=== PATIENT | female | born 1945 | race Caucasian/White ===

== ENCOUNTER → 2017-05-30 04:58 | Emergency (ER) | payer MEDICARE ==
[~2017-05-30 04:58] MED LIST: Morphine INJ* 4 MG/ML 1 ML SYRINGE IV ONE; NS 0.9% 1000 ML* 1,000 ML IV ONE; Ondansetron INJ* 2 MG/ML VIAL IV ONE
[2017-05-30 05:57] LABS: Hematocrit 40 % (35-47); Hemoglobin 13.2 g/dl (12.0-16.0); Mean Corpuscular HGB Conc 33 g/dl (31-36); Mean Corpuscular Hemoglobin 32 pg (27-31); Mean Corpuscular Volume 95 fL (80-97); Mean Platelet Volume 8 um3 (7.4-10.4); Red Blood Count 4.15 10^6/ul (4.0-5.4); Red Cell Distribution Width 14 % (10.5-15); White Blood Count 8.6 10^3/ul (3.5-10.8)
[2017-05-30 06:17] LABS: Albumin 3.7 g/dL (3.2-5.2); BUN/Creatinine Ratio 16.7 (8-20); Calcium 9.3 mg/dL (8.6-10.3); EGFR African American 92.8 (>60); EGFR Non-African American 72.2 (>60); Globulin 3.7 g/dL (2-4); Potassium 3.8 mmol/L (3.5-5.0); Total Bilirubin 0.4 mg/dL (0.2-1.0); Total Protein 7.4 g/dL (6.4-8.9)
[2017-05-30 06:19] LABS: Troponin I 0.01 ng/mL (<0.04)
--- NOTE | 2017-05-30 06:52 | ED ---
García Saunders Rebecca, scribed for Chaitanya Rodriguez MD on 05/30/17 at 0516 . Upper Extremity Pain - HPI Summary HPI Summary: Pt is a 72 y/o F who presents to ED c/o RUE pain and mild swelling s/p cardiac catheterization 5 days ago. Pain began 5 days immediately s/p catheterization and has been constant and worsening since onset. Pain is worst on the forearm and is currently severe, ranked 8/10 and characterized as an aching pain. Sx aggravated by movement and alleviated by nothing, unchanged by Tylenol. Denies CP, numbness, tingling and cough. PMHx blood clot in the LUE. Is on Xarelto to treat A Fib. Does not take ASA or Plavix. Cardiac catheterization done through the radial artery in [place]. Has an appointment with Dr. Hollis today. - History of Current Complaint Chief Complaint: EDExtremityUpper Stated Complaint: RIGHT ARM PAIN//DIFF BREATHING Time Seen by Provider: 05/30/17 05:14 Hx Obtained From: Patient Onset/Duration: Started Days Ago - 5 days ago, Still Present Timing: Constant Severity Currently: Severe - 8/10 Pain Location: Forearm - RUE Character: Aching Aggravating Factor(s): Nothing Alleviating Factor(s): Nothing Associated Signs & Symptoms: Positive: Swelling - Allergies/Home Medications Allergies/Adverse Reactions: Allergies Allergy/AdvReac Type Severity Reaction Status Date / Time Codeine Allergy Intermediate GI Upset Verified 05/09/17 10:52 Lisinopril Allergy Intermediate Coughing Verified 05/09/17 10:52 Spironolactone Allergy Intermediate Dizziness Verified 05/09/17 10:52 Roflumilast [From Dalires] Allergy Unknown Unknown Verified 05/09/17 10:52 Reaction Details Aspirin AdvReac Intermediate Abdominal Verified 05/09/17 10:52 Pain and upset stomach if dose is >81mg PMH/Surg Hx/FS Hx/Imm Hx Endocrine/Hematology History: Reports: Hx Diabetes - TYPE 2, Hx Thyroid Disease Cardiovascular History: Reports: Hx Angina, 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, Hx Congestive Heart Failure - SYSTOLIC HEART FAILURE, Hx Coronary Artery Disease, Hx Hypercholesterolemia, Hx Hypertension - WELL CONTROLLED, Hx Myocardial Infarction, Hx Pacemaker/ICD, Hx Valvular Heart Disease - PAROXYSMAL A-FIB, Other Cardiovascular Problems/Disorders - HX ISCHEMIC CARDIOMYOPATHY, PERICARDIAL EFFUSION 01/17 Respiratory History: Reports: Hx Asthma, Hx Chronic Obstructive Pulmonary Disease (COPD), Hx Pulmonary Embolism, Hx Sleep Apnea Denies: Hx Cystic Fibrosis GI History: Reports: Hx Gastroesophageal Reflux Disease - CONTROL WITH MEDS, Other GI Disorders - OCCASIONAL ESOPHAGEAL SPASMS History: Reports: Hx Kidney Stones - LEFT, Other Problems/Disorders - HX OF SEPSIS, UTI 11/27/15, LEFT URETERAL CALCULUS Musculoskeletal History: Reports: Other Musculoskeletal History - HX SCIATICA LEFT LEG Sensory History: Reports: Hx Cataracts - ASHLEE, Hx Contacts or Glasses - GLASSES Denies: Hx Hearing Aid Opthamlomology History: Reports: Hx Cataracts - ASHLEE, Hx Contacts or Glasses - GLASSES Neurological History: Reports: Other Neuro Impairments/Disorders - RESTLESS LEG SYNDROME - Surgical History Surgery Procedure, Year, and Place: 28 YRS OF AGE- BILAT BUNIONECTOMIES- [facility] [place]. 1967 - [facility]. 1967 APPENDECTOMY- [facility]. 01/11/2015 PACEMAKER/AICD- [facility] [place]. CYSTO WITH STENT INSERTION X3- [facility] [place] Hx Anesthesia Reactions: No Infectious Disease History: Yes Infectious Disease History: Denies: Traveled Outside the [place] in Last 30 Days - Family History Known Family History: Positive: Other - Cataract (brother) - Social History Alcohol Use: None Substance Use Type: Reports: None Smoking Status (MU): Former Smoker Type: Cigarettes Amount Used/How Often: PACK A DAY Length of Time of Smoking/Using Tobacco: 20 Have You Smoked in the Last Year: No Review of Systems Negative: Chest Pain Negative: Cough Positive: Arthralgia - RUE pain and swelling s/p catheterization Neurological: Other - Denies tingling Negative: Numbness All Other Systems Reviewed And Are Negative: Yes Physical Exam - Summary Physical Exam Summary: The patient is well-nourished in mild respiratory distress. The skin is warm and dry and skin color reflects adequate perfusion. HEENT: The head is normocephalic and atraumatic. The pupils are equal and reactive. The conjunctivae are clear and without drainage. Nares are patent and without drainage. Mouth reveals moist mucous membranes and the throat is without erythema and exudate. The external ears are intact. The ear canals are patent and without drainage. The tympanic membranes are intact. Neck is supple with full range of motion and non-tender. There are no carotid bruits. There is no neck vein distension. Respiratory: Chest is non-tender. Lungs are clear to auscultation. Diminished breath sounds on the L side. Cardiovascular: Hear is regular rate and rhythm. There is no murmur or rub auscultated. There is no peripheral edema. Abdomen: The abdomen is soft and non-tender. There are normal bowel sounds heard in all four quadrants and there is no organomegaly palpated. Musculoskeletal: There is no back pain noted. Extremities are non-tender with full range of motion. There is good capillary refill. There is no peripheral edema or calf tenderness elicited. On the RUE she has a palpable radial pulse that feels faint and a faint ulnar pulse with FROM. No bruit heard over the puncture site. RUE is more swollen than her LUE. Good brachial pulses. It is not erythematous or hot. Some ecchymosis. No swelling of the lower extremities. Neurological: Patient is alert and oriented to person, place and time. The patient has symmetrical motor strength in all four extremities. Cranial nerves are grossly intact. Deep tendon reflexes are symmetrical and equal in all four extremities. Psychiatric: The patient has an appropriate affect and does not exhibit any anxiety or depression. Triage Information Reviewed: Yes Vital Signs On Initial Exam: Initial Vitals Temp Pulse Resp BP Pulse Ox 97.8 F 99 18 119/82 95 05/30/17 05:04 05/30/17 05:04 05/30/17 05:04 05/30/17 05:04 05/30/17 05:04 Vital Signs Reviewed: Yes Diagnostics - Vital Signs Vital Signs Temp Pulse Resp BP Pulse Ox 05/30/17 05:08 97.8 F 99 18 119/82 95 05/30/17 05:04 97.8 F 99 18 119/82 95 - Laboratory Lab Results: Lab Results 05/30/17 05/30/17 05/30/17 Range/Units 05:40 05:40 05:40 WBC 8.6 (3.5-10.8) 10^3/ul RBC 4.15 (4.0-5.4) 10^6/ul Hgb 13.2 (12.0-16.0) g/dl Hct 40 (35-47) % MCV 95 (80-97) fL MCH 32 H (27-31) pg MCHC 33 (31-36) g/dl RDW 14 (10.5-15) % Plt Count 235 (150-450) 10^3/ul MPV 8 (7.4-10.4) um3 Neut % (Auto) 43.6 (38-83) % Lymph % (Auto) 38.6 (25-47) % Payette % (Auto) 11.9 H (1-9) % Eos % (Auto) 5.3 (0-6) % Baso % (Auto) 0.6 (0-2) % Absolute Neuts (auto) 3.8 (1.5-7.7) 10^3/ul Absolute Lymphs (auto) 3.3 (1.0-4.8) 10^3/ul Absolute Monos (auto) 1.0 H (0-0.8) 10^3/ul Absolute Eos (auto) 0.5 (0-0.6) 10^3/ul Absolute Basos (auto) 0.1 (0-0.2) 10^3/ul Absolute Nucleated RBC 0 10^3/ul Nucleated RBC % 0 INR (Anticoag Therapy) 1.80 H (0.89-1.11) APTT 39.7 H (26.0-36.3) seconds Sodium 136 (133-145) mmol/L Potassium 3.8 (3.5-5.0) mmol/L Chloride 105 (101-111) mmol/L Carbon Dioxide 23 (22-32) mmol/L Anion Gap 8 (2-11) mmol/L BUN 13 (6-24) mg/dL Creatinine 0.78 (0.51-0.95) mg/dL Est GFR ( Amer) 92.8 (>60) Est GFR (Non-Af Amer) 72.2 (>60) BUN/Creatinine Ratio 16.7 (8-20) Glucose 159 H (70-100) mg/dL Lactic Acid (0.5-2.0) mmol/L Calcium 9.3 (8.6-10.3) mg/dL Total Bilirubin 0.40 (0.2-1.0) mg/dL AST 14 (13-39) U/L ALT 14 (7-52) U/L Alkaline Phosphatase 104 (34-104) U/L Troponin I 0.01 (<0.04) ng/mL Total Protein 7.4 (6.4-8.9) g/dL Albumin 3.7 (3.2-5.2) g/dL Globulin 3.7 (2-4) g/dL Albumin/Globulin Ratio 1.0 (1-3) 05/30/17 Range/Units 05:40 WBC (3.5-10.8) 10^3/ul RBC (4.0-5.4) 10^6/ul Hgb (12.0-16.0) g/dl Hct (35-47) % MCV (80-97) fL MCH (27-31) pg MCHC (31-36) g/dl RDW (10.5-15) % Plt Count (150-450) 10^3/ul MPV (7.4-10.4) um3 Neut % (Auto) (38-83) % Lymph % (Auto) (25-47) % Payette % (Auto) (1-9) % Eos % (Auto) (0-6) % Baso % (Auto) (0-2) % Absolute Neuts (auto) (1.5-7.7) 10^3/ul Absolute Lymphs (auto) (1.0-4.8) 10^3/ul Absolute Monos (auto) (0-0.8) 10^3/ul Absolute Eos (auto) (0-0.6) 10^3/ul Absolute Basos (auto) (0-0.2) 10^3/ul Absolute Nucleated RBC 10^3/ul Nucleated RBC % INR (Anticoag Therapy) (0.89-1.11) APTT (26.0-36.3) seconds Sodium (133-145) mmol/L Potassium (3.5-5.0) mmol/L Chloride (101-111) mmol/L Carbon Dioxide (22-32) mmol/L Anion Gap (2-11) mmol/L BUN (6-24) mg/dL Creatinine (0.51-0.95) mg/dL Est GFR ( Amer) (>60) Est GFR (Non-Af Amer) (>60) BUN/Creatinine Ratio (8-20) Glucose (70-100) mg/dL Lactic Acid 2.4 H* (0.5-2.0) mmol/L Calcium (8.6-10.3) mg/dL Total Bilirubin (0.2-1.0) mg/dL AST (13-39) U/L ALT (7-52) U/L Alkaline Phosphatase (34-104) U/L Troponin I (<0.04) ng/mL Total Protein (6.4-8.9) g/dL Albumin (3.2-5.2) g/dL Globulin (2-4) g/dL Albumin/Globulin Ratio (1-3) Result Diagrams: 05/30/17 05:40 05/30/17 05:40 Lab Statement: Any lab studies that have been ordered have been reviewed, and results considered in the medical decision making process. - EKG 0605 Cardiac Rate: NL - [address] Segment: Non-Specific - Non-specific ST changes Ectopy: PVCs EKG Interpretation: No STEMI Course/Dx - Course Assessment/Plan: Pt is a 72 y/o F who presents to ED c/o severe RUE pain and mild swelling s/p cardiac catheterization 5 days ago. Pain began 5 days immediately s/p catheterization and has been constant and worsening since onset. Pain is worst on the forearm and is currently characterized as an aching pain. Sx aggravated by movement and unchanged by Tylenol. Denies CP, numbness, tingling and cough. PMHx blood clot in the LUE. Is on Xarelto to treat A Fib. Does not take ASA or Plavix. Cardiac catheterization done through the right radial artery in [place], [place]. Has an appointment with Dr. Hollis today. Lactic acid of 2.4, Troponin of 0.01. EKG reveals no STEMI. Pt will be signed out to Dr. Bradley, pending dispo, awaiting VL Upper Extremity. - Diagnoses Differential Diagnosis/HQI/PQRI: Positive: Other - arterial occlusion, thombosis , Provider Diagnoses: Right arm pain Discharge - Discharge Plan Condition: Good Disposition: OTHER Discharge Disposition Comment: Pt will be signed out, pending dispo, awaiting VL Upper Extremity Referrals: Ok Sales MD [Primary Care Provider] - The documentation as recorded by the García alcazar Rebecca accurately reflects the service I personally performed and the decisions made by , Chaitanya Rodriguez MD.
--- NOTE | 2017-05-30 08:51 | RAD ---
Indication: Right upper extremity recent catheterization with pain. Real-time sonography of the upper extremity arterial system was performed. The right subclavian artery, axillary artery, brachial artery are patent, the ulnar artery appear patent. In the area of pain there is no flow with echogenic material in the radial artery. The palmar arch is intact. Retrograde flow is noted in the radial artery distal to the occlusion. IMPRESSION: THERE IS THROMBUS AND OCCLUSION OF THE RADIAL ARTERY AT THE SITE OF PAIN IN THE DISTAL FOREARM.
--- NOTE | 2017-05-30 10:22 | ED ---
I, Darren Brennan, scribed for Humberto Bradley MD on 05/30/17 at 0907 . Progress - Progress Note Progress Note: 72yo female c/o RUE pain. Signout from Dr. Rodriguez, pending Doppler study report. - Results/Orders Results/Orders: VL UPPER EXT ART DUPLEX RIGHT IMPRESSION: THERE IS THROMBUS AND OCCLUSION OF THE RADIAL ARTERY AT THE SITE OF PAIN IN THE DISTAL FOREARM. Course/Dx - Course Course Of Treatment: Discussed to [facility] ED Attending Physician at 1003. `Ms. Johnson was accepted by Dr. Chavarria to evaluate her thrombosed radial artery but she adamantly refused to be transfered by EMS so I discharged her to go straight to the ED at [facility]. Her agreed to take her there. N/V/M is completely intact in her hand at this time. - Diagnoses Provider Diagnoses: Radial artery thrombosis, right The documentation as recorded by the Mika alcazar Benjamin accurately reflects the service I personally performed and the decisions made by me, Humberto Bradley MD.
[2017-05-30 10:30] VITALS: BP 134/81
== END ==
LOC: ED 04:58
DX: I74.2 Embolism and thrombosis of arteries of the upper extremities (principal); M79.601 Pain in right arm
CPT/HCPCS: 36415; 80053; 83605; 84484; 85025; 85610; 85730; 93005; 96374; 96375; 99283; J2270; J2405

== ENCOUNTER 2017-11-09 12:11 | Emergency (ER) | payer MEDICARE ==
--- OUTSIDE RECORDS SUMMARY | 2017-11-09 12:38 | XMS REPORT ---
:1945 External Reference #:[id number] Author Organization [facility] Address [address] [address] Phone [phone] Care Team Providers Name Role Phone Jeovany Glaser MD Primary Care Physician Unavailable Payers Type Date Identification Numbers Payment Provider Subscriber Commercial Effective: Policy Number: BS Facets Ezequiel Johnson 2013 [id number] Expires: 2017 PayID: [id number] [address] [address] DANIEL Rogers [address] Medigap Part B Effective: 2008 Policy Number: [id number] Medicare Nicolasa Johnson PayID: [id number] [address] [place] [address] Medigap Part B Effective: 2010 Policy Number: BS Facets Nicolasa Johnson [id number] Expires: 2010 PayID: [id number] [address] [address] DANIEL Rogers [address] Medigap Part B Policy Number: [id number] [facility] Nicolasa Johnson PayID: [id number] [address] [place] [address] Problems Date Description Provider Status Onset: 04/24/2012 Mitral valve disorder Tyrone Hollis M.D. Active Onset: 04/24/2012 Benign essential hypertension Tyrone Hollis M.D. Active Onset: 04/24/2012 Primary cardiomyopathy Tyrone Hollis M.D. Active Onset: 04/24/2012 Hypoxemia Tyrone Hollis M.D. Active Onset: 01/06/2014 Coronary arteriosclerosis Tyrone Hollis M.D. Active Onset: 01/06/2014 Chest pain Tyrone Hollis M.D. Active Onset: 01/22/2014 Pulmonary emphysema Mohan Villalobos M.D. Onset: 01/22/2014 Dyspnea Mohan Villalobos M.D. Onset: 02/03/2014 Patient post percutaneous Tomasa Burt Active transluminal coronary angioplasty M.D. Onset: 02/03/2014 Electrocardiogram abnormal Mohan Villalobos M.D. Onset: 08/13/2015 Cardiomyopathy, unspecified [place] ECHO Schedule Active Onset: 02/21/2017 Chronic obstructive lung disease Brittany Roper MD Active Onset: 02/21/2017 Obstructive sleep apnea syndrome Brittany Roper MD Active Social History Type Date Description Comments Marital Status Lives With Occupation Retired ETOH Use Denies alcohol use Smoking Patient is a former smoker Quit 2003 Recreational Drug Use Never Used Drugs Daily Caffeine Consumes on average 8oz of soda occasionally when she soda per day has a esophageal spasm Daily Caffeine Consumes on average 1 cup of regular coffee per day Exercise Type/Frequency Does not exercise General Hx Text Allergies, Adverse Reactions, Alerts Date Description Reaction Status Severity Comments 06/06/2007 Codeine Sulfate active gi upset 07/02/2007 Lisinopril active Cough 02/20/2011 Spironolactone active dizziness/GI upset 04/24/2012 Daliresp dizzy weak active Medications Medication Date Status Form Strength Qnty SIG Indications Ordering Provider Kristino Ellipta 11/09 Active Aerosol 100-25mcg 60uni 1 puff Brittany /Inh ts inhaled Jacquelin, daily Incfelix Ellipta 11/09 Active Aerosol 62.5mcg/I 90uni inhale one Brittany nh ts puff by Jacquelin, mouth every MD day Nebulizer 09/25 Active Kit 1unit 1 unit J44.9 Brittany Kit/Tubing/Mout /2016 s nebulization Jacquelin, hpiece every 4- 6 MD hours as needed Magnesium 07/31 Active Solution 2GM/50ML 3gm 3 gm iv Tyrone Sulfate /2016 Arya Hollis M.D. Inspra 07/18 Active Tablets 25mg 2 by mouth every day Arya Hollis M.D. Butalbital/Acet 07/17 Active Capsules 50-300-40 prn Unknown aminophen/Caffe mg ine Lipitor 01/15 Active Tablets 10mg 45tab 1/2 by mouth s every night F. at bedtime Dash Hollis Xarelto 02/23 Active Tablets 20mg 90tab take one I48.0 s tablet by F. mouth once arturo Hollis M.D. Metformin HCL 01/06 Active Tablets 500mg 1 tablet po Mid twice daily MD Jeovany Magnesium 08/04 Active Capsules 400mg 180ca 1 by mouth ps bid Arya Hollis M.D. Nitrostat 08/02 Active Tablets Sub 0.4mg 25tab one sl q5min R07.9 s up to 3 F. doses as jess Hollis M.D. Torsemide 03/19 Active Tablets 10mg 45tab 1 by mouth s every other F. day Dash Hollis Digoxin 02/15 Active Tablets 125mcg 90tab 1 by mouth s daily Arya Hollis M.D. Valsartan 09/23 Active Tablets 40mg 45tab take s one-half F. tablet by lynette Hollis once M.DNathaly daily Carvedilol 09/08 Active Tablets 12.5mg 180ta 1 by mouth bs twice a day Arya Hollis M.D. Oxygen 08/02 Active Titrate to conserving F. device to freeman Hollis stats MNathalyDNathaly above 90% Oxygen 05/20 Active 2L Portable tank Dx: low F. o2 sats betzaida Hollis M.D. ambulating (pt usues 3L when walking) Protonix 02/06 Active Packet 40mg 1/2 po qd Arya Hollis M.D. Ventolin HFA Active Aerosol 108(90Bas 1mont 2 puffs po Unknown e) mcg/ac h qid prn Levothyroxine Active Tablets 50mcg 1 po qd Unknown Cpap Active Device 1unit nightly s Coq-10 Active 200mg 1 tablet daily at F. bedtime Dash Hollis Prednisone Active Tablets 5mg 1 by mouth every other day Sotalol HCL Active Tablets 80mg 1 tab by mouth twice a day Librax 07/17 Hx Capsules 5-2.5mg prn /2016 - 09/03 Inspra 06/12 Hx Tablets 50mg 30tab s . Bunny, 07/17 M.D. Eliquis 09/02 Hx Tablets 5mg 60tab take 1 tab I48.0 s by mouth F. Bunny, 02/23 hours M.D. Klor-Con 10 05/04 Hx Tablets ER 10Meq 30tab 1 by mouth I48.0 s every day . - Bunny, 02/13 M.D. Inspra 04/01 Hx Tablets 25mg 180ta 2 by mouth bs every day . - Bunny, 06/12 M.D. Inspra 02/12 Hx Tablets 25mg 100ta 1 by mouth bs every day . - Bunny, 04/01 M.D. Insp12/16 Hx Tablets 25mg 200ta 2 by mouth bs every day . - Bunny, 02/12 M.D. Inspra 11/10 Hx Tablets 25mg 30tab 1 by mouth s every day . - Bunny, 12/16 M.D. Klor-Con M10 10/09 Hx Tablets ER 10Meq 30tab 1 tab by s mouth every . - 2-3 days. Bunny, 05/03 M.D. Aspirin 09/08 Hx Chewtabs 81mg 1 by mouth every day Arya Hollis, 02/08 M.D. Losartan 09/08 Hx Tablets 25mg 90tab 1 by mouth Tyrone Potassium /2013 s every day Arya Hollis, 09/22 M.D. Clopidogrel 08/24 Hx Tablets 75mg 90tab 1 by mouth Tyrone Bisulfate /2013 s every day Arya Hollis, 02/08 M.D. Diltiazem CD 01/12 Hx Caps ER 120mg 100ca 1 po qd 24HR ps Arya Hollis, 09/08 M.D. Nitro-Dur 01/06 Hx Patches 0.1mg/HR 30uni 1 to chest 414. 24HR ts wall on qam F. - off qpm Bunny, 09/07 M.D. Aspirin 03/05 Hx Tablets 100ta 1 po qd titi Hollis, 01/05 M.D. Potassium 05/20 Hx Tablets ER 20Meq 30tab 1 po qd Tyrone Chloride s Arya Hollis, 01/05 M.D. Furosemide 04/24 Hx Tablets 20mg 30tab 1 po qd s Arya Hollis, 09/07 M.D. Carvedilol 03/04 Hx Tablets 12.5mg 180ta 1 tablet bid Arya Hollis, 09/07 M.D. Carvedilol 04/04 Hx Tablets 25mg 1/2 po bid Arya Hollis, 03/04.D. Diovan 03/08 Hx Tablets 40mg 90tab 1 po qd s Arya Hollis, 01/12 M.D. Spironolactone 02/13 Hx Tablets 25mg 100ta 1 po qd Arya Hollis, 02/20 M.D. Norvasc 01/20 Hx Tablets 5mg 2tabs 1 po day of stress Arya Hollis, 03/30 M.D. Nitro-Dur 11/29 Hx Patches 0.2mg/HR 30uni 1 patch qd 24HR ts Arya Hollis, 02/06 on in the M.D. Am off in the PM Lasix 11/29 Hx Tablets 20mg 30tab 1 PO qd prn s Edema F. - Mauser, 01/20 M.D. Coreg 11/29 Hx Tablets 25mg 180ta 1 po bid bs Arya Hollis, 04/04 M.D. Combivent 10/30 Hx Aerosol 2 Puffs PO 3-4x/day F. Juan Hollis, 01/20 M.D. Coreg CR 10/30 Hx Caps ER 80mg 90cap 1 po qd 24HR s F. - Bunny, 11/29 M.D. Diovan 10/30 Hx Tablets 80mg 90tab 1 po qd s Arya Hollis, 03/08.D. Coreg CR 09/23 Hx Caps ER 40mg 1 po qd 24HR F. - Mauser, 10/30 M.D. Singulair 08/20 Hx Chewtabs Unknown 30uni 1 po qd ts F. Juan Hollis, 08/20.D Zyrtec 08/20 Hx Tablets 10mg 90tab 1 PO qd s F. - Mauser, 09/23.D. Singulair 08/20 Hx Tablets 10mg 30tab 1 PO Qd s F. - Mauser, 09/23 M.D. Cozaar 08/20 Hx Tablets 50mg 180ta 1 po bid bs F. Juan oHllis, 10/30.D. Coreg CR 07/02 Hx Caps ER 20mg 90cap 1 po qd 24HR s F. - Mauser, 09/23 M.D. Coreg CR 06/14 Hx Caps ER 10mg 30cap 1 po qd. 24HR s F. - Mauser, 07/02 M.D. Aspirin 06/14 Hx Chewtabs 81mg 30uni 1 PO qod ts Arya Hollis, 09/08 M.D. Lasix 06/05 Hx Tablets 20mg 30tab 1 po mon and s sunday Arya Hollis, 11/29 M.D. Lisinopril 06/05 Hx Tablets 2.5mg 90tab 1 po qd s Arya Hollis, 07/02 M.D. Lipitor 06/05 Hx Tablets 20mg 30tab / tab s every night Arya Hollis, 01/15 M.D. /2016 Prilosec 06/[address] 20mg 30cap 1 PO qam s Arya Hollis, 02/06 M.D. Omacor 06/05 Hx Capsules 1gm 90cap 3 PO qd s Arya Hollis, 03/30 M.D. Combivent 06/05 Hx Aerosol Arya Hollis, 10/30 M.D. Xopenex 06/05 Hx Nebulizer 1.25mg/3M prn Efren Hollis, 01/20 M.D. /2008 Astelin 06/05 Hx Solution 137mcg/Sp 1 po prn goyo Hollis, 08/20 M.D. /2006 Estrace 06/05 Hx Tablets mg 1 qd prn Arya Hollis, 02/13 M.D. /2010 Ammonium 06/05 Hx Cream 12% as directed Arya Hollis, 10/30 M.D. Proventil HFA Hx Aerosol 108mcg/Ac 1Mon 2 puff(s) Unknown /0000 t inhalation 1 - qid prn 03/30 Spiriva 00 Hx Capsules 18mcg 30cap 1 inhalation Unknown Handihaler /0000 s qam - 11/09 Singulair 00 Hx Tablets 10mg 90tab 1 po qd Unknown /0000 s - 01/07 /2015 Symbicort 0000 Hx Aerosol 80-4.5mcg 1mont 2 puffs Unknown /0000 /Act h inhaled bid - 03/30 Fish Oil/Kayenta Hx Oil 1200mg/36 1 in pm Unknown 3 0000 0mg - 01/05 Proair HFA Hx Aerosol 108(90Bas 2 puffs ih Unknown /0000 e) mcg/ac q6h prn - 06/21 Pulmicort Hx Suspension 0.25mg/2M 1 neb bid Unknown /0000 L - 02/13 Brovana Hx Nebulizer 15mcg/2ML 60uni 1 ud inhaler Unknown /0000 ts bid - 06/21 Budesonide Hx Suspension 0.25mg/2M 1mont bid via Unknown /0000 L abdalla nebulizer - 06/21 Symbicort Hx Aerosol 160-4.5mc 1unit 2 puffs po Unknown /0000 g/Act s bid - 11/09 Prednisone 00/00 Hx Tablets 5mg 70tab 1 po bid prn Unknown /0000 s - 01/05 Nitrostat 00 Hx Tablets Sub 0.4mg 25tab one sl q5min Unknown /0000 s up to 3 - doses prn 01/05 Amlodipine 00/ Hx Tablets 2.5mg 30tab 1 po qd for Unknown Besylate /0000 s esophageal - spasm 06/10 Levothyroxine 00/ Hx Tablets 25mcg 90tab 1 po qd Unknown Sodium /0000 s - 01/05 Aspirin 00/ Hx Tablets 81mg 1 po qd Unknown /0000 - 09/08 Lorazepam 00/00 Hx Tablets 1mg 90tab 1 po qd Unknown /0000 s - 09/07 Warfarin Sodium 00/00 Hx Tablets 2mg take as Unknown /0000 directed - 05/03 Xarelto 00 Hx Tablets 20mg 1 by mouth Unknown /0000 every day - 09/02 Vital Signs Date Vital Result Comment 11/09/2017 Height 62 inches 5'2" Weight 151.00 lb Heart Rate 68 /min BP Systolic Sitting 138 mmHg BP Diastolic Sitting 88 mmHg Respiratory Rate 14 /min O2 % BldC Oximetry 92 % BMI (Body Mass Index) 27.6 kg/m2 09/25/2017 Height 62 inches 5'2" Weight 151.50 lb Heart Rate 88 /min BP Systolic Sitting 106 mmHg BP Diastolic Sitting 60 mmHg Respiratory Rate 14 /min O2 % BldC Oximetry 95 % BMI (Body Mass Index) 27.7 kg/m2 09/17/2017 Height 62 inches 5'2" Weight 153.25 lb with shoes Heart Rate 72 /min BP Systolic Sitting 122 mmHg LA reg cuff BP Diastolic Sitting 74 mmHg LA reg cuff BMI (Body Mass Index) 28.0 kg/m2 Ejection Fraction 20%-25% echo 05/09/17 09/04/2017 Height 62 inches 5'2" Weight 151.00 lb with shoes Heart Rate 80 /min BP Systolic Sitting 128 mmHg LA reg cuff BP Diastolic Sitting 74 mmHg LA reg cuff BMI (Body Mass Index) 27.6 kg/m2 Ejection Fraction 20% - 25% echo 05/09/17 07/18/2017 Height 62 inches 5'2" Weight 147.25 lb Heart Rate 76 /min reg BP Systolic Sitting 122 mmHg BP Diastolic Sitting 84 mmHg O2 % BldC Oximetry 95 % room air BMI (Body Mass Index) 26.9 kg/m2 Ejection Fraction 20%-25% 05/09/17 05/31/2017 Height 62 inches 5'2" Weight 147.00 lb with shoes Heart Rate 89 /min BP Systolic Sitting 102 mmHg LA reg cuff BP Diastolic Sitting 72 mmHg LA reg cuff BMI (Body Mass Index) 26.9 kg/m2 Ejection Fraction 20% - 25% echo 05/29/17 05/09/2017 Heart Rate 95 /min BP Systolic 161 mmHg off meds/prior to cancelled stress test. BP Diastolic 99 mmHg off meds/prior to cancelled stress test. 04/24/2017 Height 62 inches 5'2" Heart Rate 96 /min BP Systolic Sitting 132 mmHg BP Diastolic Sitting 90 mmHg Respiratory Rate 18 /min Pain Level 0 O2 % BldC Oximetry 95 % 2017 Height 62 inches 5'2" Weight 149.50 lb with shoes Heart Rate 90 /min BP Systolic Sitting 120 mmHg Ra lrg cuff BP Diastolic Sitting 70 mmHg Ra lrg cuff BMI (Body Mass Index) 27.3 kg/m2 Ejection Fraction 35-40% echo 03/19/17 02/21/2017 Height 62 inches 5'2" Weight 142.00 lb Heart Rate 98 /min BP Systolic Sitting 104 mmHg BP Diastolic Sitting 57 mmHg Respiratory Rate 20 /min Pain Level 0 BMI (Body Mass Index) 26.0 kg/m2 01/15/2017 Height 62 inches 5'2" Weight 151.25 lb with shoes Heart Rate 88 /min BP Systolic Sitting 120 mmHg Ra lrg cuff BP Diastolic Sitting 76 mmHg Ra lrg cuff BP Systolic Standing 98 mmHg la repeat sitting BP Diastolic Standing 53 mmHg la repeat sitting BMI (Body Mass Index) 27.7 kg/m2 Ejection Fraction 40% - 45% echo 02/10/16 06/22/2016 Height 62 inches 5'2" Weight 144.00 lb w/shoes Heart Rate 74 /min BP Systolic Sitting 132 mmHg LA lg cuff BP Diastolic Sitting 90 mmHg LA lg cuff BP Systolic Standing 134 mmHg la repeat sitting BP Diastolic Standing 82 mmHg la repeat sitting BMI (Body Mass Index) 26.3 kg/m2 Ejection Fraction 40-45% Echo 02/10/16 02/24/2016 Height 62 inches 5'2" Weight 147.00 lb with shoes Heart Rate 92 /min BP Systolic 116 mmHg Ra reg cuff BP Diastolic 68 mmHg Ra reg cuff BMI (Body Mass Index) 26.9 kg/m2 Ejection Fraction 40% - 45% ECHO 02/10/16 01/26/2016 Height 62 inches 5'2" Weight 147.00 lb at home Heart Rate 86 /min BP Systolic Sitting 90 mmHg LA lg cuff BP Diastolic Sitting 60 mmHg LA lg cuff BP Systolic Recheck 112 mmHg la repeat sit BP Diastolic Recheck 61 mmHg la repeat sit Respiratory Rate 17 /min BMI (Body Mass Index) 26.9 kg/m2 Ejection Fraction 35-40% date 08/13/15 ECHO 09/02/2015 Height 62 inches 5'2" Weight 153.00 lb Heart Rate 82 /min BP Systolic Sitting 100 mmHg right arm, reg cuff BP Diastolic Sitting 66 mmHg right arm, reg cuff BMI (Body Mass Index) 28.0 kg/m2 Ejection Fraction 35-40% 08/13/15 08/02/2015 Height 62 inches 5'2" Weight 152.00 lb Heart Rate 74 /min BP Systolic 138 mmHg LA reg BP Diastolic 80 mmHg LA reg BP Systolic Sitting 137 mmHg repeat la BP Diastolic Sitting 73 mmHg repeat la O2 % BldC Oximetry 96 % Ra BMI (Body Mass Index) 27.8 kg/m2 Ejection Fraction 35-40% 03/15/15 ECHO 05/04/2015 Height 62 inches 5'2" Weight 150.00 lb w/shoes Heart Rate 70 /min BP Systolic Sitting 112 mmHg Ra reg cuff BP Diastolic Sitting 68 mmHg Ra reg cuff Respiratory Rate 12 /min BMI (Body Mass Index) 27.4 kg/m2 Ejection Fraction 35-40 echo 03/15/15 04/01/2015 Height 62 inches 5'2" Weight 149.00 lb Heart Rate 80 /min BP Systolic 136 mmHg Ra reg BP Diastolic 92 mmHg Ra reg BP Systolic Sitting 136 mmHg la repeat sitting BP Diastolic Sitting 74 mmHg la repeat sitting BMI (Body Mass Index) 27.2 kg/m2 Ejection Fraction 35-40% ECHO 03/15/15 02/09/2015 Height 62 inches 5'2" Weight 145.00 lb Heart Rate 72 /min BP Systolic Sitting 92 mmHg right arm, reg cuff BP Diastolic Sitting 60 mmHg right arm, reg cuff Respiratory Rate 20 /min BMI (Body Mass Index) 26.5 kg/m2 01/01/2015 Height 62 inches 5'2" Weight 152.00 lb Heart Rate 86 /min BP Systolic Sitting 102 mmHg LA, reg cuff BP Diastolic Sitting 74 mmHg LA, reg cuff BP Systolic Standing 100 mmHg LA BP Diastolic Standing 60 mmHg LA Respiratory Rate 16 /min BMI (Body Mass Index) 27.8 kg/m2 12/18/2014 Height 62 inches 5'2" Weight 158.00 lb Heart Rate 80 /min BP Systolic Sitting 128 mmHg Ra reg cuff BP Diastolic Sitting 82 mmHg Ra reg cuff BP Systolic Standing 122 mmHg Ra BP Diastolic Standing 80 mmHg Ra Respiratory Rate 14 /min BMI (Body Mass Index) 28.9 kg/m2 12/16/2014 Height 62 inches 5'2" Weight 157.00 lb Heart Rate 76 /min BP Systolic 124 mmHg LA reg BP Diastolic 80 mmHg LA reg BMI (Body Mass Index) 28.7 kg/m2 11/12/2014 Height 62 inches 5'2" Weight 161.00 lb Heart Rate 60 /min reg BP Systolic 171 mmHg LA reg BP Diastolic 90 mmHg LA reg BMI (Body Mass Index) 29.4 kg/m2 09/08/2014 Height 62 inches 5'2" Weight 161.25 lb Heart Rate 84 /min BP Systolic 126 mmHg repeat la sit BP Diastolic 81 mmHg repeat la sit BP Systolic Sitting 150 mmHg LA reg cuff BP Diastolic Sitting 90 mmHg LA reg cuff Respiratory Rate 16 /min BMI (Body Mass Index) 29.5 kg/m2 02/03/2014 Heart Rate 72 /min BP Systolic Sitting 120 mmHg BP Diastolic Sitting 82 mmHg 01/22/2014 Height 62 inches 5'2" Weight 175.00 lb Heart Rate 83 /min BP Systolic Sitting 136 mmHg LA, reg cuff BP Diastolic Sitting 84 mmHg LA, reg cuff BP Systolic Standing 138 mmHg LA BP Diastolic Standing 84 mmHg LA Respiratory Rate 18 /min BMI (Body Mass Index) 32.0 kg/m2 01/06/2014 Height 62 inches 5'2" Weight 175.75 lb Heart Rate 88 /min BP Systolic Sitting 130 mmHg left arm, large cuff BP Diastolic Sitting 92 mmHg left arm, large cuff BP Systolic Standing 126 mmHg left arm, large cuff BP Diastolic Standing 88 mmHg left arm, large cuff Respiratory Rate 20 /min BMI (Body Mass Index) 32.1 kg/m2 03/05/2013 Height 62 inches 5'2" Weight 175.75 lb Heart Rate 72 /min BP Systolic Sitting 160 mmHg BP Diastolic Sitting 100 mmHg BMI (Body Mass Index) 32.1 kg/m2 04/24/2012 Height 62 inches 5'2" Weight 173.00 lb Heart Rate 83 /min BP Systolic Sitting 144 mmHg BP Diastolic Sitting 90 mmHg BMI (Body Mass Index) 31.6 kg/m2 06/21/2011 Height 62 inches 5'2" Weight 169.00 lb Heart Rate 76 /min BP Systolic Sitting 124 mmHg L BP Diastolic Sitting 90 mmHg L O2 % BldC Oximetry 96 % BMI (Body Mass Index) 30.9 kg/m2 02/13/2011 Height 62 inches 5'2" Weight 171.00 lb Heart Rate 78 /min BP Systolic 120 mmHg BP Diastolic 80 mmHg Respiratory Rate 18 /min O2 % BldC Oximetry 96 % BMI (Body Mass Index) 31.3 kg/m2 03/30/2010 Height 62 inches 5'2" Weight 168.00 lb Heart Rate 79 /min BP Systolic Sitting 126 mmHg BP Diastolic Sitting 84 mmHg BMI (Body Mass Index) 30.7 kg/m2 01/20/2009 Height 62 inches 5'2" Weight 170.00 lb Heart Rate 83 /min BP Systolic Sitting 124 mmHg BP Diastolic Sitting 90 mmHg BP Systolic Standing 120 mmHg BP Diastolic Standing 84 mmHg O2 % BldC Oximetry 91 % BMI (Body Mass Index) 31.1 kg/m2 07/08/2008 Height 62 inches 5'2" Weight 164.00 lb Heart Rate 67 /min BP Systolic Sitting 160 mmHg L BP Diastolic Sitting 84 mmHg L O2 % BldC Oximetry 97 % BMI (Body Mass Index) 30.0 kg/m2 02/07/2008 Height 62 inches 5'2" Weight 161.00 lb Heart Rate 72 /min BP Systolic Sitting 124 mmHg L BP Diastolic Sitting 82 mmHg L O2 % BldC Oximetry 95 % BMI (Body Mass Index) 29.4 kg/m2 11/29/2007 Height 62 inches 5'2" Weight 160.00 lb Heart Rate 72 /min BP Systolic Sitting 122 mmHg L BP Diastolic Sitting 78 mmHg L BMI (Body Mass Index) 29.3 kg/m2 10/30/2007 Height 62 inches 5'2" Weight 160.00 lb Heart Rate 84 /min reg BP Systolic Sitting 126 mmHg BP Diastolic Sitting 80 mmHg BP Systolic Standing 120 mmHg BP Diastolic Standing 80 mmHg BMI (Body Mass Index) 29.3 kg/m2 09/23/2007 Height 62 inches 5'2" Weight 156.00 lb Heart Rate 80 /min BP Systolic Sitting 140 mmHg BP Diastolic Sitting 84 mmHg Respiratory Rate 18 /min BMI (Body Mass Index) 28.5 kg/m2 08/20/2007 Height 62 inches 5'2" Weight 156.00 lb Heart Rate 68 /min BP Systolic Sitting 130 mmHg BP Diastolic Sitting 90 mmHg Respiratory Rate 14 /min BMI (Body Mass Index) 28.5 kg/m2 07/25/2007 Height 62 inches 5'2" Weight 152.00 lb Heart Rate 64 /min BP Systolic Sitting 130 mmHg R BP Diastolic Sitting 84 mmHg R BP Systolic Standing 134 mmHg R BP Diastolic Standing 70 mmHg R BMI (Body Mass Index) 27.8 kg/m2 07/02/2007 Height 62 inches 5'2" Weight 152.00 lb Heart Rate 80 /min BP Systolic Sitting 120 mmHg BP Diastolic Sitting 80 mmHg Respiratory Rate 20 /min O2 % BldC Oximetry 92 % BMI (Body Mass Index) 27.8 kg/m2 06/14/2007 Weight 153.00 lb Heart Rate 68 /min BP Systolic Sitting 120 mmHg BP Diastolic Sitting 80 mmHg Respiratory Rate 20 /min Results Test Date Test Result H/L Range Note CBC Auto Diff 09/07/2017 White Blood Count 9.2 10^3/uL 3.5-10.8 Red Blood Count 4.06 10^6/uL 4.0-5.4 Hemoglobin 13.0 g/dL 12.0-16.0 Hematocrit 38 % 35-47 Mean Corpuscular Volume 94 fL 80-97 Mean Corpuscular Hemoglobin 32 pg High 27-31 Mean Corpuscular HGB Conc 34 g/dL 31-36 Red Cell Distribution Width 14 % 10.5-15 Platelet Count 278 10^3/uL 150-450 Mean Platelet Volume 9 um3 7.4-10.4 Abs Neutrophils 4.4 10^3/uL 1.5-7.7 Abs Lymphocytes 3.7 10^3/uL 1.0-4.8 Abs Monocytes 0.9 10^3/uL High 0-0.8 Abs Eosinophils 0.1 10^3/uL 0-0.6 Abs Basophils 0 10^3/uL 0-0.2 Abs Nucleated RBC 0.01 10^3/uL Granulocyte % 48.0 % 38-83 Lymphocyte % 40.1 % 25-47 Monocyte % 10.0 % High 1-9 Eosinophil % 1.5 % 0-6 Basophil % 0.4 % 0-2 Nucleated Red Blood Cells % 0.1 Laboratory test finding 09/07/2017 B-Type Natriuretic Peptide 34 pg/mL 1 BNP Basic Metabolic Panel 09/07/2017 Sodium 137 mmol/L 133-145 Potassium 4.3 mmol/L 3.5-5.0 Chloride 104 mmol/L 101-111 Co2 Carbon Dioxide 25 mmol/L 22-32 Anion Gap 8 mmol/L 2-11 Glucose 135 mg/dL High 70-100 Blood Urea Nitrogen 15 mg/dL 6-24 Creatinine 0.86 mg/dL 0.51-0.95 BUN/Creatinine Ratio 17.4 8-20 Calcium 9.7 mg/dL 8.6-10.3 Egfr Non- 64.5 >60 Egfr 83.0 >60 2 Laboratory test finding 09/07/2017 Magnesium 1.7 mg/dL Low 1.9-2.7 Basic Metabolic Panel 08/25/2017 Sodium 137 mmol/L 133-145 Potassium 4.4 mmol/L 3.5-5.0 Chloride 102 mmol/L 101-111 Co2 Carbon Dioxide 28 mmol/L 22-32 Anion Gap 7 mmol/L 2-11 Glucose 161 mg/dL High 70-100 Blood Urea Nitrogen 23 mg/dL 6-24 Creatinine 0.84 mg/dL 0.51-0.95 BUN/Creatinine Ratio 27.4 High 8-20 Calcium 10.1 mg/dL 8.6-10.3 Egfr Non- 66.3 >60 Egfr 85.2 >60 3 Laboratory test finding 08/25/2017 Magnesium 1.8 mg/dL Low 1.9-2.7 4 Basic Metabolic Panel 08/21/2017 Sodium 137 mmol/L 133-145 Potassium 4.4 mmol/L 3.5-5.0 Chloride 103 mmol/L 101-111 Co2 Carbon Dioxide 26 mmol/L 22-32 Anion Gap 8 mmol/L 2-11 Glucose 144 mg/dL High 70-100 Blood Urea Nitrogen 17 mg/dL 6-24 Creatinine 0.79 mg/dL 0.51-0.95 BUN/Creatinine Ratio 21.5 High 8-20 Calcium 9.6 mg/dL 8.6-10.3 Egfr Non- 71.1 >60 Egfr 91.5 >60 5 Laboratory test finding 08/21/2017 Magnesium 1.6 mg/dL Low 1.9-2.7 6 Basic Metabolic Panel 08/10/2017 Sodium 133 mmol/L 133-145 Potassium 5.0 mmol/L 3.5-5.0 Chloride 101 mmol/L 101-111 Co2 Carbon Dioxide 23 mmol/L 22-32 Anion Gap 9 mmol/L 2-11 Glucose 164 mg/dL High 70-100 Blood Urea Nitrogen 19 mg/dL 6-24 Creatinine 0.89 mg/dL 0.51-0.95 BUN/Creatinine Ratio 21.3 High 8-20 Calcium 9.6 mg/dL 8.6-10.3 Egfr Non- 62.0 >60 Egfr 79.7 >60 7 Laboratory test finding 08/10/2017 Magnesium 1.7 mg/dL Low 1.9-2.7 Basic Metabolic Panel 08/02/2017 Sodium 138 mmol/L 133-145 Potassium 4.1 mmol/L 3.5-5.0 Chloride 105 mmol/L 101-111 Co2 Carbon Dioxide 24 mmol/L 22-32 Anion Gap 9 mmol/L 2-11 Glucose 135 mg/dL High 70-100 Blood Urea Nitrogen 11 mg/dL 6-24 Creatinine 0.76 mg/dL 0.51-0.95 BUN/Creatinine Ratio 14.5 8-20 Calcium 9.1 mg/dL 8.6-10.3 Egfr Non- 74.4 >60 Egfr 95.7 >60 8 Laboratory test finding 08/02/2017 Magnesium 1.6 mg/dL Low 1.9-2.7 9 Basic Metabolic Panel 07/31/2017 Sodium 138 mmol/L 133-145 Potassium 4.0 mmol/L 3.5-5.0 Chloride 104 mmol/L 101-111 Co2 Carbon Dioxide 24 mmol/L 22-32 Anion Gap 10 mmol/L 2-11 Glucose 156 mg/dL High 70-100 Blood Urea Nitrogen 16 mg/dL 6-24 Creatinine 0.96 mg/dL High 0.51-0.95 BUN/Creatinine Ratio 16.7 8-20 Calcium 9.3 mg/dL 8.6-10.3 Egfr Non- 56.8 >60 Egfr 73.1 >60 10 Laboratory test finding 07/31/2017 Magnesium 1.3 mg/dL Low 1.9-2.7 Laboratory test finding 07/16/2017 Digoxin 0.7 ng/ml Low 0.8-2.0 11 Basic Metabolic Panel 07/16/2017 Sodium 136 mmol/L 133-145 Potassium 4.3 mmol/L 3.5-5.0 Chloride 101 mmol/L 101-111 Co2 Carbon Dioxide 26 mmol/L 22-32 Anion Gap 9 mmol/L 2-11 Glucose 135 mg/dL High 70-100 Blood Urea Nitrogen 16 mg/dL 6-24 Creatinine 0.78 mg/dL 0.51-0.95 BUN/Creatinine Ratio 20.5 High 8-20 Calcium 9.9 mg/dL 8.6-10.3 Egfr Non- 72.2 >60 Egfr 92.8 >60 12 Basic Metabolic Panel 06/15/2017 Sodium 132 mmol/L Low 133-145 Potassium 5.0 mmol/L 3.5-5.0 Chloride 101 mmol/L 101-111 Co2 Carbon Dioxide 23 mmol/L 22-32 Anion Gap 8 mmol/L 2-11 Glucose 231 mg/dL High 70-100 Blood Urea Nitrogen 21 mg/dL 6-24 Creatinine 0.85 mg/dL 0.51-0.95 BUN/Creatinine Ratio 24.7 High 8-20 Calcium 9.7 mg/dL 8.6-10.3 Egfr Non- 65.4 >60 Egfr 84.1 >60 13 Laboratory test finding 06/15/2017 B-Type Natriuretic Peptide 31 pg/mL 14 BNP Basic Metabolic Panel 02/21/2017 Sodium 138 mmol/L 133-145 Potassium 4.2 mmol/L 3.5-5.0 Chloride 104 mmol/L 101-111 Co2 Carbon Dioxide 24 mmol/L 22-32 Anion Gap 10 mmol/L 2-11 Glucose 145 mg/dL High 70-100 Blood Urea Nitrogen 16 mg/dL 6-24 Creatinine 0.79 mg/dL 0.51-0.95 BUN/Creatinine Ratio 20.3 High 8-20 Calcium 9.6 mg/dL 8.6-10.3 Egfr Non- 71.3 >60 Egfr 91.7 >60 15 Laboratory test finding 02/21/2017 Digoxin 1.3 ng/ml 0.8-2.0 16 [facility]id Panel - [facility] 01/23/2017 Creatine Kinase(CK) 38 U/L 10-223 Comp Metabolic Panel 01/23/2017 Sodium 137 mmol/L 133-145 Potassium 4.1 mmol/L 3.5-5.0 Chloride 104 mmol/L 101-111 Co2 Carbon Dioxide 22 mmol/L 22-32 Anion Gap 11 mmol/L 2-11 Glucose 170 mg/dL High 70-100 Blood Urea Nitrogen 17 mg/dL 6-24 Creatinine 0.94 mg/dL 0.51-0.95 BUN/Creatinine Ratio 18.1 8-20 Calcium 9.6 mg/dL 8.6-10.3 Total Protein 7.1 g/dL 6.4-8.9 Albumin 4.0 g/dL 3.2-5.2 Globulin 3.1 g/dL 2-4 Albumin/Globulin Ratio 1.3 1-3 Total Bilirubin 0.50 mg/dL 0.2-1.0 Alkaline Phosphatase 101 U/L 34-104 Alt 15 U/L 7-52 Ast 17 U/L 13-39 Egfr Non- 58.4 >60 Egfr 75.1 >60 17 Lipid Profile (Trig/Chol/HDL) 01/23/2017 Triglycerides 310 mg/dL 18 Cholesterol 125 mg/dL 19 HDL Cholesterol 34.0 mg/dL 20 LDL Cholesterol 29 mg/dL 21 CBC Auto Diff 01/23/2017 White Blood Count 8.7 10^3/uL 3.5-10.8 Red Blood Count 4.11 10^6/uL 4.0-5.4 Hemoglobin 13.2 g/dL 12.0-16.0 Hematocrit 39 % 35-47 Mean Corpuscular Volume 95 fL 80-97 Mean Corpuscular Hemoglobin 32 pg High 27-31 Mean Corpuscular HGB Conc 34 g/dL 31-36 Red Cell Distribution Width 13 % 10.5-15 Platelet Count 229 10^3/uL 150-450 Mean Platelet Volume 9 um3 7.4-10.4 Abs Neutrophils 3.9 10^3/uL 1.5-7.7 Abs Lymphocytes 3.6 10^3/uL 1.0-4.8 Abs Monocytes 0.9 10^3/uL High 0-0.8 Abs Eosinophils 0.3 10^3/uL 0-0.6 Abs Basophils 0.1 10^3/uL 0-0.2 Abs Nucleated RBC 0 10^3/uL Granulocyte % 44.5 % 38-83 Lymphocyte % 41.5 % 25-47 Monocyte % 10.2 % High 1-9 Eosinophil % 3.1 % 0-6 Basophil % 0.7 % 0-2 Nucleated Red Blood Cells % 0 Laboratory test finding 01/23/2017 Digoxin 0.5 ng/ml Low 0.8-2.0 B-Type Natriuretic Peptide BNP 31 pg/mL 22 Laboratory test finding 09/29/2016 Digoxin 0.5 ng/ml Low 0.8-2.0 23 Basic Metabolic Panel 09/29/2016 Sodium 135 mmol/L 133-145 Potassium 4.1 mmol/L 3.5-5.0 Chloride 104 mmol/L 101-111 Co2 Carbon Dioxide 23 mmol/L 22-32 Anion Gap 8 mmol/L 2-11 Glucose 113 mg/dL High 70-100 Blood Urea Nitrogen 26 mg/dL High 6-24 Creatinine 0.96 mg/dL High 0.51-0.95 BUN/Creatinine Ratio 27.1 High 8-20 Calcium 9.8 mg/dL 8.6-10.3 Egfr Non- 57.0 >60 Egfr 73.3 >60 24 Laboratory test finding 08/14/2016 Digoxin 2.1 ng/ml High 0.8-2.0 25 Basic Metabolic Panel 08/14/2016 Sodium 137 mmol/L 133-145 Potassium 3.9 mmol/L 3.5-5.0 Chloride 104 mmol/L 101-111 Co2 Carbon Dioxide 24 mmol/L 22-32 Anion Gap 9 mmol/L 2-11 Glucose 125 mg/dL High 70-100 Blood Urea Nitrogen 19 mg/dL 6-24 Creatinine 0.93 mg/dL 0.51-0.95 BUN/Creatinine Ratio 20.4 High 8-20 Calcium 9.5 mg/dL 8.6-10.3 Egfr Non- 59.1 >60 Egfr 76.0 >60 26 Basic Metabolic Panel 07/13/2016 Sodium 137 mmol/L 133-145 Potassium 4.2 mmol/L 3.5-5.0 Chloride 105 mmol/L 101-111 Co2 Carbon Dioxide 23 mmol/L 22-32 Anion Gap 9 mmol/L 2-11 Glucose 112 mg/dL High 70-100 Blood Urea Nitrogen 15 mg/dL 6-24 Creatinine 0.93 mg/dL 0.51-0.95 BUN/Creatinine Ratio 16.1 8-20 Calcium 9.1 mg/dL 8.6-10.3 Egfr Non- 59.1 >60 Egfr 76.0 >60 27 Laboratory test finding 07/13/2016 Digoxin 2.2 ng/ml High 0.8-2.0 28 Laboratory test finding 07/04/2016 Magnesium 1.6 mg/dL Low 1.9-2.7 Digoxin 2.8 ng/ml High 0.8-2.0 29 CBC Auto Diff 07/04/2016 White Blood Count 9.4 10^3/uL 3.5-10.8 Red Blood Count 4.28 10^6/uL 4.0-5.4 Hemoglobin 13.1 g/dL 12.0-16.0 Hematocrit 40 % 35-47 Mean Corpuscular Volume 93 fL 80-97 Mean Corpuscular Hemoglobin 31 pg 27-31 Mean Corpuscular HGB Conc 33 g/dL 31-36 Red Cell Distribution Width 14 % 10.5-15 Platelet Count 218 10^3/uL 150-450 Mean Platelet Volume 9 um3 7.4-10.4 Abs Neutrophils 4.6 10^3/uL 1.5-7.7 Abs Lymphocytes 3.6 10^3/uL 1.0-4.8 Abs Monocytes 0.9 10^3/uL High 0-0.8 Abs Eosinophils 0.2 10^3/uL 0-0.6 Abs Basophils 0.1 10^3/uL 0-0.2 Abs Nucleated RBC 0 10^3/uL Granulocyte % 48.6 % 38-83 Lymphocyte % 38.7 % 25-47 Monocyte % 9.9 % High 1-9 Eosinophil % 2.2 % 0-6 Basophil % 0.6 % 0-2 Nucleated Red Blood Cells % 0 Lipid Profile (Trig/Chol/HDL) 07/04/2016 Triglycerides 263 mg/dL 30 Cholesterol 129 mg/dL 31 HDL Cholesterol 42.1 mg/dL 32 LDL Cholesterol 34 mg/dL 33 Comp Metabolic Panel 07/04/2016 Sodium 138 mmol/L 133-145 Potassium 4.3 mmol/L 3.5-5.0 Chloride 105 mmol/L 101-111 Co2 Carbon Dioxide 24 mmol/L 22-32 Anion Gap 9 mmol/L 2-11 Glucose 133 mg/dL High 70-100 Blood Urea Nitrogen 13 mg/dL 6-24 Creatinine 0.77 mg/dL 0.51-0.95 BUN/Creatinine Ratio 16.9 8-20 Calcium 9.3 mg/dL 8.6-10.3 Total Protein 7.2 g/dL 6.4-8.9 Albumin 3.9 g/dL 3.2-5.2 Globulin 3.3 g/dL 2-4 Albumin/Globulin Ratio 1.2 1-3 Total Bilirubin 0.40 mg/dL 0.2-1.0 Alkaline Phosphatase 114 U/L High 34-104 Alt 19 U/L 7-52 Ast 16 U/L 13-39 Egfr Non- 73.5 >60 Egfr 94.5 >60 34 Lipid Panel - [facility] 07/04/2016 Creatine Kinase(CK) 31 U/L 10-223 Laboratory test finding 01/27/2016 Magnesium 1.3 mg/dL Low 1.9-2.7 35 Digoxin 1.7 ng/ml 0.8-2.0 36 CBC Auto Diff 01/27/2016 White Blood Count 10.2 10^3/uL 3.5-10.8 Red Blood Count 4.09 10^6/uL 4.0-5.4 Hemoglobin 13.4 g/dL 12.0-16.0 Hematocrit 40 % 35-47 Mean Corpuscular Volume 97 fL 80-97 Mean Corpuscular Hemoglobin 33 pg High 27-31 Mean Corpuscular HGB Conc 34 g/dL 31-36 Red Cell Distribution Width 14 % 10.5-15 Platelet Count 221 10^3/uL 150-450 Mean Platelet Volume 9 um3 7.4-10.4 Abs Neutrophils 4.5 10^3/uL 1.5-7.7 Abs Lymphocytes 4.4 10^3/uL 1.0-4.8 Abs Monocytes 1.0 10^3/uL High 0-0.8 Abs Eosinophils 0.2 10^3/uL 0-0.6 Abs Basophils 0.1 10^3/uL 0-0.2 Abs Nucleated RBC 0.01 10^3/uL Granulocyte % 43.9 % 38-83 Lymphocyte % 43.7 % 25-47 Monocyte % 10.1 % High 1-9 Eosinophil % 1.7 % 0-6 Basophil % 0.6 % 0-2 Nucleated Red Blood Cells % 0.1 Laboratory test finding 01/27/2016 B Type Natriuretic Peptide 14 pg/mL 37 Lipid Profile (Trig/Chol/HDL) 01/27/2016 Triglycerides 262 mg/dL 38 Cholesterol 138 mg/dL 39 HDL Cholesterol 35.9 mg/dL 40 LDL Cholesterol 50 mg/dL 41 Comp Metabolic Panel 01/27/2016 Sodium 137 mmol/L 133-145 Potassium 4.4 mmol/L 3.5-5.0 Chloride 102 mmol/L 101-111 Co2 Carbon Dioxide 25 mmol/L 22-32 Anion Gap 10 mmol/L 2-11 Glucose 145 mg/dL High 70-100 Blood Urea Nitrogen 23 mg/dL 6-24 Creatinine 0.96 mg/dL High 0.51-0.95 BUN/Creatinine Ratio 24.0 High 8-20 Calcium 9.9 mg/dL 8.6-10.3 Total Protein 6.9 g/dL 6.4-8.9 Albumin 4.0 g/dL 3.2-5.2 Globulin 2.9 g/dL 2-4 Albumin/Globulin Ratio 1.4 1-3 Total Bilirubin 0.50 mg/dL 0.2-1.0 Alkaline Phosphatase 94 U/L 34-104 Alt 24 U/L 7-52 Ast 17 U/L 13-39 Egfr Non- 57.1 >60 Egfr 73.5 >60 42 Lipid Panel - [facility] 01/27/2016 Creatine Kinase(CK) 21 U/L 10-223 43 CBC Auto Diff 08/03/2015 White Blood Count 8.7 10^3/uL 4.8-10.8 Red Blood Count 3.86 10^6/uL Low 4.0-5.4 Hemoglobin 12.9 g/dL 12.0-16.0 Hematocrit 38 % 35-47 Mean Corpuscular Volume 98 fL High 80-97 Mean Corpuscular Hemoglobin 33 pg High 27-31 Mean Corpuscular HGB Conc 34 g/dL 31-36 Red Cell Distribution Width 15 % 10.5-15 Platelet Count 225 10^3/uL 150-450 Mean Platelet Volume 9 um3 7.4-10.4 Abs Neutrophils 4.2 10^3/uL 1.5-7.7 Abs Lymphocytes 3.5 10^3/uL 1.0-4.8 Abs Monocytes 0.9 10^3/uL High 0-0.8 Abs Eosinophils 0.1 10^3/uL 0-0.6 Abs Basophils 0 10^3/uL 0-0.2 Abs Nucleated RBC 0.01 10^3/uL Granulocyte % 48.0 % 38-83 Lymphocyte % 39.9 % 25-47 Monocyte % 10.5 % High 1-9 Eosinophil % 1.2 % 0-6 Basophil % 0.4 % 0-2 Nucleated Red Blood Cells % 0.1 Laboratory test finding 08/03/2015 TSH (Thyroid Stim Horm) 1.41 ?IU/mL 0.34-5.60 Lipid Panel - [facility] 08/03/2015 Creatine Kinase(CK) 41 U/L 10-223 Comp Metabolic Panel 08/03/2015 Sodium 136 mmol/L 133-145 Potassium 4.2 mmol/L 3.5-5.0 Chloride 104 mmol/L 101-111 Co2 Carbon Dioxide 22 mmol/L 22-32 Anion Gap 10 mmol/L 2-11 Glucose 137 mg/dL High 70-100 Blood Urea Nitrogen 15 mg/dL 6-24 Creatinine 0.79 mg/dL 0.51-0.95 BUN/Creatinine Ratio 19.0 8-20 Calcium 9.1 mg/dL 8.6-10.3 Total Protein 6.9 g/dL 6.4-8.9 Albumin 3.7 g/dL 3.2-5.2 Globulin 3.2 g/dL 2-4 Albumin/Globulin Ratio 1.2 1-3 Total Bilirubin 0.40 mg/dL 0.2-1.0 Alkaline Phosphatase 96 U/L 34-104 Alt 25 U/L 7-52 Ast 27 U/L 13-39 Egfr Non- 71.5 >60 Egfr 92.0 >60 44 Lipid Profile (Trig/Chol/HDL) 08/03/2015 Triglycerides 215 mg/dL 45 Cholesterol 132 mg/dL 46 HDL Cholesterol 42.3 mg/dL 47 LDL Cholesterol 47 mg/dL 48 Laboratory test finding 08/03/2015 Magnesium 1.8 mg/dL Low 1.9-2.7 Laboratory test finding 03/02/2015 Inr 1.72 High 0.78-1.07 Basic Metabolic Panel 02/15/2015 Sodium 138 mmol/L 133-145 49 Potassium 4.2 mmol/L 3.5-5.0 49 Chloride 105 mmol/L 101-111 49 Co2 Carbon Dioxide 25 mmol/L 22-32 49 Anion Gap 8 mmol/L 2-11 49 Glucose 113 mg/dL High 70-100 49 Blood Urea Nitrogen 9 mg/dL 6-24 49 Creatinine 0.63 mg/dL 0.51-0.95 49 BUN/Creatinine Ratio 14.3 8-20 49 Calcium 9.2 mg/dL 8.6-10.3 49 Egfr Non- 93.2 >60 49 Egfr 119.8 >60 49, 50 Laboratory test finding 02/15/2015 Digoxin 1.3 ng/ml 0.8-2.0 49, 51 CBC Auto Diff 02/15/2015 White Blood Count 7.7 10^3/uL 4.8-10.8 49 Red Blood Count 3.97 10^6/uL Low 4.0-5.4 49 Hemoglobin 13.2 g/dL 12.0-16.0 49 Hematocrit 39 % 35-47 49 Mean Corpuscular Volume 97 fL 80-97 49 Mean Corpuscular Hemoglobin 33 pg High 27-31 49 Mean Corpuscular HGB Conc 34 g/dL 31-36 49 Red Cell Distribution Width 15 % 10.5-15 49 Platelet Count 238 10^3/uL 150-450 49 Mean Platelet Volume 9 um3 7.4-10.4 49 Abs Neutrophils 3.5 10^3/uL 1.5-7.7 49 Abs Lymphocytes 3.1 10^3/uL 1.0-4.8 49 Abs Monocytes 0.8 10^3/uL 0-0.8 49 Abs Eosinophils 0.2 10^3/uL 0-0.6 49 Abs Basophils 0.1 10^3/uL 0-0.2 49 Abs Nucleated RBC 0.01 10^3/uL 49 Granulocyte % 44.9 % 38-83 49 Lymphocyte % 40.6 % 25-47 49 Monocyte % 10.7 % High 1-9 49 Eosinophil % 3.1 % 0-6 49 Basophil % 0.7 % 0-2 49 Nucleated Red Blood Cells % 0.1 49 CBC Auto Diff 01/14/2015 White Blood Count 9.2 10^3/uL 4.8-10.8 Red Blood Count 3.16 10^6/uL Low 4.0-5.4 Hemoglobin 10.5 g/dL Low 12.0-16.0 Hematocrit 31 % Low 35-47 Mean Corpuscular Volume 98 fL High 80-97 Mean Corpuscular Hemoglobin 33 pg High 27-31 Mean Corpuscular HGB Conc 34 g/dL 31-36 Red Cell Distribution Width 13 % 10.5-15 Platelet Count 134 10^3/uL Low 150-450 Mean Platelet Volume 9 um3 7.4-10.4 Abs Neutrophils 6.3 10^3/uL 1.5-7.7 Abs Lymphocytes 1.7 10^3/uL 1.0-4.8 Abs Monocytes 1.1 10^3/uL High 0-0.8 Abs Eosinophils 0 10^3/uL 0-0.6 Abs Basophils 0 10^3/uL 0-0.2 Abs Nucleated RBC 0 10^3/uL Granulocyte % 69.1 % 38-83 Lymphocyte % 18.8 % Low 25-47 Monocyte % 11.6 % High 1-9 Eosinophil % 0.1 % 0-6 Basophil % 0.4 % 0-2 Nucleated Red Blood Cells % 0 Comp Metabolic Panel 01/14/2015 Sodium 135 mmol/L 133-145 Potassium 4.3 mmol/L 3.5-5.0 Chloride 113 mmol/L High 101-111 Co2 Carbon Dioxide 18 mmol/L Low 22-32 Anion Gap 4 mmol/L 2-11 Glucose 132 mg/dL High 70-100 Blood Urea Nitrogen 19 mg/dL 6-24 Creatinine 0.79 mg/dL 0.51-0.95 BUN/Creatinine Ratio 24.1 High 8-20 Calcium 6.9 mg/dL Low 8.6-10.3 Total Protein 5.1 g/dL Low 6.4-8.9 Albumin 2.6 g/dL Low 3.2-5.2 Globulin 2.5 g/dL 2-4 Albumin/Globulin Ratio 1.0 1-3 Total Bilirubin 0.60 mg/dL 0.2-1.0 Alkaline Phosphatase 65 U/L 34-104 Alt 129 U/L High 7-52 Ast 129 U/L High 13-39 Egfr Non- 71.7 >60 Egfr 92.3 >60 52 Urinalysis Profile 01/14/2015 Urine Color Yellow Urine Appearance Cloudy Urine Specific [place] 1.024 1.010-1.030 Urine pH 5.0 5-9 Urine Urobilinogen Negative Negative Urine Ketones Negative Negative Urine Protein 1+(30 mg/dL) Negative Urine Leukocytes Trace Negative Urine Blood 2+ Negative Urine Nitrite Negative Negative Urine Bilirubin Negative Negative Urine Glucose Negative Negative Urine White Blood Cell 2+(11-20/hpf) Absent Urine Red Blood Cell 3+(>10/hpf) Absent Urine Bacteria Absent Absent Urine Squamous Epithelial Cell Present Absent Urine Hyaline Casts Present Absent Inr/Protime 01/13/2015 Inr 0.96 0.78-1.07 Laboratory test finding 01/13/2015 Magnesium 1.4 mg/dL Low 1.9-2.7 Lipase 3 U/L Low 11.0-82.0 Troponin I 0.01 ng/mL <0.03 53 Comp Metabolic Panel 01/13/2015 Sodium 133 mmol/L 133-145 Potassium 4.0 mmol/L 3.5-5.0 Chloride 111 mmol/L 101-111 Co2 Carbon Dioxide 15 mmol/L Low 22-32 Anion Gap 7 mmol/L 2-11 Glucose 157 mg/dL High 70-100 Blood Urea Nitrogen 21 mg/dL 6-24 Creatinine 1.11 mg/dL High 0.51-0.95 BUN/Creatinine Ratio 18.9 8-20 Calcium 6.6 mg/dL Low 8.6-10.3 Total Protein 4.6 g/dL Low 6.4-8.9 Albumin 2.4 g/dL Low 3.2-5.2 Globulin 2.2 g/dL 2-4 Albumin/Globulin Ratio 1.1 1-3 Total Bilirubin 0.60 mg/dL 0.2-1.0 Alkaline Phosphatase 57 U/L 34-104 Alt 41 U/L 7-52 Ast 41 U/L High 13-39 Egfr Non- 48.5 >60 Egfr 62.3 >60 54 CBC Auto Diff 01/13/2015 White Blood Count 12.1 10^3/uL High 4.8-10.8 Red Blood Count 3.00 10^6/uL Low 4.0-5.4 Hemoglobin 9.7 g/dL Low 12.0-16.0 Hematocrit 29 % Low 35-47 Mean Corpuscular Volume 98 fL High 80-97 Mean Corpuscular Hemoglobin 33 pg High 27-31 Mean Corpuscular HGB Conc 33 g/dL 31-36 Red Cell Distribution Width 13 % 10.5-15 Platelet Count 135 10^3/uL Low 150-450 Mean Platelet Volume 9 um3 7.4-10.4 Abs Neutrophils 7.4 10^3/uL 1.5-7.7 Abs Lymphocytes 3.1 10^3/uL 1.0-4.8 Abs Monocytes 1.5 10^3/uL High 0-0.8 Abs Eosinophils 0.1 10^3/uL 0-0.6 Abs Basophils 0 10^3/uL 0-0.2 Abs Nucleated RBC 0.01 10^3/uL Granulocyte % 61.5 % 38-83 Lymphocyte % 25.4 % 25-47 Monocyte % 12.0 % High 1-9 Eosinophil % 0.9 % 0-6 Basophil % 0.2 % 0-2 Nucleated Red Blood Cells % 0.1 Laboratory test finding 01/13/2015 Lactic Acid 2.1 mmol/L 0.5-2.2 Pre Cath Panel 12/24/2014 Activated Partial 29.6 seconds 24.0-36.1 Thrombo Time Basic Metabolic Panel 12/24/2014 Sodium 136 mmol/L 133-145 Potassium 4.4 mmol/L 3.5-5.0 Chloride 104 mmol/L 101-111 Co2 Carbon Dioxide 24 mmol/L 22-32 Anion Gap 8 mmol/L 2-11 Glucose 102 mg/dL High 70-100 Blood Urea Nitrogen 24 mg/dL 6-24 Creatinine 1.04 mg/dL High 0.51-0.95 BUN/Creatinine Ratio 23.1 High 8-20 Calcium 9.4 mg/dL 8.6-10.3 Egfr Non- 52.2 >60 Egfr 67.2 >60 55 CBC Auto Diff 12/24/2014 White Blood Count 13.8 10^3/uL High 4.8-10.8 Red Blood Count 4.08 10^6/uL 4.0-5.4 Hemoglobin 13.5 g/dL 12.0-16.0 Hematocrit 40 % 35-47 Mean Corpuscular Volume 97 fL 80-97 Mean Corpuscular Hemoglobin 33 pg High 27-31 Mean Corpuscular HGB Conc 34 g/dL 31-36 Red Cell Distribution Width 13 % 10.5-15 Platelet Count 245 10^3/uL 150-450 Mean Platelet Volume 8 um3 7.4-10.4 Abs Neutrophils 9.7 10^3/uL High 1.5-7.7 Abs Lymphocytes 2.7 10^3/uL 1.0-4.8 Abs Monocytes 1.4 10^3/uL High 0-0.8 Abs Eosinophils 0 10^3/uL 0-0.6 Abs Basophils 0 10^3/uL 0-0.2 Abs Nucleated RBC 0 10^3/uL Granulocyte % 70.2 % 38-83 Lymphocyte % 19.2 % Low 25-47 Monocyte % 10.5 % High 1-9 Eosinophil % 0 % 0-6 Basophil % 0.1 % 0-2 Nucleated Red Blood Cells % 0 Inr/Protime 12/24/2014 Inr 0.88 0.78-1.07 56 CBC Auto Diff 11/25/2014 White Blood Count 7.6 10^3/uL 4.8-10.8 57 Red Blood Count 4.37 10^6/uL 4.0-5.4 57 Hemoglobin 14.3 g/dL 12.0-16.0 57 Hematocrit 43 % 35-47 57 Mean Corpuscular Volume 97 fL 80-97 57 Mean Corpuscular Hemoglobin 33 pg High 27-31 57 Mean Corpuscular HGB Conc 34 g/dL 31-36 57 Red Cell Distribution Width 13 % 10.5-15 57 Platelet Count 232 10^3/uL 150-450 57 Mean Platelet Volume 8 um3 7.4-10.4 57 Abs Neutrophils 3.1 10^3/uL 1.5-7.7 57 Abs Lymphocytes 3.4 10^3/uL 1.0-4.8 57 Abs Monocytes 0.8 10^3/uL 0-0.8 57 Abs Eosinophils 0.2 10^3/uL 0-0.6 57 Abs Basophils 0 10^3/uL 0-0.2 57 Abs Nucleated RBC 0 10^3/uL 57 Granulocyte % 40.8 % 38-83 57 Lymphocyte % 45.0 % 25-47 57 Monocyte % 10.9 % High 1-9 57 Eosinophil % 2.7 % 0-6 57 Basophil % 0.6 % 0-2 57 Nucleated Red Blood Cells % 0.1 57 Laboratory test 11/25/2014 TSH (Thyroid 1.71 IU/mL 0.34-5.60 57, 58 finding Stimulating Horm) Lipid Panel - [facility] 11/25/2014 Creatine Kinase 39 U/L 10-223 57, 59 Comp Metabolic Panel 11/25/2014 Sodium 136 mmol/L 133-145 57 Potassium 4.1 mmol/L 3.5-5.0 57 Chloride 103 mmol/L 101-111 57 Co2 Carbon Dioxide 27 mmol/L 22-32 57 Anion Gap 6 mmol/L 2-11 57 Glucose 101 mg/dL High 70-100 57 Blood Urea Nitrogen 20 mg/dL 6-24 57 Creatinine 1.01 mg/dL High 0.51-0.95 57 BUN/Creatinine Ratio 19.8 8-20 57 Calcium 9.8 mg/dL 8.6-10.3 57 Total Protein 8.2 g/dL 6.4-8.9 57 Albumin 4.3 g/dL 3.2-5.2 57 Globulin 3.9 g/dL 2-4 57 Albumin/Globulin Ratio 1.1 1-3 57 Total Bilirubin 0.50 mg/dL 0.2-1.0 57 Alkaline Phosphatase 136 U/L High 34-104 57 Alt 14 U/L 7-52 57 Ast 16 U/L 13-39 57 Egfr Non- 54.0 >60 57 Egfr 69.5 >60 57, 60 Lipid Profile (Trig/Chol/HDL) 11/25/2014 Triglycerides 101 mg/dL 57, 61 Cholesterol 128 mg/dL 57, 62 HDL Cholesterol 48.2 mg/dL 57, 63 LDL Cholesterol 60 mg/dL 57, 64 Comp Metabolic Panel 10/09/2014 Sodium 138 mmol/L 133-145 Potassium 4.0 mmol/L 3.5-5.0 Chloride 106 mmol/L 101-111 Co2 Carbon Dioxide 24 mmol/L 22-32 Anion Gap 8 mmol/L 2-11 Glucose 92 mg/dL 70-100 Blood Urea Nitrogen 13 mg/dL 6-24 Creatinine 0.80 mg/dL 0.51-0.95 BUN/Creatinine Ratio 16.3 8-20 Calcium 9.4 mg/dL 8.6-10.3 Total Protein 7.0 g/dL 6.4-8.9 Albumin 3.9 g/dL 3.2-5.2 Globulin 3.1 g/dL 2-4 Albumin/Globulin Ratio 1.3 1-3 Total Bilirubin 0.40 mg/dL 0.2-1.0 Alkaline Phosphatase 119 U/L High 34-104 Alt 19 U/L 7-52 Ast 18 U/L 13-39 Egfr Non- 70.7 >60 Egfr 90.9 >60 65 Laboratory test finding 10/09/2014 TSH (Thyroid Stimulating 1.57 IU/mL 0.34-5.60 Horm) Troponin I 0.00 ng/mL <0.03 66 CBC Auto Diff 10/09/2014 White Blood Count 7.8 10^3/uL 4.8-10.8 Red Blood Count 4.03 10^6/uL 4.0-5.4 Hemoglobin 13.2 g/dL 12.0-16.0 Hematocrit 39 % 35-47 Mean Corpuscular Volume 96 fL 80-97 Mean Corpuscular Hemoglobin 33 pg High 27-31 Mean Corpuscular HGB Conc 34 g/dL 31-36 Red Cell Distribution Width 13 % 10.5-15 Platelet Count 240 10^3/uL 150-450 Mean Platelet Volume 8 um3 7.4-10.4 Abs Neutrophils 3.1 10^3/uL 1.5-7.7 Abs Lymphocytes 3.6 10^3/uL 1.0-4.8 Abs Monocytes 0.9 10^3/uL High 0-0.8 Abs Eosinophils 0.2 10^3/uL 0-0.6 Abs Basophils 0 10^3/uL 0-0.2 Abs Nucleated RBC 0 10^3/uL Granulocyte % 40.0 % 38-83 Lymphocyte % 45.9 % 25-47 Monocyte % 10.9 % High 1-9 Eosinophil % 2.7 % 0-6 Basophil % 0.5 % 0-2 Nucleated Red Blood Cells % 0 CBC Auto Diff 09/17/2014 White Blood Count 7.7 10^3/uL 4.8-10.8 67 Red Blood Count 4.18 10^6/uL 4.0-5.4 67 Hemoglobin 13.8 g/dL 12.0-16.0 67 Hematocrit 41 % 35-47 67 Mean Corpuscular Volume 98 fL High 80-97 67 Mean Corpuscular Hemoglobin 33 pg High 27-31 67 Mean Corpuscular HGB Conc 34 g/dL 31-36 67 Red Cell Distribution Width 13 % 10.5-15 67 Platelet Count 212 10^3/uL 150-450 67 Mean Platelet Volume 8 um3 7.4-10.4 67 Abs Neutrophils 3.5 10^3/uL 1.5-7.7 67 Abs Lymphocytes 3.2 10^3/uL 1.0-4.8 67 Abs Monocytes 0.9 10^3/uL High 0-0.8 67 Abs Eosinophils 0.2 10^3/uL 0-0.6 67 Abs Basophils 0 10^3/uL 0-0.2 67 Abs Nucleated RBC 0 10^3/uL 67 Granulocyte % 45.3 % 38-83 67 Lymphocyte % 41.0 % 25-47 67 Monocyte % 11.1 % High 1-9 67 Eosinophil % 2.1 % 0-6 67 Basophil % 0.5 % 0-2 67 Nucleated Red Blood Cells % 0 67 Lipid Panel - [facility] 09/17/2014 Creatine Kinase 35 U/L 10-223 67, 68 Comp Metabolic Panel 09/17/2014 Sodium 140 mmol/L 133-145 67 Potassium 4.1 mmol/L 3.5-5.0 67, 69 Chloride 107 mmol/L 101-111 67 Co2 Carbon Dioxide 26 mmol/L 22-32 67 Anion Gap 7 mmol/L 2-11 67 Glucose 85 mg/dL 70-100 67 Blood Urea Nitrogen 16 mg/dL 6-24 67 Creatinine 0.74 mg/dL 0.51-0.95 67 BUN/Creatinine Ratio 21.6 High 8-20 67 Calcium 9.4 mg/dL 8.6-10.3 67 Total Protein 7.2 g/dL 6.4-8.9 67 Albumin 4.0 g/dL 3.2-5.2 67 Globulin 3.2 g/dL 2-4 67 Albumin/Globulin Ratio 1.3 1-3 67 Total Bilirubin 0.50 mg/dL 0.2-1.0 67 Alkaline Phosphatase 132 U/L High 34-104 67 Alt 17 U/L 7-52 67 Ast 14 U/L 13-39 67 Egfr Non- 77.4 >60 67 Egfr 99.5 >60 67, 70 Lipid Profile (Trig/Chol/HDL) 09/17/2014 Triglycerides 95 mg/dL 67, 71 Cholesterol 110 mg/dL 67, 72 HDL Cholesterol 46.2 mg/dL 67, 73 LDL Cholesterol 45 mg/dL 67, 74 Comp Metabolic Panel 04/20/2014 Sodium 138 mmol/L 133-145 Potassium 3.9 mmol/L 3.7-5.6 Chloride 106 mmol/L 101-111 Co2 Carbon Dioxide 24 mmol/L 22-32 Anion Gap 8 mmol/L 2-11 Glucose 100 mg/dL 70-100 Blood Urea Nitrogen 14 mg/dL 6-24 Creatinine 0.82 mg/dL 0.51-0.95 BUN/Creatinine Ratio 17.1 8-20 Calcium 9.7 mg/dL 8.6-10.3 Total Protein 7.8 g/dL 6.4-8.9 Albumin 4.1 g/dL 3.2-5.2 Globulin 3.7 g/dL 2-4 Albumin/Globulin Ratio 1.1 1-3 Total Bilirubin 0.50 mg/dL 0.2-1.0 Alkaline Phosphatase 111 U/L High 34-104 Alt 16 U/L 7-52 Ast 14 U/L 13-39 Egfr Non- 68.7 >60 Egfr 88.4 >60 75 CBC Auto Diff 04/20/2014 White Blood Count 8.4 10^3/uL 4.8-10.8 Red Blood Count 4.16 10^6/uL 4.0-5.4 Hemoglobin 13.7 g/dL 12.0-16.0 Hematocrit 40 % 35-47 Mean Corpuscular Volume 96 fL 80-97 Mean Corpuscular Hemoglobin 33 pg High 27-31 Mean Corpuscular HGB Conc 34 g/dL 31-36 Red Cell Distribution Width 13 % 10.5-15 Platelet Count 285 10^3/uL 150-450 Mean Platelet Volume 8 um3 7.4-10.4 Abs Neutrophils 4.6 10^3/uL 1.5-7.7 Abs Lymphocytes 2.8 10^3/uL 1.0-4.8 Abs Monocytes 0.9 10^3/uL High 0-0.8 Abs Eosinophils 0.1 10^3/uL 0-0.6 Abs Basophils 0 10^3/uL 0-0.2 Abs Nucleated RBC 0.01 10^3/uL Granulocyte % 54.0 % 38-83 Lymphocyte % 33.2 % 25-47 Monocyte % 11.1 % High 1-9 Eosinophil % 1.2 % 0-6 Basophil % 0.5 % 0-2 Nucleated Red Blood Cells % 0.1 Laboratory test finding 04/20/2014 B Type Natriuretic 44 pg/mL 76 Peptide Cath Panel 01/23/2014 Activated Partial 29.9 seconds 24.0-36.1 Thrombo Time CBC Auto Diff 01/23/2014 White Blood Count 6.9 10^3/uL 4.8-10.8 Red Blood Count 4.23 10^6/uL 4.0-5.4 Hemoglobin 14.3 g/dL 12.0-16.0 Hematocrit 41 % 35-47 Mean Corpuscular Volume 98 fL High 80-97 Mean Corpuscular Hemoglobin 34 pg High 27-31 Mean Corpuscular HGB Conc 35 g/dL 31-36 Red Cell Distribution Width 14 % 10.5-15 Platelet Count 231 10^3/uL 150-450 Mean Platelet Volume 9 um3 7.4-10.4 Abs Neutrophils 3.2 10^3/uL 1.5-7.7 Abs Lymphocytes 2.9 10^3/uL 1.0-4.8 Abs Monocytes 0.7 10^3/uL 0-0.8 Abs Eosinophils 0.2 10^3/uL 0-0.6 Abs Basophils 0 10^3/uL 0-0.2 Abs Nucleated RBC 0.01 10^3/uL Granulocyte % 45.9 % 38-83 Lymphocyte % 41.6 % 25-47 Monocyte % 9.6 % High 1-9 Eosinophil % 2.3 % 0-6 Basophil % 0.6 % 0-2 Nucleated Red Blood Cells % 0.1 Basic Metabolic Panel 01/23/2014 Sodium 141 mmol/L 133-145 Potassium 4.1 mmol/L 3.7-5.6 Chloride 108 mmol/L 101-111 Co2 Carbon Dioxide 25 mmol/L 22-32 Anion Gap 8 mmol/L 2-11 Glucose 96 mg/dL 70-100 Blood Urea Nitrogen 13 mg/dL 6-24 Creatinine 0.84 mg/dL 0.51-0.95 BUN/Creatinine Ratio 15.5 8-20 Calcium 9.3 mg/dL 8.6-10.3 Egfr Non- 67.0 >60 Egfr 86.2 >60 77 Inr/Protime 01/23/2014 Inr 0.88 0.85-1.06 Lipid Panel - [facility] 01/08/2014 Creatine Kinase 37 U/L 10-223 78 Comp Metabolic Panel 01/08/2014 Sodium 143 mmol/L 133-145 Potassium 3.9 mmol/L 3.7-5.6 Chloride 108 mmol/L 101-111 Co2 Carbon Dioxide 28 mmol/L 22-32 Anion Gap 7 mmol/L 2-11 Glucose 105 mg/dL High 70-100 Blood Urea Nitrogen 20 mg/dL 6-24 Creatinine 0.85 mg/dL 0.51-0.95 BUN/Creatinine Ratio 23.5 High 8-20 Calcium 9.7 mg/dL 8.6-10.3 Total Protein 7.0 g/dL 6.4-8.9 Albumin 4.1 g/dL 3.2-5.2 Globulin 2.9 g/dL 2-4 Albumin/Globulin Ratio 1.4 1-3 Total Bilirubin 0.60 mg/dL 0.2-1.0 Alkaline Phosphatase 114 U/L High 34-104 Alt 24 U/L 7-52 Ast 15 U/L 13-39 Egfr Non- 66.1 >60 Egfr 85.0 >60 79 Lipid Profile (Trig/Chol/HDL) 01/08/2014 Triglycerides 84 mg/dL 80 Cholesterol 131 mg/dL 81 HDL Cholesterol 56.6 mg/dL 82 LDL Cholesterol 58 mg/dL 83 Laboratory test finding 01/08/2014 C Reactive Protein < 1.00 mg/L &lt ; 5.00 84 CBC Auto Diff 01/08/2014 White Blood Count 8.3 10^3/uL 4.8-10.8 Red Blood Count 4.28 10^6/uL 4.0-5.4 Hemoglobin 14.3 g/dL 12.0-16.0 Hematocrit 42 % 35-47 Mean Corpuscular Volume 98 fL High 80-97 Mean Corpuscular Hemoglobin 34 pg High 27-31 Mean Corpuscular HGB Conc 34 g/dL 31-36 Red Cell Distribution Width 14 % 10.5-15 Platelet Count 220 10^3/uL 150-450 Mean Platelet Volume 9 um3 7.4-10.4 Abs Neutrophils 4.8 10^3/uL 1.5-7.7 Abs Lymphocytes 2.4 10^3/uL 1.0-4.8 Abs Monocytes 0.9 10^3/uL High 0-0.8 Abs Eosinophils 0.1 10^3/uL 0-0.6 Abs Basophils 0.1 10^3/uL 0-0.2 Abs Nucleated RBC 0.01 10^3/uL Granulocyte % 58.1 % 38-83 Lymphocyte % 29.3 % 25-47 Monocyte % 10.3 % High 1-9 Eosinophil % 1.7 % 0-6 Basophil % 0.6 % 0-2 Nucleated Red Blood Cells % 0.1 Laboratory test finding 01/08/2014 B Type Natriuretic Peptide 10 pg/mL 85 Laboratory test finding 03/03/2013 Creatine Kinase 48 U/L 0-200 Lipid Profile 03/03/2013 Triglycerides 76 mg/dL 40-200 (Trig/Chol/HDL) Cholesterol 124 mg/dL Less than 200 HDL Cholesterol 52 mg/dL 40-60 86 Cholesterol/HDL Ratio 2.4 Average 1-4.44 LDL Cholesterol 56.8 mg/dL Less Than 100 87 Comp Metabolic Panel 03/03/2013 Sodium 140 mmol/L 133-145 Potassium 4.0 mmol/L 3.5-5.0 Chloride 107 mmol/L 101-111 Co2 Carbon Dioxide 26.0 mmol/L 22-32 Anion Gap 7.0 mmol/L 2-11 Glucose 97 mg/dL 70-100 Blood Urea Nitrogen 11 mg/dL 6-24 Creatinine 0.90 mg/dL 0.50-1.40 BUN/Creatinine Ratio 12.2 8-20 Calcium 9.2 mg/dL 8.1-9.9 Total Protein 6.3 g/dL 6.2-8.1 Albumin 3.6 g/dL 3.2-5.2 Globulin 2.7 g/dL 2-4 Albumin/Globulin Ratio 1.3 1-3 Total Bilirubin 0.8 mg/dL 0.4-1.5 Alkaline Phosphatase 100 U/L 30-110 Alt 24 U/L 14-54 Ast 19 U/L 12-42 Egfr Non- 62.1 >60 Egfr 79.8 >60 88 Basic Metabolic Panel 05/27/2012 Sodium 138 mmol/L 135-145 Potassium 4.3 mmol/L 3.5-5.0 Chloride 108 mmol/L 101-111 Co2 (Carbon Dioxide) 23.0 mmol/L 22-32 Anion Gap 7.0 mmol/L 2-11 89 Glucose 104 mg/dL High 70-100 BUN 15 mg/dL 6-24 Creatinine 0.8 mg/dL 0.50-1.40 One Over Creatinine 1.25 BUN/Creatinine Ratio 18.8 8-20 Calcium 9.5 mg/dL 8.1-9.9 eGFR Non- 71.1 > 60 eGFR 91.5 > 60 90 Comp Metabolic Panel 05/01/2012 Sodium 136 mmol/L 135-145 Potassium 3.6 mmol/L 3.5-5.0 Chloride 99 mmol/L Low 101-111 Co2 (Carbon Dioxide) 28.0 mmol/L 22-32 Anion Gap 9.0 mmol/L 2-11 91 Glucose 85 mg/dL 70-100 BUN 16 mg/dL 6-24 Creatinine 1.1 mg/dL 0.50-1.40 One Over Creatinine 0.90 BUN/Creatinine Ratio 14.5 8-20 Calcium 9.2 mg/dL 8.1-9.9 Total Protein 6.7 GM/DL 6.2-8.1 Albumin 3.9 GM/DL 3.2-5.2 Globulin 2.8 GM/DL 2-4 Albumin/Globulin Ratio 1.4 1-3 Bilirubin Total 1.1 mg/dL 0.4-1.5 92 Alkaline Phosphatase 95 U/L 30-110 Alt (SGPT) 34 U/L 14-54 Ast (Sgot) 21 U/L 12-42 eGFR Non- 49.2 > 60 eGFR 63.3 > 60 93 Lipid Profile (Trig/Chol/HDL) 05/01/2012 Triglyceride 132 mg/dL 40-200 Cholesterol 131 mg/dL Less Than 200 94 High Density Lipoprotein 69 mg/dL High 40-60 95 Cholesterol/HDL Ratio 1.90 AVERAGE 1-4.44 Low Density Lipoprotein 36 mg/dL Less Than 100 96 Laboratory test finding 05/01/2012 CPK (Creatine Kinase) 33 U/L 0-170 BNP Evaluatr < 7.5 pg/mL 0-100 TSH 3.88 MIU/ML 0.34-5.60 CBC Auto Diff 05/01/2012 White Blood Count 8.8 CUMM 4.8-10.8 Red Cell Count 4.56 CUMM 4.2-5.4 Hemoglobin 15.4 g/dL 12.0-16.0 Hematocrit 45 % 35-47 Mean Corpuscular Volume 99 um3 High 79-97 Mean Corpuscular Hemoglob 34 pg High 27-31 Mean Corpuscular HGB Cone 34 g/dL 32-36 Redcell Distribution WDTH 14 % 10.5-15 Platelet Count 206 CUMM 150-450 Mean Platelet Volume 8.5 um3 7.4-10.4 Gran % 43.6 % 38-83 Lymph % 44.0 % 25-47 Mononuclear % 8.0 % 1-9 Eosinophil % 3.6 % 0-6 Basophil % 0.8 % 0-2 Abs Lymphs 3.9 1.0-4.8 Abs Mononuclear 0.7 0-0.8 Absolute Neutrophil Count 3.8 1.5-7.7 Abs Eosinophils 0.3 0-0.6 Abs Basophils 0.1 0-0.2 Lipid Profile (Trig/Chol/HDL) 12/05/2011 Triglyceride 78 mg/dL 40-200 Cholesterol 143 mg/dL Less Than 200 97 High Density Lipoprotein 54 mg/dL 40-60 98 Cholesterol/HDL Ratio 2.65 AVERAGE 1-4.44 Low Density Lipoprotein 73 mg/dL Less Than 100 99 Comp Metabolic Panel 12/05/2011 Sodium 142 mmol/L 135-145 Potassium 4.4 mmol/L 3.5-5.0 Chloride 106 mmol/L 101-111 Co2 (Carbon Dioxide) 27.0 mmol/L 22-32 Anion Gap 9.0 mmol/L 2-11 100 Glucose 105 mg/dL High 70-100 BUN 13 mg/dL 6-24 Creatinine 1.0 mg/dL 0.50-1.40 One Over Creatinine 1.00 BUN/Creatinine Ratio 13.0 8-20 Calcium 9.7 mg/dL 8.1-9.9 Total Protein 7.1 GM/DL 6.2-8.1 Albumin 3.9 GM/DL 3.2-5.2 Globulin 3.2 GM/DL 2-4 Albumin/Globulin Ratio 1.2 1-3 Bilirubin Total 0.8 mg/dL 0.4-1.5 101 Alkaline Phosphatase 110 U/L 30-110 Alt (SGPT) 26 U/L 14-54 Ast (Sgot) 18 U/L 12-42 eGFR Non- 55.1 > 60 eGFR 70.9 > 60 102 Laboratory test finding 12/05/2011 CPK (Creatine Kinase) 51 U/L 0-170 Comp Metabolic Panel 03/06/2011 Sodium 140 mmol/L 135-145 Potassium 4.1 mmol/L 3.5-5.0 Chloride 112 mmol/L High 101-111 Co2 (Carbon Dioxide) 21.0 mmol/L Low 22-32 Anion Gap 7.0 mmol/L 2-11 103 Glucose 104 mg/dL High 70-100 BUN 18 mg/dL 6-24 Creatinine 1.00 mg/dL 0.50-1.40 One Over Creatinine 1.00 BUN/Creatinine Ratio 18.0 8-20 Calcium 9.6 mg/dL 8.1-9.9 Total Protein 6.9 GM/DL 6.2-8.1 Albumin 3.9 GM/DL 3.2-5.2 Globulin 3.0 GM/DL 2-4 Albumin/Globulin Ratio 1.3 1-3 Bilirubin Total 0.8 mg/dL 0.4-1.5 104 Alkaline Phosphatase 107 U/L 30-110 Alt (SGPT) 22 U/L 14-54 Ast (Sgot) 21 U/L 12-42 eGFR Non- 55.3 > 60 eGFR 71.1 > 60 105 Lipid Profile (Trig/Chol/HDL) 03/06/2011 Triglyceride 114 mg/dL 40-200 Cholesterol 106 mg/dL Less Than 200 106 High Density Lipoprotein 36 mg/dL Low 40-60 107 Cholesterol/HDL Ratio 2.94 AVERAGE 1-4.44 Low Density Lipoprotein 47 mg/dL Less Than 100 108 CBC Auto Diff 03/06/2011 White Blood Count 7.9 CUMM 4.8-10.8 Red Cell Count 4.02 CUMM Low 4.2-5.4 Hemoglobin 13.5 g/dL 12.0-16.0 Hematocrit 39 % 35-47 Mean Corpuscular Volume 98 um3 High 79-97 Mean Corpuscular Hemoglob 34 pg High 27-31 Mean Corpuscular HGB Cone 34 g/dL 32-36 Redcell Distribution WDTH 13 % 10.5-15 Platelet Count 145 CUMM Low 150-450 Mean Platelet Volume 9.1 um3 7.4-10.4 Gran % 36.0 % Low 38-83 Lymph % 49.2 % High 25-47 Mononuclear % 10.0 % High 1-9 Eosinophil % 3.5 % 0-6 Basophil % 1.3 % 0-2 Abs Lymphs 3.9 1.0-4.8 Abs Mononuclear 0.8 0-0.8 Absolute Neutrophil Count 2.8 1.5-7.7 Abs Eosinophils 0.3 0-0.6 Abs Basophils 0.1 0-0.2 Comments UWBC Laboratory test finding 03/06/2011 TSH 5.60 MIU/ML 0.34-5.60 Lipid Panel - [facility] 11/02/2010 CPK (Creatine Kinase) 65 U/L 0-170 Comp Metabolic Panel 11/02/2010 Sodium 138 mmol/L 135-145 Potassium 4.0 mmol/L 3.5-5.0 Chloride 109 mmol/L 101-111 Co2 (Carbon Dioxide) 24.0 mmol/L 22-32 Anion Gap 5.0 mmol/L 2-11 109 Glucose 119 mg/dL High 70-100 BUN 17 mg/dL 6-24 Creatinine 1.00 mg/dL 0.50-1.40 One Over Creatinine 1.00 BUN/Creatinine Ratio 17.0 8-20 Calcium 9.4 mg/dL 8.1-9.9 Total Protein 7.0 GM/DL 6.2-8.1 Albumin 3.9 GM/DL 3.2-5.2 Globulin 3.1 GM/DL 2-4 Albumin/Globulin Ratio 1.3 1-3 Bilirubin Total 0.9 mg/dL 0.4-1.5 110 Alkaline Phosphatase 94 U/L 30-110 Alt (SGPT) 32 U/L 14-54 Ast (Sgot) 29 U/L 12-42 eGFR Non- 58.8 > 60 eGFR 71.1 > 60 111 Lipid Profile (Trig/Chol/HDL) 11/02/2010 Triglyceride 139 mg/dL 40-200 Cholesterol 125 mg/dL Less Than 200 112 High Density Lipoprotein 39 mg/dL Low 40-60 113 Cholesterol/HDL Ratio 3.21 AVERAGE 1-4.44 Low Density Lipoprotein 58 mg/dL Less Than 100 114 Comp Metabolic Panel 04/05/2010 Sodium 137 mmol/L 135-145 115 Potassium 4.2 mmol/L 3.5-5.0 115 Chloride 107 mmol/L 101-111 115 Co2 (Carbon Dioxide) 22.0 mmol/L 22-32 115 Anion Gap 8.0 mmol/L 2-11 115, 116 Glucose 98 mg/dL 70-100 115, 117 BUN 15 mg/dL 6-24 115 Creatinine 0.90 mg/dL 0.50-1.40 115 One Over Creatinine 1.10 115 BUN/Creatinine Ratio 16.7 8-20 115 Calcium 8.9 mg/dL 8.1-9.9 115, 118 Total Protein 7.0 GM/DL 6.2-8.1 115 Albumin 3.8 GM/DL 3.2-5.2 115 Globulin 3.2 GM/DL 2-4 115 Albumin/Globulin Ratio 1.2 1-3 115 Bilirubin Total 0.7 mg/dL 0.4-1.5 115, 119 Alkaline Phosphatase 82 U/L 30-110 115 Alt (SGPT) 22 U/L 14-54 115 Ast (Sgot) 24 U/L 12-42 115 eGFR Non- 66.4 > 60 115 eGFR 80.3 > 60 115, 120 Lipid Profile (Trig/Chol/HDL) 04/05/2010 Triglyceride 115 mg/dL 40-200 115 Cholesterol 125 mg/dL Less Than 200 115, 121 High Density Lipoprotein 43 mg/dL 40-60 115, 122 Cholesterol/HDL Ratio 2.91 AVERAGE 1-4.44 115 Low Density Lipoprotein 59 mg/dL Less Than 100 115, 123 Laboratory test finding 04/05/2010 TSH 2.10 MIU/ML 0.34-5.60 115 CBC With Manual Diff 04/05/2010 White Blood Count 6.2 CUMM 4.8-10.8 115 Red Cell Count 4.01 CUMM Low 4.2-5.4 115 Hemoglobin 13.5 g/dL 12.0-16.0 115 Hematocrit 39 % 35-47 115 Mean Corpuscular Volume 96 um3 79-97 115 Mean Corpuscular Hemoglob 34 pg High 27-31 115 Mean Corpuscular HGB Cone 35 g/dL 32-36 115 Redcell Distribution WDTH 13 % 10.5-15 115 Platelet Count 203 CUMM 150-450 115 Mean Platelet Volume 7.9 um3 7.4-10.4 115 Polysegmented Neutrophil 50 % 38-83 115 Lymphocyte 43 % 25-47 115 Monocyte 6 % 0-13 115 Eosinophil 1 % 0-6 115 Absolute Neutrophil Count 3.1 115 RBC Morphology NORMAL 115 Laboratory test finding 04/05/2010 BNP Evaluatr 29.0 pg/mL 0-100 115 CBC With Manual Diff 03/06/2009 White Blood Count 5.9 CUMM 4.8-10.8 124 Red Cell Count 4.18 CUMM Low 4.2-5.4 124 Hemoglobin 13.8 g/dL 12.0-16.0 124 Hematocrit 40 % 35-47 124 Mean Corpuscular Volume 95 um3 79-97 124 Mean Corpuscular Hemoglob 33 pg High 27-31 124 Mean Corpuscular HGB Cone 35 g/dL 32-36 124 Redcell Distribution WDTH 13 % 10.5-15 124 Platelet Count 213 CUMM 150-450 124 Mean Platelet Volume 7.7 um3 7.4-10.4 124 Polysegmented Neutrophil 46 % 38-83 124 Lymphocyte 46 % 25-47 124 Monocyte 4 % 0-13 124 Eosenophil 3 % 0-6 124 Basophil 1 % 0-2 124 Absolute Neutrophil Count 2.7 124 RBC Morphology NORMAL 124 Basic Metabolic Panel 03/06/2009 Sodium 140 mmol/L 135-145 124 Potassium 4.3 mmol/L 3.5-5.0 124 Chloride 109 mmol/L 101-111 124 Co2 (Carbon Dioxide) 23.0 mmol/L 22-32 124 Anion Gap 8.0 mmol/L 2-11 124, 125 Glucose 118 mg/dL High 70-100 124, 126 BUN 11 mg/dL 6-24 124 Creatinine 0.90 mg/dL 0.50-1.40 124 One Over Creatinine 1.10 124 BUN/Creatinine Ratio 12.2 8-20 124 Calcium 9.5 mg/dL 8.1-9.9 124, 127 Protime 03/06/2009 Protime 11.5 10.9-13.3 124 Inr 0.90 124, 128 Cath Panel 03/06/2009 PTT (Aptt) 24.4 20.1-28.2 124, 129 Comp Metabolic Panel 12/15/2008 Sodium 142 mmol/L 135-145 Potassium 4.3 mmol/L 3.5-5.0 Chloride 111 mmol/L 101-111 Co2 (Carbon Dioxide) 26.0 mmol/L 22-32 Anion Gap 5.0 mmol/L 2-11 130 Glucose 119 mg/dL High 70-100 131 BUN 17 mg/dL 6-24 Creatinine 1.10 mg/dL 0.50-1.40 One Over Creatinine 0.90 BUN/Creatinine Ratio 15.5 8-20 Calcium 9.7 mg/dL 8.1-9.9 132 Total Protein 7.4 GM/DL 6.2-8.1 Albumin 3.7 GM/DL 3.2-5.2 Globulin 3.7 GM/DL 2-4 Albumin/Globulin Ratio 1.0 1-3 Bilirubin Total 0.6 mg/dL 0.4-1.5 Alkaline Phosphatase 101 U/L 30-110 Alt (SGPT) 39 U/L 14-54 Ast (Sgot) 29 U/L 12-42 Lipid Profile (Trig/Chol/HDL) 12/15/2008 Triglyceride 124 mg/dL 40-200 Cholesterol 124 mg/dL Less Than 200 133 High Density Lipoprotein 38 mg/dL Low 40-60 134 Cholesterol/HDL Ratio 3.26 AVERAGE 1-4.44 Low Density Lipoprotein 61 mg/dL Less Than 100 135 Laboratory test finding 12/15/2008 CPK (Creatine Kinase) 75 U/L 0-170 Comp Metabolic Panel 07/16/2008 Sodium 138 mmol/L 135-145 136 Potassium 4.4 mmol/L 3.5-5.0 136 Chloride 107 mmol/L 101-111 136 Co2 (Carbon Dioxide) 23.0 mmol/L 22-32 136 Anion Gap 8.0 mmol/L 2-11 136, 137 Glucose 115 mg/dL High 70-100 136, 138 BUN 16 mg/dL 6-24 136 Creatinine 1.0 mg/dL 0.5-1.4 136 One Over Creatinine 1.00 136 BUN/Creatinine Ratio 16.0 8-20 136 Calcium 9.5 mg/dL 8.1-9.9 136, 139 Total Protein 7.7 GM/DL 6.2-8.1 136 Albumin 4.1 GM/DL 3.2-5.2 136 Globulin 3.6 GM/DL 2-4 136 Albumin/Globulin Ratio 1.1 1-3 136 Bilirubin Total 1.0 mg/dL 0.4-1.5 136 Alkaline Phosphatase 109 U/L 30-110 136 Alt (SGPT) 32 U/L 14-54 136 Ast (Sgot) 29 U/L 12-42 136 Lipid Profile (Trig/Chol/HDL) 07/16/2008 Triglyceride 94 mg/dL 40-200 136 Cholesterol 130 mg/dL Less Than 200 136, 140 High Density Lipoprotein 42 mg/dL 40-60 136, 141 Cholesterol/HDL Ratio 3.10 AVERAGE 1-4.44 136 Low Density Lipoprotein 69 mg/dL Less Than 100 136, 142 Laboratory test finding 07/16/2008 CPK (Creatine Kinase) 84 U/L 0-170 136 BNP Evaluatr 13.41 pg/mL 7.5-100 136 Laboratory test finding 12/28/2007 BNP Evaluatr 14.66 pg/mL 7.5-100 136 Lipid Profile 12/28/2007 Cholesterol/HDL Ratio 3.12 AVERAGE 1-4.44 136 (Trig/Chol/HDL) Cholesterol 134 mg/dL Less Than 200 136, 143 Triglyceride 106 mg/dL 40-200 136 High Density Lipoprotein 43 mg/dL 40-60 136 Low Density Lipoprotein 70 mg/dL Less Than 100 136, 144 Comp Metabolic Panel 12/28/2007 One Over Creatinine 0.90 136 Anion Gap 4.0 mmol/L 2-11 136, 145 Albumin/Globulin Ratio 1.0 1-3 136 Albumin 3.9 GM/DL 3.2-5.2 136 Alkaline Phosphatase 97 U/L 30-110 136 Alt (SGPT) 27 U/L 14-54 136 Ast (Sgot) 26 U/L 12-42 136 BUN 23 mg/dL 6-24 136 Calcium 9.4 mg/dL 8.7-10.2 136 Chloride 107 mmol/L 101-111 136 Co2 (Carbon Dioxide) 24.0 mmol/L 22-32 136 Globulin 3.9 GM/DL 2-4 136 Glucose 106 mg/dL High 70-105 136 Potassium 4.1 mmol/L 3.5-5.0 136 Sodium 135 mmol/L 135-145 136 Bilirubin Total 0.6 mg/dL 0.4-1.5 136 Total Protein 7.8 GM/DL 6.2-8.1 136 BUN/Creatinine Ratio 20.9 High 8-20 136 Creatinine 1.1 mg/dL 0.5-1.4 136 [facility] 12/28/2007 CPK (Creatine Kinase) 80 U/L 0-170 136 CBC With Manual Diff 07/26/2007 RBC Morphology NORMAL White Blood Count 6.6 CUMM 4.8-10.8 Absolute Neutrophil Count 2.1 Atypical Lymph 1 % 0-6 Hematocrit 40 % 35-47 Hemoglobin 13.6 g/dL 12.0-16.0 Eosenophil 1 % 0-6 Lymphocyte 56 % High 5-47 Mean Corpuscular HGB Cone 34 g/dL 32-36 Mean Corpuscular Hemoglob 32 pg High 27-31 Mean Corpuscular Volume 95 um3 79-97 Monocyte 10 % 0-13 Mean Platelet Volume 7.5 um3 7.4-10.4 Platelet Count 303 CUMM 150-450 Polysegmented Neutrophil 32 % Low 38-83 Red Cell Count 4.26 CUMM 4.2-5.4 Redcell Distribution WDTH 13 % 10.5-15 Laboratory test finding 07/26/2007 Magnesium 2.2 mg/dL 1.7-2.6 BNP Evaluatr 23.4 pg/mL 7.5-100 Basic Metabolic Panel 07/26/2007 One Over Creatinine 0.90 Anion Gap 7.0 mmol/L 2-11 146 BUN 19 mg/dL 6-24 Calcium 9.4 mg/dL 8.7-10.2 Chloride 104 mmol/L 101-111 Co2 (Carbon Dioxide) 25.0 mmol/L 22-32 Glucose 111 mg/dL High 70-105 Potassium 4.1 mmol/L 3.5-5.0 Sodium 136 mmol/L 135-145 BUN/Creatinine Ratio 17.3 8-20 Creatinine 1.1 mg/dL 0.5-1.4 1 >100 to <200 pg/mL: likely compensated congestive heart failure (CHF) 200 to 400 pg/mL: likely moderate CHF >400 pg/mL: likely moderate to severe CHF 2 Because ethnic data is not always readily available, this report includes an eGFR for both -Americans and non- Americans. The National Kidney Disease Education Program (NKDEP) does not endorse the use of the MDRD equation for patients that are not between the ages of 18 and 70, are , have extremes of body size, muscle mass, or nutritional status, or are non- or non-. According to the National [employer], irrespective of diagnosis, the stage of the disease is based on the level of kidney function: Stage Description GFR(mL/min/1.73 m(2)) 1 Kidney damage with normal or decreased GFR 90 2 Kidney damage with mild decrease in GFR 60-89 3 Moderate decrease in GFR 30-59 4 Severe decrease in GFR 15-29 5 Kidney failure <15 (or dialysis) 3 Because ethnic data is not always readily available, this report includes an eGFR for both -Americans and non- Americans. The National Kidney Disease Education Program (NKDEP) does not endorse the use of the MDRD equation for patients that are not between the ages of 18 and 70, are , have extremes of body size, muscle mass, or nutritional status, or are non- or non-. According to the National [employer], irrespective of diagnosis, the stage of the disease is based on the level of kidney function: Stage Description GFR(mL/min/1.73 m(2)) 1 Kidney damage with normal or decreased GFR 90 2 Kidney damage with mild decrease in GFR 60-89 3 Moderate decrease in GFR 30-59 4 Severe decrease in GFR 15-29 5 Kidney failure <15 (or dialysis) 4 obtain 1 day after mag infusion. Copy Result to: JEOVANY GLASER ([id number]) 5 Because ethnic data is not always readily available, this report includes an eGFR for both -Americans and non- Americans. The National Kidney Disease Education Program (NKDEP) does not endorse the use of the MDRD equation for patients that are not between the ages of 18 and 70, are , have extremes of body size, muscle mass, or nutritional status, or are non- or non-. According to the National Kid[employer] Foundation, irrespective of diagnosis, the stage of the disease is based on the level of kidney function: Stage Description GFR(mL/min/1.73 m(2)) 1 Kidney damage with normal or decreased GFR 90 2 Kidney damage with mild decrease in GFR 60-89 3 Moderate decrease in GFR 30-59 4 Severe decrease in GFR 15-29 5 Kidney failure <15 (or dialysis) 6 Copy Result to: JEOVANY GLASER ([id number]) 7 Because ethnic data is not always readily available, this report includes an eGFR for both -Americans and non- Americans. The National Kidney Disease Education Program (NKDEP) does not endorse the use of the MDRD equation for patients that are not between the ages of 18 and 70, are , have extremes of body size, muscle mass, or nutritional status, or are non- or non-. According to the National Kid[employer], irrespective of diagnosis, the stage of the disease is based on the level of kidney function: Stage Description GFR(mL/min/1.73 m(2)) 1 Kidney damage with normal or decreased GFR 90 2 Kidney damage with mild decrease in GFR 60-89 3 Moderate decrease in GFR 30-59 4 Severe decrease in GFR 15-29 5 Kidney failure <15 (or dialysis) 8 Because ethnic data is not always readily available, this report includes an eGFR for both -Americans and non- Americans. The National Kidney Disease Education Program (NKDEP) does not endorse the use of the MDRD equation for patients that are not between the ages of 18 and 70, are , have extremes of body size, muscle mass, or nutritional status, or are non- or non-. According to the National Kid[employer], irrespective of diagnosis, the stage of the disease is based on the level of kidney function: Stage Description GFR(mL/min/1.73 m(2)) 1 Kidney damage with normal or decreased GFR 90 2 Kidney damage with mild decrease in GFR 60-89 3 Moderate decrease in GFR 30-59 4 Severe decrease in GFR 15-29 5 Kidney failure <15 (or dialysis) 9 1-2 days after mag infusion 10 Because ethnic data is not always readily available, this report includes an eGFR for both -Americans and non- Americans. The National Kidney Disease Education Program (NKDEP) does not endorse the use of the MDRD equation for patients that are not between the ages of 18 and 70, are , have extremes of body size, muscle mass, or nutritional status, or are non- or non-. According to the National Kid[employer], irrespective of diagnosis, the stage of the disease is based on the level of kidney function: Stage Description GFR(mL/min/1.73 m(2)) 1 Kidney damage with normal or decreased GFR 90 2 Kidney damage with mild decrease in GFR 60-89 3 Moderate decrease in GFR 30-59 4 Severe decrease in GFR 15-29 5 Kidney failure <15 (or dialysis) 11 in 2 weeks cc pmd Copy Result to: JEOVANY GLASER ([id number]) 12 Because ethnic data is not always readily available, this report includes an eGFR for both -Americans and non- Americans. The National Kidney Disease Education Program (NKDEP) does not endorse the use of the MDRD equation for patients that are not between the ages of 18 and 70, are , have extremes of body size, muscle mass, or nutritional status, or are non- or non-. According to the National Kid[employer] Foundation, irrespective of diagnosis, the stage of the disease is based on the level of kidney function: Stage Description GFR(mL/min/1.73 m(2)) 1 Kidney damage with normal or decreased GFR 90 2 Kidney damage with mild decrease in GFR 60-89 3 Moderate decrease in GFR 30-59 4 Severe decrease in GFR 15-29 5 Kidney failure <15 (or dialysis) 13 Because ethnic data is not always readily available, this report includes an eGFR for both -Americans and non- Americans. The National Kidney Disease Education Program (NKDEP) does not endorse the use of the MDRD equation for patients that are not between the ages of 18 and 70, are , have extremes of body size, muscle mass, or nutritional status, or are non- or non-. According to the National [employer], irrespective of diagnosis, the stage of the disease is based on the level of kidney function: Stage Description GFR(mL/min/1.73 m(2)) 1 Kidney damage with normal or decreased GFR 90 2 Kidney damage with mild decrease in GFR 60-89 3 Moderate decrease in GFR 30-59 4 Severe decrease in GFR 15-29 5 Kidney failure <15 (or dialysis) 14 >100 to <200 pg/mL: likely compensated congestive heart failure (CHF) 200 to 400 pg/mL: likely moderate CHF >400 pg/mL: likely moderate to severe CHF 15 Because ethnic data is not always readily available, this report includes an eGFR for both -Americans and non- Americans. The National Kidney Disease Education Program (NKDEP) does not endorse the use of the MDRD equation for patients that are not between the ages of 18 and 70, are , have extremes of body size, muscle mass, or nutritional status, or are non- or non-. According to the National [employer], irrespective of diagnosis, the stage of the disease is based on the level of kidney function: Stage Description GFR(mL/min/1.73 m(2)) 1 Kidney damage with normal or decreased GFR 90 2 Kidney damage with mild decrease in GFR 60-89 3 Moderate decrease in GFR 30-59 4 Severe decrease in GFR 15-29 5 Kidney failure <15 (or dialysis) 16 in 1 month cc pmd 17 Because ethnic data is not always readily available, this report includes an eGFR for both -Americans and non- Americans. The National Kidney Disease Education Program (NKDEP) does not endorse the use of the MDRD equation for patients that are not between the ages of 18 and 70, are , have extremes of body size, muscle mass, or nutritional status, or are non- or non-. According to the National Kid[employer], irrespective of diagnosis, the stage of the disease is based on the level of kidney function: Stage Description GFR(mL/min/1.73 m(2)) 1 Kidney damage with normal or decreased GFR 90 2 Kidney damage with mild decrease in GFR 60-89 3 Moderate decrease in GFR 30-59 4 Severe decrease in GFR 15-29 5 Kidney failure <15 (or dialysis) 18 Desirable <150 Borderline high 150-199 High 200-499 Very High >500 19 Desirable <200 Borderline high 200-239 High >239 20 Low <40 Desirable: 40-60 High: >60 21 Desirable: <100 mg/dL Near Optimal: 100-129 mg/dL Borderline High: 130-159 mg/dL High: 160-189 mg/dL Very High: >189 mg/dL 22 >100 to <200 pg/mL: likely compensated congestive heart failure (CHF) 200 to 400 pg/mL: likely moderate CHF >400 pg/mL: likely moderate to severe CHF 23 FASTING 12 HOUR in 4-6 weeks cc pmd PATIENT HAD COFFEE WITH LITTLE CREAM 24 Because ethnic data is not always readily available, this report includes an eGFR for both -Americans and non- Americans. The National Kidney Disease Education Program (NKDEP) does not endorse the use of the MDRD equation for patients that are not between the ages of 18 and 70, are , have extremes of body size, muscle mass, or nutritional status, or are non- or non-. According to the National Kid[employer], irrespective of diagnosis, the stage of the disease is based on the level of kidney function: Stage Description GFR(mL/min/1.73 m(2)) 1 Kidney damage with normal or decreased GFR 90 2 Kidney damage with mild decrease in GFR 60-89 3 Moderate decrease in GFR 30-59 4 Severe decrease in GFR 15-29 5 Kidney failure <15 (or dialysis) 25 in 3-4 weeks cc pmd 26 Because ethnic data is not always readily available, this report includes an eGFR for both -Americans and non- Americans. The National Kidney Disease Education Program (NKDEP) does not endorse the use of the MDRD equation for patients that are not between the ages of 18 and 70, are , have extremes of body size, muscle mass, or nutritional status, or are non- or non-. According to the National Kid[employer] Foundation, irrespective of diagnosis, the stage of the disease is based on the level of kidney function: Stage Description GFR(mL/min/1.73 m(2)) 1 Kidney damage with normal or decreased GFR 90 2 Kidney damage with mild decrease in GFR 60-89 3 Moderate decrease in GFR 30-59 4 Severe decrease in GFR 15-29 5 Kidney failure <15 (or dialysis) 27 Because ethnic data is not always readily available, this report includes an eGFR for both -Americans and non- Americans. The National Kidney Disease Education Program (NKDEP) does not endorse the use of the MDRD equation for patients that are not between the ages of 18 and 70, are , have extremes of body size, muscle mass, or nutritional status, or are non- or non-. According to the National Kid[employer], irrespective of diagnosis, the stage of the disease is based on the level of kidney function: Stage Description GFR(mL/min/1.73 m(2)) 1 Kidney damage with normal or decreased GFR 90 2 Kidney damage with mild decrease in GFR 60-89 3 Moderate decrease in GFR 30-59 4 Severe decrease in GFR 15-29 5 Kidney failure <15 (or dialysis) 28 in 1 week cc pmd 29 Verbal to JORDIN by [id number] at 1128 on 07/04/16. Results read back accurately. --- 07/04/16 1129 --- Digoxin previously reported as: 2.8 *P ng/ml 30 Desirable <150 Borderline high 150-199 High 200-499 Very High >500 31 Desirable <200 Borderline high 200-239 High >239 32 Low <40 Desirable: 40-60 High: >60 33 Desirable: <100 mg/dL Near Optimal: 100-129 mg/dL Borderline High: 130-159 mg/dL High: 160-189 mg/dL Very High: >189 mg/dL 34 Because ethnic data is not always readily available, this report includes an eGFR for both -Americans and non- Americans. The National Kidney Disease Education Program (NKDEP) does not endorse the use of the MDRD equation for patients that are not between the ages of 18 and 70, are , have extremes of body size, muscle mass, or nutritional status, or are non- or non-. According to the National Kid[employer], irrespective of diagnosis, the stage of the disease is based on the level of kidney function: Stage Description GFR(mL/min/1.73 m(2)) 1 Kidney damage with normal or decreased GFR 90 2 Kidney damage with mild decrease in GFR 60-89 3 Moderate decrease in GFR 30-59 4 Severe decrease in GFR 15-29 5 Kidney failure <15 (or dialysis) 35 PT IS FASTING 36 PT IS FASTING 37 >100 to <200 pg/mL: likely compensated congestive heart failure (CHF) 200 to 400 pg/mL: likely moderate CHF >400 pg/mL: likely moderate to severe CHF 38 Desirable <150 Borderline high 150-199 High 200-499 Very High >500 39 Desirable <200 Borderline high 200-239 High >239 40 Low <40 Desirable: 40-60 High: >60 41 Desirable: <100 mg/dL Near Optimal: 100-129 mg/dL Borderline High: 130-159 mg/dL High: 160-189 mg/dL Very High: >189 mg/dL 42 Because ethnic data is not always readily available, this report includes an eGFR for both -Americans and non- Americans. The National Kidney Disease Education Program (NKDEP) does not endorse the use of the MDRD equation for patients that are not between the ages of 18 and 70, are , have extremes of body size, muscle mass, or nutritional status, or are non- or non-. According to the National Kid[employer] Foundation, irrespective of diagnosis, the stage of the disease is based on the level of kidney function: Stage Description GFR(mL/min/1.73 m(2)) 1 Kidney damage with normal or decreased GFR 90 2 Kidney damage with mild decrease in GFR 60-89 3 Moderate decrease in GFR 30-59 4 Severe decrease in GFR 15-29 5 Kidney failure <15 (or dialysis) 43 PT IS FASTING 44 Because ethnic data is not always readily available, this report includes an eGFR for both -Americans and non- Americans. The National Kidney Disease Education Program (NKDEP) does not endorse the use of the MDRD equation for patients that are not between the ages of 18 and 70, are , have extremes of body size, muscle mass, or nutritional status, or are non- or non-. According to the National Kid[employer] Foundation, irrespective of diagnosis, the stage of the disease is based on the level of kidney function: Stage Description GFR(mL/min/1.73 m(2)) 1 Kidney damage with normal or decreased GFR 90 2 Kidney damage with mild decrease in GFR 60-89 3 Moderate decrease in GFR 30-59 4 Severe decrease in GFR 15-29 5 Kidney failure <15 (or dialysis) 45 Desirable <150 Borderline high 150-199 High 200-499 Very High >500 46 Desirable <200 Borderline high 200-239 High >239 47 Low <40 Desirable: 40-60 High: >60 48 Desirable: <100 mg/dL Near Optimal: 100-129 mg/dL Borderline High: 130-159 mg/dL High: 160-189 mg/dL Very High: >189 mg/dL 49 in 2-4 weeks cc pmd thanks 50 Because ethnic data is not always readily available, this report includes an eGFR for both -Americans and non- Americans. The National Kidney Disease Education Program (NKDEP) does not endorse the use of the MDRD equation for patients that are not between the ages of 18 and 70, are , have extremes of body size, muscle mass, or nutritional status, or are non- or non-. According to the National Kid[employer] Foundation, irrespective of diagnosis, the stage of the disease is based on the level of kidney function: Stage Description GFR(mL/min/1.73 m(2)) 1 Kidney damage with normal or decreased GFR 90 2 Kidney damage with mild decrease in GFR 60-89 3 Moderate decrease in GFR 30-59 4 Severe decrease in GFR 15-29 5 Kidney failure <15 (or dialysis) 51 in 2-4 weeks cc pmd thanks 52 Because ethnic data is not always readily available, this report includes an eGFR for both -Americans and non- Americans. The National Kidney Disease Education Program (NKDEP) does not endorse the use of the MDRD equation for patients that are not between the ages of 18 and 70, are , have extremes of body size, muscle mass, or nutritional status, or are non- or non-. According to the National Kid[employer] Foundation, irrespective of diagnosis, the stage of the disease is based on the level of kidney function: Stage Description GFR(mL/min/1.73 m(2)) 1 Kidney damage with normal or decreased GFR 90 2 Kidney damage with mild decrease in GFR 60-89 3 Moderate decrease in GFR 30-59 4 Severe decrease in GFR 15-29 5 Kidney failure <15 (or dialysis) 53 Reference Range and Interpretation: TnI (ng/mL) Interpretation Less Than 0.03 ng/mL Not supportive of diagnosis of ME 0.03 - 0.50 ng/mL Indeterminate: suggest serial studies if clinically indicated. Greater than 0.5 ng/mL Consistent with diagnosis of ME 54 Because ethnic data is not always readily available, this report includes an eGFR for both -Americans and non- Americans. The National Kidney Disease Education Program (NKDEP) does not endorse the use of the MDRD equation for patients that are not between the ages of 18 and 70, are , have extremes of body size, muscle mass, or nutritional status, or are non- or non-. According to the National Kidney Foundation, irrespective of diagnosis, the stage of the disease is based on the level of kidney function: Stage Description GFR(mL/min/1.73 m(2)) 1 Kidney damage with normal or decreased GFR 90 2 Kidney damage with mild decrease in GFR 60-89 3 Moderate decrease in GFR 30-59 4 Severe decrease in GFR 15-29 5 Kidney failure <15 (or dialysis) 55 Because ethnic data is not always readily available, this report includes an eGFR for both -Americans and non- Americans. The National Kidney Disease Education Program (NKDEP) does not endorse the use of the MDRD equation for patients that are not between the ages of 18 and 70, are , have extremes of body size, muscle mass, or nutritional status, or are non- or non-. According to the National Kidney Foundation, irrespective of diagnosis, the stage of the disease is based on the level of kidney function: Stage Description GFR(mL/min/1.73 m(2)) 1 Kidney damage with normal or decreased GFR 90 2 Kidney damage with mild decrease in GFR 60-89 3 Moderate decrease in GFR 30-59 4 Severe decrease in GFR 15-29 5 Kidney failure <15 (or dialysis) 56 Please note: Effective December 02, 2014, the reference value for this test has changed due to the validation and activation of a new reagent lot number. 57 FASTING 58 FASTING 59 FASTING 60 Because ethnic data is not always readily available, this report includes an eGFR for both -Americans and non- Americans. The National Kidney Disease Education Program (NKDEP) does not endorse the use of the MDRD equation for patients that are not between the ages of 18 and 70, are , have extremes of body size, muscle mass, or nutritional status, or are non- or non-. According to the National Kid[employer] Foundation, irrespective of diagnosis, the stage of the disease is based on the level of kidney function: Stage Description GFR(mL/min/1.73 m(2)) 1 Kidney damage with normal or decreased GFR 90 2 Kidney damage with mild decrease in GFR 60-89 3 Moderate decrease in GFR 30-59 4 Severe decrease in GFR 15-29 5 Kidney failure <15 (or dialysis) 61 Desirable <150 Borderline high 150-199 High 200-499 Very High >500 62 Desirable <200 Borderline high 200-239 High >239 63 Low <40 Desirable: 40-60 High: >60 64 Desirable <100 Near Optimal 100-129 Borderline high 130-159 High 160-189 Very High >189 65 Because ethnic data is not always readily available, this report includes an eGFR for both -Americans and non- Americans. The National Kidney Disease Education Program (NKDEP) does not endorse the use of the MDRD equation for patients that are not between the ages of 18 and 70, are , have extremes of body size, muscle mass, or nutritional status, or are non- or non-. According to the National Kid[employer] Foundation, irrespective of diagnosis, the stage of the disease is based on the level of kidney function: Stage Description GFR(mL/min/1.73 m(2)) 1 Kidney damage with normal or decreased GFR 90 2 Kidney damage with mild decrease in GFR 60-89 3 Moderate decrease in GFR 30-59 4 Severe decrease in GFR 15-29 5 Kidney failure <15 (or dialysis) 66 Reference Range and Interpretation: TnI (ng/mL) Interpretation Less Than 0.03 ng/mL Not supportive of diagnosis of ME 0.03 - 0.50 ng/mL Indeterminate: suggest serial studies if clinically indicated. Greater than 0.5 ng/mL Consistent with diagnosis of ME 67 NON FASTING 68 NON FASTING 69 Potassium reference range changed effective 09/06/14 70 Because ethnic data is not always readily available, this report includes an eGFR for both -Americans and non- Americans. The National Kidney Disease Education Program (NKDEP) does not endorse the use of the MDRD equation for patients that are not between the ages of 18 and 70, are , have extremes of body size, muscle mass, or nutritional status, or are non- or non-. According to the National Kidney Foundation, irrespective of diagnosis, the stage of the disease is based on the level of kidney function: Stage Description GFR(mL/min/1.73 m(2)) 1 Kidney damage with normal or decreased GFR 90 2 Kidney damage with mild decrease in GFR 60-89 3 Moderate decrease in GFR 30-59 4 Severe decrease in GFR 15-29 5 Kidney failure <15 (or dialysis) 71 Desirable <150 Borderline high 150-199 High 200-499 Very High >500 72 Desirable <200 Borderline high 200-239 High >239 73 Low <40 Desirable: 40-60 High: >60 74 Desirable <100 Near Optimal 100-129 Borderline high 130-159 High 160-189 Very High >189 75 Because ethnic data is not always readily available, this report includes an eGFR for both -Americans and non- Americans. The National Kidney Disease Education Program (NKDEP) does not endorse the use of the MDRD equation for patients that are not between the ages of 18 and 70, are , have extremes of body size, muscle mass, or nutritional status, or are non- or non-. According to the National Kidney Foundation, irrespective of diagnosis, the stage of the disease is based on the level of kidney function: Stage Description GFR(mL/min/1.73 m(2)) 1 Kidney damage with normal or decreased GFR 90 2 Kidney damage with mild decrease in GFR 60-89 3 Moderate decrease in GFR 30-59 4 Severe decrease in GFR 15-29 5 Kidney failure <15 (or dialysis) 76 >100 to <200 pg/mL: likely compensated congestive heart failure (CHF) 200 to 400 pg/mL: likely moderate CHF >400 pg/mL: likely moderate to severe CHF [place] [facility] 77 Because ethnic data is not always readily available, this report includes an eGFR for both -Americans and non- Americans. The National Kidney Disease Education Program (NKDEP) does not endorse the use of the MDRD equation for patients that are not between the ages of 18 and 70, are , have extremes of body size, muscle mass, or nutritional status, or are non- or non-. According to the National Kidney Foundation, irrespective of diagnosis, the stage of the disease is based on the level of kidney function: Stage Description GFR(mL/min/1.73 m(2)) 1 Kidney damage with normal or decreased GFR 90 2 Kidney damage with mild decrease in GFR 60-89 3 Moderate decrease in GFR 30-59 4 Severe decrease in GFR 15-29 5 Kidney failure <15 (or dialysis) 78 PT IS FASTING 79 Because ethnic data is not always readily available, this report includes an eGFR for both -Americans and non- Americans. The National Kidney Disease Education Program (NKDEP) does not endorse the use of the MDRD equation for patients that are not between the ages of 18 and 70, are , have extremes of body size, muscle mass, or nutritional status, or are non- or non-. According to the National Kidney Foundation, irrespective of diagnosis, the stage of the disease is based on the level of kidney function: Stage Description GFR(mL/min/1.73 m(2)) 1 Kidney damage with normal or decreased GFR 90 2 Kidney damage with mild decrease in GFR 60-89 3 Moderate decrease in GFR 30-59 4 Severe decrease in GFR 15-29 5 Kidney failure <15 (or dialysis) 80 Desirable <150 Borderline high 150-199 High 200-499 Very High >500 81 Desirable <200 Borderline high 200-239 High >239 82 Low <40 Desirable: 40-60 High: >60 83 Desirable <100 Near Optimal 100-129 Borderline high 130-159 High 160-189 Very High >189 84 Acute inflammation: >10.00 In accordance with FDA guideline, CRP is now reported in mg/L, previous reporting was in mg/dL. 85 >100 to <200 pg/mL: likely compensated congestive heart failure (CHF) 200 to 400 pg/mL: likely moderate CHF >400 pg/mL: likely moderate to severe CHF [place] [facility] 86 HDL Interpretation: Undesirable: High Risk: Less than 40 MG/DL Desirable: Low Risk: Greater than 60 MG/DL 87 LDL Interpretation: Low Risk Optimal Level: LDL Less than 100 MG/DL Near or Above Optimal: LDL 100-129 MG/DL Borderline High Risk: LDL 130-159 MG/DL High Risk: LDL 160-189 MG/DL Very High Risk: LDL Greater than 189 MG/DL 88 Because ethnic data is not always readily available, this report includes an eGFR for both -Americans and non- Americans. The National Kidney Disease Education Program (NKDEP) does not endorse the use of the MDRD equation for patients that are not between the ages of 18 and 70, are , have extremes of body size, muscle mass, or nutritional status, or are non- or non-. According to the National Kidney Foundation, irrespective of diagnosis, the stage of the disease is based on the level of kidney function: Stage Description GFR(mL/min/1.73 m(2)) 1 Kidney damage with normal or decreased GFR 90 2 Kidney damage with mild decrease in GFR 60-89 3 Moderate decrease in GFR 30-59 4 Severe decrease in GFR 15-29 5 Kidney failure <15 (or dialysis) 89 Anion gap measurement may be of limited value in the presence of any alkalosis, especially in a combined acid base disorder. . 90 Because ethnic data is not always readily available, this report includes an eGFR for both -Americans and non- Americans. The National Kidney Disease Education Program (NKDEP) does not endorse the use of the MDRD equation for patients that are not between the ages of 18 and 70, are , have extremes of body size, muscle mass, or nutritional status, or are non- or non-. According to the National Kidney Foundation, irrespective of diagnosis, the stage of the disease is based on the level of kidney function: Stage Description GFR(mL/min/1.73 m(2)) 1 Kidney damage with normal or decreased GFR 90 2 Kidney damage with mild decrease in GFR 60-89 3 Moderate decrease in GFR 30-59 4 Severe decrease in GFR 15-29 5 Kidney failure <15 (or dialysis) 91 Anion gap measurement may be of limited value in the presence of any alkalosis, especially in a combined acid base disorder. . 92 A metabolite of Naproxen, O-desmethylnaproxen, has been shown to interfere with the [place] method for measuring total bilirubin. Samples from patients who have taken Naproxen have shown spurious elevation in total bilirubin levels. 93 Because ethnic data is not always readily available, this report includes an eGFR for both -Americans and non- Americans. The National Kidney Disease Education Program (NKDEP) does not endorse the use of the MDRD equation for patients that are not between the ages of 18 and 70, are , have extremes of body size, muscle mass, or nutritional status, or are non- or non-. According to the National Kidney Foundation, irrespective of diagnosis, the stage of the disease is based on the level of kidney function: Stage Description GFR(mL/min/1.73 m(2)) 1 Kidney damage with normal or decreased GFR 90 2 Kidney damage with mild decrease in GFR 60-89 3 Moderate decrease in GFR 30-59 4 Severe decrease in GFR 15-29 5 Kidney failure <15 (or dialysis) 94 CHOLESTEROL INTERPRETATION: Desirable: Less than 200 MG/DL Borderline-High Risk: 200-239 MG/DL High-Risk: 240 MG/DL and over 95 HDL INTERPRETATION: Undesirable: High Risk: Less than 40 MG/DL Desirable: Low Risk: Greater than 60 MG/DL 96 LDL INTERPRETATION: Low Risk Optimal Level: LDL Less than 100 MG/DL Near or Above Optimal: LDL 100-129 MG/DL Borderline High Risk: LDL 130-159 MG/DL High Risk: LDL 160-189 MG/DL Very High Risk: LDL Greater than 189 MG/DL 97 CHOLESTEROL INTERPRETATION: Desirable: Less than 200 MG/DL Borderline-High Risk: 200-239 MG/DL High-Risk: 240 MG/DL and over 98 HDL INTERPRETATION: Undesirable: High Risk: Less than 40 MG/DL Desirable: Low Risk: Greater than 60 MG/DL 99 LDL INTERPRETATION: Low Risk Optimal Level: LDL Less than 100 MG/DL Near or Above Optimal: LDL 100-129 MG/DL Borderline High Risk: LDL 130-159 MG/DL High Risk: LDL 160-189 MG/DL Very High Risk: LDL Greater than 189 MG/DL 100 Anion gap measurement may be of limited value in the presence of any alkalosis, especially in a combined acid base disorder. . 101 A metabolite of Naproxen, O-desmethylnaproxen, has been shown to interfere with the [place] method for measuring total bilirubin. Samples from patients who have taken Naproxen have shown spurious elevation in total bilirubin levels. 102 Because ethnic data is not always readily available, this report includes an eGFR for both -Americans and non- Americans. The National Kidney Disease Education Program (NKDEP) does not endorse the use of the MDRD equation for patients that are not between the ages of 18 and 70, are , have extremes of body size, muscle mass, or nutritional status, or are non- or non-. According to the National Kidney Foundation, irrespective of diagnosis, the stage of the disease is based on the level of kidney function: Stage Description GFR(mL/min/1.73 m(2)) 1 Kidney damage with normal or decreased GFR 90 2 Kidney damage with mild decrease in GFR 60-89 3 Moderate decrease in GFR 30-59 4 Severe decrease in GFR 15-29 5 Kidney failure <15 (or dialysis) 103 Anion gap measurement may be of limited value in the presence of any alkalosis, especially in a combined acid base disorder. . 104 A metabolite of Naproxen, O-desmethylnaproxen, has been shown to interfere with the [place] method for measuring total bilirubin. Samples from patients who have taken Naproxen have shown spurious elevation in total bilirubin levels. 105 Because ethnic data is not always readily available, this report includes an eGFR for both -Americans and non- Americans. The National Kidney Disease Education Program (NKDEP) does not endorse the use of the MDRD equation for patients that are not between the ages of 18 and 70, are , have extremes of body size, muscle mass, or nutritional status, or are non- or non-. According to the National Kidney Foundation, irrespective of diagnosis, the stage of the disease is based on the level of kidney function: Stage Description GFR(mL/min/1.73 m(2)) 1 Kidney damage with normal or decreased GFR 90 2 Kidney damage with mild decrease in GFR 60-89 3 Moderate decrease in GFR 30-59 4 Severe decrease in GFR 15-29 5 Kidney failure <15 (or dialysis) 106 CHOLESTEROL INTERPRETATION: Desirable: Less than 200 MG/DL Borderline-High Risk: 200-239 MG/DL High-Risk: 240 MG/DL and over 107 HDL INTERPRETATION: Undesirable: High Risk: Less than 40 MG/DL Desirable: Low Risk: Greater than 60 MG/DL 108 LDL INTERPRETATION: Low Risk Optimal Level: LDL Less than 100 MG/DL Near or Above Optimal: LDL 100-129 MG/DL Borderline High Risk: LDL 130-159 MG/DL High Risk: LDL 160-189 MG/DL Very High Risk: LDL Greater than 189 MG/DL 109 Anion gap measurement may be of limited value in the presence of any alkalosis, especially in a combined acid base disorder. . 110 A metabolite of Naproxen, O-desmethylnaproxen, has been shown to interfere with the [place] method for measuring total bilirubin. Samples from patients who have taken Naproxen have shown spurious elevation in total bilirubin levels. 111 Because ethnic data is not always readily available, this report includes an eGFR for both -Americans and non- Americans. The National Kidney Disease Education Program (NKDEP) does not endorse the use of the MDRD equation for patients that are not between the ages of 18 and 70, are , have extremes of body size, muscle mass, or nutritional status, or are non- or non-. According to the National Kidney Foundation, irrespective of diagnosis, the stage of the disease is based on the level of kidney function: Stage Description GFR(mL/min/1.73 m(2)) 1 Kidney damage with normal or decreased GFR 90 2 Kidney damage with mild decrease in GFR 60-89 3 Moderate decrease in GFR 30-59 4 Severe decrease in GFR 15-29 5 Kidney failure <15 (or dialysis) 112 CHOLESTEROL INTERPRETATION: Desirable: Less than 200 MG/DL Borderline-High Risk: 200-239 MG/DL High-Risk: 240 MG/DL and over 113 HDL INTERPRETATION: Undesirable: High Risk: Less than 40 MG/DL Desirable: Low Risk: Greater than 60 MG/DL 114 LDL INTERPRETATION: Low Risk Optimal Level: LDL Less than 100 MG/DL Near or Above Optimal: LDL 100-129 MG/DL Borderline High Risk: LDL 130-159 MG/DL High Risk: LDL 160-189 MG/DL Very High Risk: LDL Greater than 189 MG/DL 115 FASTING 116 Anion gap measurement may be of limited value in the presence of any alkalosis, especially in a combined acid base disorder. . 117 Note change in reference range as of 06/25/08. The change was based on recommendations from the [place] [employer]. 118 Please note change in reference range effective 08 . 119 A metabolite of Naproxen, O-desmethylnaproxen, has been shown to interfere with the [place] method for measuring total bilirubin. Samples from patients who have taken Naproxen have shown spurious elevation in total bilirubin levels. 120 Because ethnic data is not always readily available, this report includes an eGFR for both -Americans and non- Americans. The National Kidney Disease Education Program (NKDEP) does not endorse the use of the MDRD equation for patients that are not between the ages of 18 and 70, are , have extremes of body size, muscle mass, or nutritional status, or are non- or non-. According to the National Kidney Foundation, irrespective of diagnosis, the stage of the disease is based on the level of kidney function: Stage Description GFR(mL/min/1.73 m(2)) 1 Kidney damage with normal or decreased GFR 90 2 Kidney damage with mild decrease in GFR 60-89 3 Moderate decrease in GFR 30-59 4 Severe decrease in GFR 15-29 5 Kidney failure <15 (or dialysis) 121 CHOLESTEROL INTERPRETATION: Desirable: Less than 200 MG/DL Borderline-High Risk: 200-239 MG/DL High-Risk: 240 MG/DL and over 122 HDL INTERPRETATION: Undesirable: High Risk: Less than 40 MG/DL Desirable: Low Risk: Greater than 60 MG/DL 123 LDL INTERPRETATION: Low Risk Optimal Level: LDL Less than 100 MG/DL Near or Above Optimal: LDL 100-129 MG/DL Borderline High Risk: LDL 130-159 MG/DL High Risk: LDL 160-189 MG/DL Very High Risk: LDL Greater than 189 MG/DL [address] WILLIS AT FAX NUMBER [phone] 125 Anion gap measurement may be of limited value in the presence of any alkalosis, especially in a combined acid base disorder. . 126 Note change in reference range as of 06/25/08. The change was based on recommendations from the [place] [employer]. 127 Please note change in reference range effective 08 . 128 PRISCILA VALUE=2.01 ( OF 10/11/07 Recommended INR for Patients on Oral Anticoagulants Prophylaxis 2.0 - 3.0 Treatment of thrombosis 2.0 - 3.0 Prevention of embolism 2.0 - 3.0 Prevention of embolism from prosthetic heart valves 2.5 - 3.5 129 PLEASE NOTE NEW REFERENCE RANGE EFFECTIVE 08. 130 Anion gap measurement may be of limited value in the presence of any alkalosis, especially in a combined acid base disorder. . 131 Note change in reference range as of 06/25/08. The change was based on recommendations from the [place] [employer]. 132 Please note change in reference range effective 08 . 133 CHOLESTEROL INTERPRETATION: Desirable: Less than 200 MG/DL Borderline-High Risk: 200-239 MG/DL High-Risk: 240 MG/DL and over 134 HDL INTERPRETATION: Undesirable: High Risk: Less than 40 MG/DL Desirable: Low Risk: Greater than 60 MG/DL 135 LDL INTERPRETATION: Low Risk Optimal Level: LDL Less than 100 MG/DL Near or Above Optimal: LDL 100-129 MG/DL Borderline High Risk: LDL 130-159 MG/DL High Risk: LDL 160-189 MG/DL Very High Risk: LDL Greater than 189 MG/DL 136 FASTING 137 Anion gap measurement may be of limited value in the presence of any alkalosis, especially in a combined acid base disorder. . 138 Note change in reference range as of 06/25/08. The change was based on recommendations from the [place] [employer]. 139 Please note change in reference range effective 08 . 140 CHOLESTEROL INTERPRETATION: Desirable: Less than 200 MG/DL Borderline-High Risk: 200-239 MG/DL High-Risk: 240 MG/DL and over 141 HDL INTERPRETATION: Undesirable: High Risk: Less than 40 MG/DL Desirable: Low Risk: Greater than 60 MG/DL 142 LDL INTERPRETATION: Low Risk Optimal Level: LDL Less than 100 MG/DL Near or Above Optimal: LDL 100-129 MG/DL Borderline High Risk: LDL 130-159 MG/DL High Risk: LDL 160-189 MG/DL Very High Risk: LDL Greater than 189 MG/DL 143 Classification: Desirable . 144 CALCULATED LDL APPROXIMATES THE VALUE OF A DIRECT LDL MEASUREMENT. Classification: Optimal Level . 145 Anion gap measurement may be of limited value in the presence of any alkalosis, especially in a combined acid base disorder. . 146 Anion gap measurement may be of limited value in the presence of any alkalosis, especially in a combined acid base disorder. . Procedures Date CPT Code Description Status 10/26/2017 29388 ECHO Transthoracic, Real-Time 2D With Doppler And Color Completed Flow 10/09/2017 87950 Interrogation Device Eval Remote Up To 30 Days Completed Analysis,Rev,RP 10/09/2017 64033 Icd Eval Sing,Dual,Multi Lead Remote Recpt Transm Tech Completed Rev Tech S 10/09/2017 67596 Icd Check Remote Up To 90 Days Single,Dual,Multiple Completed Lead 10/05/2017 27461 Icd Eval Sing,Dual,Multi Lead Remote Recpt Transm Tech Completed Rev Tech S 10/05/2017 44382 Icd Check Remote Up To 90 Days Single,Dual,Multiple Completed Lead 09/17/2017 58280 EKG Tracing & Interpretation Completed 09/04/2017 92700 EKG Tracing & Interpretation Completed 07/31/2017 49943 EKG Tracing & Interpretation Completed 07/18/2017 10237 EKG Tracing & Interpretation Completed 07/18/2017 73269 EKG Tracing & Interpretation Completed 06/26/2017 99719 Interrogation Implant Cardiovasc Monitor System Incl Completed Analysis Int 06/26/2017 22847 Icd Eval With Inerative Adjustmt Dual Lead System Completed 05/31/2017 29740 EKG Tracing & Interpretation Completed 05/19/2017 33514 Holter Monitor Review (24 hr)dr review & interp Completed only 05/16/2017 19695 ECG Monitor/Recording W/Visual Superimposition Scanning Completed 05/09/2017 85408 ECHO Transthorasic Realtime 2D W Doppler & Color Completed Flow Hosp 05/09/2017 54706 EKG, Interpretation Only Completed 04/05/2017 26304 Diffusing Capacity Completed 04/05/2017 97090 Plethysmography Determination Lung Volumes & Per Completed Airway Resist 04/05/2017 90208 Pulmonary Stress Test Simple Completed 04/05/2017 46223 Pulmonary Function><Bronchodil Completed 03/19/2017 65164 ECHO Transthoracic, Real-Time 2D With Doppler And Color Completed Flow 02/13/2017 88913 Interrogation Implant Cardiovasc Monitor System Incl Completed Analysis Int 02/13/2017 18790 Icd Eval With Inerative Adjustmt Dual Lead System Completed 01/15/2017 37415 EKG Tracing & Interpretation Completed 10/05/2016 66921 Interrogation Implant Cardiovasc Monitor System Incl Completed Analysis Int 10/05/2016 01102 Icd Eval With Inerative Adjustmt Dual Lead System Completed 06/22/2016 24514 EKG Tracing & Interpretation Completed 06/19/2016 79164 Interrogation Implant Cardiovasc Monitor System Incl Completed Analysis Int 06/19/2016 04660 Icd Eval With Inerative Adjustmt Dual Lead System Completed 02/10/2016 84864 ECHO Transthoracic, Real-Time 2D With Doppler And Color Completed Flow 01/26/2016 76727 Interrogation Implant Cardiovasc Monitor System Incl Completed Analysis Int 01/26/2016 18736 Interrogation Device Eval In Person W/DR Completed Analysis,Single,Dual,Mul 01/26/2016 80792 EKG Tracing & Interpretation Completed 10/26/2015 41193 Interrogation Implant Cardiovasc Monitor System Incl Completed Analysis Int 10/26/2015 30280 Icd Eval With Inerative Adjustmt Dual Lead System Completed 08/13/2015 84630 ECHO Transthoracic, Real-Time 2D With Doppler And Color Completed Flow 08/02/2015 17940 Icd Eval With Inerative Adjustmt Dual Lead System Completed 08/02/2015 12095 EKG Tracing & Interpretation Completed 04/01/2015 51301 EKG Tracing & Interpretation Completed 03/31/2015 41427 Icd Check Single,Dual Or Multiple In Person W/DR Incl Completed Heart Rhyth 03/15/2015 80502 ECHO Transthoracic, Real-Time 2D With Doppler And Color Completed Flow 02/12/2015 62894 Icd Check Single,Dual Or Multiple In Person W/ Incl Completed Heart Rhyth 02/09/2015 04765 EKG Tracing & Interpretation Completed 01/14/2015 61699 Echocardiogram, Limited Study Completed 01/14/2015 84282 Pericardiocentesis Completed 01/13/2015 57244 EKG, Interpretation Only Completed 01/12/2015 48556 Icd Check Single,Dual Or Multiple In Person W/ Incl Completed Heart Rhyth 01/11/2015 25502 Ep Eval Icd At Implant Completed 01/11/2015 66255 Insert/Replace Icd W/Generator Completed 12/16/2014 31202 EKG Tracing & Interpretation Completed 10/21/2014 61467 ECHO Transthorasic Realtime 2D W Doppler & Color Completed Flow Hosp 09/08/2014 85529 EKG Tracing & Interpretation Completed 02/03/2014 35440 EKG Tracing & Interpretation Completed 01/28/2014 09322 Percutaneous Transcatheter Placement Of Intracoronary Completed Stent 01/28/2014 41915 Left Heart Cath. Incl S/I Coronaries, Angio S/I V Gram Completed If Done 01/28/2014 02806 Left Heart Cath. Incl S/I Coronaries, Angio S/I V Gram Completed If Done 01/28/2014 50011 Intravascular Blood Flow Velocity Completed 01/22/2014 10543 EKG Tracing & Interpretation Completed 01/20/2014 06188 ECHO Transthoracic, Real-Time 2D With Doppler And Color Completed Flow 01/19/2014 88077 ECHO Transthoracic, Real-Time 2D With Doppler And Color Completed Flow 01/06/2014 78173 EKG Tracing & Interpretation Completed 04/03/2013 52610 ECHO Transthoracic, Real-Time 2D With Doppler And Color Completed Flow 03/05/2013 41375 EKG Tracing & Interpretation Completed 05/09/2012 38866 Stress ECHO Interpretation/Report Hospital Completed 05/09/2012 43154 Treadmill Interp/Report Only Completed 05/09/2012 84466 Stress Test Supervsn W/Out I/R Completed 04/24/2012 35565 ECHO Transthoracic, Real-Time 2D With Doppler And Color Completed Flow 04/24/2012 96525 EKG Tracing & Interpretation Completed 06/21/2011 55954 EKG Tracing & Interpretation Completed 04/20/2011 93147 ECHO Transthoracic, Real-Time 2D With Doppler And Color Completed Flow 02/13/2011 45191 EKG Tracing & Interpretation Completed 12/01/2010 55607 EKG Tracing & Interpretation Completed 04/14/2010 55723 ECHO Transthoracic, Real-Time 2D With Doppler And Color Completed Flow 03/30/2010 66551 EKG Tracing & Interpretation Completed 10/14/2009 46268 ECHO Transthoracic, Real-Time 2D With Doppler And Color Completed Flow 02/23/2009 10640 Treadmill Interp/Report Only Completed 02/23/2009 85289 Stress Test Supervsn W/Out I/R Completed 01/20/2009 66647 EKG Tracing & Interpretation Completed 08/20/2008 39558 Echocardiogram Completed 08/20/2008 82005 Echocardiogram Completed 08/20/2008 98828 Pulse Doppler & Continuous Wave Completed 08/20/2008 58754 Pulse Doppler & Continuous Wave Completed 08/20/2008 41400 Pulse Doppler & Continuous Wave Completed 08/20/2008 25150 Color Doppler Completed 08/20/2008 77121 Color Doppler Completed 07/08/2008 20258 EKG Tracing & Interpretation Completed 03/17/2008 77269 Treadmill Interp/Report Only Completed 03/17/2008 35815 Stress Test Supervsn W/Out I/R Completed 03/17/2008 23128 Stress Test Supervsn W/Out I/R Completed 03/10/2008 20052 Treadmill Interp/Report Only Completed 03/10/2008 28234 Stress Test Supervsn W/Out I/R Completed 03/10/2008 50711 Stress Test Supervsn W/Out I/R Completed 10/30/2007 98711 EKG Tracing & Interpretation Completed 10/30/2007 09622 Echocardiogram Completed 10/30/2007 17092 Echocardiogram Completed 10/30/2007 74379 Echocardiogram Completed 10/30/2007 34925 Pulse Doppler & Continuous Wave Completed 10/30/2007 86204 Pulse Doppler & Continuous Wave Completed 10/30/2007 77310 Color Doppler Completed 10/30/2007 31849 Color Doppler Completed 10/30/2007 00270 Color Doppler Completed 06/20/2007 05438 Holter Monitor Interpretation Completed 06/05/2007 08486 Color Doppler Completed 06/05/2007 31874 Color Doppler Completed 06/05/2007 75395 Pulse Doppler & Continuous Wave Completed 06/05/2007 12340 Pulse Doppler & Continuous Wave Completed 06/05/2007 49639 Pulse Doppler & Continuous Wave Completed 06/05/2007 13469 Echocardiogram Completed 06/05/2007 17938 Echocardiogram Completed 06/05/2007 22405 EKG Tracing & Interpretation Completed Encounters Type Date Location Provider CPT E/M Dx Office Visit 09/25/2017 [facility] [place] [address] J44.9 8:45a [facility] G47.33 R09.02 Office Visit 09/17/2017 2:30p [facility] SARTHAK Carr 20357RCR I49.3 Z95.810 I25.5 J44.9 R06.00 Office Visit 09/04/2017 9:20a [facility] Tyrone Hollis M.D. 21482 I48.0 I49.3 R94.31 Z95.810 I25.5 I42.9 Office Visit 07/18/2017 9:00a [facility] SARTHAK Carr 25817OEA I25.5 I48.0 Z95.810 I49.3 R53.83 Office Visit 05/31/2017 11:00a [facility] Tyrone Hollis M.D. 52813 I49.3 I42.9 R06.00 I25.10 I34.0 I10 I48.0 Office Visit 04/24/2017 10:45a [facility] Brittany Roper MD G9695 J44.9 [facility] G47.33 R09.02 Office Visit 2017 1:30p [facility] SARTHAK Carr 98984 I42.9 R06.00 I25.10 M79.1 Office Visit 02/21/2017 8:00a [facility] [place] [address] R06.00 [facility] [employer] [facility] J44.9 G47.33 I50.22 I25.10 I25.5 I48.0 Office Visit 01/15/2017 9:20a [facility] Tyrone Hollis M.D. 29547 I48.0 I25.5 I50.22 I25.10 R06.00 R42 Office Visit 06/22/2016 9:20a [facility] Tyrone Hollis, 75725 R06.02 M.DNathaly I25.5 I48.0 I47.2 Office Visit 02/24/2016 10:00a [facility] SARTHAK Carr 23627 I25.5 R06.02 I47.2 Z95.810 R11.0 I48.0 Office Visit 01/26/2016 10:00a [facility] Tyrone Hollis M.D. 01059 N20.0 I50.22 I25.5 I47.2 R06.02 Office Visit 11/30/2015 2:47p [facility], Олег Gomez, 77048 N39.0 Hospitalists Dash A41.9 N20.0 I50.22 Office Visit 11/29/2015 2:47p [facility], Олег Gomez, 32167 N39.0 Hospitalists MElaine A41.9 N20.0 I50.22 Office Visit 11/28/2015 2:46p [facility], Ramirez Neal M.D. 17387 N20.0 Hospitalists A41.9 N39.0 I50.22 Office Visit 11/27/2015 2:45p [facility], Ramirez Neal M.D. 58930 N20.0 Hospitalists A41.9 N39.0 I50.22 Office Visit 11/26/2015 2:45p [facility], Ramirez Neal M.D. 61644 N39.0 Hospitalists A41.9 N20.0 I50.22 Office Visit 09/02/2015 9:30a [facility] SARTHAK Carr 81328 I25.5 Z95.810 R06.02 E78.5 K22.4 I48.0 R07.9 Office Visit 08/02/2015 10:40a [facility] Tyrone Hollis M.D. 72125 I48.0 Z95.810 I25.10 I47.2 I42.9 R53.1 R07.9 Office Visit 05/04/2015 9:30a [facility] SARTHAK Carr 94240 427.31 425.4 V45.02 414.01 424.1 782.3 Office Visit 04/01/2015 9:00a [facility] Tyrone Hollis M.D. 75545 425.9 427.31 425.4 427.1 Office Visit 02/09/2015 1:00p [facility] Keyur Bravo, 07519 427.31 [facility] Business [facility] [place] [facility] [place].DNathaly V45.02 414.8 Office Visit 01/14/2015 9:41a [facility] Vincechastity Burt, 06811 423.9 M.D. 414.8 787.01 789.09 Office Visit 01/01/2015 11:00a [facility] Keyur Bravo, 94422 414.8 [facility] M.DNathaly 414.01 786.05 Office Visit 12/18/2014 3:45p [facility] Keyur Bravo, 47477 414.8 [facility] M.D. 425.9 414.01 Office Visit 12/16/2014 10:20a [facility] Tyrone Hollis M.D. 07247 414.8 424.1 425.9 Office Visit 11/12/2014 2:30p [facility] SARTHAK Carr 12430 425.9 414.8 424.1 786.05 785.1 Office Visit 09/08/2014 11:00a [facility] Tyrone Hollis, 32218 414.01 M.D. V45.82 794.31 401.1 425.9 Office Visit 02/03/2014 4:00p [facility] Tomasa Burt, 30144 414.01 M.D. V45.82 794.31 401.1 Office Visit 01/29/2014 1:11p [facility] Tomasa Burt, 72745 424.1 M.D. 414.8 401.1 272.4 Office Visit 01/28/2014 1:36p [facility], 65255 414.01 M.D. 414.8 794.31 401.1 Office Visit 01/22/2014 1:40p [facility] 41101 425.4 M.D. 414.01 424.0 786.50 492.8 786.05 Office Visit 01/06/2014 10:00a [facility] Tyrone Hollis M.D. 68218 424.0 425.4 414.01 786.50 576.9 Office Visit 03/05/2013 9:20a [facility] Tyrone Hollis 29829 414.01 M.D. 424.0 425.4 Office Visit 04/24/2012 10:00a [facility] Tyrone Hollis M.D. 16823 424.0 401.1 425.4 799.02 Office Visit 02/13/2011 11:00a [facility] Tyrone Hollis 12647 414.01 M.D. 425.4 401.1 424.0 Office Visit 03/30/2010 9:00a [facility] Tyrone Hollis 72448 414.01 M.D. 425.4 401.1 424.0 Office Visit 01/20/2009 10:00a [facility] Tyrone Hollis 63738 414.01 M.D. 272.0 786.09 Office Visit 07/08/2008 9:20a [facility] Tyrone Hollis 14341 414.01 M.D. 272.0 401.0 Office Visit 02/07/2008 8:40a [facility] Tyrone Hollis M.D. 58524 425.4 272.0 414.01 Office Visit 11/29/2007 8:40a [facility] Tyrone Hollis M.D. 48794 425.4 272.0 414.01 Office Visit 10/30/2007 10:40a [facility] Tyrone Hollis M.D. 29518 425.4 272.0 414.01 401.1 Office Visit 09/23/2007 11:00a [facility] Tyrone Hollis M.D. 18848 272.0 425.4 414.01 401.1 Office Visit 08/20/2007 11:00a [facility] Tyrone Hollis M.D. 72726 425.4 272.0 401.1 414.01 Office Visit 07/25/2007 10:00a [facility] Tyrone Hollis M.D. 73298 425.4 272.0 785.1 401.1 786.09 Office Visit 07/02/2007 1:20p [facility] Tyrone Hollis M.D. 49558 425.4 272.0 785.1 Office Visit 06/14/2007 10:40a [facility] Tyrone Hollis M.D. 27483 425.4 272.0 401.1 785.1 Office Visit 06/05/2007 11:30a [facility] Tyrone Hollis M.D. 45276 425.4 272.0 401.0 428.22 Plan of Care Future Appointment(s):05/09/2018 11:30 am - Brittany Roper MD at [facility]01/04/2018 2:20 pm - Tyrone Hollis M.D. at [facility]11/09/2017 - Brittany Roper MDJ44.9 Chronic obstructive pulmonary disease, unspecifiedFollow up:6 sesgvgH46.33 Obstructive sleep apnea ( adult) (pediatric)R09.02 Hypoxemia
[2017-11-09] MEDS ORDERED: Cyclobenzaprine TAB* 10 MG PO ONE (13:27)
--- NOTE | 2017-11-09 13:39 | RAD ---
INDICATION: Low back pain, difficulty ambulating. COMPARISON: Comparison is made with a prior CT of the abdomen and pelvis from November 26, 2015. TECHNIQUE: Contiguous axial sections were obtained beginning above the T12 vertebra and continuing through the L5-S1 disc space. Images were reconstructed in the sagittal and coronal planes. FINDINGS: The vertebra are in normal alignment. No fracture is seen. At the L2-L3 level there is mild posterior endplate spurring associated with a mild broad-based disc bulge and mild hypertrophic changes within the facet joints. No significant spinal canal narrowing is present. Neural foramen appear patent on both sides. At the L3-L4 level there is a mild broad-based disc bulge and mild hypertrophic changes within the facet joints. There is mild spinal canal narrowing and mild bilateral neural foraminal narrowing. At the L4-L5 level there is a mild broad-based disc bulge and moderate hypertrophic changes within the facet joints. There is moderate spinal canal narrowing and mild bilateral neural foraminal narrowing. At the L5-S1 level there is a mild broad-based disc bulge which causes lateral recess narrowing on both sides. There are moderate hypertrophic changes within the facet joints. Neural foramen appear patent on both sides. The visualized portion of the liver is enlarged and decreased in attenuation consistent with fatty infiltration. There is also a 2 mm nonobstructing left renal calculus. IMPRESSION: 1. NO EVIDENCE FOR FRACTURE. 2. 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 3. HEPATOMEGALY AND HEPATIC STEATOSIS. 4. 2 MM NONOBSTRUCTING LEFT RENAL CALCULUS.
[2017-11-09 14:05] VITALS: BP 143/74
--- NOTE | 2017-11-27 11:57 | ED ---
Back Pain - HPI Summary HPI Summary: Patient arrives to the ED after sent in from PMD with CC of right sided lower back pain radiating to her hip. She feels as though she strained it a few weeks ago upon getting out of bed. She denies any other symptoms including urinary symptoms and B/B dysfunction. Denies numbness or tingling down the leg. Pulses good bilaterally pedal and posterior tibial. Denies blood in urine. Denies previous back pain or injury. - History of Current Complaint Chief Complaint: EDBackInjuryPain Stated Complaint: BACK PAIN Time Seen by Provider: 11/09/17 12:21 Hx Obtained From: Patient Onset/Duration: Sudden Onset Onset/Duration: Started Weeks Ago Timing: Constant Severity Initially: Moderate Severity Currently: Moderate Pain Intensity: 7 Pain Scale Used: 0-10 Numeric Character: Aching Aggravating Symptom(s): Movement, Lifting, Bending Alleviating Symptom(s): Rest, Position, Heat Associated Signs And Symptoms: Positive: Negative Related History: Previous Back Injury - Risk Factors AAA Risk Factors: Negative TAD Risk Factors: Negative Cauda Equina Risk Factors: Negative Epidural Abscess Risk Factors: Negative - Allergies/Home Medications Allergies/Adverse Reactions: Allergies Allergy/AdvReac Type Severity Reaction Status Date / Time MS Codeine [Codeine] Allergy Intermediate GI Upset Verified 08/24/17 11:59 MS Lisinopril [Lisinopril] Allergy Intermediate Coughing Verified 08/24/17 11:59 MS Spironolactone Allergy Intermediate Dizziness Verified 08/24/17 11:59 [Spironolactone] MS Roflumilast Allergy Unknown Unknown Verified 08/24/17 11:59 [From Daliresp] Reaction Details MS Aspirin [Aspirin] AdvReac Intermediate Abdominal Verified 08/24/17 11:59 Pain and upset stomach if dose is >81mg PMH/Surg Hx/FS Hx/Imm Hx Previously Healthy: Yes Endocrine/Hematology History: Reports: Hx Diabetes - TYPE 2, Hx Thyroid Disease Cardiovascular History: Reports: Hx Angina, 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, Hx Congestive Heart Failure - SYSTOLIC HEART FAILURE, Hx Coronary Artery Disease, Hx Hypercholesterolemia, Hx Hypertension - WELL CONTROLLED, Hx Myocardial Infarction, Hx Pacemaker/ICD, Hx Valvular Heart Disease - PAROXYSMAL A-FIB, Other Cardiovascular Problems/Disorders - HX ISCHEMIC CARDIOMYOPATHY, PERICARDIAL EFFUSION 01/17 Respiratory History: Reports: Hx Asthma, Hx Chronic Obstructive Pulmonary Disease (COPD), Hx Pulmonary Embolism, Hx Sleep Apnea Denies: Hx Cystic Fibrosis GI History: Reports: Hx Gastroesophageal Reflux Disease - CONTROL WITH MEDS, Other GI Disorders - OCCASIONAL ESOPHAGEAL SPASMS History: Reports: Hx Kidney Stones - LEFT, Other Problems/Disorders - HX OF SEPSIS, UTI 11/27/15, LEFT URETERAL CALCULUS Musculoskeletal History: Reports: Other Musculoskeletal History - HX SCIATICA LEFT LEG Sensory History: Reports: Hx Cataracts - ASHLEE, Hx Contacts or Glasses - GLASSES Denies: Hx Hearing Aid Opthamlomology History: Reports: Hx Cataracts - ASHLEE, Hx Contacts or Glasses - GLASSES Neurological History: Reports: Other Neuro Impairments/Disorders - RESTLESS LEG SYNDROME - Surgical History Surgery Procedure, Year, and Place: 28 YRS OF AGE- BILAT BUNIONECTOMIES- [facility] [place]. [place] - [facility]. 1967 APPENDECTOMY- [facility]. 01/11/2015 PACEMAKER/AICD- [facility] [place]. CYSTO WITH STENT INSERTION X3- [facility] [place] Hx Anesthesia Reactions: No - Immunization History Date of Tetanus Vaccine: unknown Date of Influenza Vaccine: 09/2017 Hx Pertussis Vaccination: No Immunizations Up to Date: Unable to Obtain/Confirm Infectious Disease History: No Infectious Disease History: Denies: Traveled Outside the [place] in Last 30 Days - Family History Known Family History: Positive: Other - Cataract (brother) - Social History Occupation: Unemployed Lives: With Family Alcohol Use: None Hx Substance Use: No Substance Use Type: Reports: None Smoking Status (MU): Former Smoker Type: Cigarettes Amount Used/How Often: PACK A DAY Length of Time of Smoking/Using Tobacco: 20 Have You Smoked in the Last Year: No Review of Systems Constitutional: Negative Negative: Fever, Chills, Fatigue Eyes: Negative Cardiovascular: Negative Respiratory: Negative Genitourinary: Negative Positive: no symptoms reported, see HPI Positive: Arthralgia - right-sided low back pain Skin: Negative Neurological: Negative All Other Systems Reviewed And Are Negative: Yes Physical Exam Triage Information Reviewed: Yes Vital Signs On Initial Exam: Initial Vitals Temp Pulse Resp BP Pulse Ox 98.2 F 77 22 73/40 91 11/09/17 12:12 11/09/17 12:12 11/09/17 12:12 11/09/17 12:12 11/09/17 12:12 Vital Signs Reviewed: Yes Appearance: Positive: Well-Appearing, Well-Nourished Skin: Positive: Warm, Skin Color Reflects Adequate Perfusion Head/Face: Positive: Normal Head/Face Inspection Eyes: Positive: EOMI, NARINDER, Conjunctiva Clear Neck: Positive: Supple, No Lymphadenopathy Respiratory/Lung Sounds: Positive: Clear to Auscultation, Breath Sounds Present Cardiovascular: Positive: RRR, Pulses are Symmetrical in both Upper and Lower Extremities Musculoskeletal: Positive: Pain @ - Right-sided low back pain. Negative: Edema Left, Edema Right Neurological: Positive: Speech Normal Psychiatric: Positive: Normal, Affect/Mood Appropriate AVPU Assessment: Alert Diagnostics - Vital Signs Vital Signs Temp Pulse Resp BP Pulse Ox 11/09/17 14:04 98.1 F 91 18 143/74 94 11/09/17 13:35 93 18 140/78 94 11/09/17 12:12 98.2 F 77 22 73/40 91 - Laboratory Lab Statement: Any lab studies that have been ordered have been reviewed, and results considered in the medical decision making process. Back Pain Course/Dx - Course Course Of Treatment: CT obtained which shows mild bulging discs in the lumbar spine. She has pain on deep palpation of the spine and no CVA tenderness is noted. She is able to rotate at the spine and slightly flex but with pain. Extension without pain. She is given flexeril for relief and encouraged to follow up with DR. Romano and her PMD if symptoms fail to improve or worsen. She is OK with this plan and strict return precautions are given. - Diagnoses Provider Diagnoses: Low back pain Discharge - Discharge Plan Condition: Stable Disposition: HOME Prescriptions: Cyclobenzaprine TAB* [Flexeril TAB*] 10 mg PO BID PRN #14 tab PRN Reason: Pain Patient Education Materials: Lumbar Disc Herniation (ED) Referrals: Ok Sales MD [Primary Care Provider] - Micheal Romano MD [Medical Doctor] - Additional Instructions: Dx. Disc bulge/back pain Continue to take tylenol 650mg three times daily for inflammation and pain Flexeril: Take up to twice daily for muscle spasms Flexeril: This medication is a muscle relaxant and can help relieve muscle spasms, muscle strain, or pain sensations. Flexeril can cause side effects that may impair your thinking or reactions. Be careful if you drive or do anything that requires you to be awake and alert. Avoid drinking alcohol, which can increase some of the side effects of Flexeril. Return to ED if symptoms worsen or fail to improve, notice worsening swelling, warmth or redness around the joint, develop fever, or pain is uncontrolled with OTC medications. Moist heat to the area for comfort. Warm showers or baths may improve symptoms. It is important to remain mobile as tolerated to prevent stiffening of the joints and delay healing. Follow up with your PCP. If symptoms remain for > 6 weeks, please seek special medical attention from an orthopedic physician. I have given you a referral to Dr. Romano - please call his office and follow up if symptoms continue
== END 2017-11-09 14:04 | disposition home or self-care (01) ==
LOC: ED 12:11
DX: M54.5 Low back pain (principal); Z86.39 Personal history of other endocrine, nutritional and metabolic disease; Z86.79 Personal history of other diseases of the circulatory system; Z87.891 Personal history of nicotine dependence; Z87.19 Personal history of other diseases of the digestive system; M47.9 Spondylosis, unspecified; N28.89 Other specified disorders of kidney and ureter
CPT/HCPCS: 72131; 99282; A9270-GY

== ENCOUNTER 2018-06-16 13:55 | Observation (INO) | payer MEDICARE ==
--- OUTSIDE RECORDS SUMMARY | 2018-06-16 14:12 | XMS REPORT ---
:1945 External Reference #:[id number] Author Organization [facility] Address [address] [place] [address] Phone [phone] Care Team Providers Name Role Phone Jeovany Glaser MD Primary Care Physician Unavailable Payers Type Date Identification Numbers Payment Provider Subscriber Commercial Effective: Policy Number: BS Facets Ezequiel Johnson 2013 [id number] Expires: 2017 PayID: [id number] [address] [address] DANIEL Rogers [id number] Medigap Part B Effective: 2008 Policy Number: [id number] Medicare Nicolasa Johnson PayID: [id number] [address] [place] [address] Medigap Part B Effective: 2010 Policy Number: BS Facets Nicolasa Johnson [id number] Expires: 2010 PayID: [id number] [address] [address] DANIEL Rogers [id number] Medigap Part B Policy Number: [id number] [facility] Nicolasa Johnson PayID: [id number] [address] [place] [address] Problems Date Description Provider Status Onset: 04/24/2012 [...] Villalobos M.D. Onset: 01/22/2014 Dyspnea Mohan Villalobos M.Keyur Onset: 02/03/2014 Patient post percutaneous Tomasa Burt [...] soda per day has a esophageal spasm Exercise Type/Frequency Does not exercise General Hx Text Allergies, Adverse Reactions, Alerts Date Description Reaction Status Severity Comments 06/06/2007 Codeine Sulfate active gi upset 07/02/2007 Lisinopril active Cough 02/20/2011 Spironolactone active dizziness/GI upset 04/24/2012 Daliresp dizzy weak active Medications Medication Date Status Form Strength Qnty SIG Indications Ordering Provider Magnesium 01/29 Active Solution 2GM/50ML 3gms 2 grams iv Tyrone Sulfate /2017 Arya Hollis M.D. Breo Ellipta 11/09 Active Aerosol 100-25mcg 60uni 1 puff Brittany /2017 /Inh ts inhaled Jacquelin, daily MD Epstein Ellipta 11/09 Active Aerosol 62.5mcg/I 90uni inhale one Brittany nh ts puff by Jacquelin, mouth every MD day Nebulizer 09/25 Active Kit 1unit 1 unit J44.9 Brittany Kit/Tubing/Mout /2016 s nebulization Jacquelin, hpiece every 4- 6 MD hours as needed Butalbital/Acet 07/17 Active Capsules 50-300-40 prn Unknown aminophen/Caffe mg ine Lipitor 01/15 Active Tablets 10mg 45tab 1/2 by mouth s every night F. at bedtime Dash Hollis Xarelto 02/23 Active Tablets 20mg 90tab take one I48.0 s tablet by F. mouth once Bunny daily Dash Metformin HCL 01/06 Active Tablets 500mg 2 tablets in [place] am 1 tab at MD Jeovany pm Nitrostat 08/02 Active Tablets Sub 0.4mg 25tab one sl q5min R07.9 s up to 3 F. doses as Bunny, needed MNathalyDNathaly Torsemide 03/19 Active Tablets 10mg 45tab 1 by mouth s once a day F. as needed. Dash Hollis Digoxin 02/15 Active Tablets 125mcg 90tab 1 by mouth s daily F. Dash Hollis Carvedilol 09/08 Active Tablets 12.5mg 180ta 1 by mouth bs twice a day F. (6.2mg) Dash Hollis Oxygen 08/02 Active Titrate to conserving F. device to Bunny keep stats M.DNathaly above 90% Oxygen 05/20 Active 2L Portable tank Dx: low F. o2 sats Bunny while Dash ambulating (pt usues 3L when walking) Protonix 02/06 Active Packet 40mg 1/2 po qd F. Dash Hollis Ventolin HFA Active Aerosol 108(90Bas 1mont 2 puffs po Unknown e) mcg/ac h qid prn Levothyroxine Active Tablets 50mcg 1 po qd Unknown Sodium /0000 Cpap Active Device 1unit nightly Unknown s Coq-10 Active 200mg 1 tablet daily at F. bedtime Dash Hollis Sotalol HCL Active Tablets 80mg 180ta 1 tab by bs mouth twice F. a day Dash Hollis Amiloride HCL Active Tablets 5mg 1 po qd Irbesartan 05/22 Hx Tablets 75mg 45tab 1/2 by s mouth every F. - day Bunny, 06/11.D. Magnesium 01/29 Hx Liquid po daily . Bunny, 01/30 M.D. Inspra 01/23 Hx Tablets 50mg 30tab 1 by mouth s every day Nathaly Bunny, 05/29.D. Magnesium 07/31 Hx Solution 2GM/50ML 3gm 3 gm iv guido, 01/22 M.D. Inspra 07/18 Hx Tablets 25mg 60tab 2 by mouth s every day Nathaly Hollis, 01/23.D Librax 07/17 Hx Capsules 5-2.5mg prn - 09/03 Inspra 06/12 Hx Tablets 50mg 30tab s Nathaly niall, 07/17.D Eliquis 09/02 Hx Tablets 5mg 60tab take 1 tab I48.0 s by mouth . - Bunny, 02/23 hours M.D. Magnesium 08/04 Hx Capsules 400mg 180ca liquid form ps po daily guido, 01/28 M.D. Klor-Con 10 05/04 Hx Tablets ER 10Meq 30tab 1 by mouth I48.0 s every day . niall, 02/13 M.D. Inspra 04/01 Hx Tablets 25mg 180ta 2 by mouth bs every day . Bunny, 06/12.D. Inspra 02/12 Hx Tablets 25mg 100ta 1 by mouth bs every day . Bunny, 04/01 M.D. Inspra 12/16 Hx Tablets 25mg 200ta 2 by mouth bs every day . Juan Hollis, 02/12.D. Inspra 11/10 Hx Tablets 25mg 30tab 1 by mouth s every day . Juan Hollis, 12/16.D. Klor-Con M10 10/09 Hx Tablets ER 10Meq 30tab 1 tab by s mouth every F. - 2-3 days. Bunny, 05/03 M.D. Valsartan 09/23 Hx Tablets 40mg 45tab take s one-half F. - tablet by Bunny, 05/21 mouth once M.D. daily Aspirin 09/08 Hx Chewtabs 81mg 1 by mouth every day . Juan Hollis, 02/08.D. Losartan 09/08 Hx Tablets 25mg 90tab 1 by mouth Tyrone Potassium s every day . Juan Hollis, 09/22.D. Clopidogrel 08/24 Hx Tablets 75mg 90tab 1 by mouth Tyrone Bisulfate s every day Nathaly Hollis, 02/08.D. Diltiazem CD 01/12 Hx Caps ER 120mg 100ca 1 po qd 24HR ps . Juan Hollis, 09/08.D. Nitro-Dur 01/06 Hx Patches 0.1mg/HR 30uni 1 to chest 414. 24HR ts wall on qam F. - off qpm Bunny, 09/07.D. Aspirin 03/05 Hx Tablets 100ta 1 po qd bs . Juan Hollis, 01/05.D. Potassium 05/20 Hx Tablets ER 20Meq 30tab 1 po qd Tyrone Chloride s Nathaly Hollis, 01/05.D. Furosemide 04/24 Hx Tablets 20mg 30tab 1 po qd s Arya Hollis, 09/07.D. Carvedilol 03/04 Hx Tablets 12.5mg 180ta 1 tablet bid titi Hollis, 09/07 M.D. Carvedilol 04/04 Hx Tablets 25mg 1/2 po bid Arya Hollis, 03/04 M.D. Diovan 03/08 Hx Tablets 40mg 90tab 1 po qd s Arya Hollis, 01/12 M.D. Spironolactone 02/13 Hx Tablets 25mg 100ta 1 po qd titi Hollis, 02/20 M.D. Norvasc 01/20 Hx Tablets 5mg 2tabs 1 po day of stress Arya Hollis, 03/30 M.D. Nitro-Dur 11/29 Hx Patches 0.2mg/HR 30uni 1 patch qd 24HR grant Hollis, 02/06 on in the M.D. Am off in the PM Lasix 11/29 Hx Tablets 20mg 30tab 1 PO qd prn s Wen Hollis, 01/20 M.D. Coreg 11/29 Hx Tablets 25mg 180ta 1 po bid Arya Hollis, 04/04 M.D. Combivent 10/30 Hx Aerosol 2 Puffs PO 3-4x/day Arya Hollis, 01/20 M.D. Coreg CR 10/30 Hx Caps ER 80mg 90cap 1 po qd 24HR s Arya Hollis, 11/29 M.D. Diovan 10/30 Hx Tablets 80mg 90tab 1 po qd s Arya Hollis, 03/08.D. Coreg CR 09/23 Hx Caps ER 40mg 1 po qd 24HR Arya Hollis, 10/30 M.D. Singulair 08/20 Hx Chewtabs Unknown 30uni 1 po qd grant Hollis, 08/20 M.D. Zyrtec 08/20 Hx Tablets 10mg 90tab 1 PO qd s F. - Mauser, 09/23 M.D. Singulair 08/20 Hx Tablets 10mg 30tab 1 PO Qd s . - Mauser, 09/23. Cozaar 08/20 Hx Tablets 50mg 180ta 1 po bid bs . - Bunny, 10/30.D Coreg CR 07/02 Hx Caps ER 20mg 90cap 1 po qd 24HR s . - Bunny, 09/23. Coreg CR 06/14 Hx Caps ER 10mg 30cap 1 po qd. 24HR s . Juan Hollis, 07/02. Aspirin 06/14 Hx Chewtabs 81mg 30uni 1 PO qod ts . Juan Hollis, 09/08 M.D. /2013 Lasix 06/05 Hx Tablets 20mg 30tab 1 po mon and s sunday . Juan Hollis, 11/29 M.D. Lisinopril 06/05 Hx Tablets 2.5mg 90tab 1 po qd s . Juan Hollis, 07/02.D. Lipitor 06/05 Hx Tablets 20mg 30tab / tab s every night . Juan Hollis, 01/15 M.D. /2016 Prilosec 06/[address] 20mg 30cap 1 PO qam s . - Bunny, 02/06 M.D. Omacor 06/05 Hx Capsules 1gm 90cap 3 PO qd s . - Bunny, 03/30 M.D. Combivent 06/05 Hx Aerosol . Gregr, 10/30.D. Xopenex 06/05 Hx Nebulizer 1.25mg/3M prn L . Juan Hollis, 01/20 M.D. /2008 Astelin 06/05 Hx Solution 137mcg/Sp 1 po prn goyo Hollis, 08/20 M.D. /2006 Estrace 06/05 Hx Tablets mg 1 qd prn Arya Hollis, 02/13 M.D. /2010 Ammonium 06/05 Hx Cream 12% as directed Tyrone Arya Hollis, 10/30 M.D. /2006 Proventil HFA Hx Aerosol 108mcg/Ac 1Mon 2 puff(s) Unknown /0000 t inhalation 1 - qid prn 03/30 Spiriva Hx Capsules 18mcg 30cap 1 inhalation Unknown Handihaler /0000 s qam - 11/09 Singulair Hx Tablets 10mg 90tab 1 po qd Unknown /0000 s - 11/11 Symbicort Hx Aerosol 80-4.5mcg 1mont 2 puffs Unknown /0000 /Act h inhaled bid - 03/30 Fish Oil/Lottie Hx Oil 1200mg/36 1 in pm Unknown [...] /0000 g/Act s bid - 11/09 Prednisone 00 Hx Tablets 5mg 70tab 1 po bid prn Unknown /0000 s - 01/05 Nitrostat Hx Tablets Sub 0.4mg 25tab one sl q5min Unknown /0000 s up to 3 - doses prn 01/05 Amlodipine Hx Tablets 2.5mg 30tab 1 po qd for Unknown Besylate /0000 s esophageal - spasm 06/10 Levothyroxine 00/00 Hx Tablets 25mcg 90tab 1 po qd Unknown Sodium /0000 s - 01/05 Aspirin 00/ Hx Tablets 81mg 1 po qd Unknown /0000 - 09/08 Lorazepam 00/00 Hx Tablets 1mg 90tab 1 po qd Unknown /0000 s - 09/07 Warfarin Sodium Hx Tablets 2mg take as Unknown /0000 directed - 05/03 Xarelto 00 Hx Tablets 20mg 1 by mouth Unknown /0000 every day - 09/02 Prednisone 00 Hx Tablets 5mg 1 by mouth Unknown /0000 every other - day 06/11 Tropical Alder Hx 15ml by Unknown Premium / mouth twice Calcium/Magnesi - every day um Liquid 04/25 (equates to 115MG of magnesium twice daily) Vital Signs Date Vital Result Comment 06/12/2018 Height 62 inches 5'2" Weight 139.00 lb Heart Rate 84 /min BP Systolic Sitting 102 mmHg BP Diastolic Sitting 64 mmHg Respiratory Rate 14 /min O2 % BldC Oximetry 93 % BMI (Body Mass Index) 25.4 kg/m2 04/26/2018 Height 62 inches 5'2" Weight 144.75 lb Heart Rate 76 /min BP Systolic Sitting 102 mmHg lue lg cuff BP Diastolic Sitting 60 mmHg lue lg cuff BMI (Body Mass Index) 26.5 kg/m2 Ejection Fraction 40-45% echo 03/04/2018 01/23/2018 Height 62 inches 5'2" Weight 147.25 lb Heart Rate 72 /min BP Systolic Sitting 102 mmHg LA, reg BP Diastolic Sitting 62 mmHg LA, reg O2 % BldC Oximetry 94 % room air BMI (Body Mass Index) 26.9 kg/m2 Ejection Fraction 40%-45% 10/2017 echo 11/09/2017 Height 62 inches 5'2" Weight 151.00 [...] Test Date Test Result H/L Range Note Basic Metabolic Panel 02/09/2018 Sodium 137 mmol/L Low 139-145 Potassium 4.8 mmol/L 3.5-5.0 Chloride 104 mmol/L 101-111 Co2 Carbon Dioxide 20 mmol/L Low 22-32 Anion Gap 13 mmol/L High 2-11 Glucose 163 mg/dL High 70-100 Blood Urea Nitrogen 18 mg/dL 6-24 Creatinine 0.87 mg/dL 0.51-0.95 BUN/Creatinine Ratio 20.7 High 8-20 Calcium 10.1 mg/dL 8.6-10.3 Egfr Non- 63.6 >60 Egfr 81.9 >60 1 Laboratory test finding 02/09/2018 Magnesium 1.5 mg/dL Low 1.9-2.7 2 Comp Metabolic Panel 01/28/2018 Sodium 138 mmol/L 133-145 Potassium 4.4 mmol/L 3.5-5.0 Chloride 104 mmol/L 101-111 Co2 Carbon Dioxide 25 mmol/L 22-32 Anion Gap 9 mmol/L 2-11 Glucose 154 mg/dL High 70-100 Blood Urea Nitrogen 23 mg/dL 6-24 Creatinine 0.80 mg/dL 0.51-0.95 BUN/Creatinine Ratio 28.8 High 8-20 Calcium 9.6 mg/dL 8.6-10.3 Total Protein 6.9 g/dL 6.4-8.9 Albumin 4.0 g/dL 3.2-5.2 Globulin 2.9 g/dL 2-4 Albumin/Globulin Ratio 1.4 1-3 Total Bilirubin 0.40 mg/dL 0.2-1.0 Alkaline Phosphatase 92 U/L 34-104 Alt 26 U/L 7-52 Ast 26 U/L 13-39 Egfr Non- 70.1 >60 Egfr 90.2 >60 3 Laboratory test finding 01/28/2018 Creatine Kinase(CK) 26 U/L 10-223 4 Digoxin 0.7 ng/ml Low 0.8-2.0 5 CBC Auto Diff 01/28/2018 White Blood Count 8.6 10^3/uL 3.5-10.8 Red Blood Count 4.09 10^6/uL 4.0-5.4 Hemoglobin 13.1 g/dL 12.0-16.0 Hematocrit 39 % 35-47 Mean Corpuscular Volume 95 fL 80-97 Mean Corpuscular Hemoglobin 32 pg High 27-31 Mean Corpuscular HGB Conc 34 g/dL 31-36 Red Cell Distribution Width 13 % 10.5-15 Platelet Count 240 10^3/uL 150-450 Mean Platelet Volume 8.8 um3 7.4-10.4 Abs Neutrophils 3.4 10^3/uL 1.5-7.7 Abs Lymphocytes 4.0 10^3/uL 1.0-4.8 Abs Monocytes 1.0 10^3/uL High 0-0.8 Abs Eosinophils 0.1 10^3/uL 0-0.6 Abs Basophils 0 10^3/uL 0-0.2 Abs Nucleated RBC 0 10^3/uL Granulocyte % 39.9 % 38-83 Lymphocyte % 46.5 % 25-47 Monocyte % 12.0 % High 0-7 Eosinophil % 1.1 % 0-6 Basophil % 0.5 % 0-2 Nucleated Red Blood Cells % 0.1 Lipid Panel - [facility] 01/28/2018 Creatine Kinase(CK) 26 U/L 10-223 6 Comp Metabolic Panel 01/28/2018 Sodium 138 mmol/L 133-145 Potassium 4.4 mmol/L 3.5-5.0 Chloride 104 mmol/L 101-111 Co2 Carbon Dioxide 25 mmol/L 22-32 Anion Gap 9 mmol/L 2-11 Glucose 154 mg/dL High 70-100 Blood Urea Nitrogen 23 mg/dL 6-24 Creatinine 0.80 mg/dL 0.51-0.95 BUN/Creatinine Ratio 28.8 High 8-20 Calcium 9.6 mg/dL 8.6-10.3 Total Protein 6.9 g/dL 6.4-8.9 Albumin 4.0 g/dL 3.2-5.2 Globulin 2.9 g/dL 2-4 Albumin/Globulin Ratio 1.4 1-3 Total Bilirubin 0.40 mg/dL 0.2-1.0 Alkaline Phosphatase 92 U/L 34-104 Alt 26 U/L 7-52 Ast 26 U/L 13-39 Egfr Non- 70.1 >60 Egfr 90.2 >60 7 Laboratory test finding 01/28/2018 Magnesium 1.3 mg/dL Low 1.9-2.7 8 Digoxin 0.7 ng/ml Low 0.8-2.0 9 CBC Auto Diff 01/28/2018 White Blood Count 8.6 10^3/uL 3.5-10.8 Red Blood Count 4.09 10^6/uL 4.0-5.4 Hemoglobin 13.1 g/dL 12.0-16.0 Hematocrit 39 % 35-47 Mean Corpuscular Volume 95 fL 80-97 Mean Corpuscular Hemoglobin 32 pg High 27-31 Mean Corpuscular HGB Conc 34 g/dL 31-36 Red Cell Distribution Width 13 % 10.5-15 Platelet Count 240 10^3/uL 150-450 Mean Platelet Volume 8.8 um3 7.4-10.4 Abs Neutrophils 3.4 10^3/uL 1.5-7.7 Abs Lymphocytes 4.0 10^3/uL 1.0-4.8 Abs Monocytes 1.0 10^3/uL High 0-0.8 Abs Eosinophils 0.1 10^3/uL 0-0.6 Abs Basophils 0 10^3/uL 0-0.2 Abs Nucleated RBC 0 10^3/uL Granulocyte % 39.9 % 38-83 Lymphocyte % 46.5 % 25-47 Monocyte % 12.0 % High 0-7 Eosinophil % 1.1 % 0-6 Basophil % 0.5 % 0-2 Nucleated Red Blood Cells % 0.1 Laboratory test finding 01/28/2018 Magnesium 1.3 mg/dL Low 1.9-2.7 10 CBC Auto Diff 09/07/2017 White Blood Count [...] finding 09/07/2017 B-Type Natriuretic Peptide 34 pg/mL 11 BNP Basic Metabolic Panel 09/07/2017 Sodium 137 mmol/L 133-145 Potassium 4.3 mmol/L 3.5-5.0 Chloride 104 mmol/L 101-111 Co2 Carbon Dioxide 25 mmol/L 22-32 Anion Gap 8 mmol/L 2-11 Glucose 135 mg/dL High 70-100 Blood Urea Nitrogen 15 mg/dL 6-24 Creatinine 0.86 mg/dL 0.51-0.95 BUN/Creatinine Ratio 17.4 8-20 Calcium 9.7 mg/dL 8.6-10.3 Egfr Non- 64.5 >60 Egfr 83.0 >60 12 Laboratory test finding 09/07/2017 Magnesium 1.7 mg/dL [...] Egfr Non- 66.3 >60 Egfr 85.2 >60 13 Laboratory test finding 08/25/2017 Magnesium 1.8 mg/dL Low 1.9-2.7 14 Basic Metabolic Panel 08/21/2017 Sodium 137 mmol/L 133-145 Potassium 4.4 mmol/L 3.5-5.0 Chloride 103 mmol/L 101-111 Co2 Carbon Dioxide 26 mmol/L 22-32 Anion Gap 8 mmol/L 2-11 Glucose 144 mg/dL High 70-100 Blood Urea Nitrogen 17 mg/dL 6-24 Creatinine 0.79 mg/dL 0.51-0.95 BUN/Creatinine Ratio 21.5 High 8-20 Calcium 9.6 mg/dL 8.6-10.3 Egfr Non- 71.1 >60 Egfr 91.5 >60 15 Laboratory test finding 08/21/2017 Magnesium 1.6 mg/dL Low 1.9-2.7 16 Basic Metabolic Panel 08/10/2017 Sodium 133 mmol/L 133-145 Potassium 5.0 mmol/L 3.5-5.0 Chloride 101 mmol/L 101-111 Co2 Carbon Dioxide 23 mmol/L 22-32 Anion Gap 9 mmol/L 2-11 Glucose 164 mg/dL High 70-100 Blood Urea Nitrogen 19 mg/dL 6-24 Creatinine 0.89 mg/dL 0.51-0.95 BUN/Creatinine Ratio 21.3 High 8-20 Calcium 9.6 mg/dL 8.6-10.3 Egfr Non- 62.0 >60 Egfr 79.7 >60 17 Laboratory test finding 08/10/2017 Magnesium 1.7 mg/dL [...] Egfr Non- 74.4 >60 Egfr 95.7 >60 18 Laboratory test finding 08/02/2017 Magnesium 1.6 mg/dL Low 1.9-2.7 19 Basic Metabolic Panel 07/31/2017 Sodium 138 mmol/L 133-145 Potassium 4.0 mmol/L 3.5-5.0 Chloride 104 mmol/L 101-111 Co2 Carbon Dioxide 24 mmol/L 22-32 Anion Gap 10 mmol/L 2-11 Glucose 156 mg/dL High 70-100 Blood Urea Nitrogen 16 mg/dL 6-24 Creatinine 0.96 mg/dL High 0.51-0.95 BUN/Creatinine Ratio 16.7 8-20 Calcium 9.3 mg/dL 8.6-10.3 Egfr Non- 56.8 >60 Egfr 73.1 >60 20 Laboratory test finding 07/31/2017 Magnesium 1.3 mg/dL Low 1.9-2.7 Basic Metabolic Panel 07/16/2017 Sodium 136 mmol/L 133-145 Potassium 4.3 mmol/L 3.5-5.0 Chloride 101 mmol/L 101-111 Co2 Carbon Dioxide 26 mmol/L 22-32 Anion Gap 9 mmol/L 2-11 Glucose 135 mg/dL High 70-100 Blood Urea Nitrogen 16 mg/dL 6-24 Creatinine 0.78 mg/dL 0.51-0.95 BUN/Creatinine Ratio 20.5 High 8-20 Calcium 9.9 mg/dL 8.6-10.3 Egfr Non- 72.2 >60 Egfr 92.8 >60 21 Laboratory test finding 07/16/2017 Digoxin 0.7 ng/ml Low 0.8-2.0 22 Laboratory test finding 06/15/2017 B-Type Natriuretic 31 pg/mL 23 Peptide BNP Basic Metabolic Panel 06/15/2017 Sodium 132 mmol/L Low 133-145 Potassium 5.0 mmol/L 3.5-5.0 Chloride 101 mmol/L 101-111 Co2 Carbon Dioxide 23 mmol/L 22-32 Anion Gap 8 mmol/L 2-11 Glucose 231 mg/dL High 70-100 Blood Urea Nitrogen 21 mg/dL 6-24 Creatinine 0.85 mg/dL 0.51-0.95 BUN/Creatinine Ratio 24.7 High 8-20 Calcium 9.7 mg/dL 8.6-10.3 Egfr Non- 65.4 >60 Egfr 84.1 >60 24 Basic Metabolic Panel 02/21/2017 Sodium 138 mmol/L 133-145 Potassium 4.2 mmol/L 3.5-5.0 Chloride 104 mmol/L 101-111 Co2 Carbon Dioxide 24 mmol/L 22-32 Anion Gap 10 mmol/L 2-11 Glucose 145 mg/dL High 70-100 Blood Urea Nitrogen 16 mg/dL 6-24 Creatinine 0.79 mg/dL 0.51-0.95 BUN/Creatinine Ratio 20.3 High 8-20 Calcium 9.6 mg/dL 8.6-10.3 Egfr Non- 71.3 >60 Egfr 91.7 >60 25 Laboratory test finding 02/21/2017 Digoxin 1.3 ng/ml 0.8-2.0 26 Laboratory test finding 01/23/2017 Digoxin 0.5 ng/ml Low 0.8-2.0 B-Type Natriuretic Peptide BNP 31 pg/mL 27 CBC Auto Diff 01/23/2017 White Blood Count [...] Blood Cells % 0 Lipid Profile (Trig/Chol/HDL) 01/23/2017 Triglycerides 310 mg/dL 28 Cholesterol 125 mg/dL 29 HDL Cholesterol 34.0 mg/dL 30 LDL Cholesterol 29 mg/dL 31 Comp Metabolic Panel 01/23/2017 Sodium 137 mmol/L [...] Egfr Non- 58.4 >60 Egfr 75.1 >60 32 Lipid Panel - [facility] 01/23/2017 Creatine Kinase(CK) 38 U/L 10-223 Laboratory test finding 09/29/2016 Digoxin 0.5 ng/ml Low 0.8-2.0 33 Basic Metabolic Panel 09/29/2016 Sodium 135 mmol/L 133-145 Potassium 4.1 mmol/L 3.5-5.0 Chloride 104 mmol/L 101-111 Co2 Carbon Dioxide 23 mmol/L 22-32 Anion Gap 8 mmol/L 2-11 Glucose 113 mg/dL High 70-100 Blood Urea Nitrogen 26 mg/dL High 6-24 Creatinine 0.96 mg/dL High 0.51-0.95 BUN/Creatinine Ratio 27.1 High 8-20 Calcium 9.8 mg/dL 8.6-10.3 Egfr Non- 57.0 >60 Egfr 73.3 >60 34 Laboratory test finding 08/14/2016 Digoxin 2.1 ng/ml High 0.8-2.0 35 Basic Metabolic Panel 08/14/2016 Sodium 137 mmol/L 133-145 Potassium 3.9 mmol/L 3.5-5.0 Chloride 104 mmol/L 101-111 Co2 Carbon Dioxide 24 mmol/L 22-32 Anion Gap 9 mmol/L 2-11 Glucose 125 mg/dL High 70-100 Blood Urea Nitrogen 19 mg/dL 6-24 Creatinine 0.93 mg/dL 0.51-0.95 BUN/Creatinine Ratio 20.4 High 8-20 Calcium 9.5 mg/dL 8.6-10.3 Egfr Non- 59.1 >60 Egfr 76.0 >60 36 Basic Metabolic Panel 07/13/2016 Sodium 137 mmol/L 133-145 Potassium 4.2 mmol/L 3.5-5.0 Chloride 105 mmol/L 101-111 Co2 Carbon Dioxide 23 mmol/L 22-32 Anion Gap 9 mmol/L 2-11 Glucose 112 mg/dL High 70-100 Blood Urea Nitrogen 15 mg/dL 6-24 Creatinine 0.93 mg/dL 0.51-0.95 BUN/Creatinine Ratio 16.1 8-20 Calcium 9.1 mg/dL 8.6-10.3 Egfr Non- 59.1 >60 Egfr 76.0 >60 37 Laboratory test finding 07/13/2016 Digoxin 2.2 ng/ml High 0.8-2.0 38 Lipid Panel - [facility] 07/04/2016 Creatine Kinase(CK) 31 U/L 10-223 Comp Metabolic Panel 07/04/2016 Sodium 138 mmol/L [...] Egfr Non- 73.5 >60 Egfr 94.5 >60 39 Lipid Profile (Trig/Chol/HDL) 07/04/2016 Triglycerides 263 mg/dL 40 Cholesterol 129 mg/dL 41 HDL Cholesterol 42.1 mg/dL 42 LDL Cholesterol 34 mg/dL 43 CBC Auto Diff 07/04/2016 White Blood Count [...] Blood Cells % 0 Laboratory test finding 07/04/2016 Magnesium 1.6 mg/dL Low 1.9-2.7 Digoxin 2.8 ng/ml High 0.8-2.0 44 CBC Auto Diff 01/27/2016 White Blood Count [...] Laboratory test finding 01/27/2016 B Type Natriuretic 14 pg/mL 45 Peptide Laboratory test finding 01/27/2016 Magnesium 1.3 mg/dL Low 1.9-2.7 46 Digoxin 1.7 ng/ml 0.8-2.0 47 Lipid Profile (Trig/Chol/HDL) 01/27/2016 Triglycerides 262 mg/dL 48 Cholesterol 138 mg/dL 49 HDL Cholesterol 35.9 mg/dL 50 LDL Cholesterol 50 mg/dL 51 Comp Metabolic Panel 01/27/2016 Sodium 137 mmol/L [...] Egfr Non- 57.1 >60 Egfr 73.5 >60 52 Lipid Panel - [facility] 01/27/2016 Creatine Kinase(CK) 21 U/L 10-223 53 Comp Metabolic Panel 08/03/2015 Sodium 136 mmol/L [...] Egfr Non- 71.5 >60 Egfr 92.0 >60 54 Lipid Panel - [facility] 08/03/2015 Creatine Kinase(CK) 41 U/L 10-223 Laboratory test finding 08/03/2015 TSH (Thyroid Stim Horm) 1.41 ?IU/mL 0.34-5.60 CBC Auto Diff 08/03/2015 White Blood Count [...] 0-2 Nucleated Red Blood Cells % 0.1 Lipid Profile (Trig/Chol/HDL) 08/03/2015 Triglycerides 215 mg/dL 55 Cholesterol 132 mg/dL 56 HDL Cholesterol 42.3 mg/dL 57 LDL Cholesterol 47 mg/dL 58 Laboratory test finding 08/03/2015 Magnesium 1.8 mg/dL Low 1.9-2.7 Laboratory test finding 03/02/2015 Inr 1.72 High 0.78-1.07 CBC Auto Diff 02/15/2015 White Blood Count 7.7 10^3/uL 4.8-10.8 59 Red Blood Count 3.97 10^6/uL Low 4.0-5.4 59 Hemoglobin 13.2 g/dL 12.0-16.0 59 Hematocrit 39 % 35-47 59 Mean Corpuscular Volume 97 fL 80-97 59 Mean Corpuscular Hemoglobin 33 pg High 27-31 59 Mean Corpuscular HGB Conc 34 g/dL 31-36 59 Red Cell Distribution Width 15 % 10.5-15 59 Platelet Count 238 10^3/uL 150-450 59 Mean Platelet Volume 9 um3 7.4-10.4 59 Abs Neutrophils 3.5 10^3/uL 1.5-7.7 59 Abs Lymphocytes 3.1 10^3/uL 1.0-4.8 59 Abs Monocytes 0.8 10^3/uL 0-0.8 59 Abs Eosinophils 0.2 10^3/uL 0-0.6 59 Abs Basophils 0.1 10^3/uL 0-0.2 59 Abs Nucleated RBC 0.01 10^3/uL 59 Granulocyte % 44.9 % 38-83 59 Lymphocyte % 40.6 % 25-47 59 Monocyte % 10.7 % High 1-9 59 Eosinophil % 3.1 % 0-6 59 Basophil % 0.7 % 0-2 59 Nucleated Red Blood Cells % 0.1 59 Laboratory test finding 02/15/2015 Digoxin 1.3 ng/ml 0.8-2.0 59, 60 Basic Metabolic Panel 02/15/2015 Sodium 138 mmol/L 133-145 59 Potassium 4.2 mmol/L 3.5-5.0 59 Chloride 105 mmol/L 101-111 59 Co2 Carbon Dioxide 25 mmol/L 22-32 59 Anion Gap 8 mmol/L 2-11 59 Glucose 113 mg/dL High 70-100 59 Blood Urea Nitrogen 9 mg/dL 6-24 59 Creatinine 0.63 mg/dL 0.51-0.95 59 BUN/Creatinine Ratio 14.3 8-20 59 Calcium 9.2 mg/dL 8.6-10.3 59 Egfr Non- 93.2 >60 59 Egfr 119.8 >60 59, 61 CBC Auto Diff 01/14/2015 White Blood Count [...] Egfr Non- 71.7 >60 Egfr 92.3 >60 62 Urinalysis Profile 01/14/2015 Urine Color Yellow Urine Appearance Cloudy Urine Specific [place] 1.024 1.010-1.030 Urine pH 5.0 5-9 Urine [...] Present Absent Urine Hyaline Casts Present Absent CBC Auto Diff 01/13/2015 White Blood Count [...] 0-2 Nucleated Red Blood Cells % 0.1 Comp Metabolic Panel 01/13/2015 Sodium 133 mmol/L [...] Egfr Non- 48.5 >60 Egfr 62.3 >60 63 Laboratory test finding 01/13/2015 Magnesium 1.4 mg/dL Low 1.9-2.7 Lipase 3 U/L Low 11.0-82.0 Troponin I 0.01 ng/mL <0.03 64 Inr/Protime 01/13/2015 Inr 0.96 0.78-1.07 Laboratory test finding 01/13/2015 Lactic Acid 2.1 [...] Egfr Non- 52.2 >60 Egfr 67.2 >60 65 CBC Auto Diff 12/24/2014 White Blood Count [...] % 0 Inr/Protime 12/24/2014 Inr 0.88 0.78-1.07 66 CBC Auto Diff 11/25/2014 White Blood Count 7.6 10^3/uL 4.8-10.8 67 Red Blood Count 4.37 10^6/uL 4.0-5.4 67 Hemoglobin 14.3 g/dL 12.0-16.0 67 Hematocrit 43 % 35-47 67 Mean Corpuscular Volume 97 fL 80-97 67 Mean Corpuscular Hemoglobin 33 pg High 27-31 67 Mean Corpuscular HGB Conc 34 g/dL 31-36 67 Red Cell Distribution Width 13 % 10.5-15 67 Platelet Count 232 10^3/uL 150-450 67 Mean Platelet Volume 8 um3 7.4-10.4 67 Abs Neutrophils 3.1 10^3/uL 1.5-7.7 67 Abs Lymphocytes 3.4 10^3/uL 1.0-4.8 67 Abs Monocytes 0.8 10^3/uL 0-0.8 67 Abs Eosinophils 0.2 10^3/uL 0-0.6 67 Abs Basophils 0 10^3/uL 0-0.2 67 Abs Nucleated RBC 0 10^3/uL 67 Granulocyte % 40.8 % 38-83 67 Lymphocyte % 45.0 % 25-47 67 Monocyte % 10.9 % High 1-9 67 Eosinophil % 2.7 % 0-6 67 Basophil % 0.6 % 0-2 67 Nucleated Red Blood Cells % 0.1 67 Laboratory test 11/25/2014 TSH (Thyroid 1.71 IU/mL 0.34-5.60 67, 68 finding Stimulating Horm) Lipid Panel - [facility] 11/25/2014 Creatine Kinase 39 U/L 10-223 67, 69 Comp Metabolic Panel 11/25/2014 Sodium 136 mmol/L 133-145 67 Potassium 4.1 mmol/L 3.5-5.0 67 Chloride 103 mmol/L 101-111 67 Co2 Carbon Dioxide 27 mmol/L 22-32 67 Anion Gap 6 mmol/L 2-11 67 Glucose 101 mg/dL High 70-100 67 Blood Urea Nitrogen 20 mg/dL 6-24 67 Creatinine 1.01 mg/dL High 0.51-0.95 67 BUN/Creatinine Ratio 19.8 8-20 67 Calcium 9.8 mg/dL 8.6-10.3 67 Total Protein 8.2 g/dL 6.4-8.9 67 Albumin 4.3 g/dL 3.2-5.2 67 Globulin 3.9 g/dL 2-4 67 Albumin/Globulin Ratio 1.1 1-3 67 Total Bilirubin 0.50 mg/dL 0.2-1.0 67 Alkaline Phosphatase 136 U/L High 34-104 67 Alt 14 U/L 7-52 67 Ast 16 U/L 13-39 67 Egfr Non- 54.0 >60 67 Egfr 69.5 >60 67, 70 Lipid Profile (Trig/Chol/HDL) 11/25/2014 Triglycerides 101 mg/dL 67, 71 Cholesterol 128 mg/dL 67, 72 HDL Cholesterol 48.2 mg/dL 67, 73 LDL Cholesterol 60 mg/dL 67, 74 Comp Metabolic Panel 10/09/2014 Sodium 138 mmol/L [...] Egfr Non- 70.7 >60 Egfr 90.9 >60 75 Laboratory test finding 10/09/2014 TSH (Thyroid Stimulating 1.57 IU/mL 0.34-5.60 Horm) Troponin I 0.00 ng/mL <0.03 76 CBC Auto Diff 10/09/2014 White Blood Count [...] Nucleated Red Blood Cells % 0 Lipid Panel - [facility] 09/17/2014 Creatine Kinase 35 U/L 10-223 77, 78 CBC Auto Diff 09/17/2014 White Blood Count 7.7 10^3/uL 4.8-10.8 77 Red Blood Count 4.18 10^6/uL 4.0-5.4 77 Hemoglobin 13.8 g/dL 12.0-16.0 77 Hematocrit 41 % 35-47 77 Mean Corpuscular Volume 98 fL High 80-97 77 Mean Corpuscular Hemoglobin 33 pg High 27-31 77 Mean Corpuscular HGB Conc 34 g/dL 31-36 77 Red Cell Distribution Width 13 % 10.5-15 77 Platelet Count 212 10^3/uL 150-450 77 Mean Platelet Volume 8 um3 7.4-10.4 77 Abs Neutrophils 3.5 10^3/uL 1.5-7.7 77 Abs Lymphocytes 3.2 10^3/uL 1.0-4.8 77 Abs Monocytes 0.9 10^3/uL High 0-0.8 77 Abs Eosinophils 0.2 10^3/uL 0-0.6 77 Abs Basophils 0 10^3/uL 0-0.2 77 Abs Nucleated RBC 0 10^3/uL 77 Granulocyte % 45.3 % 38-83 77 Lymphocyte % 41.0 % 25-47 77 Monocyte % 11.1 % High 1-9 77 Eosinophil % 2.1 % 0-6 77 Basophil % 0.5 % 0-2 77 Nucleated Red Blood Cells % 0 77 Comp Metabolic Panel 09/17/2014 Sodium 140 mmol/L 133-145 77 Potassium 4.1 mmol/L 3.5-5.0 77, 79 Chloride 107 mmol/L 101-111 77 Co2 Carbon Dioxide 26 mmol/L 22-32 77 Anion Gap 7 mmol/L 2-11 77 Glucose 85 mg/dL 70-100 77 Blood Urea Nitrogen 16 mg/dL 6-24 77 Creatinine 0.74 mg/dL 0.51-0.95 77 BUN/Creatinine Ratio 21.6 High 8-20 77 Calcium 9.4 mg/dL 8.6-10.3 77 Total Protein 7.2 g/dL 6.4-8.9 77 Albumin 4.0 g/dL 3.2-5.2 77 Globulin 3.2 g/dL 2-4 77 Albumin/Globulin Ratio 1.3 1-3 77 Total Bilirubin 0.50 mg/dL 0.2-1.0 77 Alkaline Phosphatase 132 U/L High 34-104 77 Alt 17 U/L 7-52 77 Ast 14 U/L 13-39 77 Egfr Non- 77.4 >60 77 Egfr 99.5 >60 77, 80 Lipid Profile (Trig/Chol/HDL) 09/17/2014 Triglycerides 95 mg/dL 77, 81 Cholesterol 110 mg/dL 77, 82 HDL Cholesterol 46.2 mg/dL 77, 83 LDL Cholesterol 45 mg/dL 77, 84 Comp Metabolic Panel 04/20/2014 Sodium 138 mmol/L [...] Egfr Non- 68.7 >60 Egfr 88.4 >60 85 CBC Auto Diff 04/20/2014 White Blood Count [...] finding 04/20/2014 B Type Natriuretic 44 pg/mL 86 Peptide Inr/Protime 01/23/2014 Inr 0.88 0.85-1.06 Basic Metabolic Panel 01/23/2014 Sodium 141 mmol/L 133-145 Potassium 4.1 mmol/L 3.7-5.6 Chloride 108 mmol/L 101-111 Co2 Carbon Dioxide 25 mmol/L 22-32 Anion Gap 8 mmol/L 2-11 Glucose 96 mg/dL 70-100 Blood Urea Nitrogen 13 mg/dL 6-24 Creatinine 0.84 mg/dL 0.51-0.95 BUN/Creatinine Ratio 15.5 8-20 Calcium 9.3 mg/dL 8.6-10.3 Egfr Non- 67.0 >60 Egfr 86.2 >60 87 CBC Auto Diff 01/23/2014 White Blood Count [...] 0-2 Nucleated Red Blood Cells % 0.1 Cath Panel 01/23/2014 Activated Partial 29.9 seconds 24.0-36.1 Thrombo Time Laboratory test finding 01/08/2014 B Type Natriuretic 10 pg/mL 88 Peptide Lipid Panel - [facility] 01/08/2014 Creatine Kinase 37 U/L 10-223 89 Comp Metabolic Panel 01/08/2014 Sodium 143 mmol/L [...] Egfr Non- 66.1 >60 Egfr 85.0 >60 90 Lipid Profile (Trig/Chol/HDL) 01/08/2014 Triglycerides 84 mg/dL 91 Cholesterol 131 mg/dL 92 HDL Cholesterol 56.6 mg/dL 93 LDL Cholesterol 58 mg/dL 94 Laboratory test finding 01/08/2014 C Reactive Protein < 1.00 mg/L < 5.00 95 CBC Auto Diff 01/08/2014 White Blood Count [...] 0-2 Nucleated Red Blood Cells % 0.1 Comp Metabolic Panel 03/03/2013 Sodium 140 mmol/L [...] Egfr Non- 62.1 >60 Egfr 79.8 >60 96 Lipid Profile (Trig/Chol/HDL) 03/03/2013 Triglycerides 76 mg/dL 40-200 Cholesterol 124 mg/dL Less than 200 HDL Cholesterol 52 mg/dL 40-60 97 Cholesterol/HDL Ratio 2.4 Average 1-4.44 LDL Cholesterol 56.8 mg/dL Less Than 100 98 Laboratory test finding 03/03/2013 Creatine Kinase 48 U/L 0-200 Basic Metabolic Panel 05/27/2012 Sodium 138 mmol/L 135-145 Potassium 4.3 mmol/L 3.5-5.0 Chloride 108 mmol/L 101-111 Co2 (Carbon Dioxide) 23.0 mmol/L 22-32 Anion Gap 7.0 mmol/L 2-11 99 Glucose 104 mg/dL High 70-100 BUN 15 mg/dL 6-24 Creatinine 0.8 mg/dL 0.50-1.40 One Over Creatinine 1.25 BUN/Creatinine Ratio 18.8 8-20 Calcium 9.5 mg/dL 8.1-9.9 eGFR Non- 71.1 > 60 eGFR 91.5 > 60 100 Comp Metabolic Panel 05/01/2012 Sodium 136 mmol/L 135-145 Potassium 3.6 mmol/L 3.5-5.0 Chloride 99 mmol/L Low 101-111 Co2 (Carbon Dioxide) 28.0 mmol/L 22-32 Anion Gap 9.0 mmol/L 2-11 101 Glucose 85 mg/dL 70-100 BUN 16 mg/dL 6-24 Creatinine 1.1 mg/dL 0.50-1.40 One Over Creatinine 0.90 BUN/Creatinine Ratio 14.5 8-20 Calcium 9.2 mg/dL 8.1-9.9 Total Protein 6.7 GM/DL 6.2-8.1 Albumin 3.9 GM/DL 3.2-5.2 Globulin 2.8 GM/DL 2-4 Albumin/Globulin Ratio 1.4 1-3 Bilirubin Total 1.1 mg/dL 0.4-1.5 102 Alkaline Phosphatase 95 U/L 30-110 Alt (SGPT) 34 U/L 14-54 Ast (Sgot) 21 U/L 12-42 eGFR Non- 49.2 > 60 eGFR 63.3 > 60 103 Lipid Profile (Trig/Chol/HDL) 05/01/2012 Triglyceride 132 mg/dL 40-200 Cholesterol 131 mg/dL Less Than 200 104 High Density Lipoprotein 69 mg/dL High 40-60 105 Cholesterol/HDL Ratio 1.90 AVERAGE 1-4.44 Low Density Lipoprotein 36 mg/dL Less Than 100 106 Laboratory test finding 05/01/2012 CPK (Creatine Kinase) [...] Eosinophils 0.3 0-0.6 Abs Basophils 0.1 0-0.2 Comp Metabolic Panel 12/05/2011 Sodium 142 mmol/L 135-145 Potassium 4.4 mmol/L 3.5-5.0 Chloride 106 mmol/L 101-111 Co2 (Carbon Dioxide) 27.0 mmol/L 22-32 Anion Gap 9.0 mmol/L 2-11 107 Glucose 105 mg/dL High 70-100 BUN 13 mg/dL 6-24 Creatinine 1.0 mg/dL 0.50-1.40 One Over Creatinine 1.00 BUN/Creatinine Ratio 13.0 8-20 Calcium 9.7 mg/dL 8.1-9.9 Total Protein 7.1 GM/DL 6.2-8.1 Albumin 3.9 GM/DL 3.2-5.2 Globulin 3.2 GM/DL 2-4 Albumin/Globulin Ratio 1.2 1-3 Bilirubin Total 0.8 mg/dL 0.4-1.5 108 Alkaline Phosphatase 110 U/L 30-110 Alt (SGPT) 26 U/L 14-54 Ast (Sgot) 18 U/L 12-42 eGFR Non- 55.1 > 60 eGFR 70.9 > 60 109 Laboratory test finding 12/05/2011 CPK (Creatine Kinase) 51 U/L 0-170 Lipid Profile (Trig/Chol/HDL) 12/05/2011 Triglyceride 78 mg/dL 40-200 Cholesterol 143 mg/dL Less Than 200 110 High Density Lipoprotein 54 mg/dL 40-60 111 Cholesterol/HDL Ratio 2.65 AVERAGE 1-4.44 Low Density Lipoprotein 73 mg/dL Less Than 100 112 CBC Auto Diff 03/06/2011 White Blood Count [...] 0.3 0-0.6 Abs Basophils 0.1 0-0.2 Comments [facility] [place] Laboratory test finding 03/06/2011 TSH 5.60 MIU/ML 0.34-5.60 Lipid Profile (Trig/Chol/HDL) 03/06/2011 Triglyceride 114 mg/dL 40-200 Cholesterol 106 mg/dL Less Than 200 113 High Density Lipoprotein 36 mg/dL Low 40-60 114 Cholesterol/HDL Ratio 2.94 AVERAGE 1-4.44 Low Density Lipoprotein 47 mg/dL Less Than 100 115 Comp Metabolic Panel 03/06/2011 Sodium 140 mmol/L 135-145 Potassium 4.1 mmol/L 3.5-5.0 Chloride 112 mmol/L High 101-111 Co2 (Carbon Dioxide) 21.0 mmol/L Low 22-32 Anion Gap 7.0 mmol/L 2-11 116 Glucose 104 mg/dL High 70-100 BUN 18 mg/dL 6-24 Creatinine 1.00 mg/dL 0.50-1.40 One Over Creatinine 1.00 BUN/Creatinine Ratio 18.0 8-20 Calcium 9.6 mg/dL 8.1-9.9 Total Protein 6.9 GM/DL 6.2-8.1 Albumin 3.9 GM/DL 3.2-5.2 Globulin 3.0 GM/DL 2-4 Albumin/Globulin Ratio 1.3 1-3 Bilirubin Total 0.8 mg/dL 0.4-1.5 117 Alkaline Phosphatase 107 U/L 30-110 Alt (SGPT) 22 U/L 14-54 Ast (Sgot) 21 U/L 12-42 eGFR Non- 55.3 > 60 eGFR 71.1 > 60 118 Lipid Profile (Trig/Chol/HDL) 11/02/2010 Triglyceride 139 mg/dL 40-200 Cholesterol 125 mg/dL Less Than 200 119 High Density Lipoprotein 39 mg/dL Low 40-60 120 Cholesterol/HDL Ratio 3.21 AVERAGE 1-4.44 Low Density Lipoprotein 58 mg/dL Less Than 100 121 Comp Metabolic Panel 11/02/2010 Sodium 138 mmol/L 135-145 Potassium 4.0 mmol/L 3.5-5.0 Chloride 109 mmol/L 101-111 Co2 (Carbon Dioxide) 24.0 mmol/L 22-32 Anion Gap 5.0 mmol/L 2-11 122 Glucose 119 mg/dL High 70-100 BUN 17 mg/dL 6-24 Creatinine 1.00 mg/dL 0.50-1.40 One Over Creatinine 1.00 BUN/Creatinine Ratio 17.0 8-20 Calcium 9.4 mg/dL 8.1-9.9 Total Protein 7.0 GM/DL 6.2-8.1 Albumin 3.9 GM/DL 3.2-5.2 Globulin 3.1 GM/DL 2-4 Albumin/Globulin Ratio 1.3 1-3 Bilirubin Total 0.9 mg/dL 0.4-1.5 123 Alkaline Phosphatase 94 U/L 30-110 Alt (SGPT) 32 U/L 14-54 Ast (Sgot) 29 U/L 12-42 eGFR Non- 58.8 > 60 eGFR 71.1 > 60 124 Lipid Panel - [facility] 11/02/2010 CPK (Creatine Kinase) 65 U/L 0-170 Lipid Profile (Trig/Chol/HDL) 04/05/2010 Triglyceride 115 mg/dL 40-200 125 Cholesterol 125 mg/dL Less Than 200 125, 126 High Density Lipoprotein 43 mg/dL 40-60 125, 127 Cholesterol/HDL Ratio 2.91 AVERAGE 1-4.44 125 Low Density Lipoprotein 59 mg/dL Less Than 100 125, 128 Comp Metabolic Panel 04/05/2010 Sodium 137 mmol/L 135-145 125 Potassium 4.2 mmol/L 3.5-5.0 125 Chloride 107 mmol/L 101-111 125 Co2 (Carbon Dioxide) 22.0 mmol/L 22-32 125 Anion Gap 8.0 mmol/L 2-11 125, 129 Glucose 98 mg/dL 70-100 125, 130 BUN 15 mg/dL 6-24 125 Creatinine 0.90 mg/dL 0.50-1.40 125 One Over Creatinine 1.10 125 BUN/Creatinine Ratio 16.7 8-20 125 Calcium 8.9 mg/dL 8.1-9.9 125, 131 Total Protein 7.0 GM/DL 6.2-8.1 125 Albumin 3.8 GM/DL 3.2-5.2 125 Globulin 3.2 GM/DL 2-4 125 Albumin/Globulin Ratio 1.2 1-3 125 Bilirubin Total 0.7 mg/dL 0.4-1.5 125, 132 Alkaline Phosphatase 82 U/L 30-110 125 Alt (SGPT) 22 U/L 14-54 125 Ast (Sgot) 24 U/L 12-42 125 eGFR Non- 66.4 > 60 125 eGFR 80.3 > 60 125, 133 Laboratory test finding 04/05/2010 BNP Evaluatr 29.0 pg/mL 0-100 125 CBC With Manual Diff 04/05/2010 White Blood Count 6.2 CUMM 4.8-10.8 125 Red Cell Count 4.01 CUMM Low 4.2-5.4 125 Hemoglobin 13.5 g/dL 12.0-16.0 125 Hematocrit 39 % 35-47 125 Mean Corpuscular Volume 96 um3 79-97 125 Mean Corpuscular Hemoglob 34 pg High 27-31 125 Mean Corpuscular HGB Cone 35 g/dL 32-36 125 Redcell Distribution WDTH 13 % 10.5-15 125 Platelet Count 203 CUMM 150-450 125 Mean Platelet Volume 7.9 um3 7.4-10.4 125 Polysegmented Neutrophil 50 % 38-83 125 Lymphocyte 43 % 25-47 125 Monocyte 6 % 0-13 125 Eosinophil 1 % 0-6 125 Absolute Neutrophil Count 3.1 125 RBC Morphology NORMAL 125 Laboratory test finding 04/05/2010 TSH 2.10 MIU/ML 0.34-5.60 125 Protime 03/06/2009 Protime 11.5 10.9-13.3 134 Inr 0.90 134, 135 Basic Metabolic Panel 03/06/2009 Sodium 140 mmol/L 135-145 134 Potassium 4.3 mmol/L 3.5-5.0 134 Chloride 109 mmol/L 101-111 134 Co2 (Carbon Dioxide) 23.0 mmol/L 22-32 134 Anion Gap 8.0 mmol/L 2-11 134, 136 Glucose 118 mg/dL High 70-100 134, 137 BUN 11 mg/dL 6-24 134 Creatinine 0.90 mg/dL 0.50-1.40 134 One Over Creatinine 1.10 134 BUN/Creatinine Ratio 12.2 8-20 134 Calcium 9.5 mg/dL 8.1-9.9 134, 138 CBC With Manual Diff 03/06/2009 White Blood Count 5.9 CUMM 4.8-10.8 134 Red Cell Count 4.18 CUMM Low 4.2-5.4 134 Hemoglobin 13.8 g/dL 12.0-16.0 134 Hematocrit 40 % 35-47 134 Mean Corpuscular Volume 95 um3 79-97 134 Mean Corpuscular Hemoglob 33 pg High 27-31 134 Mean Corpuscular HGB Cone 35 g/dL 32-36 134 Redcell Distribution WDTH 13 % 10.5-15 134 Platelet Count 213 CUMM 150-450 134 Mean Platelet Volume 7.7 um3 7.4-10.4 134 Polysegmented Neutrophil 46 % 38-83 134 Lymphocyte 46 % 25-47 134 Monocyte 4 % 0-13 134 Eosenophil 3 % 0-6 134 Basophil 1 % 0-2 134 Absolute Neutrophil Count 2.7 134 RBC Morphology NORMAL 134 Cath Panel 03/06/2009 PTT (Aptt) 24.4 20.1-28.2 134, 139 Comp Metabolic Panel 12/15/2008 Sodium 142 mmol/L 135-145 Potassium 4.3 mmol/L 3.5-5.0 Chloride 111 mmol/L 101-111 Co2 (Carbon Dioxide) 26.0 mmol/L 22-32 Anion Gap 5.0 mmol/L 2-11 140 Glucose 119 mg/dL High 70-100 141 BUN 17 mg/dL 6-24 Creatinine 1.10 mg/dL 0.50-1.40 One Over Creatinine 0.90 BUN/Creatinine Ratio 15.5 8-20 Calcium 9.7 mg/dL 8.1-9.9 142 Total Protein 7.4 GM/DL 6.2-8.1 Albumin 3.7 GM/DL 3.2-5.2 Globulin 3.7 GM/DL 2-4 Albumin/Globulin Ratio 1.0 1-3 Bilirubin Total 0.6 mg/dL 0.4-1.5 Alkaline Phosphatase 101 U/L 30-110 Alt (SGPT) 39 U/L 14-54 Ast (Sgot) 29 U/L 12-42 Lipid Profile (Trig/Chol/HDL) 12/15/2008 Triglyceride 124 mg/dL 40-200 Cholesterol 124 mg/dL Less Than 200 143 High Density Lipoprotein 38 mg/dL Low 40-60 144 Cholesterol/HDL Ratio 3.26 AVERAGE 1-4.44 Low Density Lipoprotein 61 mg/dL Less Than 100 145 Laboratory test finding 12/15/2008 CPK (Creatine Kinase) 75 U/L 0-170 Comp Metabolic Panel 07/16/2008 Sodium 138 mmol/L 135-145 146 Potassium 4.4 mmol/L 3.5-5.0 146 Chloride 107 mmol/L 101-111 146 Co2 (Carbon Dioxide) 23.0 mmol/L 22-32 146 Anion Gap 8.0 mmol/L 2-11 146, 147 Glucose 115 mg/dL High 70-100 146, 148 BUN 16 mg/dL 6-24 146 Creatinine 1.0 mg/dL 0.5-1.4 146 One Over Creatinine 1.00 146 BUN/Creatinine Ratio 16.0 8-20 146 Calcium 9.5 mg/dL 8.1-9.9 146, 149 Total Protein 7.7 GM/DL 6.2-8.1 146 Albumin 4.1 GM/DL 3.2-5.2 146 Globulin 3.6 GM/DL 2-4 146 Albumin/Globulin Ratio 1.1 1-3 146 Bilirubin Total 1.0 mg/dL 0.4-1.5 146 Alkaline Phosphatase 109 U/L 30-110 146 Alt (SGPT) 32 U/L 14-54 146 Ast (Sgot) 29 U/L 12-42 146 Laboratory test finding 07/16/2008 CPK (Creatine Kinase) 84 U/L 0-170 146 BNP Evaluatr 13.41 pg/mL 7.5-100 146 Lipid Profile (Trig/Chol/HDL) 07/16/2008 Triglyceride 94 mg/dL 40-200 146 Cholesterol 130 mg/dL Less Than 200 146, 150 High Density Lipoprotein 42 mg/dL 40-60 146, 151 Cholesterol/HDL Ratio 3.10 AVERAGE 1-4.44 146 Low Density Lipoprotein 69 mg/dL Less Than 100 146, 152 Comp Metabolic Panel 12/28/2007 One Over Creatinine 0.90 146 Anion Gap 4.0 mmol/L 2-11 146, 153 Albumin/Globulin Ratio 1.0 1-3 146 Albumin 3.9 GM/DL 3.2-5.2 146 Alkaline Phosphatase 97 U/L 30-110 146 Alt (SGPT) 27 U/L 14-54 146 Ast (Sgot) 26 U/L 12-42 146 BUN 23 mg/dL 6-24 146 Calcium 9.4 mg/dL 8.7-10.2 146 Chloride 107 mmol/L 101-111 146 Co2 (Carbon Dioxide) 24.0 mmol/L 22-32 146 Globulin 3.9 GM/DL 2-4 146 Glucose 106 mg/dL High 70-105 146 Potassium 4.1 mmol/L 3.5-5.0 146 Sodium 135 mmol/L 135-145 146 Bilirubin Total 0.6 mg/dL 0.4-1.5 146 Total Protein 7.8 GM/DL 6.2-8.1 146 BUN/Creatinine Ratio 20.9 High 8-20 146 Creatinine 1.1 mg/dL 0.5-1.4 146 Lipid Profile 12/28/2007 Cholesterol/HDL Ratio 3.12 AVERAGE 1-4.44 146 (Trig/Chol/HDL) Cholesterol 134 mg/dL Less Than 200 146, 154 Triglyceride 106 mg/dL 40-200 146 High Density Lipoprotein 43 mg/dL 40-60 146 Low Density Lipoprotein 70 mg/dL Less Than 100 146, 155 Laboratory test finding 12/28/2007 BNP Evaluatr 14.66 pg/mL 7.5-100 146 Lipid Panel - [facility] 12/28/2007 CPK (Creatine Kinase) 80 U/L 0-170 146 Basic Metabolic Panel 07/26/2007 One Over Creatinine 0.90 Anion Gap 7.0 mmol/L 2-11 156 BUN 19 mg/dL 6-24 Calcium 9.4 mg/dL 8.7-10.2 Chloride 104 mmol/L 101-111 Co2 (Carbon Dioxide) 25.0 mmol/L 22-32 Glucose 111 mg/dL High 70-105 Potassium 4.1 mmol/L 3.5-5.0 Sodium 136 mmol/L 135-145 BUN/Creatinine Ratio 17.3 8-20 Creatinine 1.1 mg/dL 0.5-1.4 Laboratory test finding 07/26/2007 Magnesium 2.2 mg/dL 1.7-2.6 BNP Evaluatr 23.4 pg/mL 7.5-100 CBC With Manual Diff 07/26/2007 RBC Morphology [...] 4.2-5.4 Redcell Distribution WDTH 13 % 10.5-15 1 Because ethnic data is not always readily [...] 15-29 5 Kidney failure <15 (or dialysis) 2 Copy Result to: ARMANDO OSUNA ([id number]) 3 Because ethnic data is not always [...] 5 Kidney failure <15 (or dialysis) 4 FASTING 5 FASTING 6 FASTING 7 Because ethnic data is not always [...] 5 Kidney failure <15 (or dialysis) 8 FASTING 9 FASTING 10 FASTING 11 >100 to <200 pg/mL: likely compensated congestive heart failure (CHF) 200 to 400 pg/mL: likely moderate CHF >400 pg/mL: likely moderate to severe CHF 12 Because ethnic data is not always [...] 5 Kidney failure <15 (or dialysis) 14 obtain 1 day after mag infusion. Copy Result to: JEOVANY GLASER ([id number]) 15 Because ethnic data is not always [...] 5 Kidney failure <15 (or dialysis) 16 Copy Result to: JEOVANY GLASER ([id number]) 17 Because ethnic data is not always [...] 5 Kidney failure <15 (or dialysis) 18 Because ethnic data is not always readily [...] 15-29 5 Kidney failure <15 (or dialysis) 19 1-2 days after mag infusion 20 Because ethnic data is not always readily [...] 15-29 5 Kidney failure <15 (or dialysis) 21 Because ethnic data is not always readily [...] 15-29 5 Kidney failure <15 (or dialysis) 22 in 2 weeks cc pmd Copy Result to: JEOVANY GLASER ([id number]) 23 >100 to <200 pg/mL: likely compensated congestive heart failure (CHF) 200 to 400 pg/mL: likely moderate CHF >400 pg/mL: likely moderate to severe CHF 24 Because ethnic data is not always [...] 5 Kidney failure <15 (or dialysis) 25 Because ethnic data is not always readily [...] 15-29 5 Kidney failure <15 (or dialysis) 26 in 1 month cc pmd 27 >100 to <200 pg/mL: likely compensated congestive heart failure (CHF) 200 to 400 pg/mL: likely moderate CHF >400 pg/mL: likely moderate to severe CHF 28 Desirable <150 Borderline high 150-199 High 200-499 Very High >500 29 Desirable <200 Borderline high 200-239 High >239 30 Low <40 Desirable: 40-60 High: >60 31 Desirable: <100 mg/dL Near Optimal: 100-129 mg/dL Borderline High: 130-159 mg/dL High: 160-189 mg/dL Very High: >189 mg/dL 32 Because ethnic data is not always readily [...] 15-29 5 Kidney failure <15 (or dialysis) 33 FASTING 12 HOUR in 4-6 weeks cc pmd PATIENT HAD COFFEE WITH LITTLE CREAM 34 Because ethnic data is not always [...] 5 Kidney failure <15 (or dialysis) 35 in 3-4 weeks cc pmd 36 Because ethnic data is not always readily [...] 15-29 5 Kidney failure <15 (or dialysis) 37 Because ethnic data is not always readily [...] 15-29 5 Kidney failure <15 (or dialysis) 38 in 1 week cc pmd 39 Because ethnic data is not always readily [...] 15-29 5 Kidney failure <15 (or dialysis) 40 Desirable <150 Borderline high 150-199 High 200-499 Very High >500 41 Desirable <200 Borderline high 200-239 High >239 42 Low <40 Desirable: 40-60 High: >60 43 Desirable: <100 mg/dL Near Optimal: 100-129 mg/dL Borderline High: 130-159 mg/dL High: 160-189 mg/dL Very High: >189 mg/dL 44 Verbal to JORDIN by [id number] at 1128 on 07/04/16. Results read back accurately. --- 07/04/16 1129 --- Digoxin previously reported as: 2.8 *P ng/ml 45 >100 to <200 pg/mL: likely compensated congestive heart failure (CHF) 200 to 400 pg/mL: likely moderate CHF >400 pg/mL: likely moderate to severe CHF 46 PT IS FASTING 47 PT IS FASTING 48 Desirable <150 Borderline high 150-199 High 200-499 Very High >500 49 Desirable <200 Borderline high 200-239 High >239 50 Low <40 Desirable: 40-60 High: >60 51 Desirable: <100 mg/dL Near Optimal: 100-129 mg/dL Borderline High: 130-159 mg/dL High: 160-189 mg/dL Very High: >189 mg/dL 52 Because ethnic data is not always [...] 5 Kidney failure <15 (or dialysis) 53 PT IS FASTING 54 Because ethnic data is not always [...] 5 Kidney failure <15 (or dialysis) 55 Desirable <150 Borderline high 150-199 High 200-499 Very High >500 56 Desirable <200 Borderline high 200-239 High >239 57 Low <40 Desirable: 40-60 High: >60 58 Desirable: <100 mg/dL Near Optimal: 100-129 mg/dL Borderline High: 130-159 mg/dL High: 160-189 mg/dL Very High: >189 mg/dL 59 in 2-4 weeks cc pmd thanks 60 in 2-4 weeks cc pmd thanks 61 Because ethnic data is not always readily [...] 15-29 5 Kidney failure <15 (or dialysis) 62 Because ethnic data is not always readily [...] 15-29 5 Kidney failure <15 (or dialysis) 63 Because ethnic data is not always readily [...] 15-29 5 Kidney failure <15 (or dialysis) 64 Reference Range and Interpretation: TnI (ng/mL) Interpretation Less Than 0.03 ng/mL Not supportive of diagnosis of SC 0.03 - 0.50 ng/mL Indeterminate: suggest serial studies if clinically indicated. Greater than 0.5 ng/mL Consistent with diagnosis of SC 65 Because ethnic data is not always [...] 5 Kidney failure <15 (or dialysis) 66 Please note: Effective December 02, 2014, the reference value for this test has changed due to the validation and activation of a new reagent lot number. 67 FASTING 68 FASTING 69 FASTING 70 Because ethnic data is not always [...] 5 Kidney failure <15 (or dialysis) 76 Reference Range and Interpretation: TnI (ng/mL) Interpretation Less Than 0.03 ng/mL Not supportive of diagnosis of SC 0.03 - 0.50 ng/mL Indeterminate: suggest serial studies if clinically indicated. Greater than 0.5 ng/mL Consistent with diagnosis of SC 77 NON FASTING 78 NON FASTING 79 Potassium reference range changed effective 09/06/14 80 Because ethnic data is not always readily [...] 15-29 5 Kidney failure <15 (or dialysis) 81 Desirable <150 Borderline high 150-199 High 200-499 Very High >500 82 Desirable <200 Borderline high 200-239 High >239 83 Low <40 Desirable: 40-60 High: >60 84 Desirable <100 Near Optimal 100-129 Borderline high 130-159 High 160-189 Very High >189 85 Because ethnic data is not always readily [...] 15-29 5 Kidney failure <15 (or dialysis) 86 >100 to <200 pg/mL: likely compensated congestive heart failure (CHF) 200 to 400 pg/mL: likely moderate CHF >400 pg/mL: likely moderate to severe CHF [place] [facility] 87 Because ethnic data is not always readily [...] 15-29 5 Kidney failure <15 (or dialysis) 88 >100 to <200 pg/mL: likely compensated congestive heart failure (CHF) 200 to 400 pg/mL: likely moderate CHF >400 pg/mL: likely moderate to severe CHF [place] [facility] 89 PT IS FASTING 90 Because ethnic data is not always [...] 5 Kidney failure <15 (or dialysis) 91 Desirable <150 Borderline high 150-199 High 200-499 Very High >500 92 Desirable <200 Borderline high 200-239 High >239 93 Low <40 Desirable: 40-60 High: >60 94 Desirable <100 Near Optimal 100-129 Borderline high 130-159 High 160-189 Very High >189 95 Acute inflammation: >10.00 In accordance with FDA guideline, CRP is now reported in mg/L, previous reporting was in mg/dL. 96 Because ethnic data is not always readily [...] 15-29 5 Kidney failure <15 (or dialysis) 97 HDL Interpretation: Undesirable: High Risk: Less than 40 MG/DL Desirable: Low Risk: Greater than 60 MG/DL 98 LDL Interpretation: Low Risk Optimal Level: LDL Less than 100 MG/DL Near or Above Optimal: LDL 100-129 MG/DL Borderline High Risk: LDL 130-159 MG/DL High Risk: LDL 160-189 MG/DL Very High Risk: LDL Greater than 189 MG/DL 99 Anion gap measurement may be of limited value in the presence of any alkalosis, especially in a combined acid base disorder. . 100 Because ethnic data is not always readily [...] 15-29 5 Kidney failure <15 (or dialysis) 101 Anion gap measurement may be of limited value in the presence of any alkalosis, especially in a combined acid base disorder. . 102 A metabolite of Naproxen, O-desmethylnaproxen, has been shown to interfere with the [place] method for measuring total bilirubin. Samples from patients who have taken Naproxen have shown spurious elevation in total bilirubin levels. 103 Because ethnic data is not always readily [...] 15-29 5 Kidney failure <15 (or dialysis) 104 CHOLESTEROL INTERPRETATION: Desirable: Less than 200 MG/DL Borderline-High Risk: 200-239 MG/DL High-Risk: 240 MG/DL and over 105 HDL INTERPRETATION: Undesirable: High Risk: Less than 40 MG/DL Desirable: Low Risk: Greater than 60 MG/DL 106 LDL INTERPRETATION: Low Risk Optimal Level: LDL Less than 100 MG/DL Near or Above Optimal: LDL 100-129 MG/DL Borderline High Risk: LDL 130-159 MG/DL High Risk: LDL 160-189 MG/DL Very High Risk: LDL Greater than 189 MG/DL 107 Anion gap measurement may be of limited value in the presence of any alkalosis, especially in a combined acid base disorder. . 108 A metabolite of Naproxen, O-desmethylnaproxen, has been shown to interfere with the [place] method for measuring total bilirubin. Samples from patients who have taken Naproxen have shown spurious elevation in total bilirubin levels. 109 Because ethnic data is not always readily [...] 15-29 5 Kidney failure <15 (or dialysis) 110 CHOLESTEROL INTERPRETATION: Desirable: Less than 200 MG/DL Borderline-High Risk: 200-239 MG/DL High-Risk: 240 MG/DL and over 111 HDL INTERPRETATION: Undesirable: High Risk: Less than 40 MG/DL Desirable: Low Risk: Greater than 60 MG/DL 112 LDL INTERPRETATION: Low Risk Optimal Level: LDL Less than 100 MG/DL Near or Above Optimal: LDL 100-129 MG/DL Borderline High Risk: LDL 130-159 MG/DL High Risk: LDL 160-189 MG/DL Very High Risk: LDL Greater than 189 MG/DL 113 CHOLESTEROL INTERPRETATION: Desirable: Less than 200 MG/DL Borderline-High Risk: 200-239 MG/DL High-Risk: 240 MG/DL and over 114 HDL INTERPRETATION: Undesirable: High Risk: Less than 40 MG/DL Desirable: Low Risk: Greater than 60 MG/DL 115 LDL INTERPRETATION: Low Risk Optimal Level: LDL Less than 100 MG/DL Near or Above Optimal: LDL 100-129 MG/DL Borderline High Risk: LDL 130-159 MG/DL High Risk: LDL 160-189 MG/DL Very High Risk: LDL Greater than 189 MG/DL 116 Anion gap measurement may be of limited value in the presence of any alkalosis, especially in a combined acid base disorder. . 117 A metabolite of Naproxen, O-desmethylnaproxen, has been shown to interfere with the Jendrassik-Patricia method for measuring total bilirubin. Samples from patients who have taken Naproxen have shown spurious elevation in total bilirubin levels. 118 Because ethnic data is not always readily [...] 15-29 5 Kidney failure <15 (or dialysis) 119 CHOLESTEROL INTERPRETATION: Desirable: Less than 200 MG/DL Borderline-High Risk: 200-239 MG/DL High-Risk: 240 MG/DL and over 120 HDL INTERPRETATION: Undesirable: High Risk: Less than 40 MG/DL Desirable: Low Risk: Greater than 60 MG/DL 121 LDL INTERPRETATION: Low Risk Optimal Level: LDL Less than 100 MG/DL Near or Above Optimal: LDL 100-129 MG/DL Borderline High Risk: LDL 130-159 MG/DL High Risk: LDL 160-189 MG/DL Very High Risk: LDL Greater than 189 MG/DL 122 Anion gap measurement may be of limited value in the presence of any alkalosis, especially in a combined acid base disorder. . 123 A metabolite of Naproxen, O-desmethylnaproxen, has been shown to interfere with the Jendrassik-Patricia method for measuring total bilirubin. Samples from patients who have taken Naproxen have shown spurious elevation in total bilirubin levels. 124 Because ethnic data is not always readily [...] 15-29 5 Kidney failure <15 (or dialysis) 125 FASTING 126 CHOLESTEROL INTERPRETATION: Desirable: Less than 200 MG/DL Borderline-High Risk: 200-239 MG/DL High-Risk: 240 MG/DL and over 127 HDL INTERPRETATION: Undesirable: High Risk: Less than 40 MG/DL Desirable: Low Risk: Greater than 60 MG/DL 128 LDL INTERPRETATION: Low Risk Optimal Level: LDL Less than 100 MG/DL Near or Above Optimal: LDL 100-129 MG/DL Borderline High Risk: LDL 130-159 MG/DL High Risk: LDL 160-189 MG/DL Very High Risk: LDL Greater than 189 MG/DL 129 Anion gap measurement may be of limited value in the presence of any alkalosis, especially in a combined acid base disorder. . 130 Note change in reference range as of 06/25/08. The change was based on recommendations from the [place]. 131 Please note change in reference range effective 08 . 132 A metabolite of Naproxen, O-desmethylnaproxen, has been shown to interfere with the Jendrassik-Patricia method for measuring total bilirubin. Samples from patients who have taken Naproxen have shown spurious elevation in total bilirubin levels. 133 Because ethnic data is not always readily [...] 15-29 5 Kidney failure <15 (or dialysis) [address] WILLIS AT FAX NUMBER [phone] 135 PRISCILA VALUE=2.01 ( OF 10/11/07 Recommended INR for Patients on Oral Anticoagulants Prophylaxis 2.0 - 3.0 Treatment of thrombosis 2.0 - 3.0 Prevention of embolism 2.0 - 3.0 Prevention of embolism from prosthetic heart valves 2.5 - 3.5 136 Anion gap measurement may be of limited value in the presence of any alkalosis, especially in a combined acid base disorder. . 137 Note change in reference range as of 06/25/08. The change was based on recommendations from the [place]. 138 Please note change in reference range effective 08 . 139 PLEASE NOTE NEW REFERENCE RANGE EFFECTIVE 08. 140 Anion gap measurement may be of limited value in the presence of any alkalosis, especially in a combined acid base disorder. . 141 Note change in reference range as of 06/25/08. The change was based on recommendations from the [place]. 142 Please note change in reference range effective 08 . 143 CHOLESTEROL INTERPRETATION: Desirable: Less than 200 MG/DL Borderline-High Risk: 200-239 MG/DL High-Risk: 240 MG/DL and over 144 HDL INTERPRETATION: Undesirable: High Risk: Less than 40 MG/DL Desirable: Low Risk: Greater than 60 MG/DL 145 LDL INTERPRETATION: Low Risk Optimal Level: LDL Less than 100 MG/DL Near or Above Optimal: LDL 100-129 MG/DL Borderline High Risk: LDL 130-159 MG/DL High Risk: LDL 160-189 MG/DL Very High Risk: LDL Greater than 189 MG/DL 146 FASTING 147 Anion gap measurement may be of limited value in the presence of any alkalosis, especially in a combined acid base disorder. . 148 Note change in reference range as of 06/25/08. The change was based on recommendations from the [place]. 149 Please note change in reference range effective 08 . 150 CHOLESTEROL INTERPRETATION: Desirable: Less than 200 MG/DL Borderline-High Risk: 200-239 MG/DL High-Risk: 240 MG/DL and over 151 HDL INTERPRETATION: Undesirable: High Risk: Less than 40 MG/DL Desirable: Low Risk: Greater than 60 MG/DL 152 LDL INTERPRETATION: Low Risk Optimal Level: LDL Less than 100 MG/DL Near or Above Optimal: LDL 100-129 MG/DL Borderline High Risk: LDL 130-159 MG/DL High Risk: LDL 160-189 MG/DL Very High Risk: LDL Greater than 189 MG/DL 153 Anion gap measurement may be of limited value in the presence of any alkalosis, especially in a combined acid base disorder. . 154 Classification: Desirable . 155 CALCULATED LDL APPROXIMATES THE VALUE OF A DIRECT LDL MEASUREMENT. Classification: Optimal Level . 156 Anion gap measurement may be of limited value in the presence of any alkalosis, especially in a combined acid base disorder. . Procedures Date CPT Code Description Status 04/26/2018 40858 EKG Tracing & Interpretation Completed 03/04/2018 72656 ECHO Transthoracic, Real-Time 2D With Doppler And Color Completed Flow 03/04/2018 33681 ECHO Transthoracic, Real-Time 2D With Doppler And Color Completed Flow 03/04/2018 79807 ECHO Transthoracic, Real-Time 2D With Doppler And Color Completed Flow 02/24/2018 86153 Holter Monitor Review (24 hr)dr review & interp only Completed 02/20/2018 80797 ECG Monitor/Recording W/Visual Superimposition Scanning Completed 02/15/2018 43624 Interrogation Implant Cardiovasc Monitor System Incl Completed Analysis Int 02/15/2018 35324 Interrogation Implant Cardiovasc Monitor System Incl Completed Analysis Int 02/15/2018 50457 Icd Eval With Inerative Adjustmt Dual Lead System Completed 02/15/2018 93321 Icd Eval With Inerative Adjustmt Dual Lead System Completed 01/23/2018 94187 EKG Tracing & Interpretation Completed 10/26/2017 86673 ECHO Transthoracic, Real-Time 2D With Doppler And Color Completed Flow 10/09/2017 31804 Interrogation Device Eval Remote Up To 30 Days Completed Analysis,Rev,RP 10/09/2017 14029 Icd Eval Sing,Dual,Multi Lead Remote Recpt Transm Tech Completed Rev Tech S 10/09/2017 92477 Icd Check Remote Up To 90 Days Single,Dual,Multiple Completed Lead 10/05/2017 53583 Icd Check Remote Up To 90 Days Single,Dual,Multiple Completed Lead 10/05/2017 51070 Icd Eval Sing,Dual,Multi Lead Remote Recpt Transm Tech Completed Rev Tech S 09/17/2017 28526 EKG Tracing & Interpretation Completed 09/04/2017 06811 EKG Tracing & Interpretation Completed 07/31/2017 14564 EKG Tracing & Interpretation Completed 07/18/2017 06403 EKG Tracing & Interpretation Completed 07/18/2017 86079 EKG Tracing & Interpretation Completed 06/26/2017 30852 Interrogation Implant Cardiovasc Monitor System Incl Completed Analysis Int 06/26/2017 73262 Icd Eval With Inerative Adjustmt Dual Lead System Completed 05/31/2017 90672 EKG Tracing & Interpretation Completed 05/19/2017 86477 Holter Monitor Review (24 hr)dr review & interp only Completed 05/16/2017 69090 ECG Monitor/Recording W/Visual Superimposition Scanning Completed 05/09/2017 28869 ECHO Transthorasic Realtime 2D W Doppler & Color Flow Completed Hosp 05/09/2017 26385 EKG, Interpretation Only Completed 04/05/2017 06128 Pulmonary Function><Bronchodil Completed 04/05/2017 47172 Pulmonary Stress Test Simple Completed 04/05/2017 46667 Plethysmography Determination Lung Volumes & Per Airway Completed Resist 04/05/2017 85502 Diffusing Capacity Completed 03/19/2017 10636 ECHO Transthoracic, Real-Time 2D With Doppler And Color Completed Flow 02/13/2017 76965 Interrogation Implant Cardiovasc Monitor System Incl Completed Analysis Int 02/13/2017 97390 Icd Eval With Inerative Adjustmt Dual Lead System Completed 01/15/2017 84907 EKG Tracing & Interpretation Completed 10/05/2016 12817 Interrogation Implant Cardiovasc Monitor System Incl Completed Analysis Int 10/05/2016 42875 Icd Eval With Inerative Adjustmt Dual Lead System Completed 06/22/2016 23673 EKG Tracing & Interpretation Completed 06/19/2016 14293 Interrogation Implant Cardiovasc Monitor System Incl Completed Analysis Int 06/19/2016 70141 Icd Eval With Inerative Adjustmt Dual Lead System Completed 02/10/2016 38060 ECHO Transthoracic, Real-Time 2D With Doppler And Color Completed Flow 01/26/2016 19103 Interrogation Implant Cardiovasc Monitor System Incl Completed Analysis Int 01/26/2016 30628 Interrogation Device Eval In Person W/DR Completed Analysis,Single,Dual,Mul 01/26/2016 92289 EKG Tracing & Interpretation Completed 10/26/2015 29107 Icd Eval With Inerative Adjustmt Dual Lead System Completed 10/26/2015 65923 Interrogation Implant Cardiovasc Monitor System Incl Completed Analysis Int 08/13/2015 82420 ECHO Transthoracic, Real-Time 2D With Doppler And Color Completed Flow 08/02/2015 35280 Icd Eval With Inerative Adjustmt Dual Lead System Completed 08/02/2015 28455 EKG Tracing & Interpretation Completed 04/01/2015 60724 EKG Tracing & Interpretation Completed 03/31/2015 66082 Icd Check Single,Dual Or Multiple In Person W/DR Incl Completed Heart Rhyth 03/15/2015 93862 ECHO Transthoracic, Real-Time 2D With Doppler And Color Completed Flow 02/12/2015 68299 Icd Check Single,Dual Or Multiple In Person W/DR Incl Completed Heart Rhyth 02/09/2015 44331 EKG Tracing & Interpretation Completed 01/14/2015 31902 Echocardiogram, Limited Study Completed 01/14/2015 55093 Pericardiocentesis Completed 01/13/2015 91233 EKG, Interpretation Only Completed 01/12/2015 26817 Icd Check Single,Dual Or Multiple In Person W/DR Incl Completed Heart Rhyth 01/11/2015 00281 Insert/Replace Icd W/Generator Completed 01/11/2015 20153 Ep Eval Icd AT Implant Completed 12/16/2014 66685 EKG Tracing & Interpretation Completed 10/21/2014 55680 ECHO Transthorasic Realtime 2D W Doppler & Color Flow Completed Hosp 09/08/2014 94690 EKG Tracing & Interpretation Completed 02/03/2014 24908 EKG Tracing & Interpretation Completed 01/28/2014 83190 Intravascular Blood Flow Velocity Completed 01/28/2014 24885 Left Heart Cath. Incl S/I Coronaries, Angio S/I V Gram Completed If Done 01/28/2014 32989 Left Heart Cath. Incl S/I Coronaries, Angio S/I V Gram Completed If Done 01/28/2014 71814 Percutaneous Transcatheter Placement Of Intracoronary Completed Stent 01/22/2014 71318 EKG Tracing & Interpretation Completed 01/20/2014 36900 ECHO Transthoracic, Real-Time 2D With Doppler And Color Completed Flow 01/19/2014 20801 ECHO Transthoracic, Real-Time 2D With Doppler And Color Completed Flow 01/06/2014 41619 EKG Tracing & Interpretation Completed 04/03/2013 40635 ECHO Transthoracic, Real-Time 2D With Doppler And Color Completed Flow 03/05/2013 46851 EKG Tracing & Interpretation Completed 05/09/2012 28770 Stress Test Supervsn W/Out I/R Completed 05/09/2012 56367 Treadmill Interp/Report Only Completed 05/09/2012 26158 Stress ECHO Interpretation/Report Hospital Completed 04/24/2012 25042 ECHO Transthoracic, Real-Time 2D With Doppler And Color Completed Flow 04/24/2012 81894 EKG Tracing & Interpretation Completed 06/21/2011 62014 EKG Tracing & Interpretation Completed 04/20/2011 96784 ECHO Transthoracic, Real-Time 2D With Doppler And Color Completed Flow 02/13/2011 05024 EKG Tracing & Interpretation Completed 12/01/2010 53014 EKG Tracing & Interpretation Completed 04/14/2010 14100 ECHO Transthoracic, Real-Time 2D With Doppler And Color Completed Flow 03/30/2010 64688 EKG Tracing & Interpretation Completed 10/14/2009 15666 ECHO Transthoracic, Real-Time 2D With Doppler And Color Completed Flow 02/23/2009 62080 Treadmill Interp/Report Only Completed 02/23/2009 63379 Stress Test Supervsn W/Out I/R Completed 01/20/2009 99263 EKG Tracing & Interpretation Completed 08/20/2008 43047 Echocardiogram Completed 08/20/2008 81870 Echocardiogram Completed 08/20/2008 63210 Pulse Doppler & Continuous Wave Completed 08/20/2008 45033 Pulse Doppler & Continuous Wave Completed 08/20/2008 40316 Pulse Doppler & Continuous Wave Completed 08/20/2008 63676 Color Doppler Completed 08/20/2008 45256 Color Doppler Completed 07/08/2008 00624 EKG Tracing & Interpretation Completed 03/17/2008 75496 Treadmill Interp/Report Only Completed 03/17/2008 23098 Stress Test Supervsn W/Out I/R Completed 03/17/2008 69770 Stress Test Supervsn W/Out I/R Completed 03/10/2008 36613 Treadmill Interp/Report Only Completed 03/10/2008 69942 Stress Test Supervsn W/Out I/R Completed 03/10/2008 56637 Stress Test Supervsn W/Out I/R Completed 10/30/2007 68808 EKG Tracing & Interpretation Completed 10/30/2007 14614 Echocardiogram Completed 10/30/2007 48268 Echocardiogram Completed 10/30/2007 46664 Echocardiogram Completed 10/30/2007 19875 Pulse Doppler & Continuous Wave Completed 10/30/2007 81908 Pulse Doppler & Continuous Wave Completed 10/30/2007 59081 Color Doppler Completed 10/30/2007 30662 Color Doppler Completed 10/30/2007 87110 Color Doppler Completed 06/20/2007 69947 Holter Monitor Interpretation Completed 06/05/2007 83794 Color Doppler Completed 06/05/2007 39928 Color Doppler Completed 06/05/2007 76842 Pulse Doppler & Continuous Wave Completed 06/05/2007 25950 Pulse Doppler & Continuous Wave Completed 06/05/2007 75453 Pulse Doppler & Continuous Wave Completed 06/05/2007 84873 Echocardiogram Completed 06/05/2007 85481 Echocardiogram Completed 06/05/2007 70044 EKG Tracing & Interpretation Completed Encounters Type Date Location Provider CPT E/M Dx Office Visit 04/26/2018 2:00p [facility] Sahra Garrett, N.P. 05234 I42.9 I49.3 Z95.810 G47.33 E78.00 Office Visit 01/23/2018 2:30p [facility] Tyrone Hollis M.D. 87198 J44.9 R06.00 I42.9 Z95.810 E78.00 I49.3 I10 Office Visit 11/09/2017 11:15a [facility] [place] [address] J44.9 Services Of Associate Chemist G47.33 R09.02 Office Visit 09/25/2017 8:45a [facility] [place] [address] J44.9 Services Of Associate Chemist G47.33 R09.02 Office Visit 09/17/2017 2:30p [facility] SARTHAK Carr 44878PBP I49.3 Z95.810 I25.5 J44.9 R06.00 Office Visit 09/04/2017 9:20a [facility] Tyrone Hollis M.D. 07901 I48.0 I49.3 R94.31 Z95.810 I25.5 I42.9 Office Visit 07/18/2017 9:00a [facility] SARTHAK Carr 28336MRH I25.5 I48.0 Z95.810 I49.3 R53.83 Office Visit 05/31/2017 11:00a [facility] Tyrone Hollis M.D. 42207 I49.3 I42.9 R06.00 I25.10 I34.0 I10 I48.0 Office Visit 04/24/2017 10:45a [facility] Brittany Roper MD G9695 J44.9 Services Of Associate Chemist G47.33 R09.02 Office Visit 2017 1:30p [facility] SARTHAK Carr 04599 I42.9 R06.00 I25.10 M79.1 Office Visit 02/21/2017 8:00a [facility] [place] [address] R06.00 Services Of Associate Chemist J44.9 G47.33 I50.22 I25.10 I25.5 I48.0 Office Visit 01/15/2017 9:20a [facility] Tyrone Hollis M.D. 84022 I48.0 I25.5 I50.22 I25.10 R06.00 R42 Office Visit 06/22/2016 9:20a [facility] Tyrone Hollis 33544 R06.02 Dash I25.5 I48.0 I47.2 Office Visit 02/24/2016 10:00a [facility] SARTHAK Carr 29842 I25.5 R06.02 I47.2 Z95.810 R11.0 I48.0 Office Visit 01/26/2016 10:00a [facility] Tyrone Hollis M.D. 79709 N20.0 I50.22 I25.5 I47.2 R06.02 Office Visit 11/30/2015 2:47p [facility], Олег Gomez, 27858 N39.0 Hospitalists Dash A41.9 N20.0 I50.22 Office Visit 11/29/2015 2:47p [facility], Олег Gomez, 11213 N39.0 Hospitalists M.DNathaly A41.9 N20.0 I50.22 Office Visit 11/28/2015 2:46p [facility], Ramirez Neal M.D. 00185 N20.0 Hospitalists A41.9 N39.0 I50.22 Office Visit 11/27/2015 2:45p [facility], Ramirez Neal M.D. 90390 N20.0 Hospitalists A41.9 N39.0 I50.22 Office Visit 11/26/2015 2:45p [facility], Ramirez Neal M.D. 99806 N39.0 Hospitalists A41.9 N20.0 I50.22 Office Visit 09/02/2015 9:30a [facility] SARTHAK Carr 92329 I25.5 Z95.810 R06.02 E78.5 K22.4 I48.0 R07.9 Office Visit 08/02/2015 10:40a [facility] Tyrone Hollis M.D. 81159 I48.0 Z95.810 I25.10 I47.2 I42.9 R53.1 R07.9 Office Visit 05/04/2015 9:30a [facility] SARTHAK Carr 60119 427.31 425.4 V45.02 414.01 424.1 782.3 Office Visit 04/01/2015 9:00a [facility] Tyrone Hollis M.D. 40322 425.9 427.31 425.4 427.1 Office Visit 02/09/2015 1:00p [facility] Jaylene Bravo 09822 427.31 Associate Chemist AT [facility] MElaine V45.02 414.8 Office Visit 01/14/2015 9:41a [facility] Tomasa Burt 66493 423.9 M.DNathaly 414.8 787.01 789.09 Office Visit 01/01/2015 11:00a [facility] Jaylene Bravo 97873 414.8 [facility] Dash 414.01 786.05 Office Visit 12/18/2014 3:45p [facility] Jaylene Bravo 23909 414.8 Associate Chemist M.DNathaly 425.9 414.01 Office Visit 12/16/2014 10:20a [facility] Tyrone Hollis M.D. 68826 414.8 424.1 425.9 Office Visit 11/12/2014 2:30p [facility] Ameena PetersisSARTHAK 40113 425.9 414.8 424.1 786.05 785.1 Office Visit 09/08/2014 11:00a [facility] Tyrone Hollis, 83139 414.01 M.D. V45.82 794.31 401.1 425.9 Office Visit 02/03/2014 4:00p [facility] Qutaybeh S. Maghaydah, 19941 414.01 M.D. V45.82 794.31 401.1 Office Visit 01/29/2014 1:11p [facility] Qutaybeh S. Maghaydah, 30001 424.1 M.D. 414.8 401.1 272.4 Office Visit 01/28/2014 1:36p [facility] Qutaybeh S. Maghaydah, 48623 414.01 M.D. 414.8 794.31 401.1 Office Visit 01/22/2014 1:40p [facility] Qutaybeh S. Maghaydah, 50062 425.4 M.D. 414.01 424.0 786.50 492.8 786.05 Office Visit 01/06/2014 10:00a [facility] Tyrone Hollis M.D. 51870 424.0 425.4 414.01 786.50 576.9 Office Visit 03/05/2013 9:20a [facility] Tyrone Hollis 51891 414.01 M.D. 424.0 425.4 Office Visit 04/24/2012 10:00a [facility] Tyrone Hollis M.D. 82104 424.0 401.1 425.4 799.02 Office Visit 02/13/2011 11:00a [facility] Tyrone Hollis 59249 414.01 M.D. 425.4 401.1 424.0 Office Visit 03/30/2010 9:00a [facility] Tyrone Hollis, 47766 414.01 M.D. 425.4 401.1 424.0 Office Visit 01/20/2009 10:00a [facility] Tyrone Hollis, 50316 414.01 M.D. 272.0 786.09 Office Visit 07/08/2008 9:20a [facility] Tyrone Hollis 00449 414.01 M.D. 272.0 401.0 Office Visit 02/07/2008 8:40a [facility] Tyrone Hollis M.D. 40972 425.4 272.0 414.01 Office Visit 11/29/2007 8:40a [facility] Tyrone Hollis M.D. 80472 425.4 272.0 414.01 Office Visit 10/30/2007 10:40a [facility] Tyrone Hollis M.D. 00157 425.4 272.0 414.01 401.1 Office Visit 09/23/2007 11:00a [facility] Tyrone Hollis M.D. 99363 272.0 425.4 414.01 401.1 Office Visit 08/20/2007 11:00a [facility] Tyrone Hollis M.D. 24316 425.4 272.0 401.1 414.01 Office Visit 07/25/2007 10:00a [facility] Tyrone Hollis M.D. 21451 425.4 272.0 785.1 401.1 786.09 Office Visit 07/02/2007 1:20p [facility] Tyrone Hollis M.D. 86344 425.4 272.0 785.1 Office Visit 06/14/2007 10:40a [facility] Tyrone Hollis M.D. 14289 425.4 272.0 401.1 785.1 Office Visit 06/05/2007 11:30a [facility] Tyrone Hollis M.D. 10542 425.4 272.0 401.0 428.22 Plan of Care Future Appointment(s):12/16/2018 9:15 am - Brittany Roper MD at [facility]06/16/2018 9:00 am - Pacemaker Schedule at [facility]06/12/2018 - Brittany Roper MDJ44.9 Chronic obstructive pulmonary disease, unspecifiedFollow up:6 mmvkmgH79.33 Obstructive sleep apnea (adult) ( pediatric)E66.09 Other obesity due to excess calories
[2018-06-16] MEDS ORDERED: Acetaminophen TAB* 325 MG PO ONE (14:36)
--- NOTE | 2018-06-16 14:47 | ED ---
Lower Extremity - HPI Summary HPI Summary: Patient presents status post fall prior to arrival. She reports she was on a 2 foot step stool trying to get something out of her cupboard and as she was stepping down, she missed a step and fell backwards. Denies preceding weakness, dizziness, fatigue, CP, etc. She landed on her left hip and continued back to strike her head against her door. She reports her pain is in her left hip at this point in time - feels okay at rest. Pain is worse with movement and weightbearing -"10/14". Denies numbness tingling or weakness in her legs. Denies new onset incontinence of bowels or bladder since fall. She has no lower back pain. As a result of her head injury, she denies loss of consciousness and currently does not have a headache, visual change, confusion, dizziness, photophobia. She also denies neck pain, stiffness, arm pain or weakness, chest pain or upper back pain. She has intermittent nausea which she' s had for a while now (before injury today - no worse than usual). She admits she has multiple medical ailments including but not limited to atrial fibrillation, other arrhythmia, DM, hyperlipidemia, hypertension, COPD, skin sensitivity issues (sensitive to touch and sensitive/irritable w/ tape, etc), intermittent nausea which she believes is due to her meds and decreased appetite which her doctor told her is from her age. She takes xarelto for atrial fibrillation and follows with Dr. Hollis. She does note her blood pressure has been low as of late (90's- 70's) and so 3 of her antihypertensive medications were stopped. Systolic of 109 in room w/ auto cuff now. She brought her updated med list with her today and will provide for chart. NOTE: chart reveals h/o sciatica in Lt leg. - History of Current Complaint Chief Complaint: EDHipPelvisInjury Stated Complaint: FALL/HIP INJURY Time Seen by Provider: 06/16/18 14:13 Hx Obtained From: Patient, Family/Direct Care Professional - , daughter Pain Intensity: 10 - Allergies/Home Medications Allergies/Adverse Reactions: Allergies Allergy/AdvReac Type Severity Reaction Status Date / Time roflumilast Allergy Unknown Unknown Verified 06/16/18 13:58 Reaction Details aspirin AdvReac Intermediate Abdominal Verified 06/16/18 13:58 Pain codeine AdvReac Intermediate GI Upset Verified 06/16/18 13:58 lisinopril AdvReac Intermediate Coughing Verified 06/16/18 13:58 spironolactone AdvReac Intermediate Dizziness Verified 06/16/18 13:58 PMH/Surg Hx/FS Hx/Imm Hx Previously Healthy: Yes Endocrine/Hematology History: Reports: Hx Anticoagulant Therapy - xarelto, Hx Diabetes - TYPE 2, Hx Thyroid Disease Cardiovascular History: Reports: Hx Angina, 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/2015 [facility] [place], Hx Congestive Heart Failure - SYSTOLIC HEART FAILURE, Hx Coronary Artery Disease, Hx Hypercholesterolemia, Hx Hypertension - WELL CONTROLLED, Hx Myocardial Infarction, Hx Pacemaker/ICD, Other Cardiovascular Problems/Disorders - HX ISCHEMIC CARDIOMYOPATHY, PERICARDIAL EFFUSION 01/17 Respiratory History: Reports: Hx Asthma, Hx Chronic Obstructive Pulmonary Disease (COPD), Hx Pulmonary Embolism, Hx Sleep Apnea Denies: Hx Cystic Fibrosis GI History: Reports: Hx Gastroesophageal Reflux Disease - CONTROL WITH MEDS, Other GI Disorders - OCCASIONAL ESOPHAGEAL SPASMS History: Reports: Hx Kidney Stones - LEFT, Other Problems/Disorders - HX OF SEPSIS, UTI 11/27/15, LEFT URETERAL CALCULUS Musculoskeletal History: Reports: Other Musculoskeletal History - HX SCIATICA LEFT LEG Sensory History: Reports: Hx Cataracts - ASHLEE, Hx Contacts or Glasses - GLASSES Denies: Hx Hearing Aid Opthamlomology History: Reports: Hx Cataracts - ASHLEE, Hx Contacts or Glasses - GLASSES Neurological History: Reports: Other Neuro Impairments/Disorders - RESTLESS LEG SYNDROME - Surgical History Surgery Procedure, Year, and Place: 28 YRS OF AGE- BILAT [place]UNION[place]OM[place] [facility] [place] - [facility]. 1967 APPENDECTOMY- [facility]. 01/11/2015 PACEMAKER/AICD[place] [facility] [place] CYSTO WITH STENT INSERTION X3[place] [facility] [place]x Anesthesia Reactions: No - Immunization History Date of Tetanus Vaccine: unknown Date of Influenza Vaccine: 09/2017 Infectious Disease History: No Infectious Disease History: Denies: Traveled Outside the [place] in Last 30 Days - Family History Known Family History: Positive: Other - Cataract (brother) - Social History Occupation: Retired Lives: With Family - Alcohol Use: None Hx Substance Use: No Substance Use Type: Reports: None Hx Tobacco Use: Yes - not currently Smoking Status (MU): Former Smoker Type: Cigarettes Amount Used/How Often: PACK A DAY Length of Time of Smoking/Using Tobacco: 20 Have You Smoked in the Last Year: No Review of Systems Constitutional: Negative Negative: Fever, Chills, Fatigue Eyes: Negative Negative: Photophobia, Blurred Vision, Diplopia ENT: Negative Negative: Epistaxis, Dental Pain Cardiovascular: Negative Negative: Palpitations, Chest Pain Respiratory: Negative Negative: Shortness Of Breath Positive: Nausea. Negative: Abdominal Pain, Vomiting Genitourinary: Negative Positive: Arthralgia, Myalgia, Decreased ROM Skin: Negative Neurological: Negative Psychological: Normal All Other Systems Reviewed And Are Negative: Yes Physical Exam Triage Information Reviewed: Yes Vital Signs On Initial Exam: Initial Vitals Temp Pulse Resp BP Pulse Ox 97.8 F 78 20 108/79 97 06/16/18 13:58 06/16/18 13:58 06/16/18 13:58 06/16/18 13:58 06/16/18 13:58 Vital Signs Reviewed: Yes Appearance: Positive: Well-Appearing, No Pain Distress - at rest - pain w/ movement of Lt hip, Well-Nourished Skin: Positive: Warm, Skin Color Reflects Adequate Perfusion, Dry - quarter sized ecchymosis w/ yellowing over Lt proximal thigh - minimal TTP - no other areas of ecchymosis, abrasions, laceration, hematoma Head/Face: Positive: Normal Head/Face Inspection - NTTP, no step off, no battlesign, no crepitus - atraumatic Eyes: Positive: Normal, EOMI, NARINDER - no photophobia, Conjunctiva Clear ENT: Positive: Normal ENT inspection, Hearing grossly normal, Pharynx normal - atraumatic, TMs normal - no hemotympanum. Negative: Nasal drainage, Trismus Dental: Positive: Other - dentures Neck: Positive: Supple, Nontender - no pain w/ ROM - reports trapezius mm "feel good" when palpated Respiratory/Lung Sounds: Positive: Breath Sounds Present. Negative: Subcutaneous Emphysema, Stridor, Tracheal Deviation, Wheezes, Unable to speak in full sentences, Fatigue Cardiovascular: Positive: Pulses are Symmetrical in both Upper and Lower Extremities, IRR Abdomen Description: Positive: Nontender, No Organomegaly, Soft Musculoskeletal: Positive: Strength/ROM Intact - UE's FROM and strength; Rt LE FROM and strength; Lt LE w/ adequate ROM - she can slide Lt heel on bed to flex knee and hip until hip gets to about 90 degrees - no pain in knee, pain in hip only; spinous pp, paraspinal mm and SI joints NTTP; chest and ribs NTTP - can take deep breath w/o pain Neurological: Positive: Normal, Sensory/Motor Intact, Alert, Oriented to Person Place, Time, CN Intact II-III Psychiatric: Positive: Normal Diagnostics - Vital Signs Vital Signs Temp Pulse Resp BP Pulse Ox 06/16/18 14:25 76 109/68 97 06/16/18 14:22 82 96 06/16/18 13:58 97.8 F 78 20 108/79 97 - Laboratory Lab Statement: Any lab studies that have been ordered have been reviewed, and results considered in the medical decision making process. 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 She reports she simply missed a step - there was no preceding dizziness, chest pain, fatigue or weakness. She fell back and landed on her left hip and then struck the back of her head. She denies any neuro deficits however she does take xarelto. Her brain and cervical spine CT' s are without bleeding, fracture, dislocation or other acute pathology. She was found to have old lacunar infarcts and cervical disc degeneration - this information was relayed to the patient and family. Her Lt hip x-ray was negative for fracture or dislocation however when she tried to bear weight she continued to have pain. A CT was then ordered which found a "relatively large hematoma lateral to the Lt hip and a hematoma involving the left gluteus medius muscle which is less well-defined. No fx". As she has been undergoing testing here resting on stretcher, she reports her pain has spread from her hip to her proximal anterior thigh. SHe is able to flex the area and has good pulses in her extremity. She has baseline sciatica on this leg which is not worse since fall or being here (i.e. denies change in numbness, tingling or weakness into this leg and no bowel/bladder incontinence nor LBP). Due to her anticoagulation therapy and potential growth of hematoma, she will be admitted to the hospital. Her pain is also poorly controlled with acetaminophen however she cannot have NSAID;s w/ her xarelto and has a codeine allergy. SHe's also been struggling w/ hypotension recently so narcotics were not given initially. Discussed with Dr. Thakur who agrees to admit for OBV. Labs ordered. Patient in stable condition throughout her course here. She is hungry and requesting food - she is diabetic so will order consistent carb diet. - Diagnoses Provider Diagnoses: Traumatic hematoma of left hip, Anticoagulant effect, Fall involving stool as cause of accidental injury Discharge - Sign-Out/Discharge Documenting (check all that apply): Patient Departure - Discharge Plan Condition: Stable Disposition: ADMITTED TO [facility] - Billing Disposition and Condition Condition: STABLE Disposition: Admitted to [facility] [place]
--- NOTE | 2018-06-16 15:14 | RAD ---
INDICATION: Head injury. COMPARISON: There are no prior studies available for comparison. TECHNIQUE: Contiguous axial sections of the brain were obtained from the skull base to the vertex without contrast. FINDINGS: The ventricles, cisterns and sulci are enlarged consistent with age-related atrophy. There are small areas of decreased density in the subcortical and periventricular white matter suggestive of mild chronic small vessel ischemic changes. There are small focal areas of decreased density in the region of the caudate head nuclei on both sides suggestive of old lacunar infarcts. There is no evidence for hemorrhage. No significant focal osseous abnormality is seen. The visualized portion of the paranasal sinuses and mastoid air cells appear clear. IMPRESSION: 1. NO EVIDENCE FOR ACUTE INTRACRANIAL ABNORMALITY. 2. FINDINGS SUGGESTIVE OF SMALL OLD BILATERAL LACUNAR INFARCTS.
--- NOTE | 2018-06-16 15:22 | RAD ---
INDICATION: Trauma. COMPARISON: There are no prior studies available for comparison. TECHNIQUE: Contiguous axial sections were obtained from the skull base through the T1 vertebra. Images were reconstructed in the sagittal and coronal planes. FINDINGS: The vertebra are in normal alignment. No prevertebral soft tissue swelling or fracture is seen. At the C2-C3 level there is mild posterior uncinate process spurring and mild hypertrophic changes within the facet joints. No significant spinal canal narrowing is present. There is mild neural foraminal narrowing on the right side. At the C3-C4 level there is mild posterior uncinate process spurring and mild hypertrophic changes within the facet joints. No significant spinal canal or neural foraminal narrowing is present. At the C4-C5 level there is minimal posterior uncinate process spurring and mild hypertrophic changes within the facet joints. No significant spinal canal or neural foraminal narrowing is seen. At the C5-C6 level there is mild to moderate posterior uncinate process spurring and mild hypertrophic changes within the facet joints. There is mild spinal canal narrowing. There is mild bilateral neural foraminal narrowing. At the C6-C7 level there is moderate posterior uncinate process spurring. There is mild to moderate spinal canal narrowing and mild bilateral neural foraminal narrowing. There is left apical pleural-parenchymal scarring. IMPRESSION: 1. NO EVIDENCE FOR FRACTURE. 2. MILD TO MODERATE CERVICAL SPONDYLOSIS.
--- NOTE | 2018-06-16 16:04 | RAD ---
INDICATION: Left hip injury. COMPARISON: There are no prior studies available for comparison. TECHNIQUE: An AP view of the pelvis and frontal and lateral views of the left hip were obtained. FINDINGS: There is lateral soft tissue swelling. The bones are normal alignment. No fracture is seen. There is mild to moderate bilateral osteoarthritic change in the hips. IMPRESSION: SOFT TISSUE SWELLING, NO FRACTURE IS SEEN. IF THE PATIENT'S SYMPTOMS PERSIST RECOMMEND FOLLOW-UP IMAGING.
--- NOTE | 2018-06-16 17:14 | RAD ---
INDICATION: Trauma, left hip pain. COMPARISON: Comparison is made with a prior CT of the abdomen and pelvis from January 14, 2015 and a prior x-ray study of the left hip from June 16, 2018. TECHNIQUE: Contiguous axial sections were obtained through the pelvis without intravenous or oral contrast. Images were reconstructed in the coronal and sagittal planes. FINDINGS: There is soft tissue swelling and hematoma present lateral to the left hip measuring 8.6 x 6.5 x 6.2 cm. In addition, there is enlargement of the left gluteus medius muscle consistent with an underlying hematoma which is not well-defined. The bones are in normal alignment. No fracture is seen. No joint effusion is noted. The visualized portion of the small bowel colon appear nondistended. There is a small periumbilical hernia containing fat. No significant enlarged pelvic or inguinal lymph nodes are seen. No free intraperitoneal air or fluid is seen. IMPRESSION: THERE IS A RELATIVELY LARGE HEMATOMA LATERAL TO THE LEFT HIP AND A HEMATOMA INVOLVING THE LEFT GLUTEUS MEDIUS MUSCLE WHICH IS LESS WELL-DEFINED. NO FRACTURE IS SEEN.
[2018-06-16 18:31] LABS: Hematocrit 35 % (35-47); Hemoglobin 11.6 g/dl (12.0-16.0); Mean Corpuscular HGB Conc 33 g/dl (31-36); Mean Corpuscular Hemoglobin 31 pg (27-31); Mean Corpuscular Volume 95 fL (80-97); Mean Platelet Volume 8.7 um3 (7.4-10.4); Platelet Count 252 10^3/ul (150-450); Red Blood Count 3.71 10^6/ul (4.00-5.40); Red Cell Distribution Width 13 % (10.5-15); White Blood Count 12.1 10^3/ul (3.5-10.8)
[2018-06-16] MEDS ORDERED: Magnesium Hydroxide LIQ* 30 ML UDC PO PRN (18:31)
[2018-06-16] MEDS ORDERED: Acetaminophen TAB* 325 MG PO PRN (18:31)
[2018-06-16 18:43] LABS: INR 1.22 (0.77-1.02)
[2018-06-16 18:49] LABS: EGFR Non-African American 47.4 (>60)
[2018-06-16] MEDS ORDERED: Albuterol HFA INHALER* 8 gm MDI INH PRN (19:01)
[2018-06-16] MEDS ORDERED: NS 0.9% 500 ML* 500 ML IV SCH (20:00)
[2018-06-16] MEDS ORDERED: Spiriva Inhaler DEVICE* 1 EACH DEVICE INH ONE (20:00)
[2018-06-16] MEDS ORDERED: Carvedilol TAB* 6.25 MG PO SCH (21:00)
[2018-06-16] MEDS ORDERED: Atorvastatin* 10 MG TAB PO SCH (21:00)
[2018-06-16] MEDS: Mometasone/Formoter 200/5 MDI INH SCH (21:11)
--- NOTE | 2018-06-16 21:33 | HP ---
CC: Dr. Sales; Dr. Roper; Dr. Martinez; Dr. Hollis; Mag Garrett NP* HISTORY AND PHYSICAL: DATE OF ADMISSION: 06/16/18 PRIMARY CARE PROVIDER: Dr. Sales. CHIEF COMPLAINT: Status post fall and left leg pain. HISTORY OF PRESENT ILLNESS: Nicolasa Johnson is a 73-year-old female with a history of nonischemic cardiomyopathy status post ICD placement, paroxysmal atrial fibrillation who is currently on Xarelto and who stated that she missed a step on a step ladder and she fell backwards hitting her left leg. She also hit her occipital area on her head. She did not lose consciousness. She stated that she simply missed her step. She denies any near syncopal symptoms. The patient was noted to have pelvic hematoma and problems with ambulation and she is going to be placed on overnight observation. PAST MEDICAL HISTORY: 1. History of nonischemic cardiomyopathy with EF as low as 25%. Currently, the most recent EF reported in the patient's medical record was from an echo performed in 2017 and was 45%. 2. History of paroxysmal atrial fibrillation, on Xarelto. 3. History of problems with hypomagnesemia. The patient had developed diarrhea from magnesium citrate and could not take it. Subsequently, she had intermittent IV magnesium infusion and for this reason, she was placed on amiloride by Dr. Martinez. 4. History of esophageal spasms in the past controlled with Norvasc in the past. 5. History of status post AICD placement. 6. History of diabetes type 2. 7. History of COPD, on oxygen at 2 L, but occasionally the patient stated that she does not even use oxygen. She uses CPAP at night for obstructive sleep apnea. 8. History of gastroesophageal reflux disease. 9. History of coronary artery disease status post RCA stent in 2013. 10. History of frequent PVCs, on sotalol by Dr. Herndon from [place]. 11. History of renal calculi status post lithotripsy. 12. History of cardiac tamponades in 2014 after ICD implantation, did require pericardiocentesis. 13. History of 2 C-sections. 14. History of appendectomy. CURRENT MEDICATIONS: Include: 1. Brio Ellipta 100/25 mcg 1 puff daily. 2. Incruse Ellipta 62.5 mcg 1 puff every day. 3. Lipitor 10 mg daily. 4. Xarelto 20 mg daily. 5. Metformin 500 mg 2 tablets in a.m. and 1 tablet in p.m. 6. Digoxin 125 mcg daily. 7. Coreg 12.5 mg b.i.d. 8. Oxygen at 2 to 3 L. 9. Protonix 40 mg daily. 10. Albuterol inhaler on a p.r.n. basis. 11. Levothyroxine 50 mcg daily. 12. CPAP at night. 13. Sotalol 80 mg b.i.d. 14. Amiloride 5 mg daily. 15. Torsemide 10 mg daily as needed for edema. ALLERGIES: Include ROFLUMILAST, ASPIRIN, CODEINE, LISINOPRIL, SPIRONOLACTONE. FAMILY HISTORY: Extensive for heart disease. Father at the age of 49 of heart attack. Mother in her 80s with history of heart disease. Two brothers of heart attacks and one is alive with extensive cardiac history. SOCIAL HISTORY: The patient is retired, lives with her who is her surrogate. She used to smoke up to 2003. She denies any drug or alcohol use. REVIEW OF SYSTEMS: Please see history of present illness. In addition to the above mentioned, the patient complains of: 1. Chronic shortness of breath and chronic weakness. The patient stated that she does not have the energy and she attributes it to a history of low magnesium levels. That had been unchanged. 2. The patient has a history of diarrhea, which is intermittent and started when she started using mag citrate at the beginning of the year 2018 for hypomagnesemia. Even though the mag citrate was discontinued, she still has intermittent diarrhea. The last bout was approximately 5 to 7 days ago when she stated that she "was going all night." She denies any abdominal pain with diarrhea and it is usually self resolving. She stated that since the beginning of the year she lost approximately 10 pounds. 3. The patient denies any chest pain. 4. The patient has history of chronic bilateral lower extremity edema, worse on the left. 5. The patient also has history of chronic sciatica on the right. 6. Her breathing had been in her baseline. She denies any cough. She occasionally takes her oxygen off and she "does without with it." All the remaining 14 systems were reviewed with the patient and were otherwise negative. PHYSICAL EXAMINATION GENERAL: The patient is a very pleasant 73-year-old female who is in no acute distress. Alert, awake, and oriented x3. VITAL SIGNS: Blood pressure 106/63, heart rate of 81, regular respiratory rate 20, oxygen saturation 98% on 2 L oxygen nasal cannula, temperature 97.8. HEENT: Head: Atraumatic, normocephalic. Eyes: Pupils are equal, reactive to light and accommodation. Oropharynx is clear. Mucosa moist. NECK: Supple. No JVD. No bruits bilaterally. RESPIRATORY: Clear to auscultation bilaterally. CARDIOVASCULAR: Regular rate and rhythm. No murmur. ABDOMEN: Soft, nontender. Bowel sounds are present in all 4 quadrants. EXTREMITIES: There is mild left thigh edema. The left thigh is tender on palpation of the lateral and anterior aspect. There is no visible hematoma on inspection. There are no ecchymotic areas noted on inspection of bilateral thighs or buttocks. On further evaluation of the extremities, the patient has trace bilateral pedal edema left more than right. SKIN: No ecchymotic areas or rashes noted. NEUROLOGIC: Speech is clear. Cranial nerves II through XII are grossly intact. Motor strength is 5/5 bilaterally. DIAGNOSTIC STUDIES/LAB DATA: Sodium of 137, potassium 5.5, chloride 108, carbon dioxide 20, BUN 25, creatinine 1.12. Liver function is unremarkable. INR 1.22. White blood cell count was 12.1, hemoglobin of 11.6, hematocrit of 35 and platelets of 252,000. The patient's pelvic CT, impression: "There is a relatively large hematoma lateral to the left hip and hematoma involving the left gluteus medius muscle which is less well defined. No fracture is seen. " Pelvis and head x-rays, impression: "Suspicious swelling, no fracture seen. The patient's symptoms persist. Recommend followup imaging." C-spine CT, impression: "No evidence of fracture. Mild to moderate cervical spondylosis." Brain CT, impression: "No evidence of acute intracranial abnormality. Findings suggestive of small old bilateral lacunar infarcts. " ASSESSMENT AND PLAN: 1. Mechanical fall and subsequent left thigh hematoma and gluteal hematoma. The patient is on Xarelto at home. Xarelto is going to be held. The patient is going to be placed on overnight observation with physical therapy evaluation in the morning. We will check H and H in the morning to document stability. 2. Due to the patient's fall resulted in hitting her head, she is going to be placed on neuro checks to continue evaluation for possibility of intracranial hematoma. The patient's initial CT was unremarkable. 3. In regard to paroxysmal atrial fibrillation and frequent PVCs, the patient' s sotalol is going to be continued. 4. In regard to the patient's history of cardiomyopathy and chronic systolic congestive heart failure, I will obtain patient's weights daily. She has not been in exacerbation recently and her diuretics are going to be continued as taken at home. 5. The patient has mild hyperkalemia likely due to amiloride. I will watch it and discuss it with Dr. Martinez at discharge. At this point, we will not change the medication. Due to the patient's history of frequent diarrhea, I will not treat the patient with Kayexalate. 6. The patient has a history of chronic obstructive pulmonary disease, which does not appear in exacerbation and her inhalers are going to be continued from home. 7. DVT prophylaxis. The patient going to be placed on sequential compression devices. She is currently on anticoagulated with Xarelto, which is going to be held due to hematoma. 8. The patient's code status is full and her surrogate is her . TIME SPENT: Approximately 68 minutes were spent on admission of this patient, more than half of that time was spent [id number] with the patient during the interview and physical exam. [id number]/[facility] #: [id number] MTDD
[2018-06-16] MEDS: Carvedilol TAB* 6.25 MG PO SCH (22:58)
[2018-06-17] MEDS ORDERED: traMADol TAB* 50 MG PO PRN (01:08)
[2018-06-17] MEDS ORDERED: Levothyroxine TAB* 50 MCG TAB PO SCH (06:00)
[2018-06-17 07:32] LABS: EGFR Non-African American 58.8 (>60)
[2018-06-17] MEDS: Mometasone/Formoter 200/5 MDI INH SCH (07:53)
[2018-06-17] MEDS ORDERED: Magnesium Sulfate IV* 3 GM in NS 0.9% 100 ML* 100 ML IVPB ONE (08:44)
[2018-06-17] MEDS ORDERED: Digoxin TAB* 0.125 MG PO SCH (09:00)
[2018-06-17] MEDS ORDERED: Spiriva Inhaler DEVICE* 1 EACH DEVICE INH SCH (09:00)
[2018-06-17] MEDS ORDERED: Sotalol TAB* 80 MG PO SCH (09:00)
[2018-06-17] MEDS ORDERED: aMILoride TAB* 5 MG PO SCH (09:00)
[2018-06-17 09:06] LABS: ABS Basophils 0 10^3/ul (0-0.2); ABS Eosinophils 0.5 10^3/ul (0-0.6); ABS Lymphocytes 4.1 10^3/ul (1.0-4.8); ABS Monocytes 0.8 10^3/ul (0-0.8); ABS Neutrophils 3.9 10^3/ul (1.5-7.7); ABS Nucleated RBC 0 10^3/ul; Eosinophil % 5.6 % (0-6); Hematocrit 32 % (35-47); Hemoglobin 11.2 g/dl (12.0-16.0); Lymphocyte % 43.7 % (25-47); Mean Corpuscular HGB Conc 35 g/dl (31-36); Mean Corpuscular Hemoglobin 32 pg (27-31); Mean Corpuscular Volume 93 fL (80-97); Mean Platelet Volume 8.6 um3 (7.4-10.4); Nucleated Red Blood Cells % 0; Platelet Count 224 10^3/ul (150-450); Red Blood Count 3.46 10^6/ul (4.00-5.40); Red Cell Distribution Width 13 % (10.5-15); White Blood Count 9.3 10^3/ul (3.5-10.8)
[2018-06-17] MEDS: Carvedilol TAB* 6.25 MG PO SCH (09:22)
[2018-06-17 11:52] VITALS: BP 101/55
--- NOTE | 2018-06-17 22:43 | DS ---
CC: Dr. Sales; Dr. Hollis; Dr. Roper; Dr. Martinez* DISCHARGE SUMMARY: DATE OF ADMISSION: 06/16/18 DATE OF DISCHARGE: 06/17/18 PRIMARY CARE PROVIDER: Dr. Sales. DISCHARGE DIAGNOSES: 1. Status post fall. 2. Pelvic hematoma. MEDICATIONS AT DISCHARGE: Include: 1. Amiloride 5 mg daily. 2. Lipitor 5 mg at bedtime. 3. Symbicort 160/4.5 two puffs inhalation b.i.d. 4. Coreg 12.5 mg b.i.d. 5. Digoxin 0.125 mg daily. 6. Irbesartan 37.5 mg daily. 7. Levothyroxine 50 mcg daily. 8. Metformin 500 mg b.i.d. 9. Protonix 20 mg every 48 hours. 10. Sotalol 80 mg b.i.d. 11. Ultram 50 mg every 6 hours p.r.n. The patient was recommended to hold Xarelto and to restart it in approximately 7 days if okayed by her primary care provider. LABORATORY DATA AND STUDIES PERFORMED DURING HOSPITAL STAY: Included: On 06/17, white blood cell count of 9.3, hemoglobin of 11.2, hematocrit of 32, and platelets of 224. Sodium was 138, potassium 4.8, chloride 110, carbon dioxide 23, BUN 22, creatinine 0.93. Magnesium was 1.4 and it was replaced with 3 g of magnesium intravenously prior to the patient's departure from the hospital. CT of pelvis obtained on admission, impression: "There is a relatively large hematoma of the lateral left hip and hematoma involving the left gluteal medius muscle, which is less well defined. No fracture seen." HOSPITALIZATION COURSE: Nicolasa Johnson is a 73-year-old female with a history of cardiomyopathy and intermittent atrial fibrillation, who is on Xarelto, and who missed a step on a step-ladder, fell hitting the left hip. She suffered a left thigh hematoma and left buttock hematoma. She came in to the ED for evaluation. Due to her history of being on Xarelto as well as due to the patient also hit her occipital area of her head, she was placed on overnight observation. Her Xarelto was held. Her CBC within 24 hours of hospital stay was unchanged. She underwent physical therapy evaluation, who recommended possibility of skilled rehabilitation, but the patient refused. She wants to go home with a roller walker. Visiting nurse association was set up for the patient to follow up at discharge. We have had some problems with confirming the patient's medications. From the patient's primary cardiology and pulmonology office, medication list is different than from the pharmacy at [facility]. Eventually, the patient's medications were reconciled according to the patient's [facility] prescriptions that the patient was actually taking. The medication at discharge are unchanged apart from the Xarelto was held for a week as mentioned above. The patient also was placed on tramadol at 50 mg every 6 hours p.r.n., was given 20 total tablets. I-STOP was checked prior to prescribing the patient this medication. PHYSICAL EXAM AT DISCHARGE: Unchanged from admission. [id number] #: [id number] JOSE
== END 2018-06-17 15:12 | disposition home or self-care (01) ==
LOC: ED 13:55 → MED 18:31
PROVIDERS: ADMIT Internal Medicine; ATTEND Internal Medicine
DX: S70.02XA Contusion of left hip, initial encounter (principal); W08.XXXA Fall from other furniture, initial encounter; Y92.9 Unspecified place or not applicable; Z79.01 Long term (current) use of anticoagulants; Z87.891 Personal history of nicotine dependence; R11.0 Nausea; I48.0 Paroxysmal atrial fibrillation; E11.9 Type 2 diabetes mellitus without complications; Z90.89 Acquired absence of other organs; I25.10 Atherosclerotic heart disease of native coronary artery without angina pectoris; Z95.5 Presence of coronary angioplasty implant and graft
CPT/HCPCS: 36415; 70450; 72125; 72192; 80048; 80053; 83735; 85025; 85027; 85610; 85730; 94640; 94660; 99282; A9270-GY; G0378; G8978-GP-CJ; G8979-GP-CI; J3475

== ENCOUNTER → 2018-07-29 01:07 | Emergency (ER) | payer MEDICARE ==
[~2018-07-29 01:07] MED LIST changes: +Iodixanol* (CONTRAST) 320 MG/ML 100 ML SDV IV ONE; +Morphine INJ* 2 MG/ML 1 ML SYRINGE (TWO MG - NEW SYRINGE VERSION) IV ONE; +Morphine INJ* 4 MG/ML 1 ML SYRINGE (NEW SYRINGE VERSION) ONE; -Morphine INJ* 4 MG/ML 1 ML SYRINGE IV ONE; -Ondansetron INJ* 2 MG/ML VIAL IV ONE
--- NOTE | 2018-07-29 01:52 | ED ---
Upper Extremity Pain - HPI Summary HPI Summary: A 73 y/o F presents to ED with c/o L-sided shoulder pain radiating up to neck and jaw and down to hip onset two days ago when she woke up. Pt fell approx. one month ago on her L hip. Pt has SOB per her baseline, but does have pain with deep breaths. Denies cough, abd pain, diarrhea. PMHx: pacemaker, CHF, afib , hypotensive, COPD. Appy. Denies past NM, diverticulitis. - History of Current Complaint Chief Complaint: EDGeneral Stated Complaint: ABD PAIN Hx Obtained From: Patient, Family/Hand Folder - Onset/Duration: Started Days Ago, Still Present Timing: Constant Pain Location: Shoulder - L Associated Signs & Symptoms: Positive: Other - see HPI - Allergies/Home Medications Allergies/Adverse Reactions: Allergies Allergy/AdvReac Type Severity Reaction Status Date / Time roflumilast Allergy Unknown Unknown Verified 07/29/18 01:15 Reaction Details aspirin AdvReac Intermediate Abdominal Verified 07/29/18 01:15 Pain codeine AdvReac Intermediate GI Upset Verified 07/29/18 01:15 lisinopril AdvReac Intermediate Coughing Verified 07/29/18 01:15 spironolactone AdvReac Intermediate Dizziness Verified 07/29/18 01:15 PMH/Surg Hx/FS Hx/Imm Hx Previously Healthy: No Endocrine/Hematology History: Reports: Hx Anticoagulant Therapy - xarelto, Hx Diabetes - TYPE 2, Hx Thyroid Disease Cardiovascular History: Reports: Hx Angina, 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, Hx Congestive Heart Failure - SYSTOLIC HEART FAILURE, Hx Coronary Artery Disease, Hx Hypercholesterolemia, Hx Hypertension - WELL CONTROLLED, Hx Myocardial Infarction, Hx Pacemaker/ICD, Hx Valvular Heart Disease - PAROXYSMAL A-FIB, Other Cardiovascular Problems/Disorders - HX ISCHEMIC CARDIOMYOPATHY, PERICARDIAL EFFUSION 01/17 Respiratory History: Reports: Hx Asthma, Hx Chronic Obstructive Pulmonary Disease (COPD), Hx Pulmonary Embolism, Hx Sleep Apnea Denies: Hx Cystic Fibrosis GI History: Reports: Hx Gastroesophageal Reflux Disease - CONTROL WITH MEDS, Other GI Disorders - OCCASIONAL ESOPHAGEAL SPASMS Denies: Hx Diverticulosis History: Reports: Hx Kidney Stones - LEFT, Other Problems/Disorders - HX OF SEPSIS, UTI 11/27/15, LEFT URETERAL CALCULUS Musculoskeletal History: Reports: Other Musculoskeletal History - HX SCIATICA LEFT LEG Sensory History: Reports: Hx Cataracts - ASHLEE, Hx Contacts or Glasses Denies: Hx Eye Injury, Hx Eye Prosthesis, Hx Deafness, Hx Hearing Aid, Hx Hearing Problem Opthamlomology History: Reports: Hx Cataracts - ASHLEE, Hx Contacts or Glasses Denies: Hx Eye Injury, Hx Eye Prosthesis Neurological History: Reports: Other Neuro Impairments/Disorders - RESTLESS LEG SYNDROME - Surgical History Surgery Procedure, Year, and Place: 28 YRS OF AGE- BILAT BUNIONECTOMIES- [facility] [place]. [place] - [facility]. 1967 APPENDECTOMY- [facility]. 01/11/2015 PACEMAKER/AICD- [facility] [place]. CYSTO WITH STENT INSERTION X3- [facility] [place] Hx Anesthesia Reactions: No - Immunization History Date of Tetanus Vaccine: unknown Date of Influenza Vaccine: 09/2017 Infectious Disease History: No Infectious Disease History: Denies: Traveled Outside the [place] in Last 30 Days - Family History Known Family History: Positive: Cardiac Disease - father at 49, Other - Cataract (brother) - Social History Occupation: Retired Lives: With Family Alcohol Use: None Hx Substance Use: No Substance Use Type: Reports: None Hx Tobacco Use: Yes - not currently Smoking Status (MU): Former Smoker Type: Cigarettes Amount Used/How Often: PACK A DAY Length of Time of Smoking/Using Tobacco: 20 Have You Smoked in the Last Year: No Review of Systems Positive: Other - dyspnea with deep breaths. Negative: Cough Negative: Abdominal Pain, Diarrhea Positive: Other - pos: L shoulder pain radiating to neck/jaw and hip All Other Systems Reviewed And Are Negative: Yes Physical Exam - Summary Physical Exam Summary: Appearance: Well-appearing, Well-nourished, lying in bed comfortably Skin: Warm, dry, no obvious rash Eyes: sclera anicteric, no conjunctival pallor ENT: mucous membranes moist, pharynx appears normal Neck: Supple, nontender Respiratory: Clear to auscultation, no signs of respiratory distress, nml breath sounds Cardiovascular: Normal S1, S2. No murmurs. Normal distal pulses in tibial and radial bilaterally. Abdomen: Soft, normal active bowel sounds present. Tenderness to L mid abd with some guarding, no rebound. Musculoskeletal: Normal, Strength/ROM Intact. L shoulder appears normal. Neurological: A&Ox3, awake and alert, mentation is normal, speech is fluent and appropriate Psychiatric: affect is normal, does not appear anxious or depressed Triage Information Reviewed: Yes Vital Signs On Initial Exam: Initial Vitals Temp Pulse Resp BP Pulse Ox 97.5 F 89 20 108/74 95 07/29/18 01:09 07/29/18 01:09 07/29/18 01:09 07/29/18 01:09 07/29/18 01:09 Vital Signs Reviewed: Yes Diagnostics - Vital Signs Vital Signs Temp Pulse Resp BP Pulse Ox 07/29/18 01:09 97.5 F 89 20 108/74 95 - Laboratory Result Diagrams: 07/29/18 02:10 07/29/18 02:10 Lab Statement: Any lab studies that have been ordered have been reviewed, and results considered in the medical decision making process. - Radiology CXR Xray Interpretation: No Acute Changes Radiology Interpretation Completed By: ED Physician - CT ABD CT CT Interpretation: Positive (See Comments) - IMPRESSION: 1. Resolution of pericardial effusion and removal of Lopez catheter since 01/14/2015. 2. Mild bibasilar interstitial prominence and fibro-atelectatic change which is similar to the prior study. There is trace left pleural effusion which is new. 3. Mild fatty infiltration of the liver. 4. Colonic diverticulosis without diverticulitis. 5. Nonobstructing left renal calculus with decreased calculi overall since prior study. ED provider has reviewed this report. CT Interpretation Completed By: Radiologist ABD/PEL CT CT Interpretation: Positive (See Comments) - IMPRESSION: 1. Resolution of pericardial effusion and removal of Lopez catheter since 01/14/2015. 2. Mild bibasilar interstitial prominence and fibro-atelectatic change which is similar to the prior study. There is trace left pleural effusion which is new. 3. Mild fatty infiltration of the liver. 4. Colonic diverticulosis without diverticulitis. 5. Nonobstructing left renal calculus with decreased calculi overall since prior study. ED provider has reviewed this report. CT Interpretation Completed By: Radiologist - EKG 0203 Cardiac Rate: NL - 84 bpm EKG Rhythm: Sinus Rhythm EKG Interpretation: Paced. Re-Evaluation - Re-Evaluation 1 Re-Evaluation Time: 05:00 Course/Dx - Course Course Of Treatment: A 73 y/o F presents to ED with c/o L-sided shoulder pain radiating up to neck and jaw and down to hip onset two days ago when she woke up. CXR is unremarkable. ABD/PEL CT shows "1. Resolution of pericardial effusion and removal of Lopez catheter since 01/14/2015. 2. Mild bibasilar interstitial prominence and fibro-atelectatic change which is similar to the prior study. There is trace left pleural effusion which is new. 3. Mild fatty infiltration of the liver. 4. Colonic diverticulosis without diverticulitis. 5. Nonobstructing left renal calculus with decreased calculi overall since prior study.". Consideration was given to acute hernia syndrome as a cause of this pain, but EKG and troponin are negative. D-dimer was negative, and this context of low probability this essentially rules out pulmonary embolus. I was concerned about her abdominal tenderness, but her CT abdomen does not show any acute abnormality with him explain the pain. The patient thinks that she may have caused some musculoskeletal pain due to a recent fall since she has had to ambulate with a cane and is walking somewhat awkwardly. This might be a reasonable explanation, and in any event I believe I ruled out any serious cause of her symptoms. Expectant care would be reasonable at this point. Pt will be discharged. - Diagnoses Provider Diagnoses: Left sided abdominal pain, Left shoulder pain, Left-sided chest wall pain Discharge - Sign-Out/Discharge Documenting (check all that apply): Patient Departure - DC - Discharge Plan Condition: Stable Disposition: HOME Prescriptions: Morphine Sulfate 15 mg PO Q4HR PRN #15 tablet MDD 4 tabs PRN Reason: Pain Patient Education Materials: Chest Pain (ED) Referrals: Ok Sales MD [Primary Care Provider] - 3 Days (if not improving) - Billing Disposition and Condition Condition: STABLE Disposition: Home - Attestation Statements Document Initiated by Scribe: Yes Documenting Scribe: Roel Castellon Provider For Whom Tamar is Documenting (Include Credential): Dr. Humberto Dodson MD Scribe Attestation: Roel Saunders scribed for Dr. Humberto Dodson MD on 07/29/18 at 0649. Scribe Documentation Reviewed: Yes Provider Attestation: The documentation as recorded by the Roel alcazar accurately reflects the service I personally performed and the decisions made by me, Dr. Humberto Dodson MD
[2018-07-29 02:23] LABS: ABS Basophils 0.1 10^3/ul (0-0.2); ABS Eosinophils 0.3 10^3/ul (0-0.6); ABS Lymphocytes 4.5 10^3/ul (1.0-4.8); ABS Monocytes 1.3 10^3/ul (0-0.8); ABS Neutrophils 4.8 10^3/ul (1.5-7.7); ABS Nucleated RBC 0 10^3/ul; Eosinophil % 2.4 % (0-6); Hematocrit 38 % (35-47); Hemoglobin 12.6 g/dl (12.0-16.0); Lymphocyte % 41.3 % (25-47); Mean Corpuscular HGB Conc 33 g/dl (31-36); Mean Corpuscular Hemoglobin 32 pg (27-31); Mean Corpuscular Volume 95 fL (80-97); Nucleated Red Blood Cells % 0; Platelet Count 266 10^3/ul (150-450); Red Blood Count 3.96 10^6/ul (4.00-5.40); Red Cell Distribution Width 14 % (10.5-15); White Blood Count 10.9 10^3/ul (3.5-10.8)
[2018-07-29 02:39] LABS: EGFR Non-African American 64.3 (>60)
--- NOTE | 2018-07-29 04:35 | RAD ---
EXAM: CT Abdomen and Pelvis With Intravenous Contrast EXAM DATE/TIME: Exam ordered 07/29/2018 4:14 AM CLINICAL HISTORY: 73 years old, female; Pain; Abdominal pain; Tenderness; Left; Patient HX: HX appy, stents; Additional info: Left sided abd tenderness, pain radiating to shldr TECHNIQUE: Axial computed tomography images of the abdomen and pelvis with intravenous contrast. All CT scans at this facility use at least one of these dose optimization techniques: automated exposure control; mA and/or kV adjustment per patient size (includes targeted exams where dose is matched to clinical indication); or iterative reconstruction. Coronal and sagittal reformatted images were created and reviewed. CONTRAST: 76 mL of VISIPAQUE 320 administered intravenously. COMPARISON: A/P WO CT ABD/PEL W/O 01/14/2015 12:24 AM FINDINGS: Lung bases: Mild bibasilar interstitial prominence and fibro-atelectatic change. There is minimal bilateral lower lobe bullous change. Pleural space: Trace left pleural effusion. ABDOMEN: Liver: There is mild fatty infiltration of the liver. Gallbladder and bile ducts: Unremarkable. No calcified stones. No ductal dilation. Pancreas: Unremarkable. No mass. No ductal dilation. Spleen: Unremarkable. No splenomegaly. Adrenals: Unremarkable. No mass. Kidneys and ureters: There is a left renal cyst measuring up to 7 mm. Nonobstructing left renal calculus. Stomach and bowel: There is colonic diverticulosis without evidence of diverticulitis. No obstruction. PELVIS: Appendix: There are no changes of appendicitis. A normal appendix is not seen. Bladder: Unremarkable. No mass. Reproductive: Adnexal venous varicosities, left greater than right. ABDOMEN and PELVIS: Intraperitoneal space: Unremarkable. No free air. No significant fluid collection. Bones/joints: Degenerative change of the lumbar spine. No acute fracture. No dislocation. Soft tissues: Unremarkable. Vasculature: There is mild calcification of the abdominal aorta with extension into the iliac arteries. Lymph nodes: Unremarkable. No enlarged lymph nodes. Tubes, lines and devices: Pacemaker in position. IMPRESSION: 1. Resolution of pericardial effusion and removal of Lopez catheter since 01/14/2015. 2. Mild bibasilar interstitial prominence and fibro-atelectatic change which is similar to the prior study. There is trace left pleural effusion which is new. 3. Mild fatty infiltration of the liver. 4. Colonic diverticulosis without diverticulitis. 5. Nonobstructing left renal calculus with decreased calculi overall since prior study.
[2018-07-29 05:19] VITALS: BP 118/63
--- NOTE | 2018-07-29 08:10 | RAD ---
INDICATION: Left-sided shoulder and chest pain COMPARISON: Most recent comparison chest x-rays dated February 21, 2017 TECHNIQUE: PA and lateral views of the chest were obtained. FINDINGS: Again seen is a left upper chest cardiac pacemaker with 2 leads overlying the heart. The heart and mediastinum are normal in size and contour. The lungs are grossly clear. There is no evidence of large pleural effusion. Degenerative changes of the thoracic spine include loss of intervertebral disc height and anterior marginal osteophyte formation. There is no radiographic evidence of free air beneath the diaphragm IMPRESSION: No radiographic evidence of acute cardiopulmonary disease.
== END | disposition home or self-care (01) ==
LOC: ED 01:07
DX: R10.84 Generalized abdominal pain (principal); M25.512 Pain in left shoulder; R07.89 Other chest pain; R06.00 Dyspnea, unspecified; Z87.891 Personal history of nicotine dependence; Z79.01 Long term (current) use of anticoagulants
CPT/HCPCS: 36415; 71046; 74177; 80053; 83605; 84484; 85025; 85379; 93005; 96361; 96374; 99282; J2270; Q9967

== ENCOUNTER → 2018-11-07 05:27 | Emergency (ER) | payer MEDICARE ==
[~2018-11-07 05:27] MED LIST changes: +Al Hydrox/Mg Hydrox/Simet LIQ* 30 ML UDC PO ONE; +Albuterol/Ipratropium NEB.SOL* Albuterol 2.5 MG/Ipratropium 0.5 MG 3 ML INH ONE; +Amoxicillin/Clavulanate TAB* 875 MG PO ONE; -Iodixanol* (CONTRAST) 320 MG/ML 100 ML SDV IV ONE; +Lidocaine 2% VISCOUS* 15 ML UDC PO ONE; +Magnesium Sulfate 2 GM IV* 2 GM/50 ML BAG IVPB ONE; -Morphine INJ* 2 MG/ML 1 ML SYRINGE (TWO MG - NEW SYRINGE VERSION) IV ONE; -Morphine INJ* 4 MG/ML 1 ML SYRINGE (NEW SYRINGE VERSION) ONE; -NS 0.9% 1000 ML* 1,000 ML IV ONE; +methylPREDNISolone 125 MG* 2 ML VIAL IV ONE
--- NOTE | 2018-11-07 05:53 | ED ---
Respiratory - HPI Summary HPI Summary: 73-year-old female presents with shortness breath for the past 2 days. She has history of COPD normal uses 2 L oxygen night but she had to bump it up to 3 L nasal cannculi. She denies any change in weight. No increased swelling or pain in her calf muscles. She denies any chest pain. She states that she's been having a productive cough for the past 4 days. She states shortness breath is greatest when she is coughing. she states that her throat feels raw. She denies any bowel pain. No nausea vomiting. No fevers. She's been using Tessalon Perles without relief. she admits to nasal congestion. No headache. she has a history of a fib and a ICD in place. she states she normal sats at 93 without oxygen. - History of Current Complaint Chief Complaint: EDShortnessOfBreath Stated Complaint: SOB Time Seen by Provider: 11/07/18 05:37 Pain Intensity: 8 - Allergy/Home Medications Allergies/Adverse Reactions: Allergies Allergy/AdvReac Type Severity Reaction Status Date / Time roflumilast Allergy Unknown Unknown Verified 07/29/18 01:15 Reaction Details aspirin AdvReac Intermediate Abdominal Verified 07/29/18 01:15 Pain codeine AdvReac Intermediate GI Upset Verified 07/29/18 01:15 lisinopril AdvReac Intermediate Coughing Verified 07/29/18 01:15 spironolactone AdvReac Intermediate Dizziness Verified 07/29/18 01:15 PMH/Surg Hx/FS Hx/Imm Hx Endocrine/Hematology History: Reports: Hx Anticoagulant Therapy - xarelto, Hx Diabetes - TYPE 2, Hx Thyroid Disease Cardiovascular History: Reports: Hx Angina, 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, Hx Congestive Heart Failure - SYSTOLIC HEART FAILURE, Hx Coronary Artery Disease, Hx Hypercholesterolemia, Hx Hypertension - WELL CONTROLLED, Hx Myocardial Infarction, Hx Pacemaker/ICD, Hx Valvular Heart Disease - PAROXYSMAL A-FIB, Other Cardiovascular Problems/Disorders - HX ISCHEMIC CARDIOMYOPATHY, PERICARDIAL EFFUSION 01/17 Respiratory History: Reports: Hx Asthma, Hx Chronic Obstructive Pulmonary Disease (COPD), Hx Pulmonary Embolism, Hx Sleep Apnea Denies: Hx Cystic Fibrosis GI History: Reports: Hx Gastroesophageal Reflux Disease - CONTROL WITH MEDS, Other GI Disorders - OCCASIONAL ESOPHAGEAL SPASMS Denies: Hx Diverticulosis History: Reports: Hx Kidney Stones - LEFT, Other Problems/Disorders - HX OF SEPSIS, UTI 11/27/15, LEFT URETERAL CALCULUS Musculoskeletal History: Reports: Other Musculoskeletal History - HX SCIATICA LEFT LEG Sensory History: Reports: Hx Cataracts - ASHLEE, Hx Contacts or Glasses Denies: Hx Eye Injury, Hx Eye Prosthesis, Hx Deafness, Hx Hearing Aid, Hx Hearing Problem Opthamlomology History: Reports: Hx Cataracts - ASHLEE, Hx Contacts or Glasses Denies: Hx Eye Injury, Hx Eye Prosthesis Neurological History: Reports: Other Neuro Impairments/Disorders - RESTLESS LEG SYNDROME - Surgical History Surgery Procedure, Year, and Place: 28 YRS OF AGE- [place] [facility] [place] [facility]. 1967 APPENDECTOMY- [facility]. 01/11/[place]EM[place] [facility] [place]ST[place] WITH STENT [place] [facility] [place]x Anesthesia Reactions: No - Immunization History Date of Tetanus Vaccine: unknown Date of Influenza Vaccine: 09/2017 Infectious Disease History: No Infectious Disease History: Denies: Traveled Outside the US in Last 30 Days - Family History Known Family History: Positive: Cardiac Disease - father at 49, Other - Cataract (brother) - Social History Alcohol Use: None Hx Substance Use: No Substance Use Type: Reports: None Hx Tobacco Use: Yes - not currently Smoking Status (MU): Former Smoker Type: Cigarettes Amount Used/How Often: PACK A DAY Length of Time of Smoking/Using Tobacco: 20 Have You Smoked in the Last Year: No Review of Systems Negative: Fever Positive: Sore Throat Negative: Chest Pain Positive: Shortness Of Breath, Cough Negative: Abdominal Pain All Other Systems Reviewed And Are Negative: Yes Physical Exam Triage Information Reviewed: Yes Vital Signs On Initial Exam: Initial Vitals Temp Pulse Resp BP Pulse Ox 99.1 F 96 24 135/73 94 11/07/18 05:28 11/07/18 05:28 11/07/18 05:28 11/07/18 05:28 11/07/18 05:28 Vital Signs Reviewed: Yes Appearance: Positive: Well-Appearing Skin: Positive: Warm, Dry Head/Face: Positive: Normal Head/Face Inspection Eyes: Positive: Normal, EOMI, NARINDER, Conjunctiva Clear ENT: Positive: Normal ENT inspection, Pharynx normal, TMs normal Respiratory/Lung Sounds: Positive: Clear to Auscultation, Decreased Breath Sounds Cardiovascular: Positive: Normal, RRR Abdomen Description: Positive: Nontender, Soft Bowel Sounds: Positive: Present Musculoskeletal: Positive: Normal Neurological: Positive: Normal Psychiatric: Positive: Normal Diagnostics - Vital Signs Vital Signs Temp Pulse Resp BP Pulse Ox 11/07/18 05:28 99.1 F 96 24 135/73 94 - Laboratory Result Diagrams: 11/07/18 06:04 11/07/18 06:04 Lab Statement: Any lab studies that have been ordered have been reviewed, and results considered in the medical decision making process. - Radiology chest Radiology Interpretation Completed By: Radiologist Summary of Radiographic Findings: IMPRESSION: EMPHYSEMA. NO ACTIVE CARDIOPULMONARY DISEASE. - EKG No standard instances EKG Rhythm: Sinus Rhythm - arterial paced rhythm EKG Comparison: No Significant Change Summary of EKG Findings: arterial paced rhythm, prolonged qt interval Re-Evaluation - Re-Evaluation First Eval Re-Evaluation Time: 06:55 Change: Improved Comment: breathing improved after treatment, gave gi cocktail for throat and no improvement Second Eval Re-Evaluation Time: 08:06 Change: Improved Comment: patient would like to go home. discussed that will need to increase oxygen. warned if needs to increase oxygen a lot at home should return. Disposition - Course Course Of Treatment: 73 year old female presents with productive cough and SOB for past 4 days. no chest pain or fevers. has history of COPD. states throat feels raw from coughing. on exam decreased breaths sounds heard. has dry cough. 02 stats 96 on 3 liters nasal cannuli. wbc normal. lactic normal. d-dimer normal. troponin normal. bnp normal. gave breathing treatment and steriod and feeling better. chest xray read by me as normal. magnesium low so will supplement. with prolonged QT on ekg will treat copd with augmentin so will not increase QT. patient is feeling better and would like to go home. o2 stat decrease in 90 without ozygen. told will need to increase oxygen. gave strict return precautions to come back with worsening SOB or chest pain. will place on steriods and have follow up with primary. patient understand and agrees with plan. - Differential Dx - Cardiopulmonary Differential Diagnoses - Cardiopulmonary: Bronchitis, Influenza, Lower Resp Infection - Diagnoses Provider Diagnoses: COPD exacerbation Discharge - Sign-Out/Discharge Documenting (check all that apply): Patient Departure - Discharge Plan Condition: Stable Disposition: HOME Prescriptions: Amoxicillin/Clavulanate TAB* [Augmentin TAB 875*] 875 mg PO BID #13 tab predniSONE TAB* [Deltasone TAB*] 50 mg PO DAILY #5 tab Patient Education Materials: Acute Bronchitis (ED) Referrals: Ok Sales MD [Primary Care Provider] - Additional Instructions: increase oxygen as needed until symptoms resolve Use inhaler up to two puffs every 4 hours for cough and wheezing Take steroid once a day for 4 more days starting tomorrow Take antibiotic twice a day for 7 days Take Tylenol for pain every 6 hours use saline in nose follow up with primary within 5 days Return to ED if develop severe shortness of breath, chest pain, or any new or worsening symptoms - Billing Disposition and Condition Condition: STABLE Disposition: Home
[2018-11-07 06:20] LABS: ABS Basophils 0 10^3/ul (0-0.2); ABS Eosinophils 0 10^3/ul (0-0.6); ABS Lymphocytes 1.8 10^3/ul (1.0-4.8); ABS Monocytes 0.9 10^3/ul (0-0.8); ABS Neutrophils 4.2 10^3/ul (1.5-7.7); ABS Nucleated RBC 0 10^3/ul; Eosinophil % 0.6 %; Hematocrit 39 % (35-47); Hemoglobin 13.1 g/dl (12.0-16.0); Lymphocyte % 25.5 %; Mean Corpuscular HGB Conc 34 g/dl (31-36); Mean Corpuscular Hemoglobin 32 pg (27-31); Mean Corpuscular Volume 94 fL (80-97); Mean Platelet Volume 8.1 fL (7.4-10.4); Nucleated Red Blood Cells % 0.1; Platelet Count 215 10^3/ul (150-450); Red Cell Distribution Width 14 % (10.5-15); White Blood Count 6.9 10^3/ul (3.5-10.8)
--- OUTSIDE RECORDS SUMMARY | 2018-11-07 06:31 | XMS REPORT | Continuity of Care Document ---
:1945 External Reference #:[id number] Author Name Joaquin Tejeda Care Team Providers Name Role Phone Jeovany Glaser MD Primary Care Physician Unavailable Payers Type Date Identification Numbers Payment Provider Subscriber Policy Number: [id number] Medicare Nicolasa Gill Rutty PayID: [id number] [address] [place] [address] Effective: 2013 Policy Number: [id number] [employer] Ezequiel L Rutty Expires: 2017 PayID: [id number] [address] [address] [place] [address] Effective: 2008 Policy Number: [id number] Medicare Nicolasa Pricety Expires: 2018 PayID: [id number] [address] [place] [address] Effective: 2010 Policy Number: [id number] [employer] Nicolasa Gill Rutty Expires: 2010 PayID: [id number] [address] [address] [place] [address] Policy Number: [id number] [facility] Nicolasa Jairo Pricety PayID: [id number] [address] [place] [address] Advance Directives Description No Information Available Problems Date Description Provider Status Onset: 04/24/2012 [...] sleep apnea syndrome Brittany Roper MD Active Family History Description No Information Available Social History Type Date Description Comments Sex Unknown Marital Status Lives With Occupation Retired ETOH Use Denies alcohol use Tobacco Use Start: Unknown End: Patient is a former smoker Quit 2003 Unknown Recreational Drug Use Never Used Drugs Smoking Status Reviewed: 10/16/18 Patient is a former smoker Quit 2003 Exercise Type/Frequency Does not exercise Allergies, Adverse Reactions, Alerts Date Description Reaction Status Severity Comments 06/06/2007 Codeine Sulfate Active gi upset 07/02/2007 Lisinopril Active Cough 02/20/2011 Spironolactone Active dizziness/GI upset 04/24/2012 Daliresp dizzy weak Active Medications Medication Date Status Form Strength Qnty [...] 07/17 Active Capsules 50-300-40 prn Unknown aminophen/Caffe /2016 mg ine Lipitor 01/15 Active Tablets 10mg 45tab 1/2 by mouth Sahra S. /2016 s every night [place], at bedtime N.P. Xarelto 02/23 Active Tablets 20mg 90tab take one I48.0 s tablet by F. mouth once Mauser, daily M.D. Metformin HCL 01/06 Active Tablets 500mg 2 tablets in Mid am 1 tab at MD Jeovany pm Nitrostat 08/02 Active Tablets Sub 0.4mg 25tab one sl q5min R07.9 s up to 3 F. doses as Mauser, needed M.D. Torsemide 03/19 Active Tablets 10mg 45tab 1 by mouth s once a day F. as needed. Dash Hollis Digoxin 02/15 Active Tablets 125mcg 90tab 1 by mouth Sahra S. s on sunday Foster, sunday N.P. and sunday Carvedilol 09/08 Active Tablets 12.5mg 180ta 1 by mouth bs twice a day F. (6.2mg) Dash Hollis Oxygen 08/02 Active Titrate to conserving F. device to Bunny keep stats M.D. above 90% Oxygen 05/20 Active 2L Portable tank Dx: low F. o2 sats Bunny while Dash ambulating (pt usues 3L when walking) Protonix 02/06 Active Packet 40mg 1/2 po qd Arya Hollis M.D. Ventolin HFA Active Aerosol 108(90Bas 1mont 2 puffs po Unknown e) mcg/ac h qid prn Levothyroxine Active Tablets 50mcg 1 po qd Unknown Sodium 0000 Cpap Active Device 1unit nightly s Coq-10 Active 200mg 1 tablet daily at F. bedtime Dash Hollis Sotalol HCL Active Tablets 80mg 180ta 1 tab by bs mouth twice F. a day Dash Hollis Amiloride HCL Active Tablets 5mg 1 po qd Bupropion HCL Active Tablets ER 150mg 1 by mouth Unknown ER (SR) 0000 12HR every day Clonazepam Active Tablets ? 1-2 po q hs prn Magnesium Active Tablets 250mg 1 po qd Irbesartan 05/22 Hx Tablets 75mg 45tab 1/2 by s mouth every . - Bunny, 06/11.D. Magnesium 01/29 Hx Liquid po daily Bunny, 01/30.D. Inspra 01/23 Hx Tablets 50mg 30tab 1 by mouth s every day Nathaly Hollis, 05/29.D. Magnesium 07/31 Hx Solution 2GM/50ML 3gm 3 gm iv Juan guido, 01/22 M.D. Inspra 07/18 Hx Tablets 25mg 60tab 2 by mouth s every day Bunny, 01/23.D. Librax 07/17 Hx Capsules 5-2.5mg prn - 09/03 Inspra 06/12 Hx Tablets 50mg 30tab s Bunny, 07/17 M.D. Eliquis 09/02 Hx Tablets 5mg 60tab take 1 tab I48.0 s by mouth . Mausecaroline, 02/23 hours M.D. Magnesium 08/04 Hx Capsules 400mg 180ca liquid form ps po daily , 01/28 M.D. Klor-Con 10 05/04 Hx Tablets ER 10Meq 30tab 1 by mouth I48.0 s every day Nathaly Hollis, 02/13 M.D. Inspra 04/01 Hx Tablets 25mg 180ta 2 by mouth bs every day F. - Bunny, 06/12 M.D. Inspra 02/12 Hx Tablets 25mg 100ta 1 by mouth bs every day F. - Bunny, 04/01 M.D. Inspra 12/16 Hx Tablets 25mg 200ta 2 by mouth bs every day F. - Bunny, 02/12 M.D. Inspra 11/10 Hx Tablets 25mg 30tab 1 by mouth s every day F. - Bunny, 12/16 M.D. Klor-Con M10 10/09 Hx Tablets ER 10Meq 30tab 1 tab by s mouth every F. - 2-3 days. Bunny, 05/03 M.D. Valsartan 09/23 Hx Tablets 40mg 45tab take s one-half F. - tablet by Bunny, 05/21 mouth once M.D. daily Aspirin 09/08 Hx Chewtabs 81mg 1 by mouth every day F. - Bunny, 02/08 M.D. Losartan 09/08 Hx Tablets 25mg 90tab 1 by mouth [place] Potassium s every day . - Bunny, 09/22.D. Clopidogrel 08/24 Hx Tablets 75mg 90tab 1 by mouth [place] Bisulfate s every day . - Bunny, 02/08.D. Diltiazem CD 01/12 Hx Caps ER 120mg 100ca 1 po qd 24HR ps F. - Bunny, 09/08 M.D. Nitro-Dur 01/06 Hx Patches 0.1mg/HR 30uni 1 to chest 414.01 24HR ts wall on qam F. - off qpm Bunny, 09/07 M.D. Aspirin 03/05 Hx Tablets 100ta 1 po qd bs F. - Bunny, 01/05 M.D. Potassium 05/20 Hx Tablets ER [...] Hx Tablets 40mg 90tab 1 po qd Arya Hollis, 01/12 M.D. Spironolactone 02/13 Hx [...] 25mg 180ta 1 po bid Arya Hollis, 04/04.D. Combivent 10/30 Hx Aerosol 2 Puffs PO 3-4x/day Arya Hollis, 01/20 M.D. Coreg CR 10/30 Hx Caps ER 80mg 90cap 1 po qd 24HR s Arya Hollis, 11/29 M.D. Diovan 10/30 Hx Tablets 80mg 90tab 1 po qd s Arya Hollis, 03/08 M.D. Coreg CR 09/23 Hx Caps ER 40mg 1 po qd 24HR F. - Mauser, 10/30 M.D. Singulair 08/20 Hx Chewtabs Unknown 30uni 1 po qd ts F. - Mauser, 08/20 M.D. Zyrtec 08/20 Hx Tablets 10mg 90tab 1 PO qd s F. - Mauser, 09/23.D. Singulair 08/20 Hx Tablets 10mg 30tab 1 PO Qd s F. - Mauser, 09/23 M.D. Cozaar 08/20 Hx Tablets 50mg 180ta 1 po bid bs F. - Mauser, 10/30 M.D. Coreg CR 07/02 Hx Caps ER 20mg 90cap 1 po qd 24HR s F. - Mauser, 09/23.. Coreg CR 06/14 Hx Caps ER 10mg 30cap 1 po qd. 24HR s F. - Mauser, 07/02 M.D. Aspirin 06/14 Hx Chewtabs 81mg 30uni 1 PO qod ts F. - Mauser, 09/08 M.D. /2013 Lasix 06/05 Hx Tablets 20mg 30tab 1 po mon and s sunday F. - Mauser, 11/29 M.D. Lisinopril 06/05 Hx Tablets 2.5mg 90tab 1 po qd s F. - Mauser, 07/02 M.D. Lipitor 06/05 Hx Tablets 20mg 30tab / tab s every night F. - Mauser, 01/15 M.D. /2016 Prilosec 06/[address] 20mg 30cap 1 PO qam s F. - Mauser, 02/06 M.D. O[place]or 06/05 Hx Capsules 1gm 90cap 3 PO qd s F. - Mauser, 03/30 M.D. /2009 Combivent 06/05 Hx Aerosol Arya Hollis, 10/30 M.D. Xopenex 06/05 Hx Nebulizer 1.25mg/3M prn L Arya Hollis, 01/20 M.D. Astelin 06/05 Hx Solution 137mcg/Sp 1 po prn ray Arya Hollis, 08/20 M.D. /2006 Estrace 06/05 Hx Tablets mg 1 qd prn Arya Hollis, 02/13 M.D. Ammonium 06/05 Hx Cream 12% as directed [place] Arya Hollis, 10/30 M.D. Proventil HFA Hx [...] /Act h inhaled bid - 03/30 Fish Oil/[place] Hx Oil 1200mg/36 1 in pm Unknown [...] /0000 g/Act s bid - 11/09 Prednisone Hx Tablets 5mg 70tab 1 po bid prn Unknown /0000 s - 01/05 Nitrostat Hx Tablets Sub 0.4mg 25tab one sl q5min Unknown /0000 s up to 3 - doses prn 01/05 Amlodipine Hx Tablets 2.5mg 30tab 1 po qd for Unknown Besylate /0000 s esophageal - spasm 06/10 Levothyroxine Hx Tablets 25mcg 90tab 1 po qd Unknown Sodium /0000 s - 01/05 Aspirin Hx Tablets 81mg 1 po qd Unknown /0000 - 09/08 Lorazepam Hx Tablets 1mg 90tab 1 po qd Unknown / s - 09/07 Warfarin Sodium Hx Tablets 2mg take as Unknown /0000 directed - 05/03 Xarelto Hx Tablets 20mg 1 by mouth Unknown /0000 every day - 09/02 Prednisone Hx Tablets 5mg 1 by mouth Unknown / every other - day 06/11 Tropical [place] Hx 15ml by Unknown Premium /0000 mouth twice Calcium/Magnesi - every day um Liquid 04/25 (equates to 115MG of magnesium twice daily) Immunizations Description No Information Available Vital Signs Date Vital Result Comment 10/16/2018 9:56am Height 62 inches 5'2" Weight 136.50 lb Heart Rate 64 /min BP Systolic Sitting 112 mmHg LA< reg BP Diastolic Sitting 64 mmHg LA< reg BP Systolic Standing 104 mmHg la repeat sitting BP Diastolic Standing 62 mmHg la repeat sitting O2 % BldC Oximetry 93 % room air BMI (Body Mass Index) 25.0 kg/m2 Ejection Fraction 40%-45% echo 03/04/18 06/12/2018 7:52am Height 62 inches 5'2" Weight 139.00 lb Heart Rate 84 /min BP Systolic Sitting 102 mmHg BP Diastolic Sitting 64 mmHg Respiratory Rate 14 /min O2 % BldC Oximetry 93 % BMI (Body Mass Index) 25.4 kg/m2 04/26/2018 1:48pm Height 62 inches 5'2" Weight 144.75 lb Heart Rate 76 /min BP Systolic Sitting 102 mmHg lue lg cuff BP Diastolic Sitting 60 mmHg lue lg cuff BMI (Body Mass Index) 26.5 kg/m2 Ejection Fraction 40-45% echo 03/04/2018 01/23/2018 2:29pm Height 62 inches 5'2" Weight 147.25 lb Heart Rate 72 /min BP Systolic Sitting 102 mmHg LA, reg BP Diastolic Sitting 62 mmHg LA, reg O2 % BldC Oximetry 94 % room air BMI (Body Mass Index) 26.9 kg/m2 Ejection Fraction 40%-45% 10/2017 echo 11/09/2017 11:26am Height 62 inches 5'2" Weight 151.00 lb Heart Rate 68 /min BP Systolic Sitting 138 mmHg BP Diastolic Sitting 88 mmHg Respiratory Rate 14 /min O2 % BldC Oximetry 92 % BMI (Body Mass Index) 27.6 kg/m2 09/25/2017 8:43am Height 62 inches 5'2" Weight 151.50 lb Heart Rate 88 /min BP Systolic Sitting 106 mmHg BP Diastolic Sitting 60 mmHg Respiratory Rate 14 /min O2 % BldC Oximetry 95 % BMI (Body Mass Index) 27.7 kg/m2 09/17/2017 2:15pm Height 62 inches 5'2" Weight 153.25 lb with shoes Heart Rate 72 /min BP Systolic Sitting 122 mmHg LA reg cuff BP Diastolic Sitting 74 mmHg LA reg cuff BMI (Body Mass Index) 28.0 kg/m2 Ejection Fraction 20%-25% echo 05/09/17 09/04/2017 9:19am Height 62 inches 5'2" Weight 151.00 lb with shoes Heart Rate 80 /min BP Systolic Sitting 128 mmHg LA reg cuff BP Diastolic Sitting 74 mmHg LA reg cuff BMI (Body Mass Index) 27.6 kg/m2 Ejection Fraction 20% - 25% echo 05/09/17 07/18/2017 9:10am Height 62 inches 5'2" Weight 147.25 lb Heart Rate 76 /min reg BP Systolic Sitting 122 mmHg BP Diastolic Sitting 84 mmHg O2 % BldC Oximetry 95 % room air BMI (Body Mass Index) 26.9 kg/m2 Ejection Fraction 20%-25% 05/09/17 05/31/2017 10:38am Height 62 inches 5'2" Weight 147.00 lb with shoes Heart Rate 89 /min BP Systolic Sitting 102 mmHg LA reg cuff BP Diastolic Sitting 72 mmHg LA reg cuff BMI (Body Mass Index) 26.9 kg/m2 Ejection Fraction 20% - 25% echo 05/29/17 05/09/2017 12:18pm Heart Rate 95 /min BP Systolic 161 mmHg off meds/prior to cancelled stress test. BP Diastolic 99 mmHg off meds/prior to cancelled stress test. 04/24/2017 10:48am Height 62 inches 5'2" Heart Rate 96 /min BP Systolic Sitting 132 mmHg BP Diastolic Sitting 90 mmHg Respiratory Rate 18 /min Pain Level 0 O2 % BldC Oximetry 95 % 2017 1:02pm Height 62 inches 5'2" Weight 149.50 lb with shoes Heart Rate 90 /min BP Systolic Sitting 120 mmHg Ra lrg cuff BP Diastolic Sitting 70 mmHg Ra lrg cuff BMI (Body Mass Index) 27.3 kg/m2 Ejection Fraction 35-40% echo 03/19/17 02/21/2017 7:59am Height 62 inches 5'2" Weight 142.00 lb Heart Rate 98 /min BP Systolic Sitting 104 mmHg BP Diastolic Sitting 57 mmHg Respiratory Rate 20 /min Pain Level 0 BMI (Body Mass Index) 26.0 kg/m2 01/15/2017 9:07am Height 62 inches 5'2" Weight 151.25 lb with shoes Heart Rate 88 /min BP Systolic Sitting 120 mmHg Ra lrg cuff BP Diastolic Sitting 76 mmHg Ra lrg cuff BP Systolic Standing 98 mmHg la repeat sitting BP Diastolic Standing 53 mmHg la repeat sitting BMI (Body Mass Index) 27.7 kg/m2 Ejection Fraction 40% - 45% echo 02/10/16 06/22/2016 9:52am Height 62 inches 5'2" Weight 144.00 lb w/shoes Heart Rate 74 /min BP Systolic Sitting 132 mmHg LA lg cuff BP Diastolic Sitting 90 mmHg LA lg cuff BP Systolic Standing 134 mmHg la repeat sitting BP Diastolic Standing 82 mmHg la repeat sitting BMI (Body Mass Index) 26.3 kg/m2 Ejection Fraction 40-45% Echo 02/10/16 02/24/2016 10:24am Height 62 inches 5'2" Weight 147.00 lb with shoes Heart Rate 92 /min BP Systolic 116 mmHg Ra reg cuff BP Diastolic 68 mmHg Ra reg cuff BMI (Body Mass Index) 26.9 kg/m2 Ejection Fraction 40% - 45% ECHO 02/10/16 01/26/2016 9:59am Height 62 inches 5'2" Weight 147.00 lb at home Heart Rate 86 /min BP Systolic Sitting 90 mmHg LA lg cuff BP Diastolic Sitting 60 mmHg LA lg cuff BP Systolic Recheck 112 mmHg la repeat sit BP Diastolic Recheck 61 mmHg la repeat sit Respiratory Rate 17 /min BMI (Body Mass Index) 26.9 kg/m2 Ejection Fraction 35-40% date 08/13/15 ECHO 09/02/2015 9:09am Height 62 inches 5'2" Weight 153.00 lb Heart Rate 82 /min BP Systolic Sitting 100 mmHg right arm, reg cuff BP Diastolic Sitting 66 mmHg right arm, reg cuff BMI (Body Mass Index) 28.0 kg/m2 Ejection Fraction 35-40% 08/13/15 08/02/2015 10:46am Height 62 inches 5'2" Weight 152.00 lb Heart Rate 74 /min BP Systolic 138 mmHg LA reg BP Diastolic 80 mmHg LA reg BP Systolic Sitting 137 mmHg repeat la BP Diastolic Sitting 73 mmHg repeat la O2 % BldC Oximetry 96 % Ra BMI (Body Mass Index) 27.8 kg/m2 Ejection Fraction 35-40% 03/15/15 ECHO 05/04/2015 9:20am Height 62 inches 5'2" Weight 150.00 lb w/shoes Heart Rate 70 /min BP Systolic Sitting 112 mmHg Ra reg cuff BP Diastolic Sitting 68 mmHg Ra reg cuff Respiratory Rate 12 /min BMI (Body Mass Index) 27.4 kg/m2 Ejection Fraction 35-40 echo 03/15/15 04/01/2015 8:46am Height 62 inches 5'2" Weight 149.00 lb Heart Rate 80 /min BP Systolic 136 mmHg Ra reg BP Diastolic 92 mmHg Ra reg BP Systolic Sitting 136 mmHg la repeat sitting BP Diastolic Sitting 74 mmHg la repeat sitting BMI (Body Mass Index) 27.2 kg/m2 Ejection Fraction 35-40% ECHO 03/15/15 02/09/2015 1:08pm Height 62 inches 5'2" Weight 145.00 lb Heart Rate 72 /min BP Systolic Sitting 92 mmHg right arm, reg cuff BP Diastolic Sitting 60 mmHg right arm, reg cuff Respiratory Rate 20 /min BMI (Body Mass Index) 26.5 kg/m2 01/01/2015 10:55am Height 62 inches 5'2" Weight 152.00 lb Heart Rate 86 /min BP Systolic Sitting 102 mmHg LA, reg cuff BP Diastolic Sitting 74 mmHg LA, reg cuff BP Systolic Standing 100 mmHg LA BP Diastolic Standing 60 mmHg LA Respiratory Rate 16 /min BMI (Body Mass Index) 27.8 kg/m2 12/18/2014 3:40pm Height 62 inches 5'2" Weight 158.00 lb Heart Rate 80 /min BP Systolic Sitting 128 mmHg Ra reg cuff BP Diastolic Sitting 82 mmHg Ra reg cuff BP Systolic Standing 122 mmHg Ra BP Diastolic Standing 80 mmHg Ra Respiratory Rate 14 /min BMI (Body Mass Index) 28.9 kg/m2 12/16/2014 10:13am Height 62 inches 5'2" Weight 157.00 lb Heart Rate 76 /min BP Systolic 124 mmHg LA reg BP Diastolic 80 mmHg LA reg BMI (Body Mass Index) 28.7 kg/m2 11/12/2014 2:28pm Height 62 inches 5'2" Weight 161.00 lb Heart Rate 60 /min reg BP Systolic 171 mmHg LA reg BP Diastolic 90 mmHg LA reg BMI (Body Mass Index) 29.4 kg/m2 09/08/2014 10:58am Height 62 inches 5'2" Weight 161.25 lb Heart Rate 84 /min BP Systolic 126 mmHg repeat la sit BP Diastolic 81 mmHg repeat la sit BP Systolic Sitting 150 mmHg LA reg cuff BP Diastolic Sitting 90 mmHg LA reg cuff Respiratory Rate 16 /min BMI (Body Mass Index) 29.5 kg/m2 02/03/2014 3:41pm Heart Rate 72 /min BP Systolic Sitting 120 mmHg BP Diastolic Sitting 82 mmHg 01/22/2014 1:37pm Height 62 inches 5'2" Weight 175.00 lb Heart Rate 83 /min BP Systolic Sitting 136 mmHg LA, reg cuff BP Diastolic Sitting 84 mmHg LA, reg cuff BP Systolic Standing 138 mmHg LA BP Diastolic Standing 84 mmHg LA Respiratory Rate 18 /min BMI (Body Mass Index) 32.0 kg/m2 01/06/2014 10:02am Height 62 inches 5'2" Weight 175.75 lb Heart Rate 88 /min BP Systolic Sitting 130 mmHg left arm, large cuff BP Diastolic Sitting 92 mmHg left arm, large cuff BP Systolic Standing 126 mmHg left arm, large cuff BP Diastolic Standing 88 mmHg left arm, large cuff Respiratory Rate 20 /min BMI (Body Mass Index) 32.1 kg/m2 03/05/2013 9:01am Height 62 inches 5'2" Weight 175.75 lb Heart Rate 72 /min BP Systolic Sitting 160 mmHg BP Diastolic Sitting 100 mmHg BMI (Body Mass Index) 32.1 kg/m2 04/24/2012 9:47am Height 62 inches 5'2" Weight 173.00 lb Heart Rate 83 /min BP Systolic Sitting 144 mmHg BP Diastolic Sitting 90 mmHg BMI (Body Mass Index) 31.6 kg/m2 06/21/2011 9:57am Height 62 inches 5'2" Weight 169.00 lb Heart Rate 76 /min BP Systolic Sitting 124 mmHg L BP Diastolic Sitting 90 mmHg L O2 % BldC Oximetry 96 % BMI (Body Mass Index) 30.9 kg/m2 02/13/2011 11:17am Height 62 inches 5'2" Weight 171.00 lb Heart Rate 78 /min BP Systolic 120 mmHg BP Diastolic 80 mmHg Respiratory Rate 18 /min O2 % BldC Oximetry 96 % BMI (Body Mass Index) 31.3 kg/m2 03/30/2010 9:23am Height 62 inches 5'2" Weight 168.00 lb Heart Rate 79 /min BP Systolic Sitting 126 mmHg BP Diastolic Sitting 84 mmHg BMI (Body Mass Index) 30.7 kg/m2 01/20/2009 10:08am Height 62 inches 5'2" Weight 170.00 lb Heart Rate 83 /min BP Systolic Sitting 124 mmHg BP Diastolic Sitting 90 mmHg BP Systolic Standing 120 mmHg BP Diastolic Standing 84 mmHg O2 % BldC Oximetry 91 % BMI (Body Mass Index) 31.1 kg/m2 07/08/2008 9:20am Height 62 inches 5'2" Weight 164.00 lb Heart Rate 67 /min BP Systolic Sitting 160 mmHg L BP Diastolic Sitting 84 mmHg L O2 % BldC Oximetry 97 % BMI (Body Mass Index) 30.0 kg/m2 02/07/2008 8:34am Height 62 inches 5'2" Weight 161.00 lb Heart Rate 72 /min BP Systolic Sitting 124 mmHg L BP Diastolic Sitting 82 mmHg L O2 % BldC Oximetry 95 % BMI (Body Mass Index) 29.4 kg/m2 11/29/2007 8:32am Height 62 inches 5'2" Weight 160.00 lb Heart Rate 72 /min BP Systolic Sitting 122 mmHg L BP Diastolic Sitting 78 mmHg L BMI (Body Mass Index) 29.3 kg/m2 10/30/2007 10:41am Height 62 inches 5'2" Weight 160.00 lb Heart Rate 84 /min reg BP Systolic Sitting 126 mmHg BP Diastolic Sitting 80 mmHg BP Systolic Standing 120 mmHg BP Diastolic Standing 80 mmHg BMI (Body Mass Index) 29.3 kg/m2 09/23/2007 10:50am Height 62 inches 5'2" Weight 156.00 lb Heart Rate 80 /min BP Systolic Sitting 140 mmHg BP Diastolic Sitting 84 mmHg Respiratory Rate 18 /min BMI (Body Mass Index) 28.5 kg/m2 08/20/2007 11:03am Height 62 inches 5'2" Weight 156.00 lb Heart Rate 68 /min BP Systolic Sitting 130 mmHg BP Diastolic Sitting 90 mmHg Respiratory Rate 14 /min BMI (Body Mass Index) 28.5 kg/m2 07/25/2007 10:03am Height 62 inches 5'2" Weight 152.00 lb Heart Rate 64 /min BP Systolic Sitting 130 mmHg R BP Diastolic Sitting 84 mmHg R BP Systolic Standing 134 mmHg R BP Diastolic Standing 70 mmHg R BMI (Body Mass Index) 27.8 kg/m2 07/02/2007 1:29pm Height 62 inches 5'2" Weight 152.00 lb Heart Rate 80 /min BP Systolic Sitting 120 mmHg BP Diastolic Sitting 80 mmHg Respiratory Rate 20 /min O2 % BldC Oximetry 92 % BMI (Body Mass Index) 27.8 kg/m2 06/14/2007 10:48am Weight 153.00 lb Heart Rate 68 /min BP Systolic Sitting 120 mmHg BP Diastolic Sitting 80 mmHg Respiratory Rate 20 /min Results Test Date Facility Test Result H/L Range Note Laboratory test 02/09/2018 [facility] Magnesium 1.5 mg/dL Low 1.9-2.7 1 finding [address] [place] [address] [phone] Basic Metabolic 02/09/2018 [facility] Sodium 137 mmol/L Low 139-145 Panel [address] [place] [address] [phone] Potassium 4.8 mmol/L N 3.5-5.0 Chloride 104 mmol/L N 101-111 Co2 Carbon Dioxide 20 mmol/L Low 22-32 Anion Gap 13 mmol/L High 2-11 Glucose 163 mg/dL High 70-100 Blood Urea Nitrogen 18 mg/dL N 6-24 Creatinine 0.87 mg/dL N 0.51-0.95 BUN/Creatinine Ratio 20.7 High 8-20 Calcium 10.1 mg/dL N 8.6-10.3 Egfr Non- 63.6 >60 Egfr 81.9 >60 2 Laboratory test 01/28/2018 [facility] Magnesium 1.3 mg/dL Low 1.9-2.[address] [place] [address] [phone] CBC Auto Diff 01/28/2018 [facility] White Blood 8.6 N 3.5- 10.[address] Count 10^3/[place] [address] [phone] Red Blood Count 4.09 10^6/uL N 4.0-5.4 Hemoglobin 13.1 g/dL N 12.0-16.0 Hematocrit 39 % N 35-47 Mean Corpuscular Volume 95 fL N 80-97 Mean Corpuscular Hemoglobin 32 pg High 27-31 Mean Corpuscular HGB Conc 34 g/dL N 31-36 Red Cell Distribution Width 13 % N 10.5-15 Platelet Count 240 10^3/uL N 150-450 Mean Platelet Volume 8.8 um3 N 7.4-10.4 Abs Neutrophils 3.4 10^3/uL N 1.5-7.7 Abs Lymphocytes 4.0 10^3/uL N 1.0-4.8 Abs Monocytes 1.0 10^3/uL High 0-0.8 Abs Eosinophils 0.1 10^3/uL N 0-0.6 Abs Basophils 0 10^3/uL N 0-0.2 Abs Nucleated RBC 0 10^3/uL Granulocyte % 39.9 % N 38-83 Lymphocyte % 46.5 % N 25-47 Monocyte % 12.0 % High 0-7 Eosinophil % 1.1 % N 0-6 Basophil % 0.5 % N 0-2 Nucleated Red Blood Cells % 0.1 Comp Metabolic Panel 01/28/2018 [facility] Sodium 138 mmol/L N 133-[address] [place] [address] [phone] Potassium 4.4 mmol/L N 3.5-5.0 Chloride 104 mmol/L N 101-111 Co2 Carbon Dioxide 25 mmol/L N 22-32 Anion Gap 9 mmol/L N 2-11 Glucose 154 mg/dL High 70-100 Blood Urea Nitrogen 23 mg/dL N 6-24 Creatinine 0.80 mg/dL N 0.51-0.95 BUN/Creatinine Ratio 28.8 High 8-20 Calcium 9.6 mg/dL N 8.6-10.3 Total Protein 6.9 g/dL N 6.4-8.9 Albumin 4.0 g/dL N 3.2-5.2 Globulin 2.9 g/dL N 2-4 Albumin/Globulin Ratio 1.4 N 1-3 Total Bilirubin 0.40 mg/dL N 0.2-1.0 Alkaline Phosphatase 92 U/L N 34-104 Alt 26 U/L N 7-52 Ast 26 U/L N 13-39 Egfr Non- 70.1 >60 Egfr 90.2 >60 4 Laboratory test 01/28/2018 [facility] Creatine 26 U/L N 10- 223 [address] Kinase(CK) [place] [address] [phone] Digoxin 0.7 ng/ml Low 0.8-2.0 6 CBC Auto Diff 01/28/2018 [facility] White Blood 8.6 10^3/uL N 3.5-10.[address] [place] [address] [phone] Red Blood Count 4.09 10^6/uL N 4.0-5.4 Hemoglobin 13.1 g/dL N 12.0-16.0 Hematocrit 39 % N 35-47 Mean Corpuscular Volume 95 fL N 80-97 Mean Corpuscular Hemoglobin 32 pg High 27-31 Mean Corpuscular HGB Conc 34 g/dL N 31-36 Red Cell Distribution Width 13 % N 10.5-15 Platelet Count 240 10^3/uL N 150-450 Mean Platelet Volume 8.8 um3 N 7.4-10.4 Abs Neutrophils 3.4 10^3/uL N 1.5-7.7 Abs Lymphocytes 4.0 10^3/uL N 1.0-4.8 Abs Monocytes 1.0 10^3/uL High 0-0.8 Abs Eosinophils 0.1 10^3/uL N 0-0.6 Abs Basophils 0 10^3/uL N 0-0.2 Abs Nucleated RBC 0 10^3/uL Granulocyte % 39.9 % N 38-83 Lymphocyte % 46.5 % N 25-47 Monocyte % 12.0 % High 0-7 Eosinophil % 1.1 % N 0-6 Basophil % 0.5 % N 0-2 Nucleated Red Blood Cells % 0.1 Lipid Panel - 01/28/2018 [facility] Creatine 26 U/L N 10-[address] Kinase(CK) [place] [address] [phone] Comp Metabolic 01/28/2018 [facility] Sodium 138 N 133-[address] mmol/[place] [address] [phone] Potassium 4.4 mmol/L N 3.5-5.0 Chloride 104 mmol/L N 101-111 Co2 Carbon Dioxide 25 mmol/L N 22-32 Anion Gap 9 mmol/L N 2-11 Glucose 154 mg/dL High 70-100 Blood Urea Nitrogen 23 mg/dL N 6-24 Creatinine 0.80 mg/dL N 0.51-0.95 BUN/Creatinine Ratio 28.8 High 8-20 Calcium 9.6 mg/dL N 8.6-10.3 Total Protein 6.9 g/dL N 6.4-8.9 Albumin 4.0 g/dL N 3.2-5.2 Globulin 2.9 g/dL N 2-4 Albumin/Globulin Ratio 1.4 N 1-3 Total Bilirubin 0.40 mg/dL N 0.2-1.0 Alkaline Phosphatase 92 U/L N 34-104 Alt 26 U/L N 7-52 Ast 26 U/L N 13-39 Egfr Non- 70.1 >60 Egfr 90.2 >60 8 Laboratory test 01/28/2018 [facility] Magnesium 1.3 mg/dL Low 1.9-2.[address] [place] [address] [phone] Digoxin 0.7 ng/ml Low 0.8-2.0 10 Laboratory test 09/07/2017 [facility] Magnesium 1.7 mg/dL Low 1.9-2.[address] [place] [address] [phone] Basic Metabolic 09/07/2017 [facility] Sodium 137 mmol/L N 133- [address] [place] [address] [phone] Potassium 4.3 mmol/L N 3.5-5.0 Chloride 104 mmol/L N 101-111 Co2 Carbon Dioxide 25 mmol/L N 22-32 Anion Gap 8 mmol/L N 2-11 Glucose 135 mg/dL High 70-100 Blood Urea Nitrogen 15 mg/dL N 6-24 Creatinine 0.86 mg/dL N 0.51-0.95 BUN/Creatinine Ratio 17.4 N 8-20 Calcium 9.7 mg/dL N 8.6-10.3 Egfr Non- 64.5 N >60 Egfr 83.0 N >60 11 Laboratory test 09/07/2017 [facility] B-Type 34 pg/mL N [address] [place] [address] Peptide BNP [phone] CBC Auto Diff 09/07/2017 [facility] White Blood Count 9.2 10^3/ uL N 3.5-[address] [place] [address] [phone] Red Blood Count 4.06 10^6/uL N 4.0-5.4 Hemoglobin 13.0 g/dL N 12.0-16.0 Hematocrit 38 % N 35-47 Mean Corpuscular Volume 94 fL N 80-97 Mean Corpuscular Hemoglobin 32 pg High 27-31 Mean Corpuscular HGB Conc 34 g/dL N 31-36 Red Cell Distribution Width 14 % N 10.5-15 Platelet Count 278 10^3/uL N 150-450 Mean Platelet Volume 9 um3 N 7.4-10.4 Abs Neutrophils 4.4 10^3/uL N 1.5-7.7 Abs Lymphocytes 3.7 10^3/uL N 1.0-4.8 Abs Monocytes 0.9 10^3/uL High 0-0.8 Abs Eosinophils 0.1 10^3/uL N 0-0.6 Abs Basophils 0 10^3/uL N 0-0.2 Abs Nucleated RBC 0.01 10^3/uL N Granulocyte % 48.0 % N 38-83 Lymphocyte % 40.1 % N 25-47 Monocyte % 10.0 % High 1-9 Eosinophil % 1.5 % N 0-6 Basophil % 0.4 % N 0-2 Nucleated Red Blood Cells % 0.1 N Basic Metabolic Panel 08/25/2017 [facility] Sodium 137 mmol/L N 133-[address] [place] [address] [phone] Potassium 4.4 mmol/L N 3.5-5.0 Chloride 102 mmol/L N 101-111 Co2 Carbon Dioxide 28 mmol/L N 22-32 Anion Gap 7 mmol/L N 2-11 Glucose 161 mg/dL High 70-100 Blood Urea Nitrogen 23 mg/dL N 6-24 Creatinine 0.84 mg/dL N 0.51-0.95 BUN/Creatinine Ratio 27.4 High 8-20 Calcium 10.1 mg/dL N 8.6-10.3 Egfr Non- 66.3 N >60 Egfr 85.2 N >60 13 Laboratory test 08/25/2017 [facility] Magnesium 1.8 mg/dL Low 1.9-2.7 14 finding 101 [place] [address] [phone] Basic Metabolic 08/21/2017 [facility] Sodium 137 mmol/L N 133- 145 Panel 101 [place] [address] [phone] Potassium 4.4 mmol/L N 3.5-5.0 Chloride 103 mmol/L N 101-111 Co2 Carbon Dioxide 26 mmol/L N 22-32 Anion Gap 8 mmol/L N 2-11 Glucose 144 mg/dL High 70-100 Blood Urea Nitrogen 17 mg/dL N 6-24 Creatinine 0.79 mg/dL N 0.51-0.95 BUN/Creatinine Ratio 21.5 High 8-20 Calcium 9.6 mg/dL N 8.6-10.3 Egfr Non- 71.1 N >60 Egfr 91.5 N >60 15 Laboratory test 08/21/2017 [facility] Magnesium 1.6 mg/dL Low 1.9-2.7 16 finding 101 [place] [address] [phone] Basic Metabolic 08/10/2017 [facility] Sodium 133 mmol/L N 133- 145 Panel 101 [place] [address] [phone] Potassium 5.0 mmol/L N 3.5-5.0 Chloride 101 mmol/L N 101-111 Co2 Carbon Dioxide 23 mmol/L N 22-32 Anion Gap 9 mmol/L N 2-11 Glucose 164 mg/dL High 70-100 Blood Urea Nitrogen 19 mg/dL N 6-24 Creatinine 0.89 mg/dL N 0.51-0.95 BUN/Creatinine Ratio 21.3 High 8-20 Calcium 9.6 mg/dL N 8.6-10.3 Egfr Non- 62.0 N >60 Egfr 79.7 N >60 17 Laboratory test 08/10/2017 [facility] Magnesium 1.7 mg/dL Low 1.9-2.7 finding 101 [place] [address] [phone] Laboratory test 08/02/2017 [facility] Magnesium 1.6 mg/dL Low 1.9-2.7 18 finding 101 [place] [address] [phone] Basic Metabolic 08/02/2017 [facility] Sodium 138 mmol/L N 133- 145 Panel [address] [place] [address] [phone] Potassium 4.1 mmol/L N 3.5-5.0 Chloride 105 mmol/L N 101-111 Co2 Carbon Dioxide 24 mmol/L N 22-32 Anion Gap 9 mmol/L N 2-11 Glucose 135 mg/dL High 70-100 Blood Urea Nitrogen 11 mg/dL N 6-24 Creatinine 0.76 mg/dL N 0.51-0.95 BUN/Creatinine Ratio 14.5 N 8-20 Calcium 9.1 mg/dL N 8.6-10.3 Egfr Non- 74.4 N >60 Egfr 95.7 N >60 19 Laboratory test 07/31/2017 [facility] Magnesium 1.3 mg/dL Low 1.9-2.7 finding 101 [place] [address] [phone] Basic Metabolic 07/31/2017 [facility] Sodium 138 mmol/L N 133- 145 Panel [address] [place] [address] [phone] Potassium 4.0 mmol/L N 3.5-5.0 Chloride 104 mmol/L N 101-111 Co2 Carbon Dioxide 24 mmol/L N 22-32 Anion Gap 10 mmol/L N 2-11 Glucose 156 mg/dL High 70-100 Blood Urea Nitrogen 16 mg/dL N 6-24 Creatinine 0.96 mg/dL High 0.51-0.95 BUN/Creatinine Ratio 16.7 N 8-20 Calcium 9.3 mg/dL N 8.6-10.3 Egfr Non- 56.8 N >60 Egfr 73.1 N >60 20 Basic Metabolic Panel 07/16/2017 [facility] Sodium 136 mmol/L N 133-145 [address] [place] [address] [phone] Potassium 4.3 mmol/L N 3.5-5.0 Chloride 101 mmol/L N 101-111 Co2 Carbon Dioxide 26 mmol/L N 22-32 Anion Gap 9 mmol/L N 2-11 Glucose 135 mg/dL High 70-100 Blood Urea Nitrogen 16 mg/dL N 6-24 Creatinine 0.78 mg/dL N 0.51-0.95 BUN/Creatinine Ratio 20.5 High 8-20 Calcium 9.9 mg/dL N 8.6-10.3 Egfr Non- 72.2 N >60 Egfr 92.8 N >60 21 Laboratory test 07/16/2017 [facility] Digoxin 0.7 ng/ml Low 0.8-2.0 22 finding [address] [place] [address] [phone] Laboratory test 06/15/2017 [facility] B-Type 31 pg/mL N 23 finding 101 [facility] [place] [address] Peptide BNP [phone] Basic Metabolic 06/15/2017 [facility] Sodium 132 Low 133-145 Panel 101 [facility] mmol/[place] [address] [phone] Potassium 5.0 mmol/L N 3.5-5.0 Chloride 101 mmol/L N 101-111 Co2 Carbon Dioxide 23 mmol/L N 22-32 Anion Gap 8 mmol/L N 2-11 Glucose 231 mg/dL High 70-100 Blood Urea Nitrogen 21 mg/dL N 6-24 Creatinine 0.85 mg/dL N 0.51-0.95 BUN/Creatinine Ratio 24.7 High 8-20 Calcium 9.7 mg/dL N 8.6-10.3 Egfr Non- 65.4 N >60 Egfr 84.1 N >60 24 Laboratory test 02/21/2017 [facility] Digoxin 1.3 ng/ml N 0.8- 2.0 25 finding [address] [place] [address] [phone] Basic Metabolic 02/21/2017 [facility] Sodium 138 mmol/L N 133- 145 Panel [address] [place] [address] [phone] Potassium 4.2 mmol/L N 3.5-5.0 Chloride 104 mmol/L N 101-111 Co2 Carbon Dioxide 24 mmol/L N 22-32 Anion Gap 10 mmol/L N 2-11 Glucose 145 mg/dL High 70-100 Blood Urea Nitrogen 16 mg/dL N 6-24 Creatinine 0.79 mg/dL N 0.51-0.95 BUN/Creatinine Ratio 20.3 High 8-20 Calcium 9.6 mg/dL N 8.6-10.3 Egfr Non- 71.3 N >60 Egfr 91.7 N >60 26 Lipid Panel - 01/23/2017 [facility] Creatine 38 U/L N 10-[address] Kinase(CK) [place] [address] [phone] Comp Metabolic 01/23/2017 [facility] Sodium 137 N 133-[address] mmol/[place] [address] [phone] Potassium 4.1 mmol/L N 3.5-5.0 Chloride 104 mmol/L N 101-111 Co2 Carbon Dioxide 22 mmol/L N 22-32 Anion Gap 11 mmol/L N 2-11 Glucose 170 mg/dL High 70-100 Blood Urea Nitrogen 17 mg/dL N 6-24 Creatinine 0.94 mg/dL N 0.51-0.95 BUN/Creatinine Ratio 18.1 N 8-20 Calcium 9.6 mg/dL N 8.6-10.3 Total Protein 7.1 g/dL N 6.4-8.9 Albumin 4.0 g/dL N 3.2-5.2 Globulin 3.1 g/dL N 2-4 Albumin/Globulin Ratio 1.3 N 1-3 Total Bilirubin 0.50 mg/dL N 0.2-1.0 Alkaline Phosphatase 101 U/L N 34-104 Alt 15 U/L N 7-52 Ast 17 U/L N 13-39 Egfr Non- 58.4 N >60 Egfr 75.1 N >60 27 Lipid Profile 01/23/2017 [facility] Triglycerides 310 mg/dL N 28 (Trig/Chol/HDL) [address] [place] [address] [phone] Cholesterol 125 mg/dL N 29 HDL Cholesterol 34.0 mg/dL N 30 LDL Cholesterol 29 mg/dL N 31 CBC Auto Diff 01/23/2017 [facility] White Blood 8.7 10^3/uL N 3.5-10.[address] [place] [address] [phone] Red Blood Count 4.11 10^6/uL N 4.0-5.4 Hemoglobin 13.2 g/dL N 12.0-16.0 Hematocrit 39 % N 35-47 Mean Corpuscular Volume 95 fL N 80-97 Mean Corpuscular Hemoglobin 32 pg High 27-31 Mean Corpuscular HGB Conc 34 g/dL N 31-36 Red Cell Distribution Width 13 % N 10.5-15 Platelet Count 229 10^3/uL N 150-450 Mean Platelet Volume 9 um3 N 7.4-10.4 Abs Neutrophils 3.9 10^3/uL N 1.5-7.7 Abs Lymphocytes 3.6 10^3/uL N 1.0-4.8 Abs Monocytes 0.9 10^3/uL High 0-0.8 Abs Eosinophils 0.3 10^3/uL N 0-0.6 Abs Basophils 0.1 10^3/uL N 0-0.2 Abs Nucleated RBC 0 10^3/uL N Granulocyte % 44.5 % N 38-83 Lymphocyte % 41.5 % N 25-47 Monocyte % 10.2 % High 1-9 Eosinophil % 3.1 % N 0-6 Basophil % 0.7 % N 0-2 Nucleated Red Blood Cells % 0 N Laboratory test 01/23/2017 [facility] Digoxin 0.5 ng/ml Low 0.8-2.0 finding [address] [place] [address] [phone] B-Type Natriuretic Peptide BNP 31 pg/mL N 32 Laboratory test 09/29/2016 [facility] Digoxin 0.5 ng/ml Low 0.8-2.0 33 finding [address] [place] [address] [phone] Basic Metabolic 09/29/2016 [facility] Sodium 135 mmol/L N 133- 145 Panel [address] [place] [address] [phone] Potassium 4.1 mmol/L N 3.5-5.0 Chloride 104 mmol/L N 101-111 Co2 Carbon Dioxide 23 mmol/L N 22-32 Anion Gap 8 mmol/L N 2-11 Glucose 113 mg/dL High 70-100 Blood Urea Nitrogen 26 mg/dL High 6-24 Creatinine 0.96 mg/dL High 0.51-0.95 BUN/Creatinine Ratio 27.1 High 8-20 Calcium 9.8 mg/dL N 8.6-10.3 Egfr Non- 57.0 N >60 Egfr 73.3 N >60 34 Laboratory test 08/14/2016 [facility] Digoxin 2.1 ng/ml High 0.8-2.0 35 finding [address] [place] [address] [phone] Basic Metabolic 08/14/2016 [facility] Sodium 137 mmol/L N 133- 145 Panel [address] [place] [address] [phone] Potassium 3.9 mmol/L N 3.5-5.0 Chloride 104 mmol/L N 101-111 Co2 Carbon Dioxide 24 mmol/L N 22-32 Anion Gap 9 mmol/L N 2-11 Glucose 125 mg/dL High 70-100 Blood Urea Nitrogen 19 mg/dL N 6-24 Creatinine 0.93 mg/dL N 0.51-0.95 BUN/Creatinine Ratio 20.4 High 8-20 Calcium 9.5 mg/dL N 8.6-10.3 Egfr Non- 59.1 N >60 Egfr 76.0 N >60 36 Basic Metabolic Panel 07/13/2016 [facility] Sodium 137 mmol/L N 133-145 [address] [place] [address] [phone] Potassium 4.2 mmol/L N 3.5-5.0 Chloride 105 mmol/L N 101-111 Co2 Carbon Dioxide 23 mmol/L N 22-32 Anion Gap 9 mmol/L N 2-11 Glucose 112 mg/dL High 70-100 Blood Urea Nitrogen 15 mg/dL N 6-24 Creatinine 0.93 mg/dL N 0.51-0.95 BUN/Creatinine Ratio 16.1 N 8-20 Calcium 9.1 mg/dL N 8.6-10.3 Egfr Non- 59.1 N >60 Egfr 76.0 N >60 37 Laboratory test 07/13/2016 [facility] Digoxin 2.2 ng/ml High 0.8-2.0 38 finding [address] [place] [address] [phone] Comp Metabolic 07/04/2016 [facility] Sodium 138 mmol/L N 133- [address] [place] [address] [phone] Potassium 4.3 mmol/L N 3.5-5.0 Chloride 105 mmol/L N 101-111 Co2 Carbon Dioxide 24 mmol/L N 22-32 Anion Gap 9 mmol/L N 2-11 Glucose 133 mg/dL High 70-100 Blood Urea Nitrogen 13 mg/dL N 6-24 Creatinine 0.77 mg/dL N 0.51-0.95 BUN/Creatinine Ratio 16.9 N 8-20 Calcium 9.3 mg/dL N 8.6-10.3 Total Protein 7.2 g/dL N 6.4-8.9 Albumin 3.9 g/dL N 3.2-5.2 Globulin 3.3 g/dL N 2-4 Albumin/Globulin Ratio 1.2 N 1-3 Total Bilirubin 0.40 mg/dL N 0.2-1.0 Alkaline Phosphatase 114 U/L High 34-104 Alt 19 U/L N 7-52 Ast 16 U/L N 13-39 Egfr Non- 73.5 N >60 Egfr 94.5 N >60 39 Lipid Profile 07/04/2016 [facility] Triglycerides 263 mg/dL N 40 (Trig/Chol/HDL) [address] [place] [address] [phone] Cholesterol 129 mg/dL N 41 HDL Cholesterol 42.1 mg/dL N 42 LDL Cholesterol 34 mg/dL N 43 CBC Auto Diff 07/04/2016 [facility] White Blood 9.4 10^3/uL N 3.5-10.[address] [place] [address] [phone] Red Blood Count 4.28 10^6/uL N 4.0-5.4 Hemoglobin 13.1 g/dL N 12.0-16.0 Hematocrit 40 % N 35-47 Mean Corpuscular Volume 93 fL N 80-97 Mean Corpuscular Hemoglobin 31 pg N 27-31 Mean Corpuscular HGB Conc 33 g/dL N 31-36 Red Cell Distribution Width 14 % N 10.5-15 Platelet Count 218 10^3/uL N 150-450 Mean Platelet Volume 9 um3 N 7.4-10.4 Abs Neutrophils 4.6 10^3/uL N 1.5-7.7 Abs Lymphocytes 3.6 10^3/uL N 1.0-4.8 Abs Monocytes 0.9 10^3/uL High 0-0.8 Abs Eosinophils 0.2 10^3/uL N 0-0.6 Abs Basophils 0.1 10^3/uL N 0-0.2 Abs Nucleated RBC 0 10^3/uL N Granulocyte % 48.6 % N 38-83 Lymphocyte % 38.7 % N 25-47 Monocyte % 9.9 % High 1-9 Eosinophil % 2.2 % N 0-6 Basophil % 0.6 % N 0-2 Nucleated Red Blood Cells % 0 N Laboratory test 07/04/2016 [facility] Magnesium 1.6 mg/dL Low 1.9-2.7 finding [address] [place] [address] [phone] Digoxin 2.8 ng/ml High 0.8-2.0 44 Lipid Panel - 07/04/2016 [facility] Creatine Kinase(CK) 31 U/L N 10-223 JFM [address] [place] [address] [phone] Lipid Profile 01/27/2016 [facility] Triglycerides 262 mg/dL N 45 (Trig/Chol/HDL [address] [facility] [place] [address] [phone] Cholesterol 138 mg/dL N 46 HDL Cholesterol 35.9 mg/dL N 47 LDL Cholesterol 50 mg/dL N 48 Comp Metabolic Panel 01/27/2016 [facility] Sodium 137 mmol/L N 133-145 [address] [place] [address] [phone] Potassium 4.4 mmol/L N 3.5-5.0 Chloride 102 mmol/L N 101-111 Co2 Carbon Dioxide 25 mmol/L N 22-32 Anion Gap 10 mmol/L N 2-11 Glucose 145 mg/dL High 70-100 Blood Urea Nitrogen 23 mg/dL N 6-24 Creatinine 0.96 mg/dL High 0.51-0.95 BUN/Creatinine Ratio 24.0 High 8-20 Calcium 9.9 mg/dL N 8.6-10.3 Total Protein 6.9 g/dL N 6.4-8.9 Albumin 4.0 g/dL N 3.2-5.2 Globulin 2.9 g/dL N 2-4 Albumin/Globulin Ratio 1.4 N 1-3 Total Bilirubin 0.50 mg/dL N 0.2-1.0 Alkaline Phosphatase 94 U/L N 34-104 Alt 24 U/L N 7-52 Ast 17 U/L N 13-39 Egfr Non- 57.1 N >60 Egfr 73.5 N >60 49 Lipid Panel - 01/27/2016 [facility] Creatine 21 U/L N 10-223 [address] Kinase(CK) [place], [place] [id number] [phone] Laboratory test 01/27/2016 [facility] B Type 14 pg/mL N [address] [place] [address] Peptide [phone] CBC Auto Diff 01/27/2016 [facility] White Blood 10.2 N 3.5- 10.[address] Count 10^3/[place] [address] [phone] Red Blood Count 4.09 10^6/uL N 4.0-5.4 Hemoglobin 13.4 g/dL N 12.0-16.0 Hematocrit 40 % N 35-47 Mean Corpuscular Volume 97 fL N 80-97 Mean Corpuscular Hemoglobin 33 pg High 27-31 Mean Corpuscular HGB Conc 34 g/dL N 31-36 Red Cell Distribution Width 14 % N 10.5-15 Platelet Count 221 10^3/uL N 150-450 Mean Platelet Volume 9 um3 N 7.4-10.4 Abs Neutrophils 4.5 10^3/uL N 1.5-7.7 Abs Lymphocytes 4.4 10^3/uL N 1.0-4.8 Abs Monocytes 1.0 10^3/uL High 0-0.8 Abs Eosinophils 0.2 10^3/uL N 0-0.6 Abs Basophils 0.1 10^3/uL N 0-0.2 Abs Nucleated RBC 0.01 10^3/uL N Granulocyte % 43.9 % N 38-83 Lymphocyte % 43.7 % N 25-47 Monocyte % 10.1 % High 1-9 Eosinophil % 1.7 % N 0-6 Basophil % 0.6 % N 0-2 Nucleated Red Blood Cells % 0.1 N Laboratory test 01/27/2016 [facility] Magnesium 1.3 mg/dL Low 1.9-2.7 52 finding [address] [place] [address] [phone] Digoxin 1.7 ng/ml N 0.8-2.0 53 Laboratory test 08/03/2015 [facility] Magnesium 1.8 mg/dL Low 1.9-2.[address] [place] [address] [phone] Lipid Profile 08/03/2015 [facility] Triglycerides 215 mg/dL N 54 (Trig/Chol/HDL) [address] [place] [address] [phone] Cholesterol 132 mg/dL N 55 HDL Cholesterol 42.3 mg/dL N 56 LDL Cholesterol 47 mg/dL N 57 Comp Metabolic Panel 08/03/2015 [facility] Sodium 136 mmol/L N 133-145 [address] [place] [address] [phone] Potassium 4.2 mmol/L N 3.5-5.0 Chloride 104 mmol/L N 101-111 Co2 Carbon Dioxide 22 mmol/L N 22-32 Anion Gap 10 mmol/L N 2-11 Glucose 137 mg/dL High 70-100 Blood Urea Nitrogen 15 mg/dL N 6-24 Creatinine 0.79 mg/dL N 0.51-0.95 BUN/Creatinine Ratio 19.0 N 8-20 Calcium 9.1 mg/dL N 8.6-10.3 Total Protein 6.9 g/dL N 6.4-8.9 Albumin 3.7 g/dL N 3.2-5.2 Globulin 3.2 g/dL N 2-4 Albumin/Globulin Ratio 1.2 N 1-3 Total Bilirubin 0.40 mg/dL N 0.2-1.0 Alkaline Phosphatase 96 U/L N 34-104 Alt 25 U/L N 7-52 Ast 27 U/L N 13-39 Egfr Non- 71.5 N >60 Egfr 92.0 N >60 58 Lipid Panel - 08/03/2015 [facility] Creatine 41 U/L N 10-223 JFM [address] [facility] Kinase(CK) [place] [address] [phone] Laboratory test 08/03/2015 [facility] TSH (Thyroid 1.41 N 0.34 -5.[address] Stim Horm) ?IU/[place] [address] [phone] CBC Auto Diff 08/03/2015 [facility] White Blood 8.7 N 4.8- 10.[address] Count 10^3/uL [place], [place] [id number] [phone] Red Blood Count 3.86 10^6/uL Low 4.0-5.4 Hemoglobin 12.9 g/dL N 12.0-16.0 Hematocrit 38 % N 35-47 Mean Corpuscular Volume 98 fL High 80-97 Mean Corpuscular Hemoglobin 33 pg High 27-31 Mean Corpuscular HGB Conc 34 g/dL N 31-36 Red Cell Distribution Width 15 % N 10.5-15 Platelet Count 225 10^3/uL N 150-450 Mean Platelet Volume 9 um3 N 7.4-10.4 Abs Neutrophils 4.2 10^3/uL N 1.5-7.7 Abs Lymphocytes 3.5 10^3/uL N 1.0-4.8 Abs Monocytes 0.9 10^3/uL High 0-0.8 Abs Eosinophils 0.1 10^3/uL N 0-0.6 Abs Basophils 0 10^3/uL N 0-0.2 Abs Nucleated RBC 0.01 10^3/uL N Granulocyte % 48.0 % N 38-83 Lymphocyte % 39.9 % N 25-47 Monocyte % 10.5 % High 1-9 Eosinophil % 1.2 % N 0-6 Basophil % 0.4 % N 0-2 Nucleated Red Blood Cells % 0.1 N Laboratory test 03/02/2015 [facility] Inr 1.72 High 0.78-1.[address] [place] [address] [phone] CBC Auto Diff 02/15/2015 [facility] White Blood 7.7 N 4.8- 10.[address] Count 10^3/[place] [address] [phone] Red Blood Count 3.97 10^6/uL Low 4.0-5.4 Hemoglobin 13.2 g/dL N 12.0-16.0 Hematocrit 39 % N 35-47 Mean Corpuscular Volume 97 fL N 80-97 Mean Corpuscular Hemoglobin 33 pg High 27-31 Mean Corpuscular HGB Conc 34 g/dL N 31-36 Red Cell Distribution Width 15 % N 10.5-15 Platelet Count 238 10^3/uL N 150-450 Mean Platelet Volume 9 um3 N 7.4-10.4 Abs Neutrophils 3.5 10^3/uL N 1.5-7.7 Abs Lymphocytes 3.1 10^3/uL N 1.0-4.8 Abs Monocytes 0.8 10^3/uL N 0-0.8 Abs Eosinophils 0.2 10^3/uL N 0-0.6 Abs Basophils 0.1 10^3/uL N 0-0.2 Abs Nucleated RBC 0.01 10^3/uL N Granulocyte % 44.9 % N 38-83 Lymphocyte % 40.6 % N 25-47 Monocyte % 10.7 % High 1-9 Eosinophil % 3.1 % N 0-6 Basophil % 0.7 % N 0-2 Nucleated Red Blood Cells % 0.1 N Laboratory test 02/15/2015 [facility] Digoxin 1.3 ng/ml N 0.8- 2.0 60 finding [address] [place] [address] [phone] Basic Metabolic 02/15/2015 [facility] Sodium 138 mmol/L N 133- 145 Panel [address] [place] [address] [phone] Potassium 4.2 mmol/L N 3.5-5.0 Chloride 105 mmol/L N 101-111 Co2 Carbon Dioxide 25 mmol/L N 22-32 Anion Gap 8 mmol/L N 2-11 Glucose 113 mg/dL High 70-100 Blood Urea Nitrogen 9 mg/dL N 6-24 Creatinine 0.63 mg/dL N 0.51-0.95 BUN/Creatinine Ratio 14.3 N 8-20 Calcium 9.2 mg/dL N 8.6-10.3 Egfr Non- 93.2 N >60 Egfr 119.8 N >60 61 CBC Auto Diff 01/14/2015 [facility] White Blood 9.2 10^3/uL N 4.8-10.[address] [place] [address] [phone] Red Blood Count 3.16 10^6/uL Low 4.0-5.4 Hemoglobin 10.5 g/dL Low 12.0-16.0 Hematocrit 31 % Low 35-47 Mean Corpuscular Volume 98 fL High 80-97 Mean Corpuscular Hemoglobin 33 pg High 27-31 Mean Corpuscular HGB Conc 34 g/dL N 31-36 Red Cell Distribution Width 13 % N 10.5-15 Platelet Count 134 10^3/uL Low 150-450 Mean Platelet Volume 9 um3 N 7.4-10.4 Abs Neutrophils 6.3 10^3/uL N 1.5-7.7 Abs Lymphocytes 1.7 10^3/uL N 1.0-4.8 Abs Monocytes 1.1 10^3/uL High 0-0.8 Abs Eosinophils 0 10^3/uL N 0-0.6 Abs Basophils 0 10^3/uL N 0-0.2 Abs Nucleated RBC 0 10^3/uL N Granulocyte % 69.1 % N 38-83 Lymphocyte % 18.8 % Low 25-47 Monocyte % 11.6 % High 1-9 Eosinophil % 0.1 % N 0-6 Basophil % 0.4 % N 0-2 Nucleated Red Blood Cells % 0 N Comp Metabolic Panel 01/14/2015 [facility] Sodium 135 mmol/L N 133-145 [address] [place] [address] [phone] Potassium 4.3 mmol/L N 3.5-5.0 Chloride 113 mmol/L High 101-111 Co2 Carbon Dioxide 18 mmol/L Low 22-32 Anion Gap 4 mmol/L N 2-11 Glucose 132 mg/dL High 70-100 Blood Urea Nitrogen 19 mg/dL N 6-24 Creatinine 0.79 mg/dL N 0.51-0.95 BUN/Creatinine Ratio 24.1 High 8-20 Calcium 6.9 mg/dL Low 8.6-10.3 Total Protein 5.1 g/dL Low 6.4-8.9 Albumin 2.6 g/dL Low 3.2-5.2 Globulin 2.5 g/dL N 2-4 Albumin/Globulin Ratio 1.0 N 1-3 Total Bilirubin 0.60 mg/dL N 0.2-1.0 Alkaline Phosphatase 65 U/L N 34-104 Alt 129 U/L High 7-52 Ast 129 U/L High 13-39 Egfr Non- 71.7 N >60 Egfr 92.3 N >60 62 Urinalysis Profile 01/14/2015 [facility] Urine Color Yellow N [address] [place] [address] [phone] Urine Appearance Cloudy N Urine Specific [place] 1.024 N 1.010-1.030 Urine pH 5.0 N 5-9 Urine Urobilinogen Negative N Negative Urine Ketones Negative N Negative Urine Protein 1+(30 mg/dL) Abnormal Negative Urine Leukocytes Trace Abnormal Negative Urine Blood 2+ Abnormal Negative Urine Nitrite Negative N Negative Urine Bilirubin Negative N Negative Urine Glucose Negative N Negative Urine White Blood Cell 2+(11-20/hpf) Abnormal Absent Urine Red Blood Cell 3+(>10/hpf) Abnormal Absent Urine Bacteria Absent N Absent Urine Squamous Epithelial Cell Present Abnormal Absent Urine Hyaline Casts Present Abnormal Absent CBC Auto 01/13/2015 [facility] White Blood 12.1 10^3/uL High 4.8-10.[address] [place] [address] [phone] Red Blood Count 3.00 10^6/uL Low 4.0-5.4 Hemoglobin 9.7 g/dL Low 12.0-16.0 Hematocrit 29 % Low 35-47 Mean Corpuscular Volume 98 fL High 80-97 Mean Corpuscular Hemoglobin 33 pg High 27-31 Mean Corpuscular HGB Conc 33 g/dL N 31-36 Red Cell Distribution Width 13 % N 10.5-15 Platelet Count 135 10^3/uL Low 150-450 Mean Platelet Volume 9 um3 N 7.4-10.4 Abs Neutrophils 7.4 10^3/uL N 1.5-7.7 Abs Lymphocytes 3.1 10^3/uL N 1.0-4.8 Abs Monocytes 1.5 10^3/uL High 0-0.8 Abs Eosinophils 0.1 10^3/uL N 0-0.6 Abs Basophils 0 10^3/uL N 0-0.2 Abs Nucleated RBC 0.01 10^3/uL N Granulocyte % 61.5 % N 38-83 Lymphocyte % 25.4 % N 25-47 Monocyte % 12.0 % High 1-9 Eosinophil % 0.9 % N 0-6 Basophil % 0.2 % N 0-2 Nucleated Red Blood Cells % 0.1 N Comp Metabolic Panel 01/13/2015 [facility] Sodium 133 mmol/L N 133-145 [address] [place] [address] [phone] Potassium 4.0 mmol/L N 3.5-5.0 Chloride 111 mmol/L N 101-111 Co2 Carbon Dioxide 15 mmol/L Low 22-32 Anion Gap 7 mmol/L N 2-11 Glucose 157 mg/dL High 70-100 Blood Urea Nitrogen 21 mg/dL N 6-24 Creatinine 1.11 mg/dL High 0.51-0.95 BUN/Creatinine Ratio 18.9 N 8-20 Calcium 6.6 mg/dL Low 8.6-10.3 Total Protein 4.6 g/dL Low 6.4-8.9 Albumin 2.4 g/dL Low 3.2-5.2 Globulin 2.2 g/dL N 2-4 Albumin/Globulin Ratio 1.1 N 1-3 Total Bilirubin 0.60 mg/dL N 0.2-1.0 Alkaline Phosphatase 57 U/L N 34-104 Alt 41 U/L N 7-52 Ast 41 U/L High 13-39 Egfr Non- 48.5 N >60 Egfr 62.3 N >60 63 Laboratory test 01/13/2015 [facility] Magnesium 1.4 mg/dL Low 1.9-2.7 finding [address] [place] [address] [phone] Lipase 3 U/L Low 11.0-82.0 Troponin I 0.01 ng/mL N <0.03 64 Inr/Protime 01/13/2015 [facility] Inr 0.96 N 0.78-1.07 [address] [place] [address] [phone] Laboratory test 01/13/2015 [facility] Lactic Acid 2.1 mmol/L N 0.5-2.2 finding [address] [place] [address] [phone] Pre Cath Panel 12/24/2014 [facility] Activated 29.6 N 24.0- 36.1 [address] [facility] [place] [address] Thrombo Time [phone] Basic Metabolic 12/24/2014 [facility] Sodium 136 mmol/L N 133- 145 Panel [address] [place] [address] [phone] Potassium 4.4 mmol/L N 3.5-5.0 Chloride 104 mmol/L N 101-111 Co2 Carbon Dioxide 24 mmol/L N 22-32 Anion Gap 8 mmol/L N 2-11 Glucose 102 mg/dL High 70-100 Blood Urea Nitrogen 24 mg/dL N 6-24 Creatinine 1.04 mg/dL High 0.51-0.95 BUN/Creatinine Ratio 23.1 High 8-20 Calcium 9.4 mg/dL N 8.6-10.3 Egfr Non- 52.2 N >60 Egfr 67.2 N >60 65 CBC Auto 12/24/2014 [facility] White Blood 13.8 10^3/uL High 4.8-10.[address] [place] [address] [phone] Red Blood Count 4.08 10^6/uL N 4.0-5.4 Hemoglobin 13.5 g/dL N 12.0-16.0 Hematocrit 40 % N 35-47 Mean Corpuscular Volume 97 fL N 80-97 Mean Corpuscular Hemoglobin 33 pg High 27-31 Mean Corpuscular HGB Conc 34 g/dL N 31-36 Red Cell Distribution Width 13 % N 10.5-15 Platelet Count 245 10^3/uL N 150-450 Mean Platelet Volume 8 um3 N 7.4-10.4 Abs Neutrophils 9.7 10^3/uL High 1.5-7.7 Abs Lymphocytes 2.7 10^3/uL N 1.0-4.8 Abs Monocytes 1.4 10^3/uL High 0-0.8 Abs Eosinophils 0 10^3/uL N 0-0.6 Abs Basophils 0 10^3/uL N 0-0.2 Abs Nucleated RBC 0 10^3/uL N Granulocyte % 70.2 % N 38-83 Lymphocyte % 19.2 % Low 25-47 Monocyte % 10.5 % High 1-9 Eosinophil % 0 % N 0-6 Basophil % 0.1 % N 0-2 Nucleated Red Blood Cells % 0 N Inr/Protime 12/24/2014 [facility] Inr 0.88 N 0.78-1.[address] [place] [address] [phone] CBC Auto Diff 11/25/2014 [facility] White Blood 7.6 10^3/uL N 4.8-10.[address] [place] [address] [phone] Red Blood Count 4.37 10^6/uL N 4.0-5.4 Hemoglobin 14.3 g/dL N 12.0-16.0 Hematocrit 43 % N 35-47 Mean Corpuscular Volume 97 fL N 80-97 Mean Corpuscular Hemoglobin 33 pg High 27-31 Mean Corpuscular HGB Conc 34 g/dL N 31-36 Red Cell Distribution Width 13 % N 10.5-15 Platelet Count 232 10^3/uL N 150-450 Mean Platelet Volume 8 um3 N 7.4-10.4 Abs Neutrophils 3.1 10^3/uL N 1.5-7.7 Abs Lymphocytes 3.4 10^3/uL N 1.0-4.8 Abs Monocytes 0.8 10^3/uL N 0-0.8 Abs Eosinophils 0.2 10^3/uL N 0-0.6 Abs Basophils 0 10^3/uL N 0-0.2 Abs Nucleated RBC 0 10^3/uL N Granulocyte % 40.8 % N 38-83 Lymphocyte % 45.0 % N 25-47 Monocyte % 10.9 % High 1-9 Eosinophil % 2.7 % N 0-6 Basophil % 0.6 % N 0-2 Nucleated Red Blood Cells % 0.1 N Laboratory test 11/25/2014 [facility] TSH (Thyroid 1.71 N 0.34 -5.60 [address] Stimulating IU/[place] [address] Horm) [phone] Lipid Panel - 11/25/2014 [facility] Creatine Kinase 39 U/L N 10-223 [address] [place] [address] [phone] Comp Metabolic 11/25/2014 [facility] Sodium 136 N 133-[address] mmol/[place] [address] [phone] Potassium 4.1 mmol/L N 3.5-5.0 Chloride 103 mmol/L N 101-111 Co2 Carbon Dioxide 27 mmol/L N 22-32 Anion Gap 6 mmol/L N 2-11 Glucose 101 mg/dL High 70-100 Blood Urea Nitrogen 20 mg/dL N 6-24 Creatinine 1.01 mg/dL High 0.51-0.95 BUN/Creatinine Ratio 19.8 N 8-20 Calcium 9.8 mg/dL N 8.6-10.3 Total Protein 8.2 g/dL N 6.4-8.9 Albumin 4.3 g/dL N 3.2-5.2 Globulin 3.9 g/dL N 2-4 Albumin/Globulin Ratio 1.1 N 1-3 Total Bilirubin 0.50 mg/dL N 0.2-1.0 Alkaline Phosphatase 136 U/L High 34-104 Alt 14 U/L N 7-52 Ast 16 U/L N 13-39 Egfr Non- 54.0 N >60 Egfr 69.5 N >60 70 Lipid Profile 11/25/2014 [facility] Triglycerides 101 mg/dL N 71 (Trig/Chol/HDL) [address] [place] [address] [phone] Cholesterol 128 mg/dL N 72 HDL Cholesterol 48.2 mg/dL N 73 LDL Cholesterol 60 mg/dL N 74 CBC Auto Diff 10/09/2014 [facility] White Blood 7.8 10^3/uL N 4.8-10.[address] [place] [address] [phone] Red Blood Count 4.03 10^6/uL N 4.0-5.4 Hemoglobin 13.2 g/dL N 12.0-16.0 Hematocrit 39 % N 35-47 Mean Corpuscular Volume 96 fL N 80-97 Mean Corpuscular Hemoglobin 33 pg High 27-31 Mean Corpuscular HGB Conc 34 g/dL N 31-36 Red Cell Distribution Width 13 % N 10.5-15 Platelet Count 240 10^3/uL N 150-450 Mean Platelet Volume 8 um3 N 7.4-10.4 Abs Neutrophils 3.1 10^3/uL N 1.5-7.7 Abs Lymphocytes 3.6 10^3/uL N 1.0-4.8 Abs Monocytes 0.9 10^3/uL High 0-0.8 Abs Eosinophils 0.2 10^3/uL N 0-0.6 Abs Basophils 0 10^3/uL N 0-0.2 Abs Nucleated RBC 0 10^3/uL N Granulocyte % 40.0 % N 38-83 Lymphocyte % 45.9 % N 25-47 Monocyte % 10.9 % High 1-9 Eosinophil % 2.7 % N 0-6 Basophil % 0.5 % N 0-2 Nucleated Red Blood Cells % 0 N Laboratory test 10/09/2014 [facility] TSH (Thyroid 1.57 IU/mL N 0.34-5.[address] [place] [address] Horm) [phone] Troponin I 0.00 ng/mL N <0.03 75 Comp Metabolic Panel 10/09/2014 [facility] Sodium 138 mmol/L N 133-[address] [place] [address] [phone] Potassium 4.0 mmol/L N 3.5-5.0 Chloride 106 mmol/L N 101-111 Co2 Carbon Dioxide 24 mmol/L N 22-32 Anion Gap 8 mmol/L N 2-11 Glucose 92 mg/dL N 70-100 Blood Urea Nitrogen 13 mg/dL N 6-24 Creatinine 0.80 mg/dL N 0.51-0.95 BUN/Creatinine Ratio 16.3 N 8-20 Calcium 9.4 mg/dL N 8.6-10.3 Total Protein 7.0 g/dL N 6.4-8.9 Albumin 3.9 g/dL N 3.2-5.2 Globulin 3.1 g/dL N 2-4 Albumin/Globulin Ratio 1.3 N 1-3 Total Bilirubin 0.40 mg/dL N 0.2-1.0 Alkaline Phosphatase 119 U/L High 34-104 Alt 19 U/L N 7-52 Ast 18 U/L N 13-39 Egfr Non- 70.7 N >60 Egfr 90.9 N >60 76 CBC Auto Diff 09/17/2014 [facility] White Blood 7.7 10^3/uL N 4.8-10.[address] [place] [address] [phone] Red Blood Count 4.18 10^6/uL N 4.0-5.4 Hemoglobin 13.8 g/dL N 12.0-16.0 Hematocrit 41 % N 35-47 Mean Corpuscular Volume 98 fL High 80-97 Mean Corpuscular Hemoglobin 33 pg High 27-31 Mean Corpuscular HGB Conc 34 g/dL N 31-36 Red Cell Distribution Width 13 % N 10.5-15 Platelet Count 212 10^3/uL N 150-450 Mean Platelet Volume 8 um3 N 7.4-10.4 Abs Neutrophils 3.5 10^3/uL N 1.5-7.7 Abs Lymphocytes 3.2 10^3/uL N 1.0-4.8 Abs Monocytes 0.9 10^3/uL High 0-0.8 Abs Eosinophils 0.2 10^3/uL N 0-0.6 Abs Basophils 0 10^3/uL N 0-0.2 Abs Nucleated RBC 0 10^3/uL N Granulocyte % 45.3 % N 38-83 Lymphocyte % 41.0 % N 25-47 Monocyte % 11.1 % High 1-9 Eosinophil % 2.1 % N 0-6 Basophil % 0.5 % N 0-2 Nucleated Red Blood Cells % 0 N Lipid Panel - 09/17/2014 [facility] Creatine Kinase 35 U/L N 10-223 [address] [place] [address] [phone] Comp Metabolic 09/17/2014 [facility] Sodium 140 N 133-[address] mmol/[place] [address] [phone] Potassium 4.1 mmol/L N 3.5-5.0 79 Chloride 107 mmol/L N 101-111 Co2 Carbon Dioxide 26 mmol/L N 22-32 Anion Gap 7 mmol/L N 2-11 Glucose 85 mg/dL N 70-100 Blood Urea Nitrogen 16 mg/dL N 6-24 Creatinine 0.74 mg/dL N 0.51-0.95 BUN/Creatinine Ratio 21.6 High 8-20 Calcium 9.4 mg/dL N 8.6-10.3 Total Protein 7.2 g/dL N 6.4-8.9 Albumin 4.0 g/dL N 3.2-5.2 Globulin 3.2 g/dL N 2-4 Albumin/Globulin Ratio 1.3 N 1-3 Total Bilirubin 0.50 mg/dL N 0.2-1.0 Alkaline Phosphatase 132 U/L High 34-104 Alt 17 U/L N 7-52 Ast 14 U/L N 13-39 Egfr Non- 77.4 N >60 Egfr 99.5 N >60 80 Lipid Profile 09/17/2014 [facility] Triglycerides 95 mg/dL N 81 (Trig/Chol/HDL) [address] [place] [address] [phone] Cholesterol 110 mg/dL N 82 HDL Cholesterol 46.2 mg/dL N 83 LDL Cholesterol 45 mg/dL N 84 Laboratory test 04/20/2014 [facility] B Type 44 pg/mL N [address] [place] [address] Peptide [phone] Comp Metabolic 04/20/2014 [facility] Sodium 138 mmol/L N 133- [address] 45 [place] [address] [phone] Potassium 3.9 mmol/L N 3.7-5.6 Chloride 106 mmol/L N 101-111 Co2 Carbon Dioxide 24 mmol/L N 22-32 Anion Gap 8 mmol/L N 2-11 Glucose 100 mg/dL N 70-100 Blood Urea Nitrogen 14 mg/dL N 6-24 Creatinine 0.82 mg/dL N 0.51-0.95 BUN/Creatinine Ratio 17.1 N 8-20 Calcium 9.7 mg/dL N 8.6-10.3 Total Protein 7.8 g/dL N 6.4-8.9 Albumin 4.1 g/dL N 3.2-5.2 Globulin 3.7 g/dL N 2-4 Albumin/Globulin Ratio 1.1 N 1-3 Total Bilirubin 0.50 mg/dL N 0.2-1.0 Alkaline Phosphatase 111 U/L High 34-104 Alt 16 U/L N 7-52 Ast 14 U/L N 13-39 Egfr Non- 68.7 N >60 Egfr 88.4 N >60 86 CBC Auto Diff 04/20/2014 [facility] White Blood 8.4 10^3/uL N 4.8-10.[address] [place] [address] [phone] Red Blood Count 4.16 10^6/uL N 4.0-5.4 Hemoglobin 13.7 g/dL N 12.0-16.0 Hematocrit 40 % N 35-47 Mean Corpuscular Volume 96 fL N 80-97 Mean Corpuscular Hemoglobin 33 pg High 27-31 Mean Corpuscular HGB Conc 34 g/dL N 31-36 Red Cell Distribution Width 13 % N 10.5-15 Platelet Count 285 10^3/uL N 150-450 Mean Platelet Volume 8 um3 N 7.4-10.4 Abs Neutrophils 4.6 10^3/uL N 1.5-7.7 Abs Lymphocytes 2.8 10^3/uL N 1.0-4.8 Abs Monocytes 0.9 10^3/uL High 0-0.8 Abs Eosinophils 0.1 10^3/uL N 0-0.6 Abs Basophils 0 10^3/uL N 0-0.2 Abs Nucleated RBC 0.01 10^3/uL N Granulocyte % 54.0 % N 38-83 Lymphocyte % 33.2 % N 25-47 Monocyte % 11.1 % High 1-9 Eosinophil % 1.2 % N 0-6 Basophil % 0.5 % N 0-2 Nucleated Red Blood Cells % 0.1 N Inr/Protime 01/23/2014 [facility] Inr 0.88 N 0.85-1.[address] [place] [address] [phone] Basic Metabolic 01/23/2014 [facility] Sodium 141 mmol/L N 133- [address] [place] [address] [phone] Potassium 4.1 mmol/L N 3.7-5.6 Chloride 108 mmol/L N 101-111 Co2 Carbon Dioxide 25 mmol/L N 22-32 Anion Gap 8 mmol/L N 2-11 Glucose 96 mg/dL N 70-100 Blood Urea Nitrogen 13 mg/dL N 6-24 Creatinine 0.84 mg/dL N 0.51-0.95 BUN/Creatinine Ratio 15.5 N 8-20 Calcium 9.3 mg/dL N 8.6-10.3 Egfr Non- 67.0 N >60 Egfr 86.2 N >60 87 CBC Auto Diff 01/23/2014 [facility] White Blood 6.9 10^3/uL N 4.8-10.[address] [place] [address] [phone] Red Blood Count 4.23 10^6/uL N 4.0-5.4 Hemoglobin 14.3 g/dL N 12.0-16.0 Hematocrit 41 % N 35-47 Mean Corpuscular Volume 98 fL High 80-97 Mean Corpuscular Hemoglobin 34 pg High 27-31 Mean Corpuscular HGB Conc 35 g/dL N 31-36 Red Cell Distribution Width 14 % N 10.5-15 Platelet Count 231 10^3/uL N 150-450 Mean Platelet Volume 9 um3 N 7.4-10.4 Abs Neutrophils 3.2 10^3/uL N 1.5-7.7 Abs Lymphocytes 2.9 10^3/uL N 1.0-4.8 Abs Monocytes 0.7 10^3/uL N 0-0.8 Abs Eosinophils 0.2 10^3/uL N 0-0.6 Abs Basophils 0 10^3/uL N 0-0.2 Abs Nucleated RBC 0.01 10^3/uL N Granulocyte % 45.9 % N 38-83 Lymphocyte % 41.6 % N 25-47 Monocyte % 9.6 % High 1-9 Eosinophil % 2.3 % N 0-6 Basophil % 0.6 % N 0-2 Nucleated Red Blood Cells % 0.1 N Cath Panel 01/23/2014 [facility] Activated 29.9 N 24.0-36.[address] [place] [address] Time [phone] Laboratory test 01/08/2014 [facility] B Type 10 pg/mL [address] [place] [address] Peptide [phone] Lipid Panel - 01/08/2014 [facility] Creatine Kinase 37 U/L 10 -223 [address] [place] [address] [phone] Comp Metabolic 01/08/2014 [facility] Sodium 143 mmol/L 133- [address] [place], [place] [phone] Potassium 3.9 mmol/L 3.7-5.6 Chloride 108 mmol/L [...] >60 Egfr 85.0 >60 90 Lipid Profile 01/08/2014 [facility] Triglycerides 84 mg/dL 91 (Trig/Chol/HDL) [address] [place] [address] [phone] Cholesterol 131 mg/dL 92 HDL Cholesterol 56.6 mg/dL 93 LDL Cholesterol 58 mg/dL 94 Laboratory test 01/08/2014 [facility] C Reactive < 1.00 < 5.00 [address] Protein mg/[place] [address] [phone] CBC Auto Diff 01/08/2014 [facility] White Blood 8.3 4.8-10.[address] Count 10^3/[place] [address] [phone] Red Blood Count 4.28 10^6/uL 4.0-5.4 Hemoglobin [...] Cells % 0.1 Comp Metabolic Panel 03/03/2013 [facility] Sodium 140 mmol/L 133-145 [address] [place] [address] [phone] Potassium 4.0 mmol/L 3.5-5.0 Chloride 107 mmol/L [...] >60 Egfr 79.8 >60 96 Lipid Profile 03/03/2013 [facility] Triglycerides 76 mg/dL 40 -200 (Trig/Chol/HDL) [address] [place] [address] [phone] Cholesterol 124 mg/dL Less than 200 HDL Cholesterol 52 mg/dL 40-60 97 Cholesterol/HDL Ratio 2.4 Average 1-4.44 LDL Cholesterol 56.8 mg/dL Less Than 100 98 Laboratory test 03/03/2013 [facility] Creatine Kinase 48 U/L 0-200 finding [address] [place] [address] [phone] Basic Metabolic 05/27/2012 [facility] Sodium 138 135-145 Panel 101 [facility] mmol/[place] [address] [phone] Potassium 4.3 mmol/L 3.5-5.0 Chloride 108 mmol/L 101-111 Co2 (Carbon Dioxide) 23.0 mmol/L 22-32 Anion Gap 7.0 mmol/L 2-11 99 Glucose 104 mg/dL High 70-100 BUN 15 mg/dL 6-24 Creatinine 0.8 mg/dL 0.50-1.40 One Over Creatinine 1.25 BUN/Creatinine Ratio 18.8 8-20 Calcium 9.5 mg/dL 8.1-9.9 eGFR Non- 71.1 > 60 eGFR 91.5 > 60 100 CBC Auto Diff 05/01/2012 [facility] White Blood 8.8 CUMM 4.8- 10.[address] [place] [address] [phone] Red Cell Count 4.56 CUMM 4.2-5.4 Hemoglobin [...] Eosinophils 0.3 0-0.6 Abs Basophils 0.1 0-0.2 Laboratory test 05/01/2012 [facility] CPK (Creatine 33 U/L 0- [address] Kin[place]) [place] [address] [phone] BNP Evaluatr < 7.5 pg/mL 0-100 TSH 3.88 MIU/ML 0.34-5.60 Comp Metabolic Panel 05/01/2012 [facility] Sodium 136 mmol/L 135-[address] [place] [address] [phone] Potassium 3.6 mmol/L 3.5-5.0 Chloride 99 mmol/L [...] eGFR 63.3 > 60 103 Lipid Profile 05/01/2012 [facility] Triglyceride 132 mg/dL 40 -200 (Trig/Chol/HDL) [address] [place] [address] [phone] Cholesterol 131 mg/dL Less Than 200 104 High Density Lipoprotein 69 mg/dL High 40-60 105 Cholesterol/HDL Ratio 1.90 AVERAGE 1-4.44 Low Density Lipoprotein 36 mg/dL Less Than 100 106 Comp Metabolic Panel 12/05/2011 [facility] Sodium 142 mmol/L 135-145 [address] [place] [address] [phone] Potassium 4.4 mmol/L 3.5-5.0 Chloride 106 mmol/L [...] > 60 eGFR 70.9 > 60 109 Lipid Profile 12/05/2011 [facility] Triglyceride 78 mg/dL 40- 200 (Trig/Chol/HDL) [address] [place] [address] [phone] Cholesterol 143 mg/dL Less Than 200 110 High Density Lipoprotein 54 mg/dL 40-60 111 Cholesterol/HDL Ratio 2.65 AVERAGE 1-4.44 Low Density Lipoprotein 73 mg/dL Less Than 100 112 Laboratory test 12/05/2011 [facility] CPK (Creatine 51 U/L 0- [address] Kinase) [place] [address] [phone] CBC Auto Diff 03/06/2011 [facility] White Blood 7.9 CUMM 4.8- 10.[address] [place] [address] [phone] Red Cell Count 4.02 CUMM Low 4.2-5.4 [...] Basophils 0.1 0-0.2 Comments UWBC Laboratory test 03/06/2011 [facility] TSH 5.60 MIU/ML 0.34- 5.[address] [place] [address] [phone] Comp Metabolic 03/06/2011 [facility] Sodium 140 mmol/L 135- [address] [place] [address] [phone] Potassium 4.1 mmol/L 3.5-5.0 Chloride 112 mmol/L High 101-111 Co2 (Carbon Dioxide) 21.0 mmol/L Low 22-32 Anion Gap 7.0 mmol/L 2-11 113 Glucose 104 mg/dL High 70-100 BUN 18 mg/dL 6-24 Creatinine 1.00 mg/dL 0.50-1.40 One Over Creatinine 1.00 BUN/Creatinine Ratio 18.0 8-20 Calcium 9.6 mg/dL 8.1-9.9 Total Protein 6.9 GM/DL 6.2-8.1 Albumin 3.9 GM/DL 3.2-5.2 Globulin 3.0 GM/DL 2-4 Albumin/Globulin Ratio 1.3 1-3 Bilirubin Total 0.8 mg/dL 0.4-1.5 114 Alkaline Phosphatase 107 U/L 30-110 Alt (SGPT) 22 U/L 14-54 Ast (Sgot) 21 U/L 12-42 eGFR Non- 55.3 > 60 eGFR 71.1 > 60 115 Lipid Profile 03/06/2011 [facility] Triglyceride 114 mg/dL 40 -200 (Trig/Chol/HDL) [address] [place] [address] [phone] Cholesterol 106 mg/dL Less Than 200 116 High Density Lipoprotein 36 mg/dL Low 40-60 117 Cholesterol/HDL Ratio 2.94 AVERAGE 1-4.44 Low Density Lipoprotein 47 mg/dL Less Than 100 118 Lipid Panel - 11/02/2010 [facility] CPK (Creatine 65 U/L 0- [address] Kinase) [place] [address] [phone] Comp Metabolic 11/02/2010 [facility] Sodium 138 135-[address] mmol/[place] [address] [phone] Potassium 4.0 mmol/L 3.5-5.0 Chloride 109 mmol/L 101-111 Co2 (Carbon Dioxide) 24.0 mmol/L 22-32 Anion Gap 5.0 mmol/L 2-11 119 Glucose 119 mg/dL High 70-100 BUN 17 mg/dL 6-24 Creatinine 1.00 mg/dL 0.50-1.40 One Over Creatinine 1.00 BUN/Creatinine Ratio 17.0 8-20 Calcium 9.4 mg/dL 8.1-9.9 Total Protein 7.0 GM/DL 6.2-8.1 Albumin 3.9 GM/DL 3.2-5.2 Globulin 3.1 GM/DL 2-4 Albumin/Globulin Ratio 1.3 1-3 Bilirubin Total 0.9 mg/dL 0.4-1.5 120 Alkaline Phosphatase 94 U/L 30-110 Alt (SGPT) 32 U/L 14-54 Ast (Sgot) 29 U/L 12-42 eGFR Non- 58.8 > 60 eGFR 71.1 > 60 121 Lipid Profile 11/02/2010 [facility] Triglyceride 139 mg/dL 40 -200 (Trig/Chol/HDL) [address] [place] [address] [phone] Cholesterol 125 mg/dL Less Than 200 122 High Density Lipoprotein 39 mg/dL Low 40-60 123 Cholesterol/HDL Ratio 3.21 AVERAGE 1-4.44 Low Density Lipoprotein 58 mg/dL Less Than 100 124 Laboratory test 04/05/2010 [facility] BNP Evaluatr 29.0 pg/mL 0-100 125 finding [address] [place] [address] [phone] CBC With Manual 04/05/2010 [facility] White Blood 6.2 CUMM 4.8-10.8 Diff 101 [facility] [place] [address] [phone] Red Cell Count 4.01 CUMM Low 4.2-5.4 Hemoglobin 13.5 g/dL 12.0-16.0 Hematocrit 39 % 35-47 Mean Corpuscular Volume 96 um3 79-97 Mean Corpuscular Hemoglob 34 pg High 27-31 Mean Corpuscular HGB Cone 35 g/dL 32-36 Redcell Distribution WDTH 13 % 10.5-15 Platelet Count 203 CUMM 150-450 Mean Platelet Volume 7.9 um3 7.4-10.4 Polysegmented Neutrophil 50 % 38-83 Lymphocyte 43 % 25-47 Monocyte 6 % 0-13 Eosinophil 1 % 0-6 Absolute Neutrophil Count 3.1 RBC Morphology NORMAL Laboratory test 04/05/2010 [facility] TSH 2.10 MIU/ML 0.34- 5.60 finding [address] [place] [address] [phone] Comp Metabolic 04/05/2010 [facility] Sodium 137 mmol/L 135- 145 Panel [address] [place] [address] [phone] Potassium 4.2 mmol/L 3.5-5.0 Chloride 107 mmol/L 101-111 Co2 (Carbon Dioxide) 22.0 mmol/L 22-32 Anion Gap 8.0 mmol/L 2-11 126 Glucose 98 mg/dL 70-100 127 BUN 15 mg/dL 6-24 Creatinine 0.90 mg/dL 0.50-1.40 One Over Creatinine 1.10 BUN/Creatinine Ratio 16.7 8-20 Calcium 8.9 mg/dL 8.1-9.9 128 Total Protein 7.0 GM/DL 6.2-8.1 Albumin 3.8 GM/DL 3.2-5.2 Globulin 3.2 GM/DL 2-4 Albumin/Globulin Ratio 1.2 1-3 Bilirubin Total 0.7 mg/dL 0.4-1.5 129 Alkaline Phosphatase 82 U/L 30-110 Alt (SGPT) 22 U/L 14-54 Ast (Sgot) 24 U/L 12-42 eGFR Non- 66.4 > 60 eGFR 80.3 > 60 130 Lipid Profile 04/05/2010 [facility] Triglyceride 115 mg/dL 40 -200 (Trig/Chol/HDL) [address] [place] [address] [phone] Cholesterol 125 mg/dL Less Than 200 131 High Density Lipoprotein 43 mg/dL 40-60 132 Cholesterol/HDL Ratio 2.91 AVERAGE 1-4.44 Low Density Lipoprotein 59 mg/dL Less Than 100 133 CBC With Manual 03/06/2009 [facility] White Blood 5.9 CUMM 4.8-10.[address] [place] [address] [phone] Red Cell Count 4.18 CUMM Low 4.2-5.4 Hemoglobin 13.8 g/dL 12.0-16.0 Hematocrit 40 % 35-47 Mean Corpuscular Volume 95 um3 79-97 Mean Corpuscular Hemoglob 33 pg High 27-31 Mean Corpuscular HGB Cone 35 g/dL 32-36 Redcell Distribution WDTH 13 % 10.5-15 Platelet Count 213 CUMM 150-450 Mean Platelet Volume 7.7 um3 7.4-10.4 Polysegmented Neutrophil 46 % 38-83 Lymphocyte 46 % 25-47 Monocyte 4 % 0-13 Eosenophil 3 % 0-6 Basophil 1 % 0-2 Absolute Neutrophil Count 2.7 RBC Morphology NORMAL Basic Metabolic Panel 03/06/2009 [facility] Sodium 140 mmol/L 135-145 [address] [place] [address] [phone] Potassium 4.3 mmol/L 3.5-5.0 Chloride 109 mmol/L 101-111 Co2 (Carbon Dioxide) 23.0 mmol/L 22-32 Anion Gap 8.0 mmol/L 2-11 135 Glucose 118 mg/dL High 70-100 136 BUN 11 mg/dL 6-24 Creatinine 0.90 mg/dL 0.50-1.40 One Over Creatinine 1.10 BUN/Creatinine Ratio 12.2 8-20 Calcium 9.5 mg/dL 8.1-9.9 137 Protime 03/06/2009 [facility] Protime 11.5 10.9-13.3 [address] [place] [address] [phone] Inr 0.90 138 Cath Panel 03/06/2009 [facility] PTT (Aptt) 24.4 20.1-28.2 139 [address] [place] [address] [phone] Lipid Profile 12/15/2008 [facility] Triglyceride 124 mg/dL 40 -200 (Trig/Chol/HDL [facility] [place] [address] [phone] Cholesterol 124 mg/dL Less Than 200 140 High Density Lipoprotein 38 mg/dL Low 40-60 141 Cholesterol/HDL Ratio 3.26 AVERAGE 1-4.44 Low Density Lipoprotein 61 mg/dL Less Than 100 142 Comp Metabolic Panel 12/15/2008 [facility] Sodium 142 mmol/L 135-145 [address] [place] [address] [phone] Potassium 4.3 mmol/L 3.5-5.0 Chloride 111 mmol/L 101-111 Co2 (Carbon Dioxide) 26.0 mmol/L 22-32 Anion Gap 5.0 mmol/L 2-11 143 Glucose 119 mg/dL High 70-100 144 BUN 17 mg/dL 6-24 Creatinine 1.10 mg/dL 0.50-1.40 One Over Creatinine 0.90 BUN/Creatinine Ratio 15.5 8-20 Calcium 9.7 mg/dL 8.1-9.9 145 Total Protein 7.4 GM/DL 6.2-8.1 Albumin 3.7 GM/DL 3.2-5.2 Globulin 3.7 GM/DL 2-4 Albumin/Globulin Ratio 1.0 1-3 Bilirubin Total 0.6 mg/dL 0.4-1.5 Alkaline Phosphatase 101 U/L 30-110 Alt (SGPT) 39 U/L 14-54 Ast (Sgot) 29 U/L 12-42 Laboratory test 12/15/2008 [facility] CPK (Creatine 75 U/L 0- [address] Kinase) [place] [address] [phone] Comp Metabolic 07/16/2008 [facility] Sodium 138 135-145 [address] mmol/[place] [address] [phone] Potassium 4.4 mmol/L 3.5-5.0 Chloride 107 mmol/L 101-111 Co2 (Carbon Dioxide) 23.0 mmol/L 22-32 Anion Gap 8.0 mmol/L 2-11 147 Glucose 115 mg/dL High 70-100 148 BUN 16 mg/dL 6-24 Creatinine 1.0 mg/dL 0.5-1.4 One Over Creatinine 1.00 BUN/Creatinine Ratio 16.0 8-20 Calcium 9.5 mg/dL 8.1-9.9 149 Total Protein 7.7 GM/DL 6.2-8.1 Albumin 4.1 GM/DL 3.2-5.2 Globulin 3.6 GM/DL 2-4 Albumin/Globulin Ratio 1.1 1-3 Bilirubin Total 1.0 mg/dL 0.4-1.5 Alkaline Phosphatase 109 U/L 30-110 Alt (SGPT) 32 U/L 14-54 Ast (Sgot) 29 U/L 12-42 Lipid Profile 07/16/2008 [facility] Triglyceride 94 mg/dL 40- 200 (Trig/Chol/HDL) [address] [place] [address] [phone] Cholesterol 130 mg/dL Less Than 200 150 High Density Lipoprotein 42 mg/dL 40-60 151 Cholesterol/HDL Ratio 3.10 AVERAGE 1-4.44 Low Density Lipoprotein 69 mg/dL Less Than 100 152 Laboratory test 07/16/2008 [facility] CPK (Creatine 84 U/L 0- [address] Kinase) [place] [address] [phone] BNP Evaluatr 13.41 pg/mL 7.5-100 Laboratory test 12/28/2007 [facility] BNP Evaluatr 14.66 pg/mL 7.5-[address] [place], [place] [id number] [phone] Lipid Profile 12/28/2007 [facility] Cholesterol/HD 3.12 AVERAGE 1-4.44 (Trig/Chol/HDL) [address] [place] [address] [phone] Cholesterol 134 mg/dL Less Than 200 153 Triglyceride 106 mg/dL 40-200 High Density Lipoprotein 43 mg/dL 40-60 Low Density Lipoprotein 70 mg/dL Less Than 100 154 Lipid Panel - [facility] 12/28/2007 [facility] CPK (Creatine 80 U/L 0-[address] Kinase) [place] [address] [phone] Comp Metabolic 12/28/2007 [facility] One Over 0.[address] [place] [address] [phone] Anion Gap 4.0 mmol/L 2-11 155 Albumin/Globulin Ratio 1.0 1-3 Albumin 3.9 GM/DL 3.2-5.2 Alkaline Phosphatase 97 U/L 30-110 Alt (SGPT) 27 U/L 14-54 Ast (Sgot) 26 U/L 12-42 BUN 23 mg/dL 6-24 Calcium 9.4 mg/dL 8.7-10.2 Chloride 107 mmol/L 101-111 Co2 (Carbon Dioxide) 24.0 mmol/L 22-32 Globulin 3.9 GM/DL 2-4 Glucose 106 mg/dL High 70-105 Potassium 4.1 mmol/L 3.5-5.0 Sodium 135 mmol/L 135-145 Bilirubin Total 0.6 mg/dL 0.4-1.5 Total Protein 7.8 GM/DL 6.2-8.1 BUN/Creatinine Ratio 20.9 High 8-20 Creatinine 1.1 mg/dL 0.5-1.4 Basic Metabolic 07/26/2007 [facility] One Over Creatinine 0.[address] [place] [address] [phone] Anion Gap 7.0 mmol/L 2-11 156 BUN 19 mg/dL 6-24 Calcium 9.4 mg/dL 8.7-10.2 Chloride 104 mmol/L 101-111 Co2 (Carbon Dioxide) 25.0 mmol/L 22-32 Glucose 111 mg/dL High 70-105 Potassium 4.1 mmol/L 3.5-5.0 Sodium 136 mmol/L 135-145 BUN/Creatinine Ratio 17.3 8-20 Creatinine 1.1 mg/dL 0.5-1.4 Laboratory test 07/26/2007 [facility] Magnesium 2.2 mg/dL 1.7 -2.[address] [place] [address] [phone] BNP Evaluatr 23.4 pg/mL 7.5-100 CBC With Manual Diff 07/26/2007 [facility] RBC Morphology NORMAL [address] [place] [address] [phone] White Blood Count 6.6 CUMM 4.8-10.8 Absolute [...] Redcell Distribution WDTH 13 % 10.5-15 1 Copy Result to: ARMANDO OSUNA ([id number]) 2 Because ethnic data is not always [...] 5 Kidney failure <15 (or dialysis) 3 FASTING 4 Because ethnic data is not always readily [...] 15-29 5 Kidney failure <15 (or dialysis) 5 FASTING 6 FASTING 7 FASTING 8 Because ethnic data is not always [...] 5 Kidney failure <15 (or dialysis) 9 FASTING 10 FASTING 11 Because ethnic data is not always readily [...] 15-29 5 Kidney failure <15 (or dialysis) 12 >100 to <200 pg/mL: likely compensated congestive heart failure (CHF) 200 to 400 pg/mL: likely moderate CHF >400 pg/mL: likely moderate to severe CHF 13 Because ethnic data is not always [...] mag infusion. Copy Result to: JEOVANY GLASER ([id number]) 15 Because ethnic data is not always [...] <15 (or dialysis) 16 Copy Result to: CHARLESISABELJEOVANY ([id number]) 17 Because ethnic data is not always [...] 5 Kidney failure <15 (or dialysis) 18 1-2 days after mag infusion 19 Because ethnic data is not always readily [...] 15-29 5 Kidney failure <15 (or dialysis) 20 Because ethnic data is not always [...] cc pmd Copy Result to: JEOVANY GLASER ([id number]) 23 >100 to <200 pg/mL: likely compensated [...] Kidney failure <15 (or dialysis) 25 in 1 month cc pmd 26 Because ethnic data is [...] 5 Kidney failure <15 (or dialysis) 28 Desirable <150 Borderline high 150-199 High 200-499 Very High >500 29 Desirable <200 Borderline high 200-239 High >239 30 Low <40 Desirable: 40-60 High: >60 31 Desirable: <100 mg/dL Near Optimal: 100-129 mg/dL Borderline High: 130-159 mg/dL High: 160-189 mg/dL Very High: >189 mg/dL 32 >100 to <200 pg/mL: likely compensated congestive heart failure (CHF) 200 to 400 pg/mL: likely moderate CHF >400 pg/mL: likely moderate to severe CHF 33 FASTING 12 HOUR in 4-6 weeks [...] >189 mg/dL 44 Verbal to JORDIN by [id number] at 1128 on 07/04/16. Results read back accurately. --- 07/04/16 1129 --- Digoxin previously reported as: 2.8 *P ng/ml 45 Desirable <150 Borderline high 150-199 High 200-499 Very High >500 46 Desirable <200 Borderline high 200-239 High >239 47 Low <40 Desirable: 40-60 High: >60 48 Desirable: <100 mg/dL Near Optimal: 100-129 mg/dL Borderline High: 130-159 mg/dL High: 160-189 mg/dL Very High: >189 mg/dL 49 Because ethnic data is not always readily [...] 15-29 5 Kidney failure <15 (or dialysis) 50 PT IS FASTING 51 >100 to <200 pg/mL: likely compensated congestive heart failure (CHF) 200 to 400 pg/mL: likely moderate CHF >400 pg/mL: likely moderate to severe CHF 52 PT IS FASTING 53 PT IS FASTING 54 Desirable <150 Borderline high 150-199 High 200-499 Very High >500 55 Desirable <200 Borderline high 200-239 High >239 56 Low <40 Desirable: 40-60 High: >60 57 Desirable: <100 mg/dL Near Optimal: 100-129 mg/dL Borderline High: 130-159 mg/dL High: 160-189 mg/dL Very High: >189 mg/dL 58 Because ethnic data is not always readily [...] 15-29 5 Kidney failure <15 (or dialysis) 59 in 2-4 weeks cc pmd thanks [...] 0.03 ng/mL Not supportive of diagnosis of [place] 0.03 - 0.50 ng/mL Indeterminate: suggest serial studies if clinically indicated. Greater than 0.5 ng/mL Consistent with diagnosis of [place] 65 Because ethnic data is not always [...] 130-159 High 160-189 Very High >189 75 Reference Range and Interpretation: TnI (ng/mL) Interpretation Less Than 0.03 ng/mL Not supportive of diagnosis of [place] 0.03 - 0.50 ng/mL Indeterminate: suggest serial studies if clinically indicated. Greater than 0.5 ng/mL Consistent with diagnosis of [place] 76 Because ethnic data is not always readily [...] 15-29 5 Kidney failure <15 (or dialysis) 77 NON FASTING 78 NON FASTING 79 [...] 130-159 High 160-189 Very High >189 85 >100 to <200 pg/mL: likely compensated congestive heart failure (CHF) 200 to 400 pg/mL: likely moderate CHF >400 pg/mL: likely moderate to severe CHF [place] [facility] 86 Because ethnic data is not always readily [...] 15-29 5 Kidney failure <15 (or dialysis) 87 Because ethnic data is not always [...] has been shown to interfere with the [place] method for measuring total bilirubin. Samples from [...] Risk: LDL Greater than 189 MG/DL 113 Anion gap measurement may be of limited value in the presence of any alkalosis, especially in a combined acid base disorder. . 114 A metabolite of Naproxen, O-desmethylnaproxen, has been shown to interfere with the [place] method for measuring total bilirubin. Samples from patients who have taken Naproxen have shown spurious elevation in total bilirubin levels. 115 Because ethnic data is not always readily [...] 15-29 5 Kidney failure <15 (or dialysis) 116 CHOLESTEROL INTERPRETATION: Desirable: Less than 200 MG/DL Borderline-High Risk: 200-239 MG/DL High-Risk: 240 MG/DL and over 117 HDL INTERPRETATION: Undesirable: High Risk: Less than 40 MG/DL Desirable: Low Risk: Greater than 60 MG/DL 118 LDL INTERPRETATION: Low Risk Optimal Level: LDL Less than 100 MG/DL Near or Above Optimal: LDL 100-129 MG/DL Borderline High Risk: LDL 130-159 MG/DL High Risk: LDL 160-189 MG/DL Very High Risk: LDL Greater than 189 MG/DL 119 Anion gap measurement may be of limited value in the presence of any alkalosis, especially in a combined acid base disorder. . 120 A metabolite of Naproxen, O-desmethylnaproxen, has been shown to interfere with the [place] method for measuring total bilirubin. Samples from patients who have taken Naproxen have shown spurious elevation in total bilirubin levels. 121 Because ethnic data is not always readily [...] 15-29 5 Kidney failure <15 (or dialysis) 122 CHOLESTEROL INTERPRETATION: Desirable: Less than 200 MG/DL Borderline-High Risk: 200-239 MG/DL High-Risk: 240 MG/DL and over 123 HDL INTERPRETATION: Undesirable: High Risk: Less than 40 MG/DL Desirable: Low Risk: Greater than 60 MG/DL 124 LDL INTERPRETATION: Low Risk Optimal Level: LDL Less than 100 MG/DL Near or Above Optimal: LDL 100-129 MG/DL Borderline High Risk: LDL 130-159 MG/DL High Risk: LDL 160-189 MG/DL Very High Risk: LDL Greater than 189 MG/DL 125 FASTING 126 Anion gap measurement may be of limited value in the presence of any alkalosis, especially in a combined acid base disorder. . 127 Note change in reference range as of 06/25/08. The change was based on recommendations from the [place] [employer]. 128 Please note change in reference range effective 08 . 129 A metabolite of Naproxen, O-desmethylnaproxen, has been shown to interfere with the [place] method for measuring total bilirubin. Samples from patients who have taken Naproxen have shown spurious elevation in total bilirubin levels. 130 Because ethnic data is not always readily [...] 15-29 5 Kidney failure <15 (or dialysis) 131 CHOLESTEROL INTERPRETATION: Desirable: Less than 200 MG/DL Borderline-High Risk: 200-239 MG/DL High-Risk: 240 MG/DL and over 132 HDL INTERPRETATION: Undesirable: High Risk: Less than 40 MG/DL Desirable: Low Risk: Greater than 60 MG/DL 133 LDL INTERPRETATION: Low Risk Optimal Level: LDL Less than 100 MG/DL Near or Above Optimal: LDL 100-129 MG/DL Borderline High Risk: LDL 130-159 MG/DL High Risk: LDL 160-189 MG/DL Very High Risk: LDL Greater than 189 MG/DL [address] WILLIS AT FAX NUMBER [phone] 135 Anion gap measurement may be of limited value in the presence of any alkalosis, especially in a combined acid base disorder. . 136 Note change in reference range as of 06/25/08. The change was based on recommendations from the [place] [employer]. 137 Please note change in reference range effective 08 . 138 PRISCILA VALUE=2.01 ( OF 10/11/07 Recommended INR for Patients on Oral Anticoagulants Prophylaxis 2.0 - 3.0 Treatment of thrombosis 2.0 - 3.0 Prevention of embolism 2.0 - 3.0 Prevention of embolism from prosthetic heart valves 2.5 - 3.5 139 PLEASE NOTE NEW REFERENCE RANGE EFFECTIVE 08. 140 CHOLESTEROL INTERPRETATION: Desirable: Less than 200 [...] Risk: LDL Greater than 189 MG/DL 143 Anion gap measurement may be of limited value in the presence of any alkalosis, especially in a combined acid base disorder. . 144 Note change in reference range as of 06/25/08. The change was based on recommendations from the [place] [employer]. 145 Please note change in reference range effective 08 . 146 FASTING 147 Anion gap measurement may be of limited value in the presence of any alkalosis, especially in a combined acid base disorder. . 148 Note change in reference range as of 06/25/08. The change was based on recommendations from the [place] [employer]. 149 Please note change in [...] Risk: LDL Greater than 189 MG/DL 153 Classification: Desirable . 154 CALCULATED LDL APPROXIMATES THE VALUE OF A DIRECT LDL MEASUREMENT. Classification: Optimal Level . 155 Anion gap measurement may be of limited value in the presence of any alkalosis, especially in a combined acid base disorder. . 156 Anion gap measurement may be of limited value in the presence of any alkalosis, especially in a combined acid base disorder. . Procedures Date Code Description Status 10/16/2018 90313 EKG Tracing & Interpretation Completed 09/26/2018 31395 Interrogation Device Eval Remote Up To 30 Days Completed Analysis,Rev,RP 09/26/2018 21956 Icd Eval Sing,Dual,Multi Lead Remote Recpt Transm Tech Rev Completed Tech S 09/26/2018 59422 Icd Check Remote Up To 90 Days Single,Dual,Multiple Lead Completed 06/16/2018 72902 Icd Check Remote Up To 90 Days Single,Dual,Multiple Lead Completed 06/16/2018 74839 Icd Check Remote Up To 90 Days Single,Dual,Multiple Lead Completed 06/16/2018 66229 Icd Eval Sing,Dual,Multi Lead Remote Recpt Transm Tech Rev Completed Tech S 06/16/2018 74697 Icd Eval Sing,Dual,Multi Lead Remote Recpt Transm Tech Rev Completed Tech S 06/16/2018 51243 Interrogation Device Eval Remote Up To 30 Days Completed Analysis,Rev,RP 06/16/2018 29908 Interrogation Device Eval Remote Up To 30 Days Completed Analysis,Rev,RP 04/26/2018 88544 EKG Tracing & Interpretation Completed 03/04/2018 54227 ECHO Transthoracic, Real-Time 2D With Doppler And Color Completed Flow 03/04/2018 27922 ECHO Transthoracic, Real-Time 2D With Doppler And Color Completed Flow 03/04/2018 77726 ECHO Transthoracic, Real-Time 2D With Doppler And Color Completed Flow 02/24/2018 91257 Holter Monitor Review (24 hr)dr review & interp only Completed 02/20/2018 84010 ECG Monitor/Recording W/Visual Superimposition Scanning Completed 02/15/2018 21791 Icd Eval With Inerative Adjustmt Dual Lead System Completed 02/15/2018 96805 Icd Eval With Inerative Adjustmt Dual Lead System Completed 02/15/2018 90975 Interrogation Implant Cardiovasc Monitor System Incl Completed Analysis Int 02/15/2018 47085 Interrogation Implant Cardiovasc Monitor System Incl Completed Analysis Int 01/23/2018 58067 EKG Tracing & Interpretation Completed 10/26/2017 03266 ECHO Transthoracic, Real-Time 2D With Doppler And Color Completed Flow 10/09/2017 47366 Interrogation Device Eval Remote Up To 30 Days Completed Analysis,Rev,RP 10/09/2017 21786 Icd Eval Sing,Dual,Multi Lead Remote Recpt Transm Tech Rev Completed Tech S 10/09/2017 22737 Icd Check Remote Up To 90 Days Single,Dual,Multiple Lead Completed 10/05/2017 72772 Icd Eval Sing,Dual,Multi Lead Remote Recpt Transm Tech Rev Completed Tech S 10/05/2017 57937 Icd Check Remote Up To 90 Days Single,Dual,Multiple Lead Completed 09/17/2017 64966 EKG Tracing & Interpretation Completed 09/04/2017 41219 EKG Tracing & Interpretation Completed 07/31/2017 63245 EKG Tracing & Interpretation Completed 07/18/2017 50058 EKG Tracing & Interpretation Completed 07/18/2017 83481 EKG Tracing & Interpretation Completed 06/26/2017 51192 Icd Eval With Inerative Adjustmt Dual Lead System Completed 06/26/2017 68351 Interrogation Implant Cardiovasc Monitor System Incl Completed Analysis Int 05/31/2017 04807 EKG Tracing & Interpretation Completed 05/19/2017 56146 Holter Monitor Review (24 hr)dr review & interp only Completed 05/16/2017 06931 ECG Monitor/Recording W/Visual Superimposition Scanning Completed 05/09/2017 70016 ECHO Transthorasic Realtime 2D W Doppler & Color Flow Hosp Completed 05/09/2017 66588 EKG, Interpretation Only Completed 04/05/2017 75670 Pulmonary Function><Bronchodil Completed 04/05/2017 94992 Pulmonary Stress Test Simple Completed 04/05/2017 73848 Plethysmography Determination Lung Volumes & Per Airway Completed Resist 04/05/2017 70781 Diffusing Capacity Completed 03/19/2017 36699 ECHO Transthoracic, Real-Time 2D With Doppler And Color Completed Flow 02/13/2017 77122 Interrogation Implant Cardiovasc Monitor System Incl Completed Analysis Int 02/13/2017 50800 Icd Eval With Inerative Adjustmt Dual Lead System Completed 01/15/2017 25362 EKG Tracing & Interpretation Completed 10/05/2016 73572 Interrogation Implant Cardiovasc Monitor System Incl Completed Analysis Int 10/05/2016 53089 Icd Eval With Inerative Adjustmt Dual Lead System Completed 06/22/2016 05205 EKG Tracing & Interpretation Completed 06/19/2016 43413 Icd Eval With Inerative Adjustmt Dual Lead System Completed 06/19/2016 14733 Interrogation Implant Cardiovasc Monitor System Incl Completed Analysis Int 02/10/2016 12084 ECHO Transthoracic, Real-Time 2D With Doppler And Color Completed Flow 01/26/2016 27062 Interrogation Implant Cardiovasc Monitor System Incl Completed Analysis Int 01/26/2016 12975 Interrogation Device Eval In Person W/DR Completed Analysis,Single,Dual,Mul 01/26/2016 43138 EKG Tracing & Interpretation Completed 10/26/2015 91225 Interrogation Implant Cardiovasc Monitor System Incl Completed Analysis Int 10/26/2015 32218 Icd Eval With Inerative Adjustmt Dual Lead System Completed 08/13/2015 74457 ECHO Transthoracic, Real-Time 2D With Doppler And Color Completed Flow 08/02/2015 83330 Icd Eval With Inerative Adjustmt Dual Lead System Completed 08/02/2015 04424 EKG Tracing & Interpretation Completed 04/01/2015 62292 EKG Tracing & Interpretation Completed 03/31/2015 00923 Icd Check Single,Dual Or Multiple In Person W/DR Incl Completed Heart Rhyth 03/15/2015 87032 ECHO Transthoracic, Real-Time 2D With Doppler And Color Completed Flow 02/12/2015 19807 Icd Check Single,Dual Or Multiple In Person W/DR Incl Completed Heart Rhyth 02/09/2015 51589 EKG Tracing & Interpretation Completed 01/14/2015 28345 Pericardiocentesis Completed 01/14/2015 87648 Echocardiogram, Limited Study Completed 01/13/2015 95252 EKG, Interpretation Only Completed 01/12/2015 57939 Icd Check Single,Dual Or Multiple In Person W/DR Incl Completed Heart Rhyth 01/11/2015 19708 Ep Eval Icd AT Implant Completed 01/11/2015 28427 Insert/Replace Icd W/Generator Completed 12/16/2014 25591 EKG Tracing & Interpretation Completed 10/21/2014 88312 ECHO Transthorasic Realtime 2D W Doppler & Color Flow Hosp Completed 09/08/2014 55359 EKG Tracing & Interpretation Completed 02/03/2014 81463 EKG Tracing & Interpretation Completed 01/28/2014 38233 Intravascular Blood Flow Velocity Completed 01/28/2014 60382 Left Heart Cath. Incl S/I Coronaries, Angio S/I V Gram If Completed Done 01/28/2014 27538 Left Heart Cath. Incl S/I Coronaries, Angio S/I V Gram If Completed Done 01/28/2014 92494 Percutaneous Transcatheter Placement Of Intracoronary Completed Stent 01/22/2014 09930 EKG Tracing & Interpretation Completed 01/20/2014 69259 ECHO Transthoracic, Real-Time 2D With Doppler And Color Completed Flow 01/19/2014 24385 ECHO Transthoracic, Real-Time 2D With Doppler And Color Completed Flow 01/06/2014 45738 EKG Tracing & Interpretation Completed 04/03/2013 27122 ECHO Transthoracic, Real-Time 2D With Doppler And Color Completed Flow 03/05/2013 98242 EKG Tracing & Interpretation Completed 05/09/2012 59011 Stress ECHO Interpretation/Report Hospital Completed 05/09/2012 63083 Treadmill Interp/Report Only Completed 05/09/2012 45128 Stress Test Supervsn W/Out I/R Completed 04/24/2012 28108 ECHO Transthoracic, Real-Time 2D With Doppler And Color Completed Flow 04/24/2012 47743 EKG Tracing & Interpretation Completed 06/21/2011 58565 EKG Tracing & Interpretation Completed 04/20/2011 40481 ECHO Transthoracic, Real-Time 2D With Doppler And Color Completed Flow 02/13/2011 35746 EKG Tracing & Interpretation Completed 12/01/2010 27261 EKG Tracing & Interpretation Completed 04/14/2010 47230 ECHO Transthoracic, Real-Time 2D With Doppler And Color Completed Flow 03/30/2010 05535 EKG Tracing & Interpretation Completed 10/14/2009 88607 ECHO Transthoracic, Real-Time 2D With Doppler And Color Completed Flow 02/23/2009 19850 Treadmill Interp/Report Only Completed 02/23/2009 70490 Stress Test Supervsn W/Out I/R Completed 01/20/2009 15831 EKG Tracing & Interpretation Completed 08/20/2008 12351 Color Doppler Completed 08/20/2008 09119 Color Doppler Completed 08/20/2008 63400 Pulse Doppler & Continuous Wave Completed 08/20/2008 12899 Pulse Doppler & Continuous Wave Completed 08/20/2008 28484 Pulse Doppler & Continuous Wave Completed 08/20/2008 80474 Echocardiogram Completed 08/20/2008 20385 Echocardiogram Completed 07/08/2008 42733 EKG Tracing & Interpretation Completed 03/17/2008 34435 Stress Test Supervsn W/Out I/R Completed 03/17/2008 91910 Stress Test Supervsn W/Out I/R Completed 03/17/2008 33597 Treadmill Interp/Report Only Completed 03/10/2008 82768 Treadmill Interp/Report Only Completed 03/10/2008 26001 Stress Test Supervsn W/Out I/R Completed 03/10/2008 33096 Stress Test Supervsn W/Out I/R Completed 10/30/2007 96757 EKG Tracing & Interpretation Completed 10/30/2007 00854 Echocardiogram Completed 10/30/2007 74453 Echocardiogram Completed 10/30/2007 67237 Echocardiogram Completed 10/30/2007 81694 Pulse Doppler & Continuous Wave Completed 10/30/2007 00343 Pulse Doppler & Continuous Wave Completed 10/30/2007 51257 Color Doppler Completed 10/30/2007 90401 Color Doppler Completed 10/30/2007 11398 Color Doppler Completed 06/20/2007 98882 Holter Monitor Interpretation Completed 06/05/2007 67948 Color Doppler Completed 06/05/2007 08884 Color Doppler Completed 06/05/2007 58643 Pulse Doppler & Continuous Wave Completed 06/05/2007 59173 Pulse Doppler & Continuous Wave Completed 06/05/2007 82017 Pulse Doppler & Continuous Wave Completed 06/05/2007 62117 Echocardiogram Completed 06/05/2007 43411 Echocardiogram Completed 06/05/2007 34949 EKG Tracing & Interpretation Completed Encounters Type Date Location Provider Dx Diagnosis Office Visit 06/17/2018 [facility] Viola Thakur M79.81 Nontraumatic 10:29a derian Gibbs M.D. hematoma of soft Hospitalists tissue W11.xxxA Fall on and from ladder, initial encounter Office Visit 06/16/2018 10:29a [facility] Viola Thakur M79.605 Pain in derian Gibbs M.D. left leg Hospitalists M79.81 Nontraumatic hematoma of soft tissue R26.89 Other abnormalities of gait and mobility W11.xxxA Fall on and from ladder, initial encounter Office Visit 06/12/2018 8:15a [facility] J44.9 [facility] [place]qu[place] obstructive [employer] pulmonary disease, unspecified G47.33 Obstructive sleep apnea (adult) (pediatric) E66.09 Other obesity due to excess calories Office Visit 04/26/2018 [facility] Vera I42.9 Cardiomyopathy, 2:00p Cardiology Gerry, N.P. unspecified I49.3 Ventricular premature depolarization Z95.810 Presence of automatic (implantable) cardiac defibrillator G47.33 Obstructive sleep apnea (adult) (pediatric) E78.00 Pure hypercholesterolemia, unspecified Office Visit 01/23/2018 2:30p [facility] Tyrone Koenig J44.9 Isabel Hollis M.D. obstructive pulmonary disease, unspecified R06.00 Dyspnea, unspecified I42.9 Cardiomyopathy, unspecified Z95.810 Presence of automatic (implantable) cardiac defibrillator E78.00 Pure hypercholesterolemia, unspecified I49.3 Ventricular premature depolarization I10 Essential (primary) hypertension Office Visit 11/09/2017 11:15a [facility] J44.9 [facility] [place] obstructive [employer] pulmonary disease, unspecified G47.33 Obstructive sleep apnea (adult) (pediatric) R09.02 Hypoxemia Office Visit 09/25/2017 8:45a [facility] J44.9 [facility] [place] obstructive [employer] pulmonary disease, unspecified G47.33 Obstructive sleep apnea (adult) (pediatric) R09.02 Hypoxemia Office Visit 09/17/2017 2:30p [facility] Ameena Talley I49.3 Ventricular PA premature depolarization Z95.810 Presence of automatic (implantable) cardiac defibrillator I25.5 Ischemic cardiomyopathy J44.9 Chronic obstructive pulmonary disease, unspecified R06.00 Dyspnea, unspecified Office Visit 09/04/2017 9:20a [facility] Tyrone Koenig I48.0 Paroxysmal atrial Dash Hollis fibrillation I49.3 Ventricular premature depolarization R94.31 Abnormal electrocardiogram [ECG] [EKG] Z95.810 Presence of automatic (implantable) cardiac defibrillator I25.5 Ischemic cardiomyopathy I42.9 Cardiomyopathy, unspecified Office Visit 07/18/2017 9:00a [facility] Flaco Carr5.5 Ischemic PA cardiomyopathy I48.0 Paroxysmal atrial fibrillation Z95.810 Presence of automatic (implantable) cardiac defibrillator I49.3 Ventricular premature depolarization R53.83 Other fatigue Office Visit 05/31/2017 [facility] Tyrone Koenig I49.3 Ventricular 11:00a Franklin Hollis M.D. premature depolarization I42.9 Cardiomyopathy, unspecified R06.00 Dyspnea, unspecified I25.10 Athscl heart disease of [place] coronary artery w/o ang pctrs I34.0 Nonrheumatic mitral (valve) insufficiency I10 Essential (primary) hypertension I48.0 Paroxysmal atrial fibrillation Office Visit 04/24/2017 10:45a [facility] J44.9 [facility] [place] obstructive [employer] pulmonary disease, unspecified G47.33 Obstructive sleep apnea (adult) (pediatric) R09.02 Hypoxemia Office Visit 2017 1:30p [facility], I42.9 Cardiomyopathy, Cardiology PA unspecified R06.00 Dyspnea, unspecified I25.10 Athscl heart disease of [place] coronary artery w/o ang pctrs M79.1 Myalgia Office Visit 02/21/2017 8:00a [facility] R06.00 Dyspnea, [facility] [place] unspecified [employer] J44.9 Chronic obstructive pulmonary disease, unspecified G47.33 Obstructive sleep apnea (adult) (pediatric) I50.22 Chronic systolic (congestive) heart failure I25.10 Athscl heart disease of [place] coronary artery w/o ang pctrs I25.5 Ischemic cardiomyopathy I48.0 Paroxysmal atrial fibrillation Office Visit 01/15/2017 9:20a [facility] Tyrone Koenig I48.0 Paroxysmal atrial Dash Hollis fibrillation I25.5 Ischemic cardiomyopathy I50.22 Chronic systolic (congestive) heart failure I25.10 Athscl heart disease of [place] coronary artery w/o ang pctrs R06.00 Dyspnea, unspecified R42 Dizziness and giddiness Office Visit 06/22/2016 9:20a [facility] Tyrone Koenig R06.02 Shortness of Zenon HollisD. breath I25.5 Ischemic cardiomyopathy I48.0 Paroxysmal atrial fibrillation I47.2 Ventricular tachycardia Office Visit 02/24/2016 10:00a [facility] Ameena Talley I25.5 Ischemic PA cardiomyopathy R06.02 Shortness of breath I47.2 Ventricular tachycardia Z95.810 Presence of automatic (implantable) cardiac defibrillator R11.0 Nausea I48.0 Paroxysmal atrial fibrillation Office Visit 01/26/2016 10:00a [facility] Tyrone Koenig N20.0 Calculus of Dash Hollis kidney I50.22 Chronic systolic (congestive) heart failure I25.5 Ischemic cardiomyopathy I47.2 Ventricular tachycardia R06.02 Shortness of breath Office Visit 11/30/2015 2:47p [facility] N39.0 Urinary tract Assoc,derian Gomez M.D. infection, site Hospitalists not specified A41.9 Sepsis, unspecified organism N20.0 Calculus of kidney I50.22 Chronic systolic (congestive) heart failure Office Visit 11/29/2015 2:47p [facility] N39.0 Urinary tract Assoc,derian Gomez M.D. infection, site Hospitalists not specified A41.9 Sepsis, unspecified organism N20.0 Calculus of kidney I50.22 Chronic systolic (congestive) heart failure Office Visit 11/28/2015 2:46p [facility], N20.0 Calculus of Assoc,pc Dash kidney Hospitalists A41.9 Sepsis, unspecified organism N39.0 Urinary tract infection, site not specified I50.22 Chronic systolic (congestive) heart failure Office Visit 11/27/2015 2:45p [facility], N20.0 Calculus of Assoc,pc M.Keyur kidney Hospitalists A41.9 Sepsis, unspecified organism N39.0 Urinary tract infection, site not specified I50.22 Chronic systolic (congestive) heart failure Office Visit 11/26/2015 2:45p [facility], N39.0 Urinary tract Assoc,pc Dash infection, site Hospitalists not specified A41.9 Sepsis, unspecified organism N20.0 Calculus of kidney I50.22 Chronic systolic (congestive) heart failure Office Visit 09/02/2015 9:30a [facility] Ameena Talley, I25.5 Ischemic PA cardiomyopathy Z95.810 Presence of automatic (implantable) cardiac defibrillator R06.02 Shortness of breath E78.5 Hyperlipidemia, unspecified K22.4 Dyskinesia of esophagus I48.0 Paroxysmal atrial fibrillation R07.9 Chest pain, unspecified Office Visit 08/02/2015 10:40a [facility] Tyrone Koenig I48.0 Paroxysmal atrial Mauser, M.D. fibrillation Z95.810 Presence of automatic (implantable) cardiac defibrillator I25.10 Athscl heart disease of [place] coronary artery w/o ang pctrs I47.2 Ventricular tachycardia I42.9 Cardiomyopathy, unspecified R53.1 Weakness R07.9 Chest pain, unspecified Office Visit 05/04/2015 9:30a [facility] Ameena Talley, 427.31 Atrial PA Fibrillation 425.4 Cardiomyopathy Other Prim V45.02 Cardiac Defibrillator Automatic Implantable Postsurgical 414.01 Coronary Atherosclerosis [place] 424.1 Aortic Valve Disorder 782.3 Edema Office Visit 04/01/2015 [facility] Tyrone Koenig 425.9 Cardiomyopathy 9:00a Cardiology Dash Hollis Secondary Unspecified 427.31 Atrial Fibrillation 425.4 Cardiomyopathy Other Prim 427.1 Paroxysmal Ventricular Tachycardia Office Visit 02/09/2015 1:00p [facility] Sky Baer 427.31 Atrial Of [facility] Dash Bravo Fibrillation V45.02 Cardiac Defibrillator Automatic Implantable Postsurgical 414.8 Ischemic Heart Disease Chronic Other Spec Forms Office Visit 01/14/2015 9:41a [facility] Tomasa Vera 423.9 Pericardium Cardiology Dash Burt Unspec Diseases 414.8 Ischemic Heart Disease Chronic Other Spec Forms 787.01 Nausea W/ Vomiting 789.09 Pain Abdominal Other Spec Site Office Visit 01/01/2015 11:00a [place] Franklin Baer 414.8 Ischemic Heart Of Kenisha Bravo M.D. Disease Chronic Other Spec Forms 414.01 Coronary Atherosclerosis [place] 786.05 Shortness Of Breath Office Visit 12/18/2014 3:45p [facility] Sky Baer 414.8 Ischemic Heart Of Kenisha Bravo M.D. Disease Chronic Other Spec Forms 425.9 Cardiomyopathy Secondary Unspecified 414.01 Coronary Atherosclerosis [place] Office Visit 12/16/2014 10:20a [facility] Tyrone Koenig 414.8 Ischemic Heart Dash Hollis Disease Chronic Other Spec Forms 424.1 Aortic Valve Disorder 425.9 Cardiomyopathy Secondary Unspecified Office Visit 11/12/2014 2:30p [facility] Ameena Talley 425.9 Cardiomyopathy PA Secondary Unspecified 414.8 Ischemic Heart Disease Chronic Other Spec Forms 424.1 Aortic Valve Disorder 786.05 Shortness Of Breath 785.1 Palpitations Office Visit 09/08/2014 [facility] Tyrone Koenig 414.01 Coronary 11:00a Franklin Hollis M.D. Atherosclerosis [place] V45.82 Percutaneous Transluminal Coronary [place] Postsurg Status 794.31 Electrocardiogram (ECG) (EKG) Abnormal 401.1 Hypertension Benign 425.9 Cardiomyopathy Secondary Unspecified Office Visit 02/03/2014 Tiara Randolph S. 414.01 Coronary 4:00p Franklin Burt M.D. Atherosclerosis [place] V45.82 Percutaneous Transluminal Coronary Angioplas Postsurg Status 794.31 Electrocardiogram (ECG) (EKG) Abnormal 401.1 Hypertension Benign Office Visit 01/29/2014 1:11p [facility] Tomasa S. 424.1 Aortic Valve Dash Burt Disorder 414.8 Ischemic Heart Disease Chronic Other Spec Forms 401.1 Hypertension Benign 272.4 Hyperlipidemia Other Unspec Office Visit 01/28/2014 Tiara Randolph S. 414.01 Coronary 1:36p Franklin Burt M.D. Atherosclerosis [place] 414.8 Ischemic Heart Disease Chronic Other Spec Forms 794.31 Electrocardiogram (ECG) (EKG) Abnormal 401.1 Hypertension Benign Office Visit 01/22/2014 Tiara Randolph S. 425.4 Cardiomyopathy 1:40p Franklin Burt M.D. Other Prim 414.01 Coronary Atherosclerosis [place] 424.0 Mitral Valve Disorder 786.50 Pain Chest Unspec 492.8 Emphysema Other 786.05 Shortness Of Breath Office Visit 01/06/2014 10:00a [facility] Franklin Koenig 424.0 Mitral Valve Dash Hollis Disorder 425.4 Cardiomyopathy Other Prim 414.01 Coronary Atherosclerosis [place] 786.50 Pain Chest Unspec 576.9 Biliary Tract Disorder Unspec Office Visit 03/05/2013 Tiara Koenig 414.01 Coronary 9:20a Franklin Hollis M.D. Atherosclerosis [place] 424.0 Mitral Valve Disorder 425.4 Cardiomyopathy Other Prim Office Visit 04/24/2012 10:00a [facility] Tyrone Koenig 424.0 Mitral Valve Dash Hollis Disorder 401.1 Hypertension Benign 425.4 Cardiomyopathy Other Prim 799.02 Hypoxemia Office Visit 02/13/2011 Tiara Koenig 414.01 Coronary 11:00a Franklin Hollis M.D. Atherosclerosis [place] 425.4 Cardiomyopathy Other Prim 401.1 Hypertension Benign 424.0 Mitral Valve Disorder Office Visit 03/30/2010 Tiara Koenig 414.01 Coronary 9:00a Cardiology Dash Hollis Atherosclerosis [place] 425.4 Cardiomyopathy Other Prim 401.1 Hypertension Benign 424.0 Mitral Valve Disorder Office Visit 01/20/2009 Tiara Koenig 414.01 Coronary 10:00a Cardiology Dash Hollis Atherosclerosis [place] 272.0 Hypercholesterolemia Pure 786.09 Dyspnea & Respiratory Abnormalities Other Office Visit 07/08/2008 Tiara Koenig 414.01 Coronary 9:20a Cardiology Dash Hollis Atherosclerosis [place] 272.0 Hypercholesterolemia Pure 401.0 Hypertension Malignant Office Visit 02/07/2008 Tiara Koenig 425.4 Cardiomyopathy Other 8:40a Cardiology Dash Hollis Prim 272.0 Hypercholesterolemia Pure 414.01 Coronary Atherosclerosis [place] Office Visit 11/29/2007 Tiara Koenig 425.4 Cardiomyopathy Other 8:40a Cardiology Dash Hollis Prim 272.0 Hypercholesterolemia Pure 414.01 Coronary Atherosclerosis [place] Office Visit 10/30/2007 Tiara Koenig 425.4 Cardiomyopathy Other 10:40a Cardiology Dash Hollis Prim 272.0 Hypercholesterolemia Pure 414.01 Coronary Atherosclerosis [place] 401.1 Hypertension Benign Office 09/23/2007 Tiara Koenig 272.0 Hypercholesterolemia Pure Visit 11:00a Franklin Hollis M.D. 425.4 Cardiomyopathy Other Prim 414.01 Coronary Atherosclerosis [place] 401.1 Hypertension Benign Office Visit 08/20/2007 Tiara Koenig 425.4 Cardiomyopathy Other 11:00a Franklin Hollis M.D. Prim 272.0 Hypercholesterolemia Pure 401.1 Hypertension Benign 414.01 Coronary Atherosclerosis [place] Office Visit 07/25/2007 Tiara Koenig 425.4 Cardiomyopathy Other 10:00a Cardiology Dash Hollis Prim 272.0 Hypercholesterolemia Pure 785.1 Palpitations 401.1 Hypertension Benign 786.09 Dyspnea & Respiratory Abnormalities Other Office Visit 07/02/2007 Tiara Koenig 425.4 Cardiomyopathy Other 1:20p Franklin Hollis M.D. Prim 272.0 Hypercholesterolemia Pure 785.1 Palpitations Office Visit 06/14/2007 Tiara Koenig 425.4 Cardiomyopathy Other 10:40a Cardiology Dash Hollis Prim 272.0 Hypercholesterolemia Pure 401.1 Hypertension Benign 785.1 Palpitations Office Visit 06/05/2007 [facility] Tyrone Koenig 425.4 Cardiomyopathy Other 11:30a Cardiology Dash Hollis Prim 272.0 Hypercholesterolemia Pure 401.0 Hypertension Malignant 428.22 Systolic Heart Failure Chronic Plan of Treatment Future Appointment(s):11/15/2018 11:00 am - [place] [facility] Schedule at [facility]12/16/2018 9:15 am - Brittany Roper MD at [facility]10/16/2018 - Tyrone Hollis M.D.I42.9 Cardiomyopathy, unspecifiedNew Orders:Echocardiogram, Scheduled: 11/15/18Follow up:MICAELA KOO [id number] Presence of automatic (implantable) cardiac yuwtrbjubrqmvR75.0 Atrioventricular block, first ywwmhzK02.0 KljoyzS82.00 Dyspnea, acisppztbplC74.42 HypomagnesemiaRecommendations:consider magnesium taurate about 150 mg daily
[2018-11-07 06:38] LABS: INR 0.96 (0.77-1.02)
[2018-11-07 06:40] LABS: BUN/Creatinine Ratio 14.4 (8-20); C Reactive Protein 8.82 mg/L (<8.01); Calcium 9.5 mg/dL (8.6-10.3); Globulin 3.9 g/dL (2-4); Magnesium 1.5 mg/dL (1.9-2.7); Potassium 4.6 mmol/L (3.5-5.0); Total Bilirubin 0.3 mg/dL (0.2-1.0); Total Protein 7.9 g/dL (6.4-8.9)
[2018-11-07 07:17] VITALS: BP 155/92
== END | disposition home or self-care (01) ==
LOC: ED 05:27
DX: J44.1 Chronic obstructive pulmonary disease with (acute) exacerbation (principal); R06.02 Shortness of breath; Z88.6 Allergy status to analgesic agent; Z79.01 Long term (current) use of anticoagulants; R05 Cough; J02.9 Acute pharyngitis, unspecified
CPT/HCPCS: 36415; 71046; 80053; 83605; 83735; 83880; 84484; 85025; 85379; 85610; 86140; 87040; 93005; 96374; 96375; 99283; A9270-GY; J2930; J3475

== ENCOUNTER → 2018-11-08 09:50 | Emergency (ER) | payer MEDICARE ==
[~2018-11-08 09:50] MED LIST changes: -Al Hydrox/Mg Hydrox/Simet LIQ* 30 ML UDC PO ONE; -Amoxicillin/Clavulanate TAB* 875 MG PO ONE; +Famotidine IV* 10 MG/ML 2 ML (20 mg) IV SLOW PU ONE; -Lidocaine 2% VISCOUS* 15 ML UDC PO ONE; -Magnesium Sulfate 2 GM IV* 2 GM/50 ML BAG IVPB ONE; -methylPREDNISolone 125 MG* 2 ML VIAL IV ONE
--- NOTE | 2018-11-08 10:51 | ED ---
Shortness of Breath - HPI Summary HPI Summary: Patient is a 73-year-old female with a history of COPD requiring 2L oxygen at night only presenting to the ED for the second time in 2 days with worsening shortness of breath, midsternal chest pain which is nonradiating, rated at 9/ 10. Patient states she normally is at 93% without O2. She's been taking Tessalon without relief. History of atrial fibrillation with an ICD in place. Endorses productive cough over the course of the past week. She is currently on 3 L O2 at home with a sat at 94%. She states yesterday while in the ED, she improved after a breathing treatment and a steroid. She was treated with Augmentin and sent home with a course of Augmentin and steroids. - History of Current Complaint Chief Complaint: EDShortnessOfBreath Time Seen by Provider: 11/08/18 09:58 Hx Obtained From: Patient Onset/Duration: Gradual Onset Timing: Constant Current Severity: Moderate Dyspnea At: Rest Aggrevating Factors: Deep Breaths, Recumbent Position Alleviating Factors: Upright Position Associated Signs & Symptoms: Cough (Nonproductive), Chest Pain w/Cough - Risk Factors Pulmonary Embolism: Negative Cardiac: Negative Pseudomonas: Chronic Lung Disease Tuberculosis: Negative - Allergy/Home Medications Allergies/Adverse Reactions: Allergies Allergy/AdvReac Type Severity Reaction Status Date / Time roflumilast Allergy Unknown Unknown Verified 11/08/18 09:56 Reaction Details aspirin AdvReac Intermediate Abdominal Verified 11/08/18 09:56 Pain codeine AdvReac Intermediate GI Upset Verified 11/08/18 09:56 lisinopril AdvReac Intermediate Coughing Verified 11/08/18 09:56 spironolactone AdvReac Intermediate Dizziness Verified 11/08/18 09:56 PMH/Surg Hx/FS Hx/Imm Hx Previously Healthy: Yes Endocrine/Hematology History: Reports: Hx Anticoagulant Therapy - xarelto, Hx Diabetes - TYPE 2, Hx Thyroid Disease Cardiovascular History: Reports: Hx Angina, 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, Hx Congestive Heart Failure - SYSTOLIC HEART FAILURE, Hx Coronary Artery Disease, Hx Hypercholesterolemia, Hx Hypertension - WELL CONTROLLED, Hx Myocardial Infarction, Hx Pacemaker/ICD, Hx Valvular Heart Disease - PAROXYSMAL A-FIB, Other Cardiovascular Problems/Disorders - HX ISCHEMIC CARDIOMYOPATHY, PERICARDIAL EFFUSION 3/15 Respiratory History: Reports: Hx Asthma, Hx Chronic Obstructive Pulmonary Disease (COPD), Hx Pulmonary Embolism, Hx Sleep Apnea Denies: Hx Cystic Fibrosis GI History: Reports: Hx Gastroesophageal Reflux Disease - CONTROL WITH MEDS, Other GI Disorders - OCCASIONAL ESOPHAGEAL SPASMS Denies: Hx Diverticulosis History: Reports: Hx Kidney Stones - LEFT, Other Problems/Disorders - HX OF SEPSIS, UTI 11/27/15, LEFT URETERAL CALCULUS Musculoskeletal History: Reports: Other Musculoskeletal History - HX SCIATICA LEFT LEG Sensory History: Reports: Hx Cataracts - ASHLEE, Hx Contacts or Glasses Denies: Hx Eye Injury, Hx Eye Prosthesis, Hx Deafness, Hx Hearing Aid, Hx Hearing Problem Opthamlomology History: Reports: Hx Cataracts - ASHLEE, Hx Contacts or Glasses Denies: Hx Eye Injury, Hx Eye Prosthesis Neurological History: Reports: Other Neuro Impairments/Disorders - RESTLESS LEG SYNDROME - Surgical History Surgery Procedure, Year, and Place: 28 YRS OF AGE- [place] [facility] [place] [facility]. 1967 APPENDECTOMY- [facility]. 01/11/[place] [facility] [place] [facility] [place] Anesthesia Reactions: No - Immunization History Date of Tetanus Vaccine: unknown Date of Influenza Vaccine: 09/2017 Hx Pertussis Vaccination: No Immunizations Up to Date: Yes Infectious Disease History: No Infectious Disease History: Denies: Traveled Outside the [place] in Last 30 Days - Family History Known Family History: Positive: Cardiac Disease - father at 49, Other - Cataract (brother) - Social History Occupation: Unemployed Lives: Alone Alcohol Use: None Hx Substance Use: No Substance Use Type: Reports: None Hx Tobacco Use: Yes - not currently Smoking Status (MU): Former Smoker Type: Cigarettes Amount Used/How Often: PACK A DAY Length of Time of Smoking/Using Tobacco: 20 Have You Smoked in the Last Year: No Review of Systems Positive: Skin Diaphoresis. Negative: Fever, Chills, Fatigue Negative: Blurred Vision, Diplopia Negative: Dental Pain, Sore Throat Positive: Chest Pain Positive: Shortness Of Breath, Cough Negative: Abdominal Pain Positive: no symptoms reported, see HPI Negative: Arthralgia Negative: Headache, Weakness, Paresthesia All Other Systems Reviewed And Are Negative: Yes Physical Exam Triage Information Reviewed: Yes Vital Signs On Initial Exam: Initial Vitals Temp Pulse Resp BP Pulse Ox 97.4 F 98 22 143/94 96 11/08/18 09:51 11/08/18 09:51 11/08/18 09:51 11/08/18 09:51 11/08/18 09:51 Vital Signs Reviewed: Yes Appearance: Positive: Ill-Appearing Skin: Positive: Diaphoretic, Erythema @ - flushed throughout face Head/Face: Positive: Normal Head/Face Inspection Eyes: Positive: EOMI, NARINDER, Conjunctiva Clear Neck: Positive: Supple, No Lymphadenopathy Respiratory/Lung Sounds: Positive: Clear to Auscultation, Breath Sounds Present Cardiovascular: Positive: RRR, Pulses are Symmetrical in both Upper and Lower Extremities Musculoskeletal: Positive: Strength/ROM Intact Neurological: Positive: Sensory/Motor Intact, Alert, Oriented to Person Place, Time, Speech Normal Psychiatric: Positive: Normal, Affect/Mood Appropriate AVPU Assessment: Alert Diagnostics - Vital Signs Vital Signs Temp Pulse Resp BP Pulse Ox 11/08/18 10:22 88 18 95 11/08/18 09:51 97.4 F 98 22 143/94 96 - Laboratory Result Diagrams: 11/08/18 09:54 11/08/18 09:54 Lab Statement: Any lab studies that have been ordered have been reviewed, and results considered in the medical decision making process. Course/Dx - Course Course Of Treatment: During the course of treatment, the patient is evaluated for worsening COPD exacerbation despite 1 day Augmentin and steroids. She states she is uncomfortable at home due to her increased oxygen demand of 3 L O2. She is also endorsing midsternal chest pain which is 9/10, only present with cough and is "burning." Yesterday d-dimer, troponin and BNP on labs all normal. On arrival, she is scored for MEWS d/t respiratory rate. 2 L in the ED , currently at 96%. - Diagnoses Differential Diagnosis/HQI/PQRI: Positive: Bronchitis, Other - COPD exacerbation Provider Diagnoses: COPD exacerbation Discharge - Sign-Out/Discharge Documenting (check all that apply): Patient Departure - Discharge Plan Condition: Stable Disposition: HOME Prescriptions: Ipratropium 0.5MG/2.5ML NEB* [Atrovent 0.5 MG NEB.JANA*] 0.5 mg INH Q4H PRN #20 [email or web address] PRN Reason: Sob/Wheezing Patient Education Materials: COPD (Chronic Obstructive Pulmonary Disease) (ED) Referrals: Ok Sales MD [Primary Care Provider] - Additional Instructions: You have been prescribed Ipratroprium (this is an inhaled steroid) for your breathing machine You may use this in conjunction with albuterol Continue with your steroid continue with augmentin If your symptoms become worse or you have an increase in your oxygen demand - return to the ED - Billing Disposition and Condition Condition: STABLE Disposition: Home
[2018-11-08 10:55] LABS: ABS Basophils 0 10^3/ul (0-0.2); ABS Eosinophils 0 10^3/ul (0-0.6); ABS Monocytes 1.3 10^3/ul (0-0.8); ABS Neutrophils 7.8 10^3/ul (1.5-7.7); ABS Nucleated RBC 0 10^3/ul; Eosinophil % 0 %; Hematocrit 40 % (35-47); Hemoglobin 13.2 g/dl (12.0-16.0); Lymphocyte % 17.9 %; Mean Corpuscular HGB Conc 33 g/dl (31-36); Mean Corpuscular Hemoglobin 31 pg (27-31); Mean Corpuscular Volume 93 fL (80-97); Nucleated Red Blood Cells % 0; Platelet Count 278 10^3/ul (150-450); Red Blood Count 4.31 10^6/ul (4.00-5.40); Red Cell Distribution Width 14 % (10.5-15); White Blood Count 11.1 10^3/ul (3.5-10.8)
[2018-11-08 11:17] LABS: Albumin/Globulin Ratio 0.9 (1-3); C Reactive Protein 9.4 mg/L (<8.01); Calcium 9.6 mg/dL (8.6-10.3); EGFR Non-African American 51.7 (>60); Globulin 4.3 g/dL (2-4); Potassium 4.8 mmol/L (3.5-5.0); Total Bilirubin 0.2 mg/dL (0.2-1.0); Total Protein 8.3 g/dL (6.4-8.9)
[2018-11-08 11:37] LABS: Magnesium 2.2 mg/dL (1.9-2.7)
[2018-11-08 12:27] VITALS: BP 145/75
--- NOTE | 2018-11-09 05:50 | PN ---
Progress Note - Progress Note Date of Service: 11/07/18 Note: Chest x-ray report shows emphysema This is currently in the patient's record of diagnoses This does not change her course of treatment Nothing further
== END | disposition home or self-care (01) ==
LOC: ED 09:50
DX: J44.1 Chronic obstructive pulmonary disease with (acute) exacerbation (principal); R05 Cough; R07.9 Chest pain, unspecified; Z79.01 Long term (current) use of anticoagulants; Z87.891 Personal history of nicotine dependence
CPT/HCPCS: 36415; 80053; 83605; 83735; 83880; 84484; 85025; 86140; 87040; 93005; 96374; 99283; A9270-GY

== ENCOUNTER 2019-05-17 09:30 | Emergency (ER) | payer MEDICARE ==
--- NOTE | 2019-05-17 10:23 | ED ---
Lower Extremity - HPI Summary HPI Summary: Pt is a 74 y/o F presenting to the ED with a chief complaint of R ankle pain. She states she was asleep and when she woke up her R ankle was edematous, painful, and she could not walk on it. She reports decreased ROM. Her sx are worsened by palpation, weight bearing, and motion. She denies fever. - History of Current Complaint Chief Complaint: EDExtremityLower Stated Complaint: "RIGHT ANKLE SWELLING PER PT" Time Seen by Provider: 05/17/19 09:41 Hx Obtained From: Patient Mechanism Of Injury: Unknown Onset of Pain: Hours Onset/Duration: Hours Severity Initially: Moderate Severity Currently: Severe Pain Intensity: 10 Pain Scale Used: 0-10 Numeric Timing: Constant, Lasting Hours Location: Is Discrete @ - R ankle Character Of Pain: Aching Associated Signs And Symptoms: Positive: Swelling Aggravating Factor(s): Movement, Weight Bearing, Other - touch Alleviating Factor(s): Nothing Able to Bear Weight: No - Allergies/Home Medications Allergies/Adverse Reactions: Allergies Allergy/AdvReac Type Severity Reaction Status Date / Time roflumilast Allergy Unknown Unknown Verified 05/17/19 09:39 Reaction Details aspirin AdvReac Intermediate Abdominal Verified 05/17/19 09:39 Pain codeine AdvReac Intermediate GI Upset Verified 05/17/19 09:39 lisinopril AdvReac Intermediate Coughing Verified 05/17/19 09:39 spironolactone AdvReac Intermediate Dizziness Verified 05/17/19 09:39 PMH/Surg Hx/FS Hx/Imm Hx Previously Healthy: Yes Endocrine/Hematology History: Reports: Hx Anticoagulant Therapy - xarelto, Hx Diabetes - TYPE 2, Hx Thyroid Disease Cardiovascular History: Reports: Hx Angina, 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, Hx Congestive Heart Failure - SYSTOLIC HEART FAILURE, Hx Coronary Artery Disease, Hx Hypercholesterolemia, Hx Hypertension - WELL CONTROLLED, Hx Myocardial Infarction, Hx Pacemaker/ICD, Hx Valvular Heart Disease - PAROXYSMAL A-FIB, Other Cardiovascular Problems/Disorders - HX ISCHEMIC CARDIOMYOPATHY, PERICARDIAL EFFUSION 01/17 Respiratory History: Reports: Hx Asthma, Hx Chronic Obstructive Pulmonary Disease (COPD), Hx Pulmonary Embolism, Hx Sleep Apnea Denies: Hx Cystic Fibrosis GI History: Reports: Hx Gastroesophageal Reflux Disease - CONTROL WITH MEDS, Other GI Disorders - OCCASIONAL ESOPHAGEAL SPASMS Denies: Hx Diverticulosis History: Reports: Hx Kidney Stones - LEFT, Other Problems/Disorders - HX OF SEPSIS, UTI 11/27/15, LEFT URETERAL CALCULUS Musculoskeletal History: Reports: Other Musculoskeletal History - HX SCIATICA LEFT LEG Sensory History: Reports: Hx Cataracts - ASHLEE, Hx Contacts or Glasses Denies: Hx Eye Injury, Hx Eye Prosthesis, Hx Deafness, Hx Hearing Aid, Hx Hearing Problem Opthamlomology History: Reports: Hx Cataracts - ASHLEE, Hx Contacts or Glasses Denies: Hx Eye Injury, Hx Eye Prosthesis Neurological History: Reports: Other Neuro Impairments/Disorders - RESTLESS LEG SYNDROME - Surgical History Surgery Procedure, Year, and Place: 28 YRS OF AGE- BILAT BUNIONECTOMIES- [facility] [place]. [place] - [facility]. 1967 APPENDECTOMY- [facility]. 01/11/2015 PACEMAKER/AICD- [facility] [place]. CYSTO WITH STENT INSERTION X3- [facility] [place] Hx Anesthesia Reactions: No - Immunization History Date of Tetanus Vaccine: unknown Date of Influenza Vaccine: 09/2017 Infectious Disease History: No Infectious Disease History: Denies: Traveled Outside the [place] in Last 30 Days - Family History Known Family History: Positive: Cardiac Disease - father at 49, Other - Cataract (brother) - Social History Alcohol Use: None Hx Substance Use: No Substance Use Type: Reports: None Hx Tobacco Use: Yes - not currently Smoking Status (MU): Former Smoker Type: Cigarettes Amount Used/How Often: PACK A DAY Length of Time of Smoking/Using Tobacco: 20 Have You Smoked in the Last Year: No Review of Systems Negative: Fever Positive: Arthralgia, Decreased ROM, Edema All Other Systems Reviewed And Are Negative: Yes Physical Exam - Summary Physical Exam Summary: Appearance: The patient is well-nourished in no acute distress and in no acute pain. Skin: The skin is warm and dry and skin color reflects adequate perfusion. HEENT: The head is normocephalic and atraumatic. The pupils are equal and reactive. The conjunctivae are clear and without drainage. Nares are patent and without drainage. Mouth reveals moist mucous membranes and the throat is without erythema and exudate. The external ears are intact. The ear canals are patent and without drainage. The tympanic membranes are intact. Neck: The neck is supple with full range of motion and non-tender. There are no carotid bruits. There is no neck vein distension. Respiratory: Chest is non-tender. Lungs are clear to auscultation and breath sounds are symmetrical and equal. Cardiovascular: Heart is regular rate and rhythm. There is no murmur or rub auscultated. Pulses are symmetrical and equal. Abdomen: The abdomen is soft and non-tender. There are normal bowel sounds heard in all four quadrants and there is no organomegaly palpated. Musculoskeletal: There is no back tenderness noted. R ankle is diffusely edematous, and there is mild ecchymosis at lateral malleolus. It is tender diffusely but the vasculature and motor are intact. There is good capillary refill. There is no calf tenderness elicited. Neurological: Patient is alert and oriented to person, place and time. The patient has symmetrical motor strength in all four extremities. Cranial nerves are grossly intact. Deep tendon reflexes are symmetrical and equal in all four extremities. Psychiatric: The patient has an appropriate affect and does not exhibit any anxiety or depression. Triage Information Reviewed: Yes Vital Signs On Initial Exam: Initial Vitals Temp Pulse Resp BP Pulse Ox 96.9 F 71 20 126/79 92 05/17/19 09:36 05/17/19 09:36 05/17/19 09:36 05/17/19 09:36 05/17/19 09:36 Vital Signs Reviewed: Yes Diagnostics - Vital Signs Vital Signs Temp Pulse Resp BP Pulse Ox 05/17/19 09:36 96.9 F 71 20 126/79 92 - Laboratory Result Diagrams: 05/17/19 11:59 05/17/19 11:59 Lab Statement: Any lab studies that have been ordered have been reviewed, and results considered in the medical decision making process. - Radiology R ankle XR Radiology Interpretation Completed By: Radiologist Summary of Radiographic Findings: Nonfocal soft tissue swelling, talocrural joint effusion, and mild osteoarthritis. ED physician has reviewed this report. Lower Extremity Course/Dx - Course Course Of Treatment: Yesterday afternoon she took a nap and when she woke up her right ankle was hurting her. It hurt when she walked yesterday but she was able to sleep all night. When she got up and felt fine but then after walking to the bathroom and back it hurt again. She denies any fever, chills, nausea, vomiting or systemic symptoms. She was nontoxic in appearance with stable vitals. Her right ankle was diffusely swollen and tender to range of motion. There was no ligamentous laxity. X-ray showed some effusion in the joint. She did not have a fever, leukocytosis or elevation of her CRP. Although the possibility of a septic joint remains, this is unlikely. I recommended we immobilize her ankle and get her follow-up. If she is worsening or develops any new symptoms I recommended she return immediately to the emergency department. - Diagnoses Provider Diagnoses: Effusion of ankle joint, right Discharge - Sign-Out/Discharge Documenting (check all that apply): Patient Departure Patient Received Moderate/Deep Sedation with Procedure: No - Discharge Plan Condition: Stable Disposition: HOME Patient Education Materials: Walking Boot (ED) Referrals: Ok Sales MD [Primary Care Provider] - Additional Instructions: Please follow up with Dr. Sales within the next 2-3 days. Return to the ED with any new or worsening symptoms. - Billing Disposition and Condition Condition: STABLE Disposition: Home - Attestation Statements Document Initiated by Scribe: Yes Documenting Scribe: Chrissie Randall Provider For Whom Bene is Documenting (Include Credential): Humberto Bradley MD. Scribe Attestation: I, Chrissie Randall, scribed for Humberto Bradley MD. on 05/17/19 at 1615. Scribe Documentation Reviewed: Yes Provider Attestation: The documentation as recorded by the scribe, Chrissie Randall accurately reflects the service I personally performed and the decisions made by me, Humberto Bradley MD. Status of Scribe Document: Viewed
[2019-05-17] MEDS ORDERED: HYDROcodone/ACETAMIN 5-325 MG* 1 TAB PO ONE (11:25)
[2019-05-17] MEDS ORDERED: traMADol TAB* 50 MG PO ONE (11:44)
[2019-05-17 12:06] LABS: ABS Basophils 0.1 10^3/ul (0-0.2); ABS Eosinophils 0.2 10^3/ul (0-0.6); ABS Lymphocytes 3.5 10^3/ul (1.0-4.8); ABS Monocytes 0.9 10^3/ul (0-0.8); ABS Neutrophils 3.7 10^3/ul (1.5-7.7); Eosinophil % 2.7 %; Hematocrit 37 % (35-47); Hemoglobin 12.4 g/dL (12.0-16.0); Lymphocyte % 42.3 %; Mean Corpuscular HGB Conc 34 g/dL (31-36); Mean Corpuscular Hemoglobin 32 pg (27-31); Mean Corpuscular Volume 95 fL (80-97); Mean Platelet Volume 7.9 fL (7.4-10.4); Nucleated Red Blood Cells % 0.1; Platelet Count 233 10^3/uL (150-450); Red Blood Count 3.91 10^6 /uL (3.70-4.87); Red Cell Distribution Width 14 % (10-15); White Blood Count 8.4 10^3/uL (3.5-10.8)
[2019-05-17 12:37] LABS: Albumin 4.1 g/dL (3.2-5.2); Albumin/Globulin Ratio 1.1 (1-3); BUN/Creatinine Ratio 17.6 (8-20); C Reactive Protein 3.38 mg/L (<8.01); Calcium 10.4 mg/dL (8.6-10.3); EGFR African American 72.7 (>60); EGFR Non-African American 60.1 (>60); Globulin 3.8 g/dL (2-4); Total Bilirubin 0.4 mg/dL (0.2-1.0); Total Protein 7.9 g/dL (6.4-8.9)
[2019-05-17 12:38] LABS: Potassium 5.2 mmol/L (3.5-5.0)
[2019-05-17 13:07] VITALS: BP 119/68
== END 2019-05-17 13:06 | disposition home or self-care (01) ==
LOC: ED 09:30
DX: M25.471 Effusion, right ankle (principal); E11.9 Type 2 diabetes mellitus without complications; I50.22 Chronic systolic (congestive) heart failure; I25.10 Atherosclerotic heart disease of native coronary artery without angina pectoris; E78.00 Pure hypercholesterolemia, unspecified; I11.0 Hypertensive heart disease with heart failure; I48.0 Paroxysmal atrial fibrillation; J44.9 Chronic obstructive pulmonary disease, unspecified; K21.9 Gastro-esophageal reflux disease without esophagitis; Z88.5 Allergy status to narcotic agent; Z88.8 Allergy status to other drugs, medicaments and biological substances; Z79.01 Long term (current) use of anticoagulants; Z79.899 Other long term (current) drug therapy; Z95.810 Presence of automatic (implantable) cardiac defibrillator; Z87.891 Personal history of nicotine dependence
CPT/HCPCS: 36415; 80053; 85025; 86140; 99282; A9270-GY

== ENCOUNTER 2022-12-26 05:28 | Inpatient (IN) ==
[2022-12-26] MEDS ORDERED: Albuterol/Ipratropium NEB.SOL (2.5/0.5 MG) 3 ML NEB.SOLN INH ONE (05:54)
[2022-12-26 06:28] LABS: ABS Lymphocytes 0.9 10^3/ul (1.0-4.8); ABS Monocytes 0.4 10^3/ul (0-0.8); ABS Neutrophils 7.8 10^3/ul (1.5-7.7); Hematocrit 37 % (35-47); Hemoglobin 12.3 g/dL (12.0-16.0); Lymphocyte % 9.8 %; Mean Corpuscular HGB Conc 33 g/dL (31-36); Mean Corpuscular Hemoglobin 31 pg (27-31); Mean Corpuscular Volume 93 fL (80-97); Mean Platelet Volume 8.4 fL (7.4-10.4); Platelet Count 205 10^3/uL (150-450); Red Cell Distribution Width 14 % (10-15); White Blood Count 9.2 10^3/uL (3.5-10.8)
[2022-12-26 06:54] LABS: Albumin 3.8 g/dL (3.2-5.2); Creatinine, Serum 0.8 mg/dL (0.51-0.95); Globulin 3.9 g/dL (2-4); Potassium 4.2 mmol/L (3.5-5.0); Total Bilirubin 0.9 mg/dL (0.2-1.0); Total Protein 7.7 g/dL (6.4-8.9); eGFR CKD-EPI 74.9 (>60)
[2022-12-26] MEDS ORDERED: Azithromycin 500 mg/250 ml NS 500 MG/250 ML BAG IVPB ONE (07:25)
[2022-12-26] MEDS ORDERED: cefTRIAXone 1 gm/50 mL D5W 1 GM/50 ML BAG IV ONE (07:25)
[2022-12-26] MEDS ORDERED: Lactated Ringers 1000 ml BAG 1,000 ML IV ONE (07:42)
[2022-12-26 07:50] LABS: Digoxin 0.5 ng/ml (0.8-2.0)
[2022-12-26 08:55] LABS: High Sensitivity Troponin 1 Hr 7 pg/mL (<15)
[2022-12-26] MEDS ORDERED: Albuterol 2.5mg/3 ml (0.083%) NEB.SOLN INH PRN (10:39)
[2022-12-26 10:53] LABS: PCO2 Arterial 34 mmHg (35-45); PO2 Arterial 108 mmHg (80-100)
[2022-12-26] MEDS ORDERED: Dextrose 50% Syringe 50 ml 25 GM/50 ML SYRINGE IV PUSH PRN (11:10)
[2022-12-26] MEDS ORDERED: Furosemide 20 mg/2 ml IV VIAL IV ONE (11:53)
[2022-12-26] MEDS: methylPREDNISolone SOD SUCC 40 mg/ml 1 ml VIAL IV SCH (11:53)
[2022-12-26 12:04] LABS: Magnesium 1.1 mg/dL (1.9-2.7)
[2022-12-26] MEDS ORDERED: Magnesium Sulf 4 GM/100 ML IV 4,000 MG/100 ML BAG IVPB ONE (12:08)
[2022-12-26 12:28] LABS: High Sensitivity Troponin 3 Hr 7 pg/mL (<15)
[2022-12-26 12:58] LABS: Urine Appearance Cloudy; Urine Bilirubin Negative (Negative); Urine Blood 1+ (Negative); Urine Color Yellow; Urine Glucose Negative (Negative); Urine Ketones Trace (Negative); Urine Nitrite Negative (Negative); Urine Protein 2+(100 mg/dL) (Negative); Urine Specific Gravity 1.019 (1.002-1.030); Urine Urobilinogen Negative (Negative)
[2022-12-26 12:59] LABS: TSH Ultra Thyroid Stim Horm 0.94 mcIU/mL (0.34-5.60)
[2022-12-26 13:02] LABS: Free T3 2.1 pg/mL (2.5-3.9)
[2022-12-26 13:03] LABS: Free T4 1.24 ng/dL (0.61-1.12)
[2022-12-26 13:08] LABS: Urine Bacteria Absent (Absent); Urine Red Blood Cell 1+(3-5/hpf) (Absent); Urine Squamous Epithelial Cell Present (Absent); Urine White Blood Cell Trace(0-5/hpf) (Absent)
[2022-12-26] MEDS ORDERED: Sulfur Hexaflouride MICROSPHR 25 MG VIAL ONE (13:49)
[2022-12-26] MEDS ORDERED: Iodixanol (CONTRAST) 320 MG/ML 100 ML SDV IV ONE (15:05)
[2022-12-26] MEDS: FLUTICAS/UMECLI/VILANT 100-62.5-25 MDI (NF) INH SCH (15:09)
[2022-12-26] MEDS ORDERED: Vancomycin 1,250 MG in NS 0.9% 250 ml 250 ML IVPB ONE (17:30)
[2022-12-26] MEDS ORDERED: cefTRIAXone 1 gm/50 mL D5W 1 GM/50 ML BAG IV SCH (17:30)
[2022-12-26 20:17] LABS: Magnesium 2.3 mg/dL (1.9-2.7)
[2022-12-26] MEDS: DOXYcycline 100 MG in NS 0.9% 250 ml 250 ML IVPB SCH (20:37)
[2022-12-27 05:19] LABS: ABS Lymphocytes 1.1 10^3/ul (1.0-4.8); ABS Monocytes 0.4 10^3/ul (0-0.8); ABS Neutrophils 5.4 10^3/ul (1.5-7.7); Hematocrit 36 % (35-47); Hemoglobin 11.2 g/dL (12.0-16.0); Lymphocyte % 16.5 %; Mean Corpuscular HGB Conc 31 g/dL (31-36); Mean Corpuscular Hemoglobin 31 pg (27-31); Mean Corpuscular Volume 99 fL (80-97); Mean Platelet Volume 8.7 fL (7.4-10.4); Platelet Count 184 10^3/uL (150-450); Red Blood Count 3.66 10^6 /uL (3.70-4.87); Red Cell Distribution Width 15 % (10-15)
[2022-12-27 05:41] LABS: Albumin 3.3 g/dL (3.2-5.2); Calcium 8.8 mg/dL (8.6-10.3); Potassium 4.1 mmol/L (3.5-5.0); Total Bilirubin 0.5 mg/dL (0.2-1.0)
[2022-12-27 05:47] LABS: Albumin/Globulin Ratio 0.9 (1-3); Creatinine, Serum 0.85 mg/dL (0.51-0.95); Globulin 3.7 g/dL (2-4); eGFR CKD-EPI 69.6 (>60)
[2022-12-27] MEDS: FLUTICAS/UMECLI/VILANT 100-62.5-25 MDI (NF) INH SCH (08:30)
[2022-12-27] MEDS: Insulin GLARGINE 100 un/ml 10 ml VIAL SUBCUT SCH (09:00)
[2022-12-27] MEDS: cefTRIAXone 1 gm/50 mL D5W 1 GM/50 ML BAG IV SCH (09:01)
[2022-12-27] MEDS: methylPREDNISolone SOD SUCC 40 mg/ml 1 ml VIAL IV SCH (09:01)
[2022-12-27] MEDS: DOXYcycline 100 MG in NS 0.9% 250 ml 250 ML IVPB SCH ×2 (10:49→20:59)
[2022-12-28 05:48] LABS: Hematocrit 31 % (35-47); Hemoglobin 10.2 g/dL (12.0-16.0); Mean Corpuscular HGB Conc 33 g/dL (31-36); Mean Corpuscular Hemoglobin 31 pg (27-31); Mean Corpuscular Volume 94 fL (80-97); Mean Platelet Volume 8.5 fL (7.4-10.4); Platelet Count 206 10^3/uL (150-450); Red Blood Count 3.29 10^6 /uL (3.70-4.87); Red Cell Distribution Width 14 % (10-15); White Blood Count 6.3 10^3/uL (3.5-10.8)
[2022-12-28 07:03] LABS: Calcium 8.7 mg/dL (8.6-10.3); Creatinine, Serum 0.8 mg/dL (0.51-0.95); Magnesium 1.8 mg/dL (1.9-2.7); Potassium 3.8 mmol/L (3.5-5.0); eGFR CKD-EPI 74.9 (>60)
[2022-12-28] MEDS: cefTRIAXone 1 gm/50 mL D5W 1 GM/50 ML BAG IV SCH (08:00)
[2022-12-28] MEDS ORDERED: Potassium Chlor 20 meq TAB.ER PO ONE (08:08)
[2022-12-28] MEDS: FLUTICAS/UMECLI/VILANT 100-62.5-25 MDI (NF) INH SCH (08:48)
[2022-12-28] MEDS: Insulin GLARGINE 100 un/ml 10 ml VIAL SUBCUT SCH (09:17)
[2022-12-28] MEDS: methylPREDNISolone SOD SUCC 40 mg/ml 1 ml VIAL IV SCH (09:18)
[2022-12-28] MEDS: DOXYcycline 100 MG in NS 0.9% 250 ml 250 ML IVPB SCH ×2 (09:25→22:13)
[2022-12-28] MEDS ORDERED: Potassium Chloride LIQUID 20 MEQ/15 ML LIQUID PO ONE (10:00)
[2022-12-28 16:25] LABS: Urine Appearance Clear; Urine Bilirubin Negative (Negative); Urine Blood Negative (Negative); Urine Color Straw; Urine Glucose 3+(>=500 mg/dL) (Negative); Urine Ketones Negative (Negative); Urine Nitrite Negative (Negative); Urine Protein Negative (Negative); Urine Specific Gravity 1.007 (1.002-1.030); Urine Urobilinogen Negative (Negative)
[2022-12-29] MEDS ORDERED: Magnesium Sulfate 2 gm BAG 2 GM/50 ML BAG IVPB ONE (03:58)
[2022-12-29] MEDS ORDERED: Potassium Chlor 20 meq TAB.ER PO ONE (03:59)
[2022-12-29 08:03] LABS: Albumin 3.7 g/dL (3.2-5.2); CO2 Carbon Dioxide 23 mmol/L (22-32); Calcium 9.4 mg/dL (8.6-10.3); Chloride 103 mmol/L (101-111); Sodium 137 mmol/L (135-145)
[2022-12-29 08:09] LABS: ALT 38 U/L (7-52); Albumin/Globulin Ratio 0.8 (1-3); Alkaline Phosphatase 99 U/L (35-149); Blood Urea Nitrogen 35 mg/dL (6-24); Creatinine, Serum 0.91 mg/dL (0.51-0.95); Globulin 4.5 g/dL (2-4); Glucose 206 mg/dL (70-100); Total Protein 8.2 g/dL (6.4-8.9); eGFR CKD-EPI 64.2 (>60)
[2022-12-29 08:15] LABS: Anion Gap 11 mmol/L (2-11)
[2022-12-29 08:15] LABS: Hematocrit 36 % (35-47); Hemoglobin 11.8 g/dL (12.0-16.0); Mean Corpuscular HGB Conc 33 g/dL (31-36); Mean Corpuscular Hemoglobin 31 pg (27-31); Mean Corpuscular Volume 92 fL (80-97); Mean Platelet Volume 8.2 fL (7.4-10.4); Platelet Count 283 10^3/uL (150-450); Red Blood Count 3.85 10^6 /uL (3.70-4.87); Red Cell Distribution Width 14 % (10-15); White Blood Count 10.7 10^3/uL (3.5-10.8)
[2022-12-29] MEDS: Insulin GLARGINE 100 un/ml 10 ml VIAL SUBCUT SCH (08:52)
[2022-12-29] MEDS: methylPREDNISolone SOD SUCC 40 mg/ml 1 ml VIAL IV SCH (08:54)
[2022-12-29] MEDS: cefTRIAXone 1 gm/50 mL D5W 1 GM/50 ML BAG IV SCH (08:54)
[2022-12-29] MEDS: DOXYcycline 100 MG in NS 0.9% 250 ml 250 ML IVPB SCH ×2 (10:11→20:38)
[2022-12-29 10:12] LABS: Magnesium 2.6 mg/dL (1.9-2.7); Potassium Redraw 4.5 mmol/L (3.5-5.0)
[2022-12-29] MEDS: guaiFENesin DM SUGAR FREE 100 MG/10 MG 5 ML UDC PO SCH ×2 (10:18→20:33)
[2022-12-29] MEDS: FLUTICAS/UMECLI/VILANT 100-62.5-25 MDI (NF) INH SCH (10:54)
[2022-12-29 13:33] LABS: INR 1.23 (0.88-1.18)
[2022-12-30 04:55] LABS: Hematocrit 38 % (35-47); Hemoglobin 12.4 g/dL (12.0-16.0); Mean Corpuscular HGB Conc 33 g/dL (31-36); Mean Corpuscular Hemoglobin 31 pg (27-31); Mean Corpuscular Volume 93 fL (80-97); Mean Platelet Volume 8.1 fL (7.4-10.4); Platelet Count 305 10^3/uL (150-450); Red Blood Count 4.05 10^6 /uL (3.70-4.87); Red Cell Distribution Width 14 % (10-15); White Blood Count 10.7 10^3/uL (3.5-10.8)
[2022-12-30 05:47] LABS: Creatinine, Serum 0.76 mg/dL (0.51-0.95); Potassium 4.3 mmol/L (3.5-5.0); eGFR CKD-EPI 79.7 (>60)
[2022-12-30 06:08] LABS: ABS Monocytes 1.1 10^3/ul (0-0.8); ABS Neutrophils 7.6 10^3/ul (1.5-7.7); Lymphocyte % 18.6 %
[2022-12-30] MEDS: FLUTICAS/UMECLI/VILANT 100-62.5-25 MDI (NF) INH SCH (07:08)
[2022-12-30] MEDS: cefTRIAXone 1 gm/50 mL D5W 1 GM/50 ML BAG IV SCH (08:22)
[2022-12-30] MEDS: methylPREDNISolone SOD SUCC 40 mg/ml 1 ml VIAL IV SCH (08:23)
[2022-12-30] MEDS: guaiFENesin DM SUGAR FREE 100 MG/10 MG 5 ML UDC PO SCH ×2 (08:24→20:29)
[2022-12-30] MEDS: Insulin GLARGINE 100 un/ml 10 ml VIAL SUBCUT SCH (10:04)
[2022-12-30] MEDS: DOXYcycline 100 MG in NS 0.9% 250 ml 250 ML IVPB SCH ×2 (10:05→20:32)
[2022-12-30] MEDS: Lidocaine PATCH 5% PATCH TRANSDERM SCH (19:53)
[2022-12-31 06:29] LABS: Hematocrit 40 % (35-47); Mean Corpuscular HGB Conc 32 g/dL (31-36); Mean Corpuscular Hemoglobin 30 pg (27-31); Mean Corpuscular Volume 94 fL (80-97); Mean Platelet Volume 7.9 fL (7.4-10.4); Platelet Count 327 10^3/uL (150-450); Red Blood Count 4.29 10^6 /uL (3.70-4.87); Red Cell Distribution Width 14 % (10-15)
[2022-12-31 06:47] LABS: ABS Basophils 0.1 10^3/ul (0-0.2); ABS Lymphocytes 2.5 10^3/ul (1.0-4.8); ABS Monocytes 1.3 10^3/ul (0-0.8); ABS Neutrophils 8.1 10^3/ul (1.5-7.7); Eosinophil % 0.2 %; Nucleated Red Blood Cells % 0.1
[2022-12-31 06:51] LABS: Calcium 9.3 mg/dL (8.6-10.3); Magnesium 2.1 mg/dL (1.9-2.7); Potassium 4.6 mmol/L (3.5-5.0)
[2022-12-31 06:57] LABS: Creatinine, Serum 0.67 mg/dL (0.51-0.95); eGFR CKD-EPI 88.9 (>60)
[2022-12-31] MEDS: FLUTICAS/UMECLI/VILANT 100-62.5-25 MDI (NF) INH SCH (07:16)
[2022-12-31] MEDS: Lidocaine PATCH 5% PATCH TRANSDERM SCH (08:28)
[2022-12-31] MEDS: Insulin GLARGINE 100 un/ml 10 ml VIAL SUBCUT SCH (08:35)
[2022-12-31] MEDS: methylPREDNISolone SOD SUCC 40 mg/ml 1 ml VIAL IV SCH (08:45)
[2022-12-31] MEDS: guaiFENesin DM SUGAR FREE 100 MG/10 MG 5 ML UDC PO SCH ×2 (08:48→21:00)
[2022-12-31] MEDS: cefTRIAXone 1 gm/50 mL D5W 1 GM/50 ML BAG IV SCH (08:50)
[2022-12-31] MEDS ORDERED: Saline NASAL SPRAY 0.65% BTL BOTH NARES PRN (11:14)
[2022-12-31] MEDS ORDERED: Alteplase (CATHFLO) 2 MG VIAL IV ONE (17:47)
[2023-01-01 06:03] LABS: Hematocrit 43 % (35-47); Mean Corpuscular HGB Conc 33 g/dL (31-36); Mean Corpuscular Hemoglobin 31 pg (27-31); Mean Corpuscular Volume 93 fL (80-97); Mean Platelet Volume 8.1 fL (7.4-10.4); Platelet Count 382 10^3/uL (150-450); Red Blood Count 4.56 10^6 /uL (3.70-4.87); Red Cell Distribution Width 14 % (10-15); White Blood Count 12.5 10^3/uL (3.5-10.8)
[2023-01-01 06:30] LABS: ABS Basophils 0.1 10^3/ul (0-0.2); ABS Lymphocytes 3.4 10^3/ul (1.0-4.8); ABS Monocytes 1.3 10^3/ul (0-0.8); ABS Neutrophils 7.8 10^3/ul (1.5-7.7); Eosinophil % 0.3 %; Lymphocyte % 26.8 %
[2023-01-01 06:37] LABS: Calcium 9.2 mg/dL (8.6-10.3); Creatinine, Serum 0.87 mg/dL (0.51-0.95); Magnesium 2.2 mg/dL (1.9-2.7); Potassium 4.6 mmol/L (3.5-5.0); eGFR CKD-EPI 67.7 (>60)
[2023-01-01] MEDS: FLUTICAS/UMECLI/VILANT 100-62.5-25 MDI (NF) INH SCH (07:08)
[2023-01-01] MEDS: methylPREDNISolone SOD SUCC 40 mg/ml 1 ml VIAL IV SCH (09:25)
[2023-01-01] MEDS: Insulin GLARGINE 100 un/ml 10 ml VIAL SUBCUT SCH (09:25)
[2023-01-01] MEDS: guaiFENesin DM SUGAR FREE 100 MG/10 MG 5 ML UDC PO SCH ×2 (09:28→22:30)
[2023-01-01] MEDS: Lidocaine PATCH 5% PATCH TRANSDERM SCH (09:29)
[2023-01-02 06:32] LABS: Hematocrit 40 % (35-47); Hemoglobin 12.9 g/dL (12.0-16.0); Mean Corpuscular HGB Conc 32 g/dL (31-36); Mean Corpuscular Hemoglobin 30 pg (27-31); Mean Corpuscular Volume 93 fL (80-97); Mean Platelet Volume 8.4 fL (7.4-10.4); Platelet Count 377 10^3/uL (150-450); Red Blood Count 4.29 10^6 /uL (3.70-4.87); Red Cell Distribution Width 14 % (10-15); White Blood Count 12.4 10^3/uL (3.5-10.8)
[2023-01-02 06:50] LABS: Calcium 8.8 mg/dL (8.6-10.3); Creatinine, Serum 0.81 mg/dL (0.51-0.95); Magnesium 2.3 mg/dL (1.9-2.7); Potassium 4.4 mmol/L (3.5-5.0); eGFR CKD-EPI 73.8 (>60)
[2023-01-02 07:03] LABS: ABS Lymphocytes 3.2 10^3/ul (1.0-4.8); ABS Monocytes 0.9 10^3/ul (0-0.8); ABS Neutrophils 8.3 10^3/ul (1.5-7.7); Eosinophil % 0.3 %; Lymphocyte % 25.6 %
[2023-01-02] MEDS: FLUTICAS/UMECLI/VILANT 100-62.5-25 MDI (NF) INH SCH (07:42)
[2023-01-02] MEDS: guaiFENesin DM SUGAR FREE 100 MG/10 MG 5 ML UDC PO SCH (09:59)
[2023-01-02] MEDS: Insulin GLARGINE 100 un/ml 10 ml VIAL SUBCUT SCH (10:00)
[2023-01-02] MEDS: Lidocaine PATCH 5% PATCH TRANSDERM SCH (10:01)
[2023-01-02] MEDS ORDERED: [UNRECOGNIZED DRUG - OTHER] PO PRN (11:04)
[2023-01-02] MEDS ORDERED: BENZOCAINE PO PRN (11:04)
[2023-01-02 14:12] VITALS: BP 79/58
== END 2023-01-02 16:20 | disposition home or self-care (01) | DRG 193 ==
LOC: ED 05:28 → EDHOLD 10:23 → ICU 16:46 → MEDTELE 01-01 15:20
PROVIDERS: ADMIT Internal Medicine Critical Care Medicine; ATTEND Internal Medicine Critical Care Medicine